=== PATIENT | female | born 1980 | race Two or more races ===

== ENCOUNTER 2020-08-10 09:21 | Emergency (ER) | payer OTHER, SELFPAY ==
[2020-08-10 09:33] VITALS: BP 100/59; PULSE 84; RESP 16; TEMP 36.6; O2SAT 100; BMI 28.3
--- NOTE | 2020-08-10 10:03 | ED.FEMALEGU ---
HPI - Female Genitourinary General Chief complaint: Abdominal Pain <MC Haro - Last Filed: 08/10/20 10:58> Stated complaint: abd pain <MC Haro - Last Filed: 08/10/20 10:58> Time Seen by Provider: 08/10/20 09:53 <MC Haro - Last Filed: 08/10/20 10:58> Source: patient <MC Haro Last Filed: 08/10/20 10:58> Mode of arrival: ambulatory <MC Haro Last Filed: 08/10/20 10:58> Limitations: no limitations <MC Haro Last Filed: 08/10/20 10:58> History of Present Illness HPI Narrative: 40 y/o female presenting with white, thick vaginal discharge for the last 3 days along with external itching & lower abdominal discomfort. She had her menses last week and she states it was much heavier than usual. She is sexually active with the same partner, no known exposure to STI. She denies N/V/D, fevers, upper abdominal pain. She states she called her doctor this morning and could not get in to be seen so she came to the ED for evaluation. <MC Haro - Last Filed: 08/10/20 10:58> Date of Last Menstrual Period: 08/01/20 <MC Haro - Last Filed: 08/10/20 10:58> Related Data : 3 <MC Haro - Last Filed: 08/10/20 10:58> Para: 3 <MC Haro - Last Filed: 08/10/20 10:58> Allergies/Adverse reactions: Allergies Allergy/AdvReac Type Severity Reaction Status Date / Time No Known Allergies Allergy Unverified 06/17/20 15:07 [No Known Allergies*] <MC Haro Last Filed: 08/10/20 10:58> Review of Systems Review of Systems: Constitutional: No Fever, No Chills ENT/Mouth: No sore throat, No Rhinorrhea, No Swallowing Difficulty Eyes: No Eye Pain, No Swelling, No Redness Cardiovascular: No Chest Pain, No SOB, No Orthopnea, No Edema Respiratory: No Cough, No Sputum, No Wheezing, No dyspnea Gastrointestinal: No Nausea, No Vomiting, No Diarrhea, + abdominal Pain (lower), No Hematochezia, No Melena Genitourinary: No Dysuria, No Urinary Frequency, No Hematuria, +vaginal discharge Musculoskeletal: + joint pain (left sciatica, chronic), No Myalgias Skin: No Skin Lesions, No rash Neuro: No Weakness, No Numbness, No Dizziness, No Headache Psych: No Anxiety/Panic, No Depression <MC Haro - Last Filed: 08/10/20 10:58> [facility] Past Medical History Attestation statement: The following information was validated with the patient. <MC Haro - Last Filed: 08/10/20 10:58> Medical History: Medical History Anxiety <MC Haro - Last Filed: 08/10/20 10:58> : 3 <MC Haro - Last Filed: 08/10/20 10:58> Para: 3 <MC Haro - Last Filed: 08/10/20 10:58> Date of Last Menstrual Period: 08/01/20 <MC Haro - Last Filed: 08/10/20 10:58> Social History Social History: Social History Alcohol intake: current Alcohol intake frequency: a few times a month Smoked in Last 30 Days: No Use of substances other than those prescribed or required for medical reasons: No Advance Directives: No Advance Directives Information Provided: No <MC Haro - Last Filed: 08/10/20 10:58> Physical Exam Vital Signs: Vital Signs: Last Vital Signs Temp 97.9 F 08/10/20 09:33 Pulse 84 08/10/20 09:33 Resp 16 08/10/20 09:33 BP 100/59 L 08/10/20 09:33 Pulse Ox 100 08/10/20 09:33 Body Mass Index 28.3 Appearance: Alert. Oriented X3. No acute distress. Eyes: Pupils equal, round and reactive to light. ENT: Pharynx normal. Neck: Normal inspection. Neck supple. CVS: Normal heart rate and rhythm. Pulses normal. Respiratory: No respiratory distress. Breath sounds normal. Abdomen: Soft, obese and nontender. +BS x4 Pelvic exam: normal external genitalia, pelvic exam revealing thick, white discharge, cervical os closed. no CMT. Skin: Skin warm and dry. Normal skin color. Normal skin turgor. No rashes. Extremities: No lower extremity edema. Neuro: Oriented X 3. No motor deficit. No sensory deficit. <MC Haro - Last Filed: 08/10/20 10:58> Vital Signs: Last Vital Signs Temp 97.9 F 08/10/20 09:33 Pulse 84 08/10/20 09:33 Resp 16 08/10/20 09:33 BP 100/59 L 08/10/20 09:33 Pulse Ox 100 08/10/20 09:33 Body Mass Index 28.3 <Freddie Hameed MD - Last Filed: 08/13/20 01:53> Course Course Course Narrative: 40 y/o female presenting with lower abdominal discomfort and vaginal discharge. Abd exam is benign. Pelvic exam revealing thick white vaginal discharge consistent with vulvovaginal candidiasis. Will treat with Diflucan 150 mg x1. UA pending. <MC Haro - Last Filed: 08/10/20 10:58> I have reviewed the chart <Freddie Hameed MD - Last Filed: 08/13/20 01:53> Reevaluation(s) Reevaluation #1: UA and test are negative. Patient is stable for discharge. Advised to return to the ER if symptoms worsen or don't improve. She will attempt to call her PCP again tomorrow. <MC Haro - Last Filed: 08/10/20 10:58> MDM - Female Genitourinary Differential Diagnosis Differential diagnosis: Likely urinary tract infection, bacterial vaginosis, trichomoniasis, cervicitis, ovarian cyst, vaginitis and cystitis <MC Haro - Last Filed: 08/10/20 10:58> Medical Records Attestation: I reviewed the patient's medical records. <MC Haro - Last Filed: 08/10/20 10:58> Lab Data Labs: Lab Results 08/10/20 08/10/2008/10/20 Range/Units 10:15 10:15 10:27 Urine Color YELLOW Urine Appearance CLEAR Urine pH 6.0 (5.0-8.0) Ur Specific [place] >= 1.030 H (1.005-1.025) Urine Protein NEG (NEG-TRACE) MG/DL Urine Glucose (UA) NEG (NEG) MG/DL Urine Ketones NEG (NEG) MG/DL Urine Blood NEG (NEG) Urine Nitrite NEG (NEG) Ur Leukocyte Esterase NEG (NEG) Urine Test NEGATIVE (NEGATIVE) Lalitha species DNA Negative (Negative) Chlam trachomat DNA PCR NOT DETECTED (Not Detect.) Gardnerella DNA Probe Positive A (Negative) N.gonorrhoeae DNA (PCR) NOT DETECTED (Not Detect.) Trichomonas DNA Probe Negative (Negative) <MC Haro - Last Filed: 08/10/20 10:58> Lab Results 08/10/20 08/10/20 08/10/20 Range/Units 10:15 10:15 10:27 Urine Color YELLOW Urine Appearance CLEAR Urine pH 6.0 (5.0-8.0) Ur Specific [place] >= 1.030 H (1.005-1.025) Urine Protein NEG (NEG-TRACE) MG/DL Urine Glucose (UA) NEG (NEG) MG/DL Urine Ketones NEG (NEG) MG/DL Urine Blood NEG (NEG) Urine Nitrite NEG (NEG) Ur Leukocyte Esterase NEG (NEG) Urine Test NEGATIVE (NEGATIVE) Lalitha species DNA Negative (Negative) Chlam trachomat DNA PCR NOT DETECTED (Not Detect.) Gardnerella DNA Probe Positive A (Negative) N.gonorrhoeae DNA (PCR) NOT DETECTED (Not Detect.) Trichomonas DNA Probe Negative (Negative) <Freddie Hameed MD - Last Filed: 08/13/20 01:53> Discharge Plan Discharge Clinical Impression: Candidal vulvovaginitis <MC Haro - Last Filed: 08/10/20 10:58> Patient Disposition: Home, Self-Care <MC Haro - Last Filed: 08/10/20 10:58> Instructions: Yeast Infection (ED) <MC Haro - Last Filed: 08/10/20 10:58> Additional Instructions: You were treated for a probable yeast infection today. No further treatment is needed at this time. You were tested for chlamydia, gonorrhea, trichomonas and bacterial vaginosis (BV). If any of these are positive we will call you with the results and start you on the appropriate antibiotic. No sexual activity until all of your symptoms are completely resolved. Follow up with your doctor this week. If your symptoms don't improve with treatment or worsen, come back to the ER for further evaluation. <MC Haro - Last Filed: 08/10/20 10:58> Interventions: ED Discharge Assessment Last Done: 08/10/20 11:02 <MC Haro - Last Filed: 08/10/20 10:58> Discharge Date/Time: 08/10/20 11:12 <MC Haro - Last Filed: 08/10/20 10:58>
[2020-08-10] MEDS: Fluconazole 150 MG TABLET PO (10:37)
[2020-08-10 10:45] LABS: Appearance Urine CLEAR; Color Urine YELLOW; Glucose Urine UA NEG (NEG); Leukocyte Esterase Urine NEG (NEG); Nitrite Urine NEG (NEG); Specific Gravity - Urine >= 1.030 (1.005-1.025); Urine Blood NEG (NEG); Urine Ketones NEG (NEG); Urine Protein NEG (NEG-TRACE)
[2020-08-10 10:47] LABS: UPreg QC Valid YES; Urine Pregnancy NEGATIVE (NEGATIVE)
[2020-08-10 12:36] LABS: CT PCR NOT DETECTED (Not Detect.); NG PCR NOT DETECTED (Not Detect.)
[2020-08-11 09:06] LABS: BV Int Neg Control Negative (Negative); BV Int Pos Control Positive (Positive)
== END 2020-08-10 11:12 | disposition home or self-care (01) ==
PROVIDERS: Physician Assistant; Emergency Provider Emergency Medicine; PCP Internal Medicine
DX: B37.3 Candidiasis of vulva and vagina (principal); R10.2 Pelvic and perineal pain; L29.8 Other pruritus
CPT/HCPCS: 81003; 81025; 87480; 87491; 87510; 87591; 87660; 96360; 99284

== ENCOUNTER 2020-08-15 11:00 | Emergency (ER) | payer OTHER, SELFPAY ==
[2020-08-15 11:19] VITALS: BP 126/71; PULSE 81; RESP 16; TEMP 36.9; O2SAT 100; BMI 28.1
[2020-08-15 11:26] VITALS: RESP 16
--- NOTE | 2020-08-15 11:45 | ED_ITS ---
HPI - Female Genitourinary General Chief complaint: Abdominal Pain Stated complaint: ABD PAIN Time Seen by Provider: 08/15/20 11:29 Source: patient Mode of arrival: ambulatory Limitations: no limitations History of Present Illness HPI Narrative: 40yoF c PMHx of anxiety presenting to the ED c c/o suprapubic abdominal pain/bloating/lower back pain with associated thick white malodorous discharge for over a week. Reports she was seen in the ED for the same thing a week ago and was diagnosed with a yeast infection and given Diflucan and reports no symptomatic relief. Denies any additional complaints or concerns at this time. Related Data Previous Rx's Medication Instructions Recorded acetaminophen-codeine 1 tab PO Q8H PRN #10 tab 08/15/20 ibuprofen 800 mg PO Q8H PRN #14 tab 08/15/20 metronidazole [Flagyl] 500 mg PO BID 7 Days #14 tab 08/15/20 Allergies Allergy/AdvReac Type Severity Reaction Status Date / Time No Known Allergies Allergy Unverified 06/17/20 15:07 [No Known Allergies*] Review of Systems Review of Systems: Constitutional : No Weight loss, No Fever, No Chills, No Night Sweats, No Fatigue, NoMalaise ENT/Mouth: No ear pain, No sore throat, No Difficulty swallowing Cardiovascular : No Chest Pain, No SOB, No Dyspnea on Exertion, No Orthopnea, NoEdema, No Palpitations Respiratory : No Cough, No Sputum, No Wheezing, No Dyspnea Gastrointestinal : No Nausea, No Vomiting, No Diarrhea, + abdominal Pain, No Hematochezia, No Melena Genitourinary : No irregular bleeding, No Dysuria, No Urinary Frequency, No Hematuria, No Urinary Incontinence, No Urgency, No Flank Pain, + Vaginal discharge Musculoskeletal : No joint pain, No Myalgias, No Joint Swelling Skin : No Skin Lesions, No rash Neuro : No Weakness, No Numbness, No Paresthesias, No Loss of Consciousness, NoDizziness, No Headache Psych : No Social Issues, Heme/Lymph: No Bruising, No Bleeding,No Lymphadenopathy Endocrine : No Polyuria, No Polydipsia, No Temperature Intolerance Yes all other systems are reviewed and are negative PMFSH Past Medical History Attestation statement: The following information was validated with the patient. Medical History Anxiety Social History Social History Alcohol intake: never Smoking Status: Never smoker Use of substances other than those prescribed or required for medical reasons: No Advance Directives: No Advance Directives Information Provided: No Physical Exam Vital Signs: Vital Signs: Last Vital Signs Temp 98.4 F 08/15/20 11:19 Pulse 81 08/15/20 11:19 Resp 16 08/15/20 11:26 BP 126/71 08/15/20 11:19 Pulse Ox 100 08/15/20 11:19 Body Mass Index 28.1 vital signs have been reviewed as normal and appeared to be correct. Blood pressure normal. Heart rate normal. Respiration rate normal. Temperature normal. Oxygen saturation normal. Appearance: Alert. Oriented X3. No acute distress. Head: Normal external exam. Normocephalic. Eyes: PERRLA. EOMI. Conjunctiva and sclera normal. Eyelids normal. ENT: Pharynx normal. Uvula midline. Moist mucous membranes. No trismus noted. No drooling noted. No muffled voice noted. Neck: Normal inspection. Neck supple. FROM. No adenopathy. Thyroid Normal. No meningeal signs. No neck mass noted. CVS: Normal heart rate and rhythm. Heart sound normal. No murmurs noted. Pulses normal throughout. Respiratory: No respiratory distress. Painless inspiration. Breath sounds normal. No wheezes/rales/rhonchi noted. Chest nontender. No accessory muscle usage noted or decreased air movement noted. Abdomen: Soft and nontender. Bowel sounds normal in all 4 quadrants. No distention noted. No organomegaly noted. No visible injury noted. Back: No CVA tenderness. Full range of motion noted. Skin: Skin warm and dry. Normal skin color. Normal skin turgor. No rashes/lesions/lacerations noted. Extremities: Extremities exhibit normal range of motion. Extremities nont [place]. Neuro: Oriented X 3. No motor deficit. No sensory deficit. Reflexes normal. Course Course Course Narrative: 11:40AM - 40yoF c PMHx of anxiety presenting to the ED c c/o suprapubic abdominal pain/bloating/lower back pain with associated thick white malodorous discharge for over a week. Reports she was seen in the ED for the same thing a week ago and was diagnosed with a yeast infection and given Diflucan and reports no symptomatic relief. - I reviewed the patient's cultures and urine and her urine was within normal limits, UHCG normal, she was positive for bacterial vaginosis. Negative for candidiasis, gonorrhea, chlamydia and Trichomonas - therefore at this time will treat for bacterial vaginosis and instructions return if any new or worsening symptoms to follow-up with primary care provider. Patient understands agrees the plan. MDM - Female Genitourinary Medical Records Attestation: I reviewed the patient's medical records. Lab Data Attestation: I reviewed the patient's lab results. Discharge Plan Discharge Clinical Impression: Bacterial vaginosis Patient Disposition: Home, Self-Care Instructions: Bacterial Vaginosis (ED) Prescriptions: New metronidazole [Flagyl] 500 mg tablet 500 mg PO BID 7 Days Qty: 14 RF: 0 acetaminophen-codeine 300-30 mg tablet 1 tab PO Q8H PRN (Reason: pain) Qty: 10 RF: 0 ibuprofen 800 mg tablet 800 mg PO Q8H PRN (Reason: pain) Qty: 14 RF: 0 Referrals: Physician,Unknown [Primary Care Provider] - 2 days (YOUR pcp) Stand Alone Forms: Work/School Release Print Language: Sudanese
[2020-08-15] MEDS: metroNIDAZOLE 500 MG TABLET PO (11:55)
[2020-08-15 12:10] LABS: Glucose Urine UA NEG (NEG); Leukocyte Esterase Urine NEG (NEG); Nitrite Urine NEG (NEG); Urine Blood NEG (NEG); Urine Ketones NEG (NEG); Urine Protein NEG (NEG-TRACE)
[2020-08-15 12:13] LABS: Appearance Urine CLEAR; Color Urine YELLOW; UPreg QC Valid YES; Urine Pregnancy NEGATIVE (NEGATIVE)
== END 2020-08-15 12:09 | disposition home or self-care (01) ==
PROVIDERS: Physician Assistant Medical; Emergency Provider Emergency Medicine
DX: N76.0 Acute vaginitis (principal); R10.9 Unspecified abdominal pain; M54.5 Low back pain; Z79.899 Other long term (current) drug therapy
CPT/HCPCS: 81003; 81025; 99283; 99284

== ENCOUNTER 2020-08-31 09:53 | Emergency (ER) | payer OTHER, SELFPAY ==
--- NOTE | 2020-08-31 10:01 | ED.ABDPAIN ---
HPI - Abdominal Pain General Chief Complaint: Abdominal Pain Stated Complaint: abd pain Time Seen by Provider: 08/31/20 10:01 Source: patient Mode of arrival: ambulatory Limitations: no limitations History of Present Illness HPI narrative: seen here on 08/10 and 08/15 treated for BV and yeast infection review of patient's cultures and urine were within normal limits, UHCG normal, she was positive for bacterial vaginosis. Negative for candidiasis, gonorrhea, chlamydia and Trichomonas, states she took all of her medications but she still has lower abdominal pain and some vaginal itching with back pain now MD elicited complaint: abdominal pain Pertinent past history: none Onset (ago): week(s) (few) Pain Consistency: constant Location: suprapubic Severity: moderate Quality: aching Radiation: back Migration to: no migration Exacerbating factors: movement Relieving factors: nothing Context: recent antibiotic use (finished flagyl for BV) Associated symptoms: nausea Related Data Previous Rx's Medication Instructions Recorded acetaminophen-codeine 1 tab PO Q8H PRN #10 tab 08/15/20 ibuprofen 800 mg PO Q8H PRN #14 tab 08/15/20 metronidazole [Flagyl] 500 mg PO BID 7 Days #14 tab 08/15/20 cyclobenzaprine 10 mg PO TID PRN #14 tab 08/31/20 Allergies Allergy/AdvReac Type Severity Reaction Status Date / Time No Known Allergies Allergy Unverified 06/17/20 15:07 [No Known Allergies*] Review of Systems Review of Systems Constitutional : No Weight loss, No Fever, No Chills ENT/Mouth : No sore throat, No Rhinorrhea Eyes: No Swelling, No Redness Cardiovascular : No Chest Pain, No SOB, NoEdema Respiratory : No Cough, No Sputum, No Wheezing Gastrointestinal : Positive Nausea, no Vomiting, no Diarrhea, positive abdominal Pain, No Hematochezia, No Melena Genitourinary : No Dysuria, No Urinary Frequency, No Hematuria, No Urgency , positive vaginal itching, scant thin discharge Musculoskeletal : No joint pain, No Myalgias, No Joint Swelling, positive back pain Skin : No Skin Lesions, No rash Neuro : No Weakness, No Numbness, No Dizziness, No Headache All other systems reviewed and are negative. Physical Exam Vital Signs: Vital Signs: Last Vital Signs Temp 99.3 F 08/31/20 10:10 Pulse 73 08/31/20 10:10 Resp 18 08/31/20 10:10 BP 109/58 L 08/31/20 10:10 Pulse Ox 100 08/31/20 10:10 Body Mass Index 28.1 Appearance: Alert. Oriented X3. No acute distress. Eyes: Pupils equal, round and reactive to light. ENT: Pharynx normal. Neck: Normal inspection. Neck supple. CVS: Normal heart rate and rhythm. Pulses normal. Respiratory: No respiratory distress. Breath sounds normal. Abdomen: Soft and mild suprapubic ttp with no rebound or guarding Back: ttp along bilateral lower lumbar area Skin: Skin warm and dry. Normal skin color. Normal skin turgor. Extremities: No lower extremity edema. No calf ttp Neuro: Oriented X 3. No motor deficit. No sensory deficit. Course Course Course Narrative: no acute findings at this time, not toxic, will need MRI as outpatient and refer to [facility] for her pain MDM - Abdominal Pain MDM Narrative Medical decision making narrative: 40 yo female with 3rd visit in a month for suprapubic pain now with radiation into back - review of cultures overall negative other than BV for which she was treated, given duration of complaint at this time will obtain CT scan to look for mass, IV Toradol for pain, dispo per results and findings. Lab Data Result diagrams: 08/31/20 10:33 08/31/20 10:33 Labs: Lab Results 08/31/20 08/31/20 08/31/20 Range/Units 10:33 10:33 10:33 WBC 5.4 (4.8-10.8) X10*3/uL RBC 4.08 L (4.20-5.50) X10*6/uL Hgb 11.6 L (12.0-16.0) g/dl Hct 35.4 L (37-47) % MCV 86.8 (80-98) fL MCH 28.4 (27.0-33.0) pg MCHC 32.8 (31.0-35.0) g/dl RDW 12.6 (11.0-16.0) % Plt Count 165 (160-400) X10*3/uL MPV 11.3 (9.4-12.3) fL Immature Gran % (Auto) 0.2 (0.0-0.4) % Neut % (Auto) 70.2 (45-73) % Lymph % (Auto) 20.1 (20-40) % [place] % (Auto) 8.8 (2-11) % Eos % (Auto) 0.7 (0-4) % Baso % (Auto) 0.0 (0-2) % Lymph # (Auto) 1.1 L (1.2-4.9) X10*3/uL [place] # (Auto) 0.5 (0.1-1.2) X10*3/uL Eos # (Auto) 0.0 (0.0-0.4) X10*3/uL Baso # (Auto) 0.0 (0.0-0.2) X10*3/uL Abs Immat Gran (auto) 0.01 (0.00-0.03) X10*3/uL Absolute Neuts (auto) 3.8 (2.0-8.3) X10*3/uL Absolute Nucleated RBC 0.000 (0.0-0.012) X10*3/uL Nucleated RBC % (auto) 0.0 (0.0-0.2) /100WBC Hold Blue Top SEE NOTE Sodium 137 (135-145) mmol/L Potassium 4.1 (3.3-5.1) mmol/l Chloride 105 (96-108) mmol/L Carbon Dioxide 24 (22-29) mmol/L Anion Gap 12 (12-20) BUN 13 (9-16) mg/dL Creatinine 0.78 (0.5-1.4) mg/dL Estim Creat Clear Calc 106.4 Estimated GFR > 60 Random Glucose 93 (60-115) mg/dL Calcium 8.3 L (8.4-10.2) mg/dL Magnesium 2.1 (1.6-2.6) mg/dL Total Bilirubin 0.4 (0.0-1.0) mg/dL Direct Bilirubin < 0.2 (0.0-0.5) mg/dL AST 18 (5-31) U/L ALT 17 (0-31) U/L Alkaline Phosphatase 37 L (39-117) U/L Total Protein 6.3 L (6.5-8.0) g/dL Albumin 4.1 (3.5-5.0) g/dL Lipase 15 (8-78) U/L Beta HCG, Quant < 2 mIU/mL Urine Color Urine Appearance Urine pH (5.0-8.0) Ur Specific [place] (1.005-1.025) Urine Protein (NEG-TRACE) MG/DL Urine Glucose (UA) (NEG) MG/DL Urine Ketones (NEG) MG/DL Urine Blood (NEG) Urine Nitrite (NEG) Ur Leukocyte Esterase (NEG) 08/31/20 Range/Units 11:13 WBC (4.8-10.8) X10*3/uL RBC (4.20-5.50) X10*6/uL Hgb (12.0-16.0) g/dl Hct (37-47) % MCV (80-98) fL MCH (27.0-33.0) pg MCHC (31.0-35.0) g/dl RDW (11.0-16.0) % Plt Count (160-400) X10*3/uL MPV (9.4-12.3) fL Immature Gran % (Auto) (0.0-0.4) % Neut % (Auto) (45-73) % Lymph % (Auto) (20-40) % [place] % (Auto) (2-11) % Eos % (Auto) (0-4) % Baso % (Auto) (0-2) % Lymph # (Auto) (1.2-4.9) X10*3/uL [place] # (Auto) (0.1-1.2) X10*3/uL Eos # (Auto) (0.0-0.4) X10*3/uL Baso # (Auto) (0.0-0.2) X10*3/uL Abs Immat Gran (auto) (0.00-0.03) X10*3/uL Absolute Neuts (auto) (2.0-8.3) X10*3/uL Absolute Nucleated RBC (0.0-0.012) X10*3/uL Nucleated RBC % (auto) (0.0-0.2) /100WBC Hold Blue Top Sodium (135-145) mmol/L Potassium (3.3-5.1) mmol/l Chloride (96-108) mmol/L Carbon Dioxide (22-29) mmol/L Anion Gap (12-20) BUN (9-16) mg/dL Creatinine (0.5-1.4) mg/dL Estim Creat Clear Calc Estimated GFR Random Glucose (60-115) mg/dL Calcium (8.4-10.2) mg/dL Magnesium (1.6-2.6) mg/dL Total Bilirubin (0.0-1.0) mg/dL Direct Bilirubin (0.0-0.5) mg/dL AST (5-31) U/L ALT (0-31) U/L Alkaline Phosphatase (39-117) U/L Total Protein (6.5-8.0) g/dL Albumin (3.5-5.0) g/dL Lipase (8-78) U/L Beta HCG, Quant mIU/mL Urine Color YELLOW Urine Appearance HAZY Urine pH 7.0 (5.0-8.0) Ur Specific [place] 1.020 (1.005-1.025) Urine Protein NEG (NEG-TRACE) MG/DL Urine Glucose (UA) NEG (NEG) MG/DL Urine Ketones NEG (NEG) MG/DL Urine Blood NEG (NEG) Urine Nitrite NEG (NEG) Ur Leukocyte Esterase NEG (NEG) Discharge Plan Discharge Clinical Impression: Pelvic pain Patient Disposition: Home, Self-Care Instructions: Pelvic Pain (ED) Additional Instructions: return to ED for any worsening symptoms or concerns CT scan findings, your doctor will need to order an outpatient MRI to further assess, your pancreas labs were normal, 5 x 10 mm low-attenuation lesion in the head of the pancreas, question representing a cyst. This could be better assessed with MR of the pancreas with and without contrast and MRCP. Mild diverticulosis of the colon. No evidence of diverticulitis. Prescriptions: New cyclobenzaprine 10 mg tablet 10 mg PO TID PRN (Reason: muscle spasm) Qty: 14 RF: 0 No Action metronidazole [Flagyl] 500 mg tablet 500 mg PO BID 7 Days Qty: 14 RF: 0 acetaminophen-codeine 300-30 mg tablet 1 tab PO Q8H PRN (Reason: pain) Qty: 10 RF: 0 ibuprofen 800 mg tablet 800 mg PO Q8H PRN (Reason: pain) Qty: 14 RF: 0 Referrals: Physician,Unknown [Primary Care Provider] - 2 days Stand Alone Forms: Work/School Release [facility] Past Medical History Attestation statement: The following information was validated with the patient. Source: old records reviewed Medical History (Updated 08/31/20 @ 13:06 by Estefanía Estrada DO) Anxiety Surgical History (Updated 08/31/20 @ 10:10 by Estefanía Estrada DO) H/O tubal ligation Hx of breast reduction, elective Social History Social History Alcohol intake: never Smoking Status: Never smoker Use of substances other than those prescribed or required for medical reasons: Yes Substance Use Type: Marijuana Substance Use Frequency: Socially Advance Directives: No Advance Directives Information Provided: No
--- NOTE | 2020-08-31 10:08 | CT_ITS ---
EXAMINATION: CT ABDOMEN AND PELVIS WITH CONTRAST CLINICAL INFORMATION: Abdominal pain COMPARISON: None TECHNIQUE: Multidetector volumetric images were obtained from the superior aspect of the liver through the pubic symphysis following administration 85 mL of Omnipaque 350 intravenous contrast. Sagittal and coronal reformatted images were obtained on the technologist's workstation. Oral contrast: Yes This CT examination was performed using dose optimization techniques as appropriate, variously including the following: *Automated exposure control *Adjustment of mA and/or kV according to patient size (this includes techniques or standardized protocols for targeted exams where dose is matched to indication/reason for exam; i.e. extremities or head) *Use of iterative reconstruction technique DLP: 701 mGy-cm FINDINGS: LUNG BASES: The visualized lung bases are unremarkable. LIVER, GALLBLADDER, AND BILIARY TREE: The liver is normal in size, shape, and attenuation. No focal hepatic lesion or biliary ductal dilatation is present. The gallbladder is unremarkable with no evidence of radiopaque gallstones, gallbladder wall thickening, or obvious pericholecystic inflammatory changes. PANCREAS: There is a 5 x 10 mm low-attenuation lesion in the uncinate process of the head of the pancreas axial image 35 series 2 questionable for a cyst. Pancreas is otherwise unremarkable. SPLEEN: Unremarkable. ADRENAL GLANDS: Unremarkable. KIDNEYS AND URETERS: The kidneys are normal in size, shape, and attenuation. No hydronephrosis, hydroureter, or calculi seen. No perinephric stranding. BLADDER: Not optimally distended. GASTROINTESTINAL TRACT: There is mild diverticulosis of the colon. No evidence of diverticulitis is seen. The small and large bowel is otherwise unremarkable. The appendix is unremarkable. The stomach is unremarkable. ABDOMINAL WALL: No significant hernia is appreciated. LYMPH NODES: Normal. VASCULAR: Unremarkable. PELVIC VISCERA: Unremarkable. OSSEOUS STRUCTURES: There are degenerative changes at the L4-L5 and L5-S1 disc space levels. CT/CT abdomen pelvis w con IMPRESSION: 5 x 10 mm low-attenuation lesion in the head of the pancreas, question representing a cyst. This could be better assessed with MR of the pancreas with and without contrast and MRCP. Mild diverticulosis of the colon. No evidence of diverticulitis.
[2020-08-31 10:10] VITALS: BP 109/58; PULSE 73; RESP 18; TEMP 37.4; O2SAT 100; BMI 28.1
[2020-08-31] MEDS: 0.9 % Sodium Chloride 1,000 ML 999 ML IVCONT (10:39)
[2020-08-31] MEDS: Ketorolac Tromethamine 30 MG/ML VIAL IVPUSH (10:39)
[2020-08-31 10:48] LABS: MANUAL DIFF FLAG NO
[2020-08-31 10:51] LABS: Eosinophils Percent Auto 0.7 % (0-4); Hematocrit 35.4 % (37-47); Hemoglobin 11.6 g/dl (12.0-16.0); Imm Gran Abs Auto 0.01 X10*3/uL (0.00-0.03); Imm Gran Pct Auto 0.2 % (0.0-0.4); Lymphocytes Absolute Auto 1.1 X10*3/uL (1.2-4.9); Lymphocytes Percent Auto 20.1 % (20-40); Mean Corpuscular HGB Conc 32.8 g/dl (31.0-35.0); Mean Corpuscular Hemoglobin 28.4 pg (27.0-33.0); Mean Corpuscular Volume 86.8 fL (80-98); Mean Platelet Volume 11.3 fL (9.4-12.3); Monocytes Absolute Auto 0.5 X10*3/uL (0.1-1.2); Monocytes Percent Auto 8.8 % (2-11); Neutrophils Absolute Auto 3.8 X10*3/uL (2.0-8.3); Neutrophils Percent Auto 70.2 % (45-73); Platelet Count 165 X10*3/uL (160-400); Red Blood Count 4.08 X10*6/uL (4.20-5.50); Red Cell Distribution Width 12.6 % (11.0-16.0); White Blood Count 5.4 X10*3/uL (4.8-10.8)
--- NOTE | 2020-08-31 11:25 | PC.NURSE ---
pt reports some improvement after the medication, pain at 8/10
[2020-08-31 11:38] LABS: Alanine Aminotransferase 17 U/L (0-31); Albumin Level 4.1 g/dL (3.5-5.0); Alkaline Phosphatase 37 U/L (39-117); Anion Gap 12 (12-20); Aspartate Amino Transferase 18 U/L (5-31); Bilirubin Direct < 0.2 mg/dL (0.0-0.5); Bilirubin Total 0.4 mg/dL (0.0-1.0); Blood Urea Nitrogen 13 mg/dL (9-16); Calcium 8.3 mg/dL (8.4-10.2); Carbon Dioxide 24 mmol/L (22-29); Chloride 105 mmol/L (96-108); Creatinine Clr Calc Pharmacy 106.4; Estimated Glomerular Filt Rate > 60; Glucose Random 93 mg/dL (60-115); Lipase 15 U/L (8-78); Magnesium 2.1 mg/dL (1.6-2.6); Potassium 4.1 mmol/l (3.3-5.1); Sodium 137 mmol/L (135-145); Total Protein 6.3 g/dL (6.5-8.0)
[2020-08-31 11:44] LABS: HCG Quantitative < 2 mIU/mL
[2020-08-31 11:45] LABS: Glucose Urine UA NEG (NEG); Leukocyte Esterase Urine NEG (NEG); Nitrite Urine NEG (NEG); Urine Blood NEG (NEG); Urine Ketones NEG (NEG); Urine Protein NEG (NEG-TRACE)
[2020-08-31 11:48] LABS: Appearance Urine HAZY; Color Urine YELLOW
[2020-08-31] MEDS: iohexoL 350 MG/ML 100 ML INFUS..BTL 85 ML IV (12:30)
== END 2020-08-31 13:21 | disposition home or self-care (01) ==
PROVIDERS: Emergency Provider Emergency Medicine
DX: R10.2 Pelvic and perineal pain (principal)
CPT/HCPCS: 36415; 74177; 80048; 80076; 81003; 83690; 83735; 84702; 85025; 96361; 96374; 99284; J1885; Q9967

== ENCOUNTER 2020-09-12 00:01 | Emergency (ER) | payer OTHER, SELFPAY ==
[2020-09-12 00:06] VITALS: BP 109/75; PULSE 88; RESP 18; TEMP 37.1; O2SAT 100; BMI 29.4
--- NOTE | 2020-09-12 00:54 | ED.ABDPAIN ---
HPI - Abdominal Pain General Chief Complaint: Abdominal Pain Stated Complaint: ABD PAIN Time Seen by Provider: 09/12/20 00:40 Source: patient Mode of arrival: ambulatory Limitations: no limitations History of Present Illness HPI narrative: Patient chronic abdominal pain for more than 1 year usually localized in upper abdomen smokes marijuana gets better with hot shower very anxious been here multiple times had a CT scan done on 08/31 which shows ? 5 x 10 mm cyst in the head of the pancreas with normal labs patient complains of nausea no vomiting no diarrhea denies any alcohol use not taking any medication for pain MD elicited complaint: abdominal pain Pertinent past history: none Onset (ago): year(s) (1) Pain Consistency: constant Location: epigastric Severity: mild Quality: dull Radiation: none Migration to: no migration Exacerbating factors: nothing Relieving factors: nothing Associated symptoms: nausea Related Data Previous Rx's Medication Instructions Recorded acetaminophen-codeine 1 tab PO Q8H PRN #10 tab 08/15/20 ibuprofen 800 mg PO Q8H PRN #14 tab 08/15/20 metronidazole [Flagyl] 500 mg PO BID 7 Days #14 tab 08/15/20 cyclobenzaprine 10 mg PO TID PRN #14 tab 08/31/20 Allergies Allergy/AdvReac Type Severity Reaction Status Date / Time No Known Allergies Allergy Unverified 06/17/20 15:07 [No Known Allergies*] Review of Systems Review of Systems REVIEW OF SYSTEMS: Pertinent positives and negatives are stated above in the history. GEN: no fevers, chills, fatigue, anxiety++ HEENT: no nasal congestion, sore throat, ear pain NEURO: no headache, dizziness, focal weakness PULM: no cough, shortness of breath CV: no chest pain, palpitations, LE edema ABD: no vomiting, diarrhea : no dysuria, urgency, frequency SKIN: no rash ROS otherwise negative x 10 Physical Exam Vital Signs: Vital Signs: Last Vital Signs Temp 98.7 F 09/12/20 00:06 Pulse 88 09/12/20 00:06 Resp 18 09/12/20 00:06 BP 109/75 09/12/20 00:06 Pulse Ox 100 09/12/20 00:06 Body Mass Index 29.4 Appearance: Alert. Oriented X3. No acute distress. Eyes: Pupils equal, round and reactive to light. ENT: Pharynx normal. Neck: Normal inspection. Neck supple. CVS: Normal heart rate and rhythm. Pulses normal. Respiratory: No respiratory distress. Breath sounds normal. Abdomen: Soft and mild tenderness in epigastric area no rebound tenderness/guarding bowel sounds are present no mass palpable no cva tenderness Skin: Skin warm and dry. Normal skin color. Normal skin turgor. Extremities: No lower extremity edema. Good range of movement Neuro: Oriented X 3. No motor deficit. No sensory deficit. Course Course Course Narrative: Patient feeling better after medications will discharge her home on [place] Carafate and Prilosec advised to follow with geotechnical operating engineer and to stop smoking marijuana Discharge Plan Discharge Prescriptions: No Action metronidazole [Flagyl] 500 mg tablet 500 mg PO BID 7 Days Qty: 14 RF: 0 acetaminophen-codeine 300-30 mg tablet 1 tab PO Q8H PRN (Reason: pain) Qty: 10 RF: 0 ibuprofen 800 mg tablet 800 mg PO Q8H PRN (Reason: pain) Qty: 14 RF: 0 cyclobenzaprine 10 mg tablet 10 mg PO TID PRN (Reason: muscle spasm) Qty: 14 RF: 0 PMFSH Past Medical History Medical History Anxiety Surgical History H/O tubal ligation Hx of breast reduction, elective Social History Social History Alcohol intake: never Smoking Status: Never smoker Smoked in Last 30 Days: No Use of substances other than those prescribed or required for medical reasons: No Substance Use Type: Marijuana Advance Directives: No Advance Directives Information Provided: No
[2020-09-12] MEDS: LORazepam 1 MG TABLET PO (01:19)
[2020-09-12] MEDS: Omeprazole 40 MG CAPSULE.DR PO (01:19)
[2020-09-12] MEDS: Dicyclomine HCl 10 MG CAPSULE 20 MG PO (01:19)
[2020-09-12] MEDS: Magnesium Hydrox/Alum Hydrox 30 ML ORAL.SUSP PO (01:19)
[2020-09-12] MEDS: Lidocaine HCl Viscous 2 % 15 ML SOLUTION MUCOUS MEM (01:20)
--- NOTE | 2020-09-12 01:27 | PC.NURSE ---
PT A&O, NO SOB OR CHEST PAIN, PROVIDER IN TO ASSESS PT. PT MEDICATED
--- NOTE | 2020-09-12 01:33 | PC.NURSE ---
PROVIDER IN TO DISCUSS DISCHARGE PLAN AND OUT PATIENT TREATMENT/FOLLOW-UP.
== END 2020-09-12 01:55 | disposition home or self-care (01) ==
PROVIDERS: Emergency Provider Internal Medicine
DX: R10.10 Upper abdominal pain, unspecified (principal); F41.1 Generalized anxiety disorder; F43.0 Acute stress reaction; R11.2 Nausea with vomiting, unspecified; Z79.899 Other long term (current) drug therapy
CPT/HCPCS: 99283; 99284

== ENCOUNTER 2020-09-19 10:46 | Emergency (ER) | payer OTHER, SELFPAY ==
--- NOTE | 2020-09-19 | ECG_ITS ---
Test Reason : CHEST PAIN Blood Pressure : / mmHG Vent. Rate : 076 BPM Atrial Rate : 076 BPM P-R Int : 142 ms QRS Dur : 076 ms QT Int : 384 ms P-R-T Axes : 048 063 051 degrees QTc Int : 432 ms Normal sinus rhythm Normal ECG No previous ECGs available Referred By: Generic ED Physician Electronically Signed By:Victoriano Lenz
[2020-09-19 11:13] VITALS: BP 142/88; PULSE 88; RESP 18; TEMP 36.7; O2SAT 100; BMI 29.7
--- NOTE | 2020-09-19 11:15 | XR_ITS ---
EXAMINATION: XR CHEST CLINICAL INFORMATION: Chest pain COMPARISON: None TECHNIQUE: Frontal view of the chest was obtained. FINDINGS: No significant abnormality is noted involving the heart, lungs, mediastinum, bony thorax or soft tissues. XR/XR chest 1V IMPRESSION: Normal chest x-ray.
--- NOTE | 2020-09-19 11:31 | ED_ITS ---
HPI - Chest Pain General Chief Complaint: Anxiety Stated Complaint: chest pain Time Seen by Provider: 09/19/20 11:15 Source: patient Mode of arrival: ambulatory Limitations: no limitations History of Present Illness MD complaint: chest pain and chest heaviness Pertinent past history: other (anxiety) Onset (ago): day(s) (2) Timing of current episode: constant Onset: during rest and during exertion Pain location: left chest Pain radiation: left arm Severity: similar to previous episodes (has chest pain when out of her ativan) Quality: aching and heaviness Relieving factors: nothing Exacerbating factors: stress Context: other (lost her ativan 1mg BID at hotel after her daughter's birthday) Associated symptoms: sense of impending doom Treatment prior to arrival: none Related Data Previous Rx's Medication Instructions Recorded acetaminophen-codeine 1 tab PO Q8H PRN #10 tab 08/15/20 ibuprofen 800 mg PO Q8H PRN #14 tab 08/15/20 metronidazole [Flagyl] 500 mg PO BID 7 Days #14 tab 08/15/20 cyclobenzaprine 10 mg PO TID PRN #14 tab 08/31/20 dicyclomine 20 mg PO TID PRN #30 tab 09/12/20 omeprazole 40 mg PO DAILY #30 cap 09/12/20 sucralfate [Carafate] 1 g PO BID #60 tab 09/12/20 lorazepam [Ativan] 1 mg PO BID PRN 5 Days tab 09/19/20 lorazepam [Ativan] 1 mg PO BID PRN 5 Days #10 tab 09/19/20 Allergies Allergy/AdvReac Type Severity Reaction Status Date / Time No Known Allergies Allergy Unverified 06/17/20 15:07 [No Known Allergies*] Review of Systems Review of Systems: Constitutional : No Weight loss, No Fever, No Chills ENT/Mouth : No sore throat, No Rhinorrhea Eyes: No Eye Pain, No Swelling Cardiovascular : pos Chest Pain, pos SOB, no Dyspnea on Exertion, No Orthopnea, No Edema, No Palpitations Respiratory : No Cough, No Sputum Gastrointestinal : pos Nausea, No Vomiting, No Diarrhea, No abdominal Pain, No Hematochezia, No Melena Genitourinary : No Dysuria, No Urinary Frequency Musculoskeletal : No joint pain, No Myalgias, No Joint Swelling Skin : No Skin Lesions, No rash Neuro : No Weakness, No Numbness, No Dizziness, No Headache Psych : pos Anxiety/Panic, No Depression Heme/Lymph: No Bruising, No Lymphadenopathy Endocrine : No Polyuria, No Polydipsia All other systems reviewed and are negative [facility] Past Medical History Attestation statement: The following information was validated with the patient. Medical History Anxiety Surgical History H/O tubal ligation Hx of breast reduction, elective Social History Social History Alcohol intake: never Smoking Status: Never smoker Substance Use Type: Marijuana Advance Directives: No Advance Directives Information Provided: Yes Physical Exam Vital Signs: Vital Signs: Last Vital Signs Temp 98.1 F 09/19/20 11:13 Pulse 88 09/19/20 11:13 Resp 18 09/19/20 11:13 BP 142/88 H 09/19/20 11:13 Pulse Ox 100 09/19/20 11:13 Body Mass Index 29.7 Appearance: Alert. Oriented X3. No acute distress. Anxious, tearful Eyes: Pupils equal, round and reactive to light. ENT: Pharynx normal. Neck: Normal inspection. Neck supple. CVS: Normal heart rate and rhythm. Pulses normal. Respiratory: No respiratory distress. Breath sounds normal. Abdomen: Soft and nontender. Skin: Skin warm and dry. Normal skin color. Normal skin turgor. Extremities: No lower extremity edema. No calf ttp Neuro: Oriented X 3. No motor deficit. No sensory deficit. Course Course Course Narrative: negative EKG, CXR and troponin stable for DC MDM - Chest Pain MDM Narrative Medical decision making narrative: 40 yo female with hx of anxiety - lost her ativan at hotel, here crying and very anxious - has chest pain but has had it in the past wtih her anxiety, suspect anxiety, PERC negative, EKG, CXR, troponin x 1 if negative stable for DC ECG Data ECG #1: Attestation: I personally reviewed and interpreted this ECG as follows: ECG interpretation date: 09/19/20 ECG interpretation time: 11:32 Interpretation: Rate: 76 Rhythm: NSR Arthur: normal Normal P waves. Normal VERA. Normal QRS complex. ST T wave : normal no BHUPINDER qTC: normal prior studies: no acute ischemia The study has been interpreted contemporaneously by me. . Discharge Plan Discharge Clinical Impression: Anxiety, Atypical chest pain Patient Disposition: Home, Self-Care Instructions: Chest Pain (ED), Anxiety (ED) Additional Instructions: return to ED for any worsening symptoms or concerns Prescriptions: New lorazepam [Ativan] 1 mg tablet 1 mg PO BID PRN (Reason: anxiety) 5 Days RF: 0 lorazepam [Ativan] 1 mg tablet 1 mg PO BID PRN (Reason: anxiety) 5 Days Qty: 10 RF: 0 No Action metronidazole [Flagyl] 500 mg tablet 500 mg PO BID 7 Days Qty: 14 RF: 0 acetaminophen-codeine 300-30 mg tablet 1 tab PO Q8H PRN (Reason: pain) Qty: 10 RF: 0 ibuprofen 800 mg tablet 800 mg PO Q8H PRN (Reason: pain) Qty: 14 RF: 0 cyclobenzaprine 10 mg tablet 10 mg PO TID PRN (Reason: muscle spasm) Qty: 14 RF: 0 omeprazole 40 mg capsule,delayed release(DR/EC) 40 mg PO DAILY Qty: 30 RF: 0 dicyclomine 20 mg tablet 20 mg PO TID PRN (Reason: abdominal pain) Qty: 30 RF: 0 sucralfate [Carafate] 1 gram tablet 1 g PO BID Qty: 60 RF: 0 Referrals: Caitlin Hanson MD [Primary Care Provider] - 2 days (refill lorazepam Rx)
[2020-09-19] MEDS: LORazepam 1 MG TABLET PO (11:56)
--- NOTE | 2020-09-19 11:57 | PC.NURSE ---
Pt reports that she has been off of her ativan for 24 hours after loosing it at the hotel. She claims to have lost about 3 weeks worth of the medication. She presents today with anxiety. She is tearful and nervous about the risk of seizures. PO ativan given. Pt denies si at this time.
[2020-09-19 12:32] VITALS: BP 111/78; PULSE 82; RESP 18; TEMP 37; O2SAT 100
[2020-09-19 12:48] LABS: Troponin-I High Sensitivity < 3.5 ng/L (<3.5-17.0)
== END 2020-09-19 13:10 | disposition home or self-care (01) ==
PROVIDERS: Emergency Provider Emergency Medicine; PCP Internal Medicine
DX: R07.89 Other chest pain (principal); F41.9 Anxiety disorder, unspecified; Z79.899 Other long term (current) drug therapy
CPT/HCPCS: 71045; 84484; 93005; 99283

== ENCOUNTER 2020-10-17 13:43 | Emergency (ER) | payer OTHER, SELFPAY ==
[2020-10-17 14:57] VITALS: BP 147/42; PULSE 74; RESP 18; TEMP 36.3; O2SAT 100; BMI 29.0
--- NOTE | 2020-10-17 18:13 | ED_ITS ---
HPI - General Adult General Chief complaint: Abdominal Pain Stated complaint: Abdominal Pain Time Seen by Provider: 10/17/20 15:28 Source: patient Mode of arrival: ambulatory Limitations: no limitations History of Present Illness HPI narrative: Patient comes emergency room complaining of burning with urination. Patient also complaining of left-sided back pain. Patient denies hematuria, no frequency. MD complaint: UTI symptoms Related Data Previous Rx's Medication Instructions Recorded acetaminophen-codeine 1 tab PO Q8H PRN #10 tab 08/15/20 ibuprofen 800 mg PO Q8H PRN #14 tab 08/15/20 metronidazole [Flagyl] 500 mg PO BID 7 Days #14 tab 08/15/20 cyclobenzaprine 10 mg PO TID PRN #14 tab 08/31/20 dicyclomine 20 mg PO TID PRN #30 tab 09/12/20 omeprazole 40 mg PO DAILY #30 cap 09/12/20 sucralfate [Carafate] 1 g PO BID #60 tab 09/12/20 lorazepam [Ativan] 1 mg PO BID PRN 5 Days tab 09/19/20 lorazepam [Ativan] 1 mg PO BID PRN 5 Days #10 tab 09/19/20 Allergies Allergy/AdvReac Type Severity Reaction Status Date / Time No Known Allergies Allergy Verified 10/17/20 15:00 [No Known Allergies*] Review of Systems Review of Systems: Constitutional : No Weight loss, No Fever, No Chills, No Night Sweats, No Fatigue, No Malaise ENT/Mouth : No Hearing loss, No Ear Pain, No Nasal Congestion, No Sinus Pain, No Hoarseness, No sore throat, No Rhinorrhea, No Swallowing Difficulty Eyes: No Eye Pain, No Swelling, No Redness, No Foreign Body, No Discharge, No Vision Changes Cardiovascular : No Chest Pain, No SOB, No Dyspnea on Exertion, No Orthopnea, No Edema, No Palpitations Respiratory : No Cough, No Sputum, No Wheezing, No Smoke Exposure, No Dyspnea Gastrointestinal : No Nausea, No Vomiting, No Diarrhea, No Constipation, No abdominal Pain, No Hematochezia, No Melena Genitourinary : Complaining of dysuria, no urinary frequency, no hematuria, complaining of mild left-sided back pain Musculoskeletal : No joint pain, No Myalgias, No Joint Swelling Skin : No Skin Lesions, No rash Neuro : No Weakness, No Numbness, No Paresthesias, No Loss of Consciousness, No Dizziness, No Headache Psych : No Anxiety/Panic, No Depression, No SI/HI/AH/VH, No Social Issues, Heme/Lymph: No Bruising, No Bleeding,No Lymphadenopathy Endocrine : No Polyuria, No Polydipsia, No Temperature Intolerance PMF Past Medical History Medical History Anxiety Surgical History H/O tubal ligation Hx of breast reduction, elective Social History Social History Alcohol intake: never Smoking Status: Never smoker Substance Use Type: Marijuana Advance Directives: No Advance Directives Information Provided: Yes Physical Exam 2 Vital Signs: Vital Signs: Last Vital Signs Temp 97.3 F 10/17/20 14:57 Pulse 74 10/17/20 14:57 Resp 18 10/17/20 14:57 BP 147/42 H 10/17/20 14:57 Pulse Ox 100 10/17/20 14:57 Body Mass Index 29.0 Appearance: Alert. Oriented X3. No acute distress. Calm, playing on her phone, watching TV in her room Eyes: Pupils equal, round and reactive to light. ENT: Pharynx normal. Neck: Normal inspection. Neck supple. No lymph nodes noted. No crepitus CVS: Normal heart rate and rhythm. Pulses normal. Normal S1 and S2 Respiratory: No respiratory distress. Breath sounds normal. No Wheezing. No rales Abdomen: Soft and nontender. No rigidity. No distention. good BS x4 Back: Negative CVA tenderness, pain to palpation over the paraspinal muscles on the left side Skin: Skin warm and dry. Normal skin color. Normal skin turgor. Extremities: No lower extremity edema. No lower extremity edema. No Lacerations. No Rash Neuro: Oriented X 3. No motor deficit. No sensory deficit. Moving all extermities. No slurred speech. Course Course Course Narrative: Patient states that she does not want to wait to get blood drawn or to wait for her CT scan. Patient states she feels better and wants to be discharged. I discussed with the patient that at this time we have no information regarding her abdominal pain. And to return if she has any further symptoms. Medical Decision Making Lab Data Labs: Lab Results 10/17/20 Range/Units 18:38 Urine Color YELLOW Urine Appearance CLEAR Urine pH 6.5 (5.0-8.0) Ur Specific [place] 1.025 (1.005-1.025) Urine Protein NEG (NEG-TRACE) MG/DL Urine Glucose (UA) NEG (NEG) MG/DL Urine Ketones NEG (NEG) MG/DL Urine Blood NEG (NEG) Urine Nitrite NEG (NEG) Ur Leukocyte Esterase NEG (NEG) Urine Test NEGATIVE (NEGATIVE) Discharge Plan Discharge Clinical Impression: Abdominal pain Qualifiers: Abdominal location: generalized Qualified Code(s): R10.84 - Generalized abdominal pain Patient Disposition: Left Against Medical Advice Instructions: Abdominal Pain (ED) Additional Instructions: Your refused to stay for lab work and imaging studies. If you have any new or worsening symptoms, please return to the emergency room, please follow-up with your primary care doctor Prescriptions: No Action metronidazole [Flagyl] 500 mg tablet 500 mg PO BID 7 Days Qty: 14 RF: 0 acetaminophen-codeine 300-30 mg tablet 1 tab PO Q8H PRN (Reason: pain) Qty: 10 RF: 0 ibuprofen 800 mg tablet 800 mg PO Q8H PRN (Reason: pain) Qty: 14 RF: 0 cyclobenzaprine 10 mg tablet 10 mg PO TID PRN (Reason: muscle spasm) Qty: 14 RF: 0 lorazepam [Ativan] 1 mg tablet 1 mg PO BID PRN (Reason: anxiety) 5 Days RF: 0 lorazepam [Ativan] 1 mg tablet 1 mg PO BID PRN (Reason: anxiety) 5 Days Qty: 10 RF: 0 omeprazole 40 mg capsule,delayed release(DR/EC) 40 mg PO DAILY Qty: 30 RF: 0 dicyclomine 20 mg tablet 20 mg PO TID PRN (Reason: abdominal pain) Qty: 30 RF: 0 sucralfate [Carafate] 1 gram tablet 1 g PO BID Qty: 60 RF: 0
[2020-10-17 18:57] LABS: Glucose Urine UA NEG (NEG); Leukocyte Esterase Urine NEG (NEG); Nitrite Urine NEG (NEG); PH 6.5 (5.0-8.0); Specific Gravity - Urine 1.025 (1.005-1.025); Urine Blood NEG (NEG); Urine Ketones NEG (NEG); Urine Protein NEG (NEG-TRACE)
[2020-10-17 18:58] LABS: Appearance Urine CLEAR; Color Urine YELLOW
[2020-10-17 19:00] LABS: UPreg QC Valid YES; Urine Pregnancy NEGATIVE (NEGATIVE)
== END 2020-10-17 22:06 | disposition left against medical advice (07) ==
PROVIDERS: Physician Assistant; Emergency Provider Emergency Medicine; PCP Internal Medicine
DX: R10.84 Generalized abdominal pain (principal); R30.0 Dysuria; M54.5 Low back pain; Z79.899 Other long term (current) drug therapy
CPT/HCPCS: 81003; 81025; 99283

== ENCOUNTER 2021-01-25 23:13 | Emergency (ER) | payer OTHER, SELFPAY | END 2021-01-26 01:41 | disposition left against medical advice (07) | PROVIDERS: Emergency Provider Emergency Medicine | DX: M54.9 Dorsalgia, unspecified (principal) ==

== ENCOUNTER 2021-02-26 08:43 | Emergency (ER) | payer OTHER, SELFPAY ==
[2021-02-26 08:47] VITALS: BP 140/96; PULSE 86; RESP 18; TEMP 36.6; O2SAT 100; BMI 29.7
--- NOTE | 2021-02-26 09:44 | ED_ITS ---
HPI - General Adult General Chief complaint: General Medical Stated complaint: STD Time Seen by Provider: 02/26/21 08:52 Source: patient Mode of arrival: ambulatory Limitations: no limitations History of Present Illness HPI narrative: 40-year-old female who presents emergency department for evaluation of vaginal discharge, abdominal pain and possible STD. Patient states that she had unprotected sex on Sunday (8 days prior to evaluation). She states that she has had intercourse with this partner in the past but the sex that she had this time was unprotected. She states that 2-3 days later she then developed symptoms which included vaginal itchiness, thick white vaginal discharge, ?fishy odor?, bloated abdominal sensation and a sharp, constant, lower abdominal pain. She states the lower abdominal pain is gotten worse and is now 10/10. She has had associated nausea with no vomiting. She has had hot and cold sensation but did not take her temperature. She denied frequency, urgency or dysuria. The patient had a bilateral tubal ligation in 2015. Related Data Previous Rx's Medication Instructions Recorded acetaminophen-codeine 1 tab PO Q8H PRN #10 tab 08/15/20 ibuprofen 800 mg PO Q8H PRN #14 tab 08/15/20 metronidazole [Flagyl] 500 mg PO BID 7 Days #14 tab 08/15/20 cyclobenzaprine 10 mg PO TID PRN #14 tab 08/31/20 dicyclomine 20 mg PO TID PRN #30 tab 09/12/20 omeprazole 40 mg PO DAILY #30 cap 09/12/20 sucralfate [Carafate] 1 g PO BID #60 tab 09/12/20 lorazepam [Ativan] 1 mg PO BID PRN 5 Days tab 09/19/20 lorazepam [Ativan] 1 mg PO BID PRN 5 Days #10 tab 09/19/20 doxycycline monohydrate 100 mg PO BID 10 Days #20 tab 02/26/21 metronidazole [Flagyl] 500 mg PO Q12H 10 Days #20 tab 02/26/21 Allergies Allergy/AdvReac Type Severity Reaction Status Date / Time No Known Allergies Allergy Verified 10/17/20 15:00 [No Known Allergies*] Review of Systems Review of Systems: Yes all other systems are reviewed and are negative PMFSH Past Medical History [facility] Narrative: Patient has history of anxiety. Previous surgical history consistent with lower disc surgery 3 months prior [facility] and bilateral tubal ligation in 2016. She denies tobacco use, she drinks alcohol occasionally, she smokes marijuana daily. Medical History Anxiety Surgical History H/O tubal ligation Hx of breast reduction, elective Social History Social History Alcohol intake: never Substance Use Type: Marijuana Advance Directives: No Advance Directives Information Provided: No Patient : No Physical Exam Vital Signs: Vital Signs: Last Vital Signs Temp 97.8 F 02/26/21 08:47 Pulse 86 02/26/21 08:47 Resp 18 02/26/21 08:47 BP 140/96 H 02/26/21 08:47 Pulse Ox 100 02/26/21 08:47 Body Mass Index 29.7 Const: General: cooperative and healthy appearing Orientation/consciousness: oriented to person and oriented to place Limitations: no limitations HENMT: Head: Yes normal to inspection, Yes normocephalic and Yes atraumatic Ears: external ears normal General nose exam: Normal external nose present Face and sinus: Yes normal facial exam Mouth: Normal oral and palatal mucosa present Throat: Yes posterior oropharynx normal Eyes: Periorbital: periorbital findings normal Eyelids: Yes eyelids normal Conjunctivae: conjunctivae normal Sclerae: sclerae normal Corneas: corneas normal Pupils: Equal, round and reactive pupils present Direct Ophthalmoscopy: normal light reflex Neck: Neck: Yes full ROM, Yes no lymphadenopathy, Yes no meningeal signs, Yes trachea midline and Yes supple Chest: Chest palpation & inspection: normal inspection of the chest and normal palpation of entire chest wall Resp: Effort & Inspection: normal respiratory effort and able to speak in complete sentences Auscultation: clear to auscultation bilaterally Cardio: Rate: regular rate Rhythm: regular rhythm Heart sounds: S1 normal heart sound present, S2 normal heart sound present and no murmurs GI: Inspection: Yes normal to inspection Palpation (GI): Soft to palpation, Tenderness to palpation present (GI) suprapubicly (Moderate), no guarding, not rigid and No hepatosplenomegaly present : External Female Exam: normal external appearance Speculum Exam - Vagina: normal appearance of the vagina and abnormal vaginal discharge white and yellow Speculum Exam - Cervix: Abnormal cervical discharge present yellow, no lesions, Cervical tenderness present (Moderate) and Other cervical findings present (Cervical os difficult to visualize) Bimanual exam- vagina & uterus: Cervical tenderness present (Moderate) and cervical motion tenderness (Moderate) Bimanual Exam- Adnexa, other: tender bilaterally (Moderate) Back/Spine/Pelvis: Cervical Spine: normal cervical lordosis Thoracic/Lumbar Spine: thoracic and lumbar spine normal to inspection Skin: Lesions: no lesions Rashes: no rashes Wounds: no wounds Neuro: General: oriented to person, oriented to place and no meningeal signs Cranial nerves: Yes Equal, round and reactive pupils present Cognition (Neuro): normal cognition Motor exam (neuro): 5/5 motor strength present throughout Extrem: General: Yes normal to inspection and Yes full ROM Psych: Appearance: well kempt Mental Status: mental status grossly normal Speech and movement: Normal speech and movement present Affect: normal af fect Attitude: cooperative Thought process: Normal thought process present Thought content: Normal thought content present Course Course Course Narrative: 40-year-old female who presents emergency department for evaluation of abdominal pain, vaginal discharge approximately 8 days after having unprotected sex with a known sexual partner. Physical examination revealed the vaginal and cervical discharge with cervical motion tenderness, uterine and bilateral adnexal tenderness. The patient's presentation is consistent with pelvic inflammatory disease. She was tested for gonorrhea, chlamydia, Trichomonas and bacterial vaginosis. I did obtain swabs I also sent a urine sample for the gonorrhea and chlamydia testing. Patient was treated with ceftriaxone 500 mg IM. She was prescribed doxycycline 100 mg twice a day for 10 days and metronidazole 500 mg twice a day for 10 days. She was advised to take Tylenol and ibuprofen for pain. 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 I also told her that [facility] and HIV. Discharge Plan Discharge Clinical Impression: Acute pelvic inflammatory disease (PID) Patient Disposition: Home, Self-Care Instructions: Pelvic Inflammatory Disease (ED) Additional Instructions: Your presentation and physical findings are consistent with pelvic inflammatory disease (PID). Approximately 30% of the time, pelvic inflammatory disease is caused by sexually transmitted diseases such as Trichomonas, gonorrhea or chlamydia. Approximately 70% of the time, pelvic inflammatory disease is caused by abnormal bacteria (anaerobic bacteria) in your vagina that can cause an infection You received ceftriaxone 500 mg intramuscularly here in the emergency department Take doxycycline 100 mg, 1 pill twice a day for 10 days. Take metronidazole 500 mg, 1 pill twice a day for 10 days. These 3 antibiotics treat sexually transmitted diseases such as gonorrhea, chlamydia and Trichomonas as well as anaerobic bacteria that can cause pelvic inflammatory disease. Take ibuprofen 200 mg pills, 3 pills every 6 hours as needed for pain. Take Tylenol (acetaminophen) 500 mg pills, 2 pills every 4 to 6 hours as needed for pain. Follow-up with your gynecology in 7-10 days. If your maintenance superintendent cannot see you, you can also [facility] or [facility] The doctor that follows up will need to review the following results with you: Bacterial vaginosis testing Gonorrhea and chlamydia (cervical swab and urine testing) Trichomonas testing Your doctor should test you for syphilis and for HIV as well. Please return to the emergency department if your symptoms get worse or if you develop any symptoms that are concerning to you. Prescriptions: New metronidazole [Flagyl] 500 mg tablet 500 mg PO Q12H 10 Days Qty: 20 RF: 0 doxycycline monohydrate 100 mg tablet 100 mg PO BID 10 Days Qty: 20 RF: 0 No Action metronidazole [Flagyl] 500 mg tablet 500 mg PO BID 7 Days Qty: 14 RF: 0 acetaminophen-codeine 300-30 mg tablet 1 tab PO Q8H PRN (Reason: pain) Qty: 10 RF: 0 ibuprofen 800 mg tablet 800 mg PO Q8H PRN (Reason: pain) Qty: 14 RF: 0 cyclobenzaprine 10 mg tablet 10 mg PO TID PRN (Reason: muscle spasm) Qty: 14 RF: 0 lorazepam [Ativan] 1 mg tablet 1 mg PO BID PRN (Reason: anxiety) 5 Days RF: 0 lorazepam [Ativan] 1 mg tablet 1 mg PO BID PRN (Reason: anxiety) 5 Days Qty: 10 RF: 0 omeprazole 40 mg capsule,delayed release(DR/EC) 40 mg PO DAILY Qty: 30 RF: 0 dicyclomine 20 mg tablet 20 mg PO TID PRN (Reason: abdominal pain) Qty: 30 RF: 0 sucralfate [Carafate] 1 gram tablet 1 g PO BID Qty: 60 RF: 0
[2021-02-26] MEDS: cefTRIAXone sodium 500 MG VIAL IM (10:06)
--- NOTE | 2021-02-26 10:11 | PC.NURSE ---
ASSISTED MD WITH PELVIC EXAM. PT TOLERATED PROCEDURE WELL.
[2021-02-26 11:52] LABS: BV Int Neg Control Negative (Negative); BV Int Pos Control Positive (Positive)
[2021-02-26 12:51] LABS: CT PCR NOT DETECTED (Not Detect.); NG PCR NOT DETECTED (Not Detect.)
[2021-02-27 05:51] LABS: CT PCR NOT DETECTED (Not Detect.); NG PCR NOT DETECTED (Not Detect.)
== END 2021-02-26 10:11 | disposition home or self-care (01) ==
PROVIDERS: Emergency Provider Emergency Medicine Emergency Medical Services
DX: N73.0 Acute parametritis and pelvic cellulitis (principal); Z20.2 Contact with and (suspected) exposure to infections with a predominantly sexual mode of transmission; Z79.899 Other long term (current) drug therapy
CPT/HCPCS: 87480; 87491; 87510; 87591; 87660; 96372; 96374; 99283; 99284; J0696

== ENCOUNTER 2021-08-14 11:44 | Emergency (ER) | payer OTHER, SELFPAY ==
[2021-08-14 11:50] VITALS: BP 119/72; PULSE 98; RESP 18; TEMP 36.8; O2SAT 97; BMI 29.2
[2021-08-14 12:22] LABS: Appearance Urine CLOUDY; Color Urine YELLOW; Glucose Urine UA NEG (NEG); Leukocyte Esterase Urine 1+ (NEG); Nitrite Urine NEG (NEG); UACC Culture Trigger YES; Urine Blood NEG (NEG); Urine Ketones 5 MG/DL (NEG); Urine Protein TRACE MG/DL (NEG-TRACE)
[2021-08-14 12:24] LABS: COVID-19 Test Negative (Negative)
[2021-08-14 12:30] LABS: Amorphous Sediment Urine 2+ /LPF; Bacteria Urine 1+ /LPF; RBC Urine 0-2 /HPF (0); Squamous Epithelial Cell Urine 2+ /LPF; UACC CULT YES
[2021-08-14 12:40] LABS: UPreg QC Valid YES; Urine Pregnancy NEGATIVE (NEGATIVE)
[2021-08-14 13:24] LABS: Strep A Nucleic Acid Negative (Negative)
--- NOTE | 2021-08-14 13:29 | ED.GENADULT ---
HPI - General Adult General Chief complaint: General Medical Stated complaint: weak sore throat headache Time Seen by Provider: 08/14/21 12:14 Source: patient Mode of arrival: ambulatory Limitations: no limitations History of Present Illness HPI narrative: 41-year-old female here with complaints of nasal congestion, slight sore throat and cough for several days. She tells me that her son is currently in a program were several other program members are positive for COVID. She has seen him recently but he is not COVID positive. She denies any fevers, chills, shortness of breath or chest pain. She does have some dysuria for the last few days and feels like she may have a urinary tract infection. No back pain, abdominal pain, vomiting, fever. No vaginal discharge. Related Data Previous Rx's Medication Instructions Recorded acetaminophen 300 mg-codeine 30 mg 1 tab PO Q8H PRN #10 tab 08/15/20 tablet ibuprofen 800 mg tablet 800 mg PO Q8H PRN #14 tab 08/15/20 metronidazole 500 mg tablet 500 mg PO BID 7 Days #14 tab 08/15/20 (Flagyl) cyclobenzaprine 10 mg tablet 10 mg PO TID PRN #14 tab 08/31/20 dicyclomine 20 mg tablet 20 mg PO TID PRN #30 tab 09/12/20 omeprazole 40 mg capsule,delayed 40 mg PO DAILY #30 cap 09/12/20 release sucralfate 1 gram tablet (Carafate) 1 g PO BID #60 tab 09/12/20 lorazepam 1 mg tablet (Ativan) 1 mg PO BID PRN 5 Days tab 09/19/20 lorazepam 1 mg tablet (Ativan) 1 mg PO BID PRN 5 Days #10 tab 09/19/20 doxycycline monohydrate 100 mg 100 mg PO BID 10 Days #20 tab 02/26/21 tablet metronidazole 500 mg tablet 500 mg PO Q12H 10 Days #20 tab 02/26/21 (Flagyl) nitrofurantoin 100 mg PO Q12H 5 Days #10 cap 08/14/21 monohydrate/macrocrystals 100 mg capsule (Macrobid) phenazopyridine 200 mg tablet 200 mg PO TID PRN #10 tab 08/14/21 (Pyridium) Allergies Allergy/AdvReac Type Severity Reaction Status Date / Time No Known Allergies Allergy Verified 10/17/20 15:00 [No Known Allergies*] Review of Systems Review of Systems: Yes all other systems are reviewed and are negative Constitutional: Constitutional: Reports no additional constitutional complaints, Denies body ache(s), Denies chills, Denies fever(s), Denies headache(s) and Denies weakness Eyes: Eyes: Reports no additional eye complaints and Denies change in vision ENT: Reports system reviewed and no additional complaints, except as documented, Denies dizziness, Denies headache(s), Reports nasal congestion, Denies nasal discharge, Denies neck pain and Reports sore throat Cardiovascular: Cardiovascular: Reports no additional cardiovascular complaints, Denies chest pain, Denies leg edema and Denies dyspnea Respiratory: Respiratory: Reports no additional respiratory complaints, Reports cough and Denies dyspnea Gastrointestinal: Gastrointestinal: Reports no additional gastrointestinal complaints, Denies abdominal pain, Denies diarrhea, Denies nausea and Denies vomiting Genitourinary: Genitourinary: Reports no additional female genitourinary complaints, Reports dysuria and Denies urinary incontinence Musculoskeletal: Musculoskeletal: Reports no additional musculoskeletal complaints, Denies back pain, Denies arthralgias, Denies joint swelling, Denies neck pain, Denies numbness and Denies tingling Integumentary/Breasts: Skin/Breast: Reports system reviewed and no additional complaints, except as docu and Denies rash Neurologic: Reports system reviewed and no additional complaints, except as documented, Denies Abnormal speech present, Denies dizziness, Denies headache(s), Denies numbness, Denies tingling and Denies weakness PMFSH Past Medical History Attestation statement: The following information was validated with the patient. Source: old records reviewed and nursing notes reviewed Medical History Anxiety Surgical History H/O tubal ligation Hx of breast reduction, elective Social History Social History Alcohol intake: never Substance Use Type: Marijuana Advance Directives: Yes Advance Directives Information Provided: Yes Advance Directives on File: No Physical Exam Vital Signs: Vital Signs: Last Vital Signs Temp 98.3 F 08/14/21 11:50 Pulse 98 08/14/21 11:50 Resp 18 08/14/21 11:50 BP 119/72 08/14/21 11:50 Pulse Ox 97 08/14/21 11:50 Body Mass Index 29.2 Const: General: cooperative, healthy appearing, comfortable and no acute distress Orientation/consciousness: patient oriented x3 Limitations: no limitations HENMT: Head: Yes normal to inspection Ears: hearing grossly normal bilaterally and TM's normal bilaterally General nose exam: Normal external nose present Face and sinus: Yes normal facial exam Mouth: Normal oral and palatal mucosa present Throat: Yes posterior oropharynx normal, Yes tonsils normal and Yes uvula midline Eyes: General: appearance normal, both eyes and all related structures Pupils: Equal, round and reactive pupils present Neck: Neck: Yes normal visual inspection Chest: Chest palpation & inspection: normal inspection of the chest Resp: Effort & Inspection: normal respiratory effort Auscultation: clear to auscultation bilaterally Cardio: Rate: regular rate Rhythm: regular rhythm Peripheral pulses: Peripheral pulses 2+ throughout GI: Inspection: Yes normal to inspection Palpation (GI): Soft to palpation and nontender Auscultation: normal bowel sounds : General: Yes no CVA tenderness Back/Spine/Pelvis: Back: no CVA tenderness Thoracic/Lumbar Spine: thoracic and lumbar spine normal to inspection Skin: General skin exam: no rashes or lesions noted Neuro: General: patient oriented x3, no focal motor deficits and normal sensation to monofilament Cranial nerves: Yes Equal, round and reactive pupils present Cognition (Neuro): normal cognition Speech: No Abnormal speech present Gait exam (Neuro): Normal gait present Motor exam (neuro): 5/5 motor strength present throughout Extrem: General: Yes normal to inspection Course Course Course Narrative: URI symptoms for several days. May have had exposure to COVID. COVID test and rapid strep were negative. Exam is benign. Likely viral URI. Patient also having some dysuria for the last 2 days. UA is consistent with UTI. No evidence of pyelonephritis and patient has a nontoxic exam. Will treat course of antibiotics. Reviewed worrisome signs and symptoms when to return to the emergency department. Comfortable discharge home. Medical Decision Making Medical Records Medical records reviewed: Yes I reviewed the patient's medical records. Lab Data Lab results reviewed: Yes I reviewed the patient's lab results. Labs: Lab Results 08/14/21 08/14/21 08/14/21 Range/Units 11:58 12:09 12:09 Urine Color YELLOW Urine Appearance CLOUDY Urine pH 7.0 (5.0-8.0) Ur Specific [place] 1.010 (1.005-1.025) Urine Protein TRACE (NEG-TRACE) MG/DL Urine Glucose (UA) NEG (NEG) MG/DL Urine Ketones 5 (NEG) MG/DL Urine Blood NEG (NEG) Urine Nitrite NEG (NEG) Ur Leukocyte Esterase 1+ H (NEG) Urine RBC 0-2 (0) /HPF Urine WBC 10-14 H (0-4) /HPF Ur Squamous Epith Cells 2+ /LPF Amorphous Sediment 2+ /LPF Urine Bacteria 1+ /LPF Urine Test NEGATIVE (NEGATIVE) COVID-19 (LEON) Negative (Negative) COVID-19 Clin Com See Note S. pyogenes GrpA GREA (Negative) 08/14/21 Range/Units 13:04 Urine Color Urine Appearance Urine pH (5.0-8.0) Ur Specific [place] (1.005-1.025) Urine Protein (NEG-TRACE) MG/DL Urine Glucose (UA) (NEG) MG/DL Urine Ketones (NEG) MG/DL Urine Blood (NEG) Urine Nitrite (NEG) Ur Leukocyte Esterase (NEG) Urine RBC (0) /HPF Urine WBC (0-4) /HPF Ur Squamous Epith Cells /LPF Amorphous Sediment /LPF Urine Bacteria /LPF Urine Test (NEGATIVE) COVID-19 (LEON) (Negative) COVID-19 Clin Com S. pyogenes GrpA GERA Negative (Negative) Discharge Plan Discharge Clinical Impression: UTI (urinary tract infection), Viral URI Patient Disposition: Home, Self-Care Instructions: Urinary Tract Infection in Women (ED), Upper Respiratory Infection (ED) Additional Instructions: COVID and strep test are negative Increase fluids and rest Prescriptions: New nitrofurantoin monohyd/m-cryst [Macrobid] 100 mg capsule 100 mg PO Q12H 5 Days Qty: 10 RF: 0 phenazopyridine [Pyridium] 200 mg tablet 200 mg PO TID PRN (Reason: pain) Qty: 10 RF: 0 No Action metronidazole [Flagyl] 500 mg tablet 500 mg PO BID 7 Days Qty: 14 RF: 0 acetaminophen-codeine 300-30 mg tablet 1 tab PO Q8H PRN (Reason: pain) Qty: 10 RF: 0 ibuprofen 800 mg tablet 800 mg PO Q8H PRN (Reason: pain) Qty: 14 RF: 0 cyclobenzaprine 10 mg tablet 10 mg PO TID PRN (Reason: muscle spasm) Qty: 14 RF: 0 lorazepam [Ativan] 1 mg tablet 1 mg PO BID PRN (Reason: anxiety) 5 Days RF: 0 lorazepam [Ativan] 1 mg tablet 1 mg PO BID PRN (Reason: anxiety) 5 Days Qty: 10 RF: 0 omeprazole 40 mg capsule,delayed release(DR/EC) 40 mg PO DAILY Qty: 30 RF: 0 dicyclomine 20 mg tablet 20 mg PO TID PRN (Reason: abdominal pain) Qty: 30 RF: 0 sucralfate [Carafate] 1 gram tablet 1 g PO BID Qty: 60 RF: 0 metronidazole [Flagyl] 500 mg tablet 500 mg PO Q12H 10 Days Qty: 20 RF: 0 doxycycline monohydrate 100 mg tablet 100 mg PO BID 10 Days Qty: 20 RF: 0 Referrals: Physician,None [Primary Care Provider] - 2 days
== END 2021-08-14 13:34 | disposition home or self-care (01) ==
PROVIDERS: Physician Assistant Medical; Emergency Provider Emergency Medicine
DX: J06.9 Acute upper respiratory infection, unspecified (principal); N39.0 Urinary tract infection, site not specified; Z20.822 Contact with and (suspected) exposure to COVID-19
CPT/HCPCS: 36415; 81001; 81025; 87086; 87635; 87651; 99283

== ENCOUNTER 2021-12-07 19:33 | Emergency (ER) | payer OTHER, SELFPAY ==
--- NOTE | ~2021-12-07 | US_ITS ---
EXAMINATION: US PELVIS CLINICAL INFORMATION: Suprapubic pain with recent vaginal infection COMPARISON: CT abdomen pelvis 08/31/2020 TECHNIQUE: Ultrasound of the pelvis is performed using both transabdominal and transvaginal transducers along with Doppler. Transvaginal imaging is performed due to inadequate visualization transabdominally. FINDINGS: Uterus: The uterus is retroverted and measures 7.8 x 4.5 x 5.7 cm. The double wall endometrial thickness is 0.8 mm. The uterus is smooth in contour and has normal myometrial echogenicity. No visible fibroid. Adnexa: Both ovaries are visualized. Follicular cysts are present on the right. There is normal color flow to the adnexa. There is no ovarian torsion. There is no pelvic ascites or fluid collection. Right ovary measures 3.1 x 2.1 x 1.5 cm for a volume of 5.1 mL. Left ovary measures 3.3 x 1.7 x 1.9 cm for a volume of 5.6 mL. US/US pelvic and transvaginal IMPRESSION: Normal study
[2021-12-07 19:41] VITALS: BP 116/71; PULSE 88; RESP 18; TEMP 36.8; O2SAT 100; BMI 28.1
[2021-12-07 20:12] LABS: MANUAL DIFF FLAG NO
[2021-12-07 20:13] LABS: Basophils Percent Auto 0.3 % (0-2); Eosinophils Absolute Auto 0.2 X10*3/uL (0.0-0.4); Eosinophils Percent Auto 2.9 % (0-4); Hematocrit 35.4 % (37.0-47.0); Hemoglobin 11.7 g/dl (12.0-16.0); Imm Gran Abs Auto 0.02 X10*3/uL (0.00-0.03); Imm Gran Pct Auto 0.3 % (0.0-0.4); Lymphocytes Absolute Auto 1.8 X10*3/uL (1.2-4.9); Lymphocytes Percent Auto 25.6 % (20-40); Mean Corpuscular HGB Conc 33.1 g/dl (31.0-35.0); Mean Corpuscular Hemoglobin 29.2 pg (27.0-33.0); Mean Corpuscular Volume 88.3 fL (80.0-98.0); Mean Platelet Volume 11.3 fL (9.4-12.3); Monocytes Absolute Auto 0.5 X10*3/uL (0.1-1.2); Monocytes Percent Auto 6.7 % (2-11); Neutrophils Absolute Auto 4.5 x10*3/uL (2.0-8.3); Neutrophils Percent Auto 64.2 % (45-73); Platelet Count 195 X10*3/uL (160-400); Red Blood Count 4.01 X10*6/uL (4.20-5.50); Red Cell Distribution Width 12.6 % (11.0-16.0)
--- NOTE | 2021-12-07 20:13 | ED.FEMALEGU ---
HPI - Female Genitourinary General Chief complaint: Urogenital-Female Stated complaint: Abdominal pain Source: patient Mode of arrival: ambulatory Limitations: no limitations History of Present Illness HPI Narrative: 41-year-old female presents with abdominal pain and abnormal vaginal discharge prior to her menstrual cycle. MD elicited complaint: dysuria, UTI and vaginal discharge Pertinent past history: other (Bacterial vaginosis) Onset (ago): day(s) (3) Location of symptoms: suprapubic Severity: moderate Female Urogenital Radiation: Suprapubic Severity scale (1-10): 6 Quality of pain: cramping and aching Consistency: intermittent Vaginal discharge: white and thick/cheesy Vaginal bleeding: moderate (Consistent with menstrual cycle) Urinary symptoms: Dysuria Exacerbating factors: urination Relieving factors: none Associated symptoms: abdominal pain and nausea Treatment prior to arrival: none Sexual activity: Yes Patient : No Related Data Previous Rx's Medication Instructions Recorded acetaminophen 300 mg-codeine 30 mg 1 tab PO Q8H PRN #10 tab 08/15/20 tablet ibuprofen 800 mg tablet 800 mg PO Q8H PRN #14 tab 08/15/20 metronidazole 500 mg tablet 500 mg PO BID 7 Days #14 tab 08/15/20 (Flagyl) cyclobenzaprine 10 mg tablet 10 mg PO TID PRN #14 tab 08/31/20 dicyclomine 20 mg tablet 20 mg PO TID PRN #30 tab 09/12/20 omeprazole 40 mg capsule,delayed 40 mg PO DAILY #30 cap 09/12/20 release sucralfate 1 gram tablet (Carafate) 1 g PO BID #60 tab 09/12/20 lorazepam 1 mg tablet (Ativan) 1 mg PO BID PRN 5 Days tab 09/19/20 lorazepam 1 mg tablet (Ativan) 1 mg PO BID PRN 5 Days #10 tab 09/19/20 doxycycline monohydrate 100 mg 100 mg PO BID 10 Days #20 tab 02/26/21 tablet metronidazole 500 mg tablet 500 mg PO Q12H 10 Days #20 tab 02/26/21 (Flagyl) nitrofurantoin 100 mg PO Q12H 5 Days #10 cap 08/14/21 monohydrate/macrocrystals 100 mg capsule (Macrobid) phenazopyridine 200 mg tablet 200 mg PO TID PRN #10 tab 08/14/21 (Pyridium) fluconazole 150 mg tablet 150 mg PO DAILY #1 tab 12/07/21 (Diflucan) Allergies Allergy/AdvReac Type Severity Reaction Status Date / Time No Known Allergies Allergy Verified 10/17/20 15:00 [No Known Allergies*] Review of Systems Review of Systems: Constitutional: No Fever, No Chills ENT/Mouth: No sore throat, No Rhinorrhea Eyes: No Eye Pain, No Redness Cardiovascular: No Chest Pain, No SOB Respiratory: No Cough, No Sputum, No Wheezing Gastrointestinal: positive Nausea, No Vomiting, No Diarrhea, positive abdominal pain, Genitourinary: No irregular bleeding, No Dysuria, No Urinary Frequency, positive pelvic pain, positive vaginal discharge Musculoskeletal: No Myalgias Skin: No rash Neuro: No Weakness, No Headache Psych: No Anxiety/Panic, No Depression Heme/Lymph: No bruising, No Lymphadenopathy Endocrine: No Polyuria, No Polydipsia Yes all other systems are reviewed and are negative FOR[facility]LY [facility] Past Medical History Attestation statement: The following information was validated with the patient. Source: old records reviewed Medical History Anxiety Surgical History H/O tubal ligation Hx of breast reduction, elective Social History Social History Alcohol intake: never Substance Use Type: Marijuana Advance Directives: No Patient : No Physical Exam Vital Signs: Vital Signs: Last Vital Signs Temp 98.3 F 12/07/21 19:41 Pulse 88 12/07/21 19:41 Resp 18 12/07/21 19:41 BP 116/71 12/07/21 19:41 Pulse Ox 100 12/07/21 19:41 BMI result Body Mass Index 28.1 Appearance: Alert. Oriented X3. No acute distress. Eyes: Pupils equal, round and reactive to light. ENT: Pharynx normal. Neck: Normal inspection. Neck supple. CVS: Normal heart rate and rhythm. Pulses normal. Respiratory: No respiratory distress. Abdomen: Soft and nontender. Skin: Skin warm and dry. Normal skin color. Normal skin turgor. Extremities: No lower extremity edema. Gait well-balanced well coordinated. Neuro: No motor deficit. No sensory deficit. Cranial nerves 2-12 intact. Course Course Course Narrative: 41-year-old female presents with suprapubic pain and vaginal discharge consistent with candidiasis prior to her menstrual cycle. Was treated for trich approximately a month ago and feels that the antibiotics that she was given could have possibly caused yeast infection. At this time she respectfully declines pelvic exam as she is with her daughter, I did offer pelvic ultrasound which she did accept. Will order labs and urinalysis. Labs negative for acute findings requiring emergent intervention. Urinalysis is negative. 22:00 pelvic ultrasound negative for acute findings requiring emergent intervention. Plan of care is to treat for candidiasis. Will give Diflucan now and order 1 tablet for 3 days from now. Patient verbalized understanding of and agrees to plan of care to discharge home. Verbalized understanding of signs and symptoms indicating need for emergent intervention MDM - Female Genitourinary MDM Narrative Medical decision making narrative: Candidiasis Differential Diagnosis Differential diagnosis: Likely urinary tract infection, bacterial vaginosis, trichomoniasis and cystitis Medical Records Attestation: I reviewed the patient's medical records. Lab Data Attestation: I reviewed the patient's lab results. Result diagrams: 12/07/21 20:07 12/07/21 20:07 Labs: Lab Results 12/07/21 12/07/21 12/07/21 Range/Units 19:56 19:56 20:07 WBC 7.0 (4.8-10.8) X10*3/uL RBC 4.01 L (4.20-5.50) X10*6/uL Hgb 11.7 L (12.0-16.0) g/dl Hct 35.4 L (37.0-47.0) % MCV 88.3 (80.0-98.0) fL MCH 29.2 (27.0-33.0) pg MCHC 33.1 (31.0-35.0) g/dl RDW 12.6 (11.0-16.0) % Plt Count 195 (160-400) X10*3/uL MPV 11.3 (9.4-12.3) fL Immature Gran % (Auto) 0.3 (0.0-0.4) % Neut % (Auto) 64.2 (45-73) % Lymph % (Auto) 25.6 (20-40) % [place] % (Auto) 6.7 (2-11) % Eos % (Auto) 2.9 (0-4) % Baso % (Auto) 0.3 (0-2) % Lymph # (Auto) 1.8 (1.2-4.9) X10*3/uL [place] # (Auto) 0.5 (0.1-1.2) X10*3/uL Eos # (Auto) 0.2 (0.0-0.4) X10*3/uL Baso # (Auto) 0.0 (0.0-0.2) X10*3/uL Abs Immat Gran (auto) 0.02 (0.00-0.03) X10*3/uL Absolute Neuts (auto) 4.5 (2.0-8.3) x10*3/uL Absolute Nucleated RBC 0.000 (0.0-0.012) X10*3/uL Nucleated RBC % (auto) 0.0 (0.0-0.2) /100WBC Sodium (135-145) mmol/L Potassium (3.3-5.1) mmol/L Chloride (96-108) mmol/L Carbon Dioxide (22-29) mmol/L Anion Gap (12-20) BUN (9-16) mg/dL Creatinine (0.5-1.4) mg/dL Estim Creat Clear Calc Estimated GFR Random Glucose (60-115) mg/dL Calcium (8.4-10.2) mg/dL Urine Color YELLOW Urine Appearance CLEAR Urine pH 6.0 (5.0-8.0) Ur Specific [place] >= 1.030 H (1.005-1.025) Urine Protein NEG (NEG-TRACE) MG/DL Urine Glucose (UA) NEG (NEG) MG/DL Urine Ketones NEG (NEG) MG/DL Urine Blood NEG (NEG) Urine Nitrite NEG (NEG) Ur Leukocyte Esterase NEG (NEG) Urine Test NEGATIVE (NEGATIVE) Influenza Type A (PCR) (Negative) Influenza Type B (PCR) (Negative) RSV RNA Qual (PCR) (Negative) SARS-CoV-2 RNA (RT-PCR) (Negative) 12/07/21 12/07/21 Range/Units 20:07 21:28 WBC (4.8-10.8) X10*3/uL RBC (4.20-5.50) X10*6/uL Hgb (12.0-16.0) g/dl Hct (37.0-47.0) % MCV (80.0-98.0) fL MCH (27.0-33.0) pg MCHC (31.0-35.0) g/dl RDW (11.0-16.0) % Plt Count (160-400) X10*3/uL MPV (9.4-12.3) fL Immature Gran % (Auto) (0.0-0.4) % Neut % (Auto) (45-73) % Lymph % (Auto) (20-40) % [place] % (Auto) (2-11) % Eos % (Auto) (0-4) % Baso % (Auto) (0-2) % Lymph # (Auto) (1.2-4.9) X10*3/uL [place] # (Auto) (0.1-1.2) X10*3/uL Eos # (Auto) (0.0-0.4) X10*3/uL Baso # (Auto) (0.0-0.2) X10*3/uL Abs Immat Gran (auto) (0.00-0.03) X10*3/uL Absolute Neuts (auto) (2.0-8.3) x10*3/uL Absolute Nucleated RBC (0.0-0.012) X10*3/uL Nucleated RBC % (auto) (0.0-0.2) /100WBC Sodium 141 (135-145) mmol/L Potassium 3.9 (3.3-5.1) mmol/L Chloride 107 (96-108) mmol/L Carbon Dioxide 25 (22-29) mmol/L Anion Gap 13 (12-20) BUN 14 (9-16) mg/dL Creatinine 0.69 (0.5-1.4) mg/dL Estim Creat Clear Calc 119.1 Estimated GFR > 60 Random Glucose 102 (60-115) mg/dL Calcium 8.8 D (8.4-10.2) mg/dL Urine Color Urine Appearance Urine pH (5.0-8.0) Ur Specific [place] (1.005-1.025) Urine Protein (NEG-TRACE) MG/DL Urine Glucose (UA) (NEG) MG/DL Urine Ketones (NEG) MG/DL Urine Blood (NEG) Urine Nitrite (NEG) Ur Leukocyte Esterase (NEG) Urine Test (NEGATIVE) Influenza Type A (PCR) NEGATIVE (Negative) Influenza Type B (PCR) NEGATIVE (Negative) RSV RNA Qual (PCR) NEGATIVE (Negative) SARS-CoV-2 RNA (RT-PCR) NEGATIVE (Negative) Imaging Data Pelvic ultrasound: Attestation: I personally reviewed and interpreted this imaging study as follows: Radiologist's impression: EXAMINATION:? US PELVIS CLINICAL INFORMATION:? Suprapubic pain with recent vaginal infection COMPARISON: CT abdomen pelvis 08/31/2020 TECHNIQUE: Ultrasound of the pelvis is performed using both transabdominal and transvaginal transducers along with Doppler. Transvaginal imaging is performed due to inadequate visualization transabdominally. FINDINGS: Uterus: The uterus is retroverted and measures 7.8 x 4.5 x 5.7 cm. The double wall endometrial thickness is 0.8 mm.? The uterus is smooth in contour and has normal myometrial echogenicity. ? No visible fibroid. Adnexa: Both ovaries are visualized. Follicular cysts are present on the right. There is normal color flow to the adnexa. There is no ovarian torsion. There is no pelvic ascites or fluid collection. Right ovary measures 3.1 x 2.1 x 1.5 cm for a volume of 5.1 mL. Left ovary measures 3.3 x 1.7 x 1.9 cm for a volume of 5.6 mL. US/US pelvic and transvaginal IMPRESSION: Normal study Discharge Plan Discharge Clinical Impression: Candidiasis, Pelvic pain Patient Disposition: Home, Self-Care Instructions: Yeast Infection (ED), Pelvic Pain (ED) Additional Instructions: You were evaluated for pelvic pain and abnormal vaginal discharge prior to menstruation. Pelvic ultrasound is negative for acute findings requiring emergent intervention. We are treating you for a vaginal candidiasis infection. Please take Diflucan 150 mg tablet in 3 days from now. We did your 1st dose in the emergency department. Please drink plenty of fluids. Follow-up with OBGYN and primary care physician. Thank you for choosing this emergency department for evaluation. Please follow-up with primary care physician as needed. Return to the emergency department for any new, concerning, or worsening symptoms. Prescriptions: New fluconazole [Diflucan] 150 mg tablet 150 mg PO DAILY Qty: 1 0RF Rx Instructions: Please take on 12/10/2021 No Action metronidazole [Flagyl] 500 mg tablet 500 mg PO BID 7 Days Qty: 14 0RF acetaminophen-codeine 300-30 mg tablet 1 tab PO Q8H PRN (Reason: pain) Qty: 10 0RF ibuprofen 800 mg tablet 800 mg PO Q8H PRN (Reason: pain) Qty: 14 0RF cyclobenzaprine 10 mg tablet 10 mg PO TID PRN (Reason: muscle spasm) Qty: 14 0RF lorazepam [Ativan] 1 mg tablet 1 mg PO BID PRN (Reason: anxiety) 5 Days 0RF lorazepam [Ativan] 1 mg tablet 1 mg PO BID PRN (Reason: anxiety) 5 Days Qty: 10 0RF omeprazole 40 mg capsule,delayed release(DR/EC) 40 mg PO DAILY Qty: 30 0RF dicyclomine 20 mg tablet 20 mg PO TID PRN (Reason: abdominal pain) Qty: 30 0RF sucralfate [Carafate] 1 gram tablet 1 g PO BID Qty: 60 0RF metronidazole [Flagyl] 500 mg tablet 500 mg PO Q12H 10 Days Qty: 20 0RF doxycycline monohydrate 100 mg tablet 100 mg PO BID 10 Days Qty: 20 0RF nitrofurantoin monohyd/m-cryst [Macrobid] 100 mg capsule 100 mg PO Q12H 5 Days Qty: 10 0RF Rx Instructions: must administer with a meal/food phenazopyridine [Pyridium] 200 mg tablet 200 mg PO TID PRN (Reason: pain) Qty: 10 0RF Interventions: ED Discharge Assessment Last Done: 12/07/21 22:25 Discharge Date/Time: 12/07/21 22:26
[2021-12-07 20:15] LABS: Appearance Urine CLEAR; Color Urine YELLOW; Glucose Urine UA NEG (NEG); Leukocyte Esterase Urine NEG (NEG); Nitrite Urine NEG (NEG); Specific Gravity - Urine >= 1.030 (1.005-1.025); Urine Blood NEG (NEG); Urine Ketones NEG (NEG); Urine Protein NEG (NEG-TRACE)
[2021-12-07 20:16] LABS: UPreg QC Valid YES; Urine Pregnancy NEGATIVE (NEGATIVE)
[2021-12-07 20:25] LABS: Anion Gap 13 (12-20); Blood Urea Nitrogen 14 mg/dL (9-16); Calcium 8.8 mg/dL (8.4-10.2); Carbon Dioxide 25 mmol/L (22-29); Chloride 107 mmol/L (96-108); Creatinine Clr Calc Pharmacy 119.1; Estimated Glomerular Filt Rate > 60; Glucose Random 102 mg/dL (60-115); Potassium 3.9 mmol/L (3.3-5.1); Sodium 141 mmol/L (135-145)
[2021-12-07 22:09] LABS: Influenza A PCR NEGATIVE (Negative); Influenza B PCR NEGATIVE (Negative); Resp Syncy Virus RNA Qual PCR NEGATIVE (Negative); SARS COV2 PCR INHOUSE NEGATIVE (Negative)
[2021-12-07] MEDS: Fluconazole 150 MG TABLET PO (22:24)
== END 2021-12-07 22:26 | disposition home or self-care (01) ==
PROVIDERS: Nurse Practitioner Family; Emergency Provider Emergency Medicine Emergency Medical Services
DX: B37.9 Candidiasis, unspecified (principal); R10.2 Pelvic and perineal pain; R30.0 Dysuria; Z20.822 Contact with and (suspected) exposure to COVID-19; Z79.899 Other long term (current) drug therapy
CPT/HCPCS: 0241U; 36415; 76830; 76856; 80048; 81003; 81025; 85025; 99283; 99284

== ENCOUNTER 2021-12-15 16:12 | Emergency (ER) | payer OTHER, SELFPAY ==
[2021-12-15 16:31] VITALS: BP 118/70; PULSE 77; RESP 19; TEMP 36.6; O2SAT 99; BMI 29.7
--- NOTE | 2021-12-15 17:57 | ED_ITS ---
HPI - Female Genitourinary General Chief complaint: Urogenital-Female Stated complaint: pain concerned of STD, checked 12/08 for yeast inf Time Seen by Provider: 12/15/21 17:38 Source: patient Mode of arrival: ambulatory Limitations: no limitations History of Present Illness HPI Narrative: 41-year-old female with a history of Trichomonas 1 month ago presents to the ER with genital itching, vaginal discharge, and a slight odor for the last few days. She reports 1 month ago she was treated at [facility] for Trichomonas. She feels like her symptoms never fully went away and that the medication she was prescribed may have been interacting with some of the other medications that she was on. MD elicited complaint: vaginal discharge and genital itching Onset (ago): day(s) Location of symptoms: external genitalia and vaginal Severity: moderate Female Urogenital Radiation: Non-Radiating Quality of pain: aching Consistency: intermittent Vaginal discharge: white and vaginal odor Vaginal bleeding: none Exacerbating factors: urination, movement and palpation Relieving factors: none Associated symptoms: nausea Treatment prior to arrival: none Sexual activity: No (none in over one month since she was diagnosed with trichomonas) Patient : No Related Data Previous Rx's Medication Instructions Recorded acetaminophen 300 mg-codeine 30 mg 1 tab PO Q8H PRN #10 tab 08/15/20 tablet ibuprofen 800 mg tablet 800 mg PO Q8H PRN #14 tab 08/15/20 metronidazole 500 mg tablet 500 mg PO BID 7 Days #14 tab 08/15/20 (Flagyl) cyclobenzaprine 10 mg tablet 10 mg PO TID PRN #14 tab 08/31/20 dicyclomine 20 mg tablet 20 mg PO TID PRN #30 tab 09/12/20 omeprazole 40 mg capsule,delayed 40 mg PO DAILY #30 cap 09/12/20 release sucralfate 1 gram tablet (Carafate) 1 g PO BID #60 tab 09/12/20 lorazepam 1 mg tablet (Ativan) 1 mg PO BID PRN 5 Days tab 09/19/20 lorazepam 1 mg tablet (Ativan) 1 mg PO BID PRN 5 Days #10 tab 09/19/20 doxycycline monohydrate 100 mg 100 mg PO BID 10 Days #20 tab 02/26/21 tablet metronidazole 500 mg tablet 500 mg PO Q12H 10 Days #20 tab 02/26/21 (Flagyl) nitrofurantoin 100 mg PO Q12H 5 Days #10 cap 08/14/21 monohydrate/macrocrystals 100 mg capsule (Macrobid) phenazopyridine 200 mg tablet 200 mg PO TID PRN #10 tab 08/14/21 (Pyridium) fluconazole 150 mg tablet 150 mg PO DAILY #1 tab 12/07/21 (Diflucan) metronidazole 500 mg tablet 500 mg PO BID 7 Days #14 tab 12/15/21 ondansetron 4 mg disintegrating 4 mg PO Q8H PRN #7 tab 12/15/21 tablet Allergies Allergy/AdvReac Type Severity Reaction Status Date / Time No Known Allergies Allergy Verified 10/17/20 15:00 [No Known Allergies*] Review of Systems Review of Systems: Constitutional: No Fever, No Chills Cardiovascular: No Chest Pain, No SOB Respiratory: No Cough, No Sputum Gastrointestinal: + Nausea, No Vomiting, No Diarrhea, No abdominal Pain Genitourinary: No Dysuria, No Urinary Frequency, No Hematuria, +genital itching, +vaginal discharge Musculoskeletal: No joint pain, No Myalgias Skin: No Skin Lesions, No rash Neuro: No Weakness, No Numbness, No Dizziness, No Headache Psych: + Anxiety/Panic Heme/Lymph: No Lymphadenopathy PMFSH Past Medical History Medical History Anxiety Surgical History H/O tubal ligation Hx of breast reduction, elective Social History Social History Alcohol intake: never Substance Use Type: Marijuana Advance Directives: No Patient : No Physical Exam Vital Signs: Vital Signs: Last Vital Signs Temp 98 F 12/15/21 16:31 Pulse 77 12/15/21 16:31 Resp 19 12/15/21 16:31 BP 118/70 12/15/21 16:31 Pulse Ox 99 12/15/21 16:31 BMI result Body Mass Index 29.7 Appearance: Alert. Oriented X3. No acute distress. HEENT: normal external inspection Neck: Normal inspection. Neck supple. CVS: Normal heart rate and rhythm. Pulses normal. Respiratory: No respiratory distress. Breath sounds normal. Abdomen: Soft and nontender. +BS x4 Pelvic: normal external genitalia, no lesions, no tenderness. vaginal canal with creamy white discharge, normal appearing cervix, no adenxal tenderness. Skin: Skin warm and dry. Normal skin color. Normal skin turgor. No rashes. Extremities: normal inspection x4, normal ROM. Neuro: Oriented X 3.Grossly normal, nonfocal Course Course Course Narrative: 41-year-old female with recent Trichomonas presents to the ER with ongoing symptoms despite treatment. No new sexual encounters. On examination she has creamy white discharge more consistent with yeast infection and Trichomonas. Spoke with the lab and they are not going to run the BV panel or the Trichomonas prep tonight, she would like to get empiric treatment for both. We will call with the results tomorrow. Will give a dose of Diflucan now and tender home with a prescription for Flagyl 500 q.12h x7 days. Plan to call tomorrow with results. Stable for discharge home. MDM - Female Genitourinary Lab Data Labs: Lab Results 12/15/21 12/15/21 Range/Units 17:53 17:53 Urine Color YELLOW Urine Appearance CLEAR Urine pH 7.0 (5.0-8.0) Ur Specific [place] 1.015 (1.005-1.025) Urine Protein NEG (NEG-TRACE) MG/DL Urine Glucose (UA) NEG (NEG) MG/DL Urine Ketones NEG (NEG) MG/DL Urine Blood NEG (NEG) Urine Nitrite NEG (NEG) Ur Leukocyte Esterase NEG (NEG) Urine Test NEGATIVE (NEGATIVE) Discharge Plan Discharge Clinical Impression: Vaginitis Patient Disposition: Home, Self-Care Instructions: Trichomoniasis (ED), Yeast Infection (ED) Additional Instructions: We will call you if any results are positive. You were treated for possible yeast infection with oral dose of Diflucan while in the emergency department. Your also being treated for possible Trichomonas with prescription metronidazole, 500 mg 2 times a day for 7 days. Do not drink alcohol while taking this antibiotic, it will make you ill. Recommend following up with your OBGYN. No sexual activity until all of your symptoms are completely resolved & you completed treatment. Prescriptions: New metronidazole 500 mg tablet 500 mg PO BID 7 Days Qty: 14 0RF ondansetron 4 mg tablet,disintegrating 4 mg PO Q8H PRN (Reason: nausea and vomiting) Qty: 7 0RF No Action metronidazole [Flagyl] 500 mg tablet 500 mg PO BID 7 Days Qty: 14 0RF acetaminophen-codeine 300-30 mg tablet 1 tab PO Q8H PRN (Reason: pain) Qty: 10 0RF ibuprofen 800 mg tablet 800 mg PO Q8H PRN (Reason: pain) Qty: 14 0RF cyclobenzaprine 10 mg tablet 10 mg PO TID PRN (Reason: muscle spasm) Qty: 14 0RF lorazepam [Ativan] 1 mg tablet 1 mg PO BID PRN (Reason: anxiety) 5 Days 0RF lorazepam [Ativan] 1 mg tablet 1 mg PO BID PRN (Reason: anxiety) 5 Days Qty: 10 0RF omeprazole 40 mg capsule,delayed release(DR/EC) 40 mg PO DAILY Qty: 30 0RF dicyclomine 20 mg tablet 20 mg PO TID PRN (Reason: abdominal pain) Qty: 30 0RF sucralfate [Carafate] 1 gram tablet 1 g PO BID Qty: 60 0RF metronidazole [Flagyl] 500 mg tablet 500 mg PO Q12H 10 Days Qty: 20 0RF doxycycline monohydrate 100 mg tablet 100 mg PO BID 10 Days Qty: 20 0RF fluconazole [Diflucan] 150 mg tablet 150 mg PO DAILY Qty: 1 0RF Rx Instructions: Please take on 12/10/2021 nitrofurantoin monohyd/m-cryst [Macrobid] 100 mg capsule 100 mg PO Q12H 5 Days Qty: 10 0RF Rx Instructions: must administer with a meal/food phenazopyridine [Pyridium] 200 mg tablet 200 mg PO TID PRN (Reason: pain) Qty: 10 0RF
[2021-12-15 18:03] LABS: Appearance Urine CLEAR; Color Urine YELLOW; Glucose Urine UA NEG (NEG); Leukocyte Esterase Urine NEG (NEG); Nitrite Urine NEG (NEG); Specific Gravity - Urine 1.015 (1.005-1.025); Urine Blood NEG (NEG); Urine Ketones NEG (NEG); Urine Protein NEG (NEG-TRACE)
[2021-12-15 18:04] LABS: UPreg QC Valid YES; Urine Pregnancy NEGATIVE (NEGATIVE)
[2021-12-15] MEDS: metroNIDAZOLE 500 MG TABLET PO (18:32)
--- NOTE | 2021-12-15 18:58 | PC.NURSE ---
PELVIC EXAM BY [facility] WITH RN WITNESS
[2021-12-16 09:18] LABS: CT PCR NOT DETECTED (Not Detect.); NG PCR NOT DETECTED (Not Detect.)
[2021-12-16 09:45] LABS: BV Int Neg Control Negative (Negative); BV Int Pos Control Positive (Positive)
== END 2021-12-15 19:01 | disposition home or self-care (01) ==
PROVIDERS: Physician Assistant; Emergency Provider Emergency Medicine
DX: N76.0 Acute vaginitis (principal)
CPT/HCPCS: 81003; 81025; 87480; 87491; 87510; 87591; 87660; 99284

== ENCOUNTER 2022-04-04 15:37 | Emergency (ER) | payer OTHER, SELFPAY ==
--- NOTE | ~2022-04-04 | US_ITS ---
EXAMINATION: US PELVIS CLINICAL INFORMATION: Pelvic/low back pain after intercourse COMPARISON: CT abdomen pelvis 08/31/2020 TECHNIQUE: Ultrasound of the pelvis is performed using both transabdominal and transvaginal transducers along with Doppler. Transvaginal imaging is performed due to inadequate visualization transabdominally. FINDINGS: Uterus: The uterus is retroverted and retroflexed, measuring 9.3 x 5.5 x 4.2 cm. The double wall endometrial thickness is 0.8 mm. The uterus is smooth in contour and has normal myometrial echogenicity. No visible fibroid. Adnexa: Both ovaries are visualized. There is normal color flow to the adnexa. There is no ovarian torsion. There is no pelvic ascites or fluid collection. Right ovary measures 2.7 x 1.1 x 1.9 cm for a volume of 3 mL. Left ovary measures 2.8 x 2.1 x 2.2 cm for a volume of 6.8 mL which includes a 1.1 x 1.6 x 1.1 cm corpus luteum cyst. US/US pelvic and transvaginal IMPRESSION: Retroverted retroflexed uterus. No significant abnormality is seen
--- NOTE | ~2022-04-04 | XR_ITS ---
EXAMINATION: X-RAY RIGHT HAND CLINICAL INFORMATION: Injury, pain COMPARISON: None TECHNIQUE: 3 views FINDINGS: There are markers positioned along the fourth and fifth fingers. No evidence of acute fracture or dislocation of the fourth or fifth digits. The remainder the bones appear intact without evidence of discrete fractures. Mild second DIP joint arthritis. Small ossicle at the first IP joint. Ulna negative variance. XR/XR hand wrist RT IMPRESSION: No radiographically evident acute fracture or dislocation.
[2022-04-04 17:19] VITALS: BP 137/95; PULSE 71; RESP 16; TEMP 36.8; O2SAT 100; BMI 29.7
--- NOTE | 2022-04-04 17:57 | ED.BACK ---
HPI - Back Pain/Injury General Chief Complaint: Back Pain/Injury <Daksha Ash NP - Last Filed: 04/04/22 19:13> Stated Complaint: nausea/hand pain/shakiness <COLLIN Hubbard Last Filed: 04/04/22 19:13> Time Seen by Provider: 04/04/22 17:35 <Daksha Ash NP - Last Filed: 04/04/22 19:13> Source: patient <COLLIN Hubbard Last Filed: 04/04/22 19:13> Mode of arrival: ambulatory <COLLIN Hubbard Last Filed: 04/04/22 19:13> Limitations: no limitations <COLLIN Hubbard Last Filed: 04/04/22 19:13> History of Present Illness HPI Narrative: 41-year-old female with history of anxiety, previous back surgery, tubal ligation presents with multiple complaints. Patient tells me that she had sexual intercourse this weekend. After having sexual intercourse she developed some lower abdominal discomfort, low back pain and foul-smelling vaginal discharge. Patient tells me that she is sexually active with 1 male partner. She does not use condoms. She denies any urinary symptoms, vomiting. She has had some nausea. No radiation of back pain, but no associated numbness or tingling or incontinence. No fevers or chills. Patient also reports yesterday she went to roller picker a grocery bag and developed pain and numbness in her right hand along the 4th and 5th digit. No weakness, redness, warmth, swelling <COLLIN Hubbard Last Filed: 04/04/22 19:13> Related Data Home Medications: Previous Rx's Medication Instructions Recorded acetaminophen 300 mg-codeine 30 mg 1 tab PO Q8H PRN pain #10 tabs 08/15/20 tablet ibuprofen 800 mg tablet 800 mg PO Q8H PRN pain #14 tabs 08/15/20 metronidazole 500 mg tablet 500 mg PO BID BACTERIAL VAGINOSIS 08/15/20 (Flagyl) 7 days #14 tabs cyclobenzaprine 10 mg tablet 10 mg PO TID PRN muscle spasm #14 08/31/20 tabs dicyclomine 20 mg tablet 20 mg PO TID PRN abdominal pain 09/12/20 #30 tabs omeprazole 40 mg capsule,delayed 40 mg PO DAILY #30 caps 09/12/20 release sucralfate 1 gram tablet (Carafate) 1 g PO BID #60 tabs 09/12/20 lorazepam 1 mg tablet (Ativan) 1 mg PO BID PRN anxiety 5 days 09/19/20 lorazepam 1 mg tablet (Ativan) 1 mg PO BID PRN anxiety 5 days #10 09/19/20 tabs doxycycline monohydrate 100 mg 100 mg PO BID 10 days #20 tabs 02/26/21 tablet metronidazole 500 mg tablet 500 mg PO Q12H 10 days #20 tabs 02/26/21 (Flagyl) nitrofurantoin 100 mg PO Q12H 5 days #10 caps 08/14/21 monohydrate/macrocrystals 100 mg capsule (Macrobid) phenazopyridine 200 mg tablet 200 mg PO TID PRN pain 6 doses #10 08/14/21 (Pyridium) tabs fluconazole 150 mg tablet 150 mg PO DAILY #1 tab 12/07/21 (Diflucan) metronidazole 500 mg tablet 500 mg PO BID 7 days #14 tabs 12/15/21 ondansetron 4 mg disintegrating 4 mg PO Q8H PRN nausea and 12/15/21 tablet vomiting #7 tabs doxycycline monohydrate 100 mg 100 mg PO BID #14 tabs 04/04/22 tablet metronidazole 500 mg tablet 500 mg PO BID 7 days #14 tabs 04/04/22 naproxen 500 mg tablet 500 mg PO BID PRN pain #30 tabs 04/04/22 ondansetron 4 mg disintegrating 4 mg PO Q6H PRN nausea and 04/04/22 tablet vomiting #10 tabs <Daksha Ash NP - Last Filed: 04/04/22 19:13> Allergies/Adverse Reactions: Allergies Allergy/AdvReac Type Severity Reaction Status Date / Time No Known Allergies Allergy Verified 04/04/22 17:25 [No Known Allergies*] <Daksha Ash NP - Last Filed: 04/04/22 19:13> Review of Systems Review of Systems: Yes all other systems are reviewed and are negative <Daksha Ash NP - Last Filed: 04/04/22 19:13> Constitutional: Constitutional: Reports no additional constitutional complaints, Denies body ache(s), Denies chills, Denies fever(s), Denies headache(s) and Denies weakness <Daksha Ash NP - Last Filed: 04/04/22 19:13> Eyes: Eyes: Reports no additional eye complaints and Denies change in vision <Daksha Ash [employer] - Last Filed: 04/04/22 19:13> ENT: Reports system reviewed and no additional complaints, except as documented, Denies dizziness, Denies headache(s), Denies nasal congestion, Denies nasal discharge and Denies neck pain <Daksha Ash NP - Last Filed: 04/04/22 19:13> Cardiovascular: Cardiovascular: Reports no additional cardiovascular complaints, Denies chest pain, Denies leg edema and Denies dyspnea <Daksha Ash NP - Last Filed: 04/04/22 19:13> Respiratory: Respiratory: Reports no additional respiratory complaints, Denies cough and Denies dyspnea <Daksha Ash [employer] - Last Filed: 04/04/22 19:13> Gastrointestinal: Gastrointestinal: Reports no additional gastrointestinal complaints, Reports abdominal pain, Denies diarrhea, Denies nausea and Denies vomiting <Daksha Ash NP - Last Filed: 04/04/22 19:13> Genitourinary: Genitourinary: Reports no additional female genitourinary complaints, Reports abnormal vaginal bleeding, Denies urinary incontinence and Reports vaginal discharge <Daksha Ash NP - Last Filed: 04/04/22 19:13> Musculoskeletal: Musculoskeletal: Reports no additional musculoskeletal complaints, Reports back pain, Denies arthralgias, Denies joint swelling, Denies neck pain, Reports numbness and Reports tingling <Daksha Ash NP - Last Filed: 04/04/22 19:13> Integumentary/Breasts: Skin/Breast: Reports system reviewed and no additional complaints, except as docu and Denies rash <Daksha Ash NP - Last Filed: 04/04/22 19:13> Neurologic: Reports system reviewed and no additional complaints, except as documented, Denies Abnormal speech present, Denies dizziness, Denies headache(s), Reports numbness, Reports tingling and Denies weakness <Daksha Ash NP - Last Filed: 04/04/22 19:13> [facility] Past Medical History Attestation statement: The following information was validated with the patient. <Daksha Ash NP - Last Filed: 04/04/22 19:13> Source: old records reviewed and nursing notes reviewed <Daksha Ash NP - Last Filed: 04/04/22 19:13> Medical History: Medical History Anxiety <Daksha Ash NP - Last Filed: 04/04/22 19:13> Surgical History: Surgical History H/O tubal ligation Hx of breast reduction, elective <Daksha Ash NP - Last Filed: 04/04/22 19:13> Social History Social History: Social History Alcohol intake: never Substance Use Type: Marijuana Advance Directives: No Advance Directives Information Provided: No <Daksha Ash NP - Last Filed: 04/04/22 19:13> Physical Exam Vital Signs: Vital Signs: Last Vital Signs Temp 98.3 F 04/04/22 17:19 Pulse 71 04/04/22 17:19 Resp 16 04/04/22 17:19 BP 137/95 H 04/04/22 17:19 Pulse Ox 100 04/04/22 17:19 O2 Del Method 04/04/22 17:19 BMI result Body Mass Index 29.7 <Daksha Ash NP - Last Filed: 04/04/22 19:13> Vital Signs: Last Vital Signs Temp 98.3 F 04/04/22 17:19 Pulse 71 04/04/22 17:19 Resp 16 04/04/22 17:19 BP 137/95 H 04/04/22 17:19 Pulse Ox 100 04/04/22 17:19 O2 Del Method 04/04/22 17:19 BMI result Body Mass Index 29.7 <MC Chappell - Last Filed: 04/04/22 20:11> Const: General: cooperative, healthy appearing, comfortable and no acute distress <Daksha Ash NP - Last Filed: 04/04/22 19:13> Orientation/consciousness: patient oriented x3 <Daksha Ash NP - Last Filed: 04/04/22 19:13> Limitations: no limitations <Daksha Ash NP - Last Filed: 04/04/22 19:13> HEENT: Head: Yes normal to inspection <Daksha Ash NP - Last Filed: 04/04/22 19:13> Ears: hearing grossly normal bilaterally <Daksha Ash NP - Last Filed: 04/04/22 19:13> General nose exam: Normal external nose present <Daksha Ash NP - Last Filed: 04/04/22 19:13> Face and sinus: Yes normal facial exam <Daksha Ash NP - Last Filed: 04/04/22 19:13> Mouth: Normal oral and palatal mucosa present <Daksha Ash NP - Last Filed: 04/04/22 19:13> Throat: Yes posterior oropharynx normal <Daksha Ash NP - Last Filed: 04/04/22 19:13> Eyes: General: appearance normal, both eyes and all related structures <Daksha Ash NP - Last Filed: 04/04/22 19:13> Pupils: Equal, round and reactive pupils present <Daksha Ash NP - Last Filed: 04/04/22 19:13> Neck: Neck: Yes normal visual inspection <Daksha Ash NP - Last Filed: 04/04/22 19:13> Chest: Chest palpation & inspection: normal inspection of the chest <Daksha Ash NP - Last Filed: 04/04/22 19:13> Resp: Effort & Inspection: normal respiratory effort <Daksha Ash NP - Last Filed: 04/04/22 19:13> Auscultation: clear to auscultation bilaterally <Daksha Ash NP - Last Filed: 04/04/22 19:13> Cardio: Rate: regular rate <Daksha Ash NP - Last Filed: 04/04/22 19:13> Rhythm: regular rhythm <Daksha Ash NP - Last Filed: 04/04/22 19:13> Peripheral pulses: Peripheral pulses 2+ throughout <Daksha Ash [employer] - Last Filed: 04/04/22 19:13> GI: Inspection: Yes normal to inspection <Daksha Ash NP - Last Filed: 04/04/22 19:13> Palpation (GI): Soft to palpation and nontender <Daksha Ash NP - Last Filed: 04/04/22 19:13> Auscultation: normal bowel sounds <Daksha Ash NP - Last Filed: 04/04/22 19:13> : Other: exam deferred <Daksha Ash NP - Last Filed: 04/04/22 19:13> General: Yes no CVA tenderness <Daksha Ash [employer] - Last Filed: 04/04/22 19:13> Back/Spine/Pelvis: Other: Mild tenderness the lumbar soft tissue and mid spine with no step-offs deformities <Daksha Ash [employer] - Last Filed: 04/04/22 19:13> Back: no CVA tenderness <Daksha Ash [employer] - Last Filed: 04/04/22 19:13> Thoracic/Lumbar Spine: thoracic and lumbar spine normal to inspection <Daksha Ash NP - Last Filed: 04/04/22 19:13> Skin: General skin exam: no rashes or lesions noted <Daksha Ash NP - Last Filed: 04/04/22 19:13> Neuro: General: patient oriented x3, no focal motor deficits and normal sensation to monofilament <Daksha Ash [employer] - Last Filed: 04/04/22 19:13> Cranial nerves: Yes Equal, round and reactive pupils present <Daksha Ash [employer] - Last Filed: 04/04/22 19:13> Cognition (Neuro): normal cognition <Daksha Ash NP - Last Filed: 04/04/22 19:13> Speech: No Abnormal speech present <Daksha Ash NP - Last Filed: 04/04/22 19:13> Gait exam (Neuro): Normal gait present <Daksha Ash NP - Last Filed: 04/04/22 19:13> Motor exam (neuro): 5/5 motor strength present throughout <Daksha Ash NP - Last Filed: 04/04/22 19:13> Extrem: General: Yes normal to inspection <Daksha Ash NP - Last Filed: 04/04/22 19:13> Course Course Course Narrative: [id number] to Sue BENTLEY pending pelvic ultrasound, hand and wrist x-rays, UA and urine <Daksha Ash NP - Last Filed: 04/04/22 19:13> [id number] to Sue BENTLEY pending pelvic ultrasound, hand and wrist x-rays, UA and urine -2007--UA negative. negative XR hand wrist RT IMPRESSION: No radiographically evident acute fracture or dislocation.? US pelvic and transvaginal IMPRESSION: Retroverted retroflexed uterus. No significant abnormality is seen > results discussed with patient including worrisome s/s and strict return precautions <MC Chappell - Last Filed: 04/04/22 20:11> MDM - Back Pain/Injury MDM Narrative Medical decision making narrative: 41-year-old female here with reports of lower abdominal discomfort, back pain with vaginal discharge after having sexual intercourse this weekend. No focal abdominal pain. No CVA tenderness. Will check pelvic ultrasound, obtain UA, STI testing. Patient also complaining of traumatic right hand 4th and 5th digit and numbness with clawing after lifting a grocery bag yesterday. Likely ulnar nerve entrapment. No elbow pain or fall. Less likely at the elbow. Consider entrapment at the wrist. Will check x-rays to rule out fracture. If normal referred to Ortho. -patient will be treated prophylactically with ceftriaxone 500 mg IM and will be sent home with doxycycline and metronidazole -low concern for acute appendicitis with no focal right lower quadrant abdominal pain, negative psoas and obturator's sign. No rebound or guarding of the abdomen. No fever -low concern for ovarian torsion with symptoms that are gradual, constant, not colicky and have been going on for several days. -low concern for PID with no reports of fever. Abdomen soft and nontender with no focal guarding or tenderness <Daksha Ash NP - Last Filed: 04/04/22 19:13> Medical Records Attestation: I reviewed the patient's medical records. <Daksha Ash NP - Last Filed: 04/04/22 19:13> Lab Data Attestation: I reviewed the patient's lab results. <Daksha Ash NP - Last Filed: 04/04/22 19:13> Labs: Lab Results 04/04/22 04/04/22 Range/Units 18:58 18:58 Urine Color YELLOW Urine Appearance CLEAR Urine pH 6.5 (5.0-8.0) Ur Specific [place] 1.015 (1.005-1.025) Urine Protein NEG (NEG-TRACE) MG/DL Urine Glucose (UA) NEG (NEG) MG/DL Urine Ketones NEG (NEG) MG/DL Urine Blood NEG (NEG) Urine Nitrite NEG (NEG) Ur Leukocyte Esterase NEG (NEG) Urine Test NEGATIVE (NEGATIVE) <Daksha Ash NP - Last Filed: 04/04/22 19:13> Lab Results 04/04/22 04/04/22 Range/Units 18:58 18:58 Urine Color YELLOW Urine Appearance CLEAR Urine pH 6.5 (5.0-8.0) Ur Specific [place] 1.015 (1.005-1.025) Urine Protein NEG (NEG-TRACE) MG/DL Urine Glucose (UA) NEG (NEG) MG/DL Urine Ketones NEG (NEG) MG/DL Urine Blood NEG (NEG) Urine Nitrite NEG (NEG) Ur Leukocyte Esterase NEG (NEG) Urine Test NEGATIVE (NEGATIVE) <MC Chappell - Last Filed: 04/04/22 20:11> Discharge Plan 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 Your x-ray show no acute fracture. We are referring you to orthopedics to follow-up. He should rest the hand and wrist. Avoid putting any extra pressure on the hand and wrist. Use gloves if able Taken anti-inflammatory medication to help with the pain We have tested you for STDs. These results take 1-2 days. We will call you if they are positive. You were treated prophylactically <Daksha Ash NP - Last Filed: 04/04/22 19:13> Prescriptions: New doxycycline monohydrate 100 mg tablet 100 mg PO BID Qty: 14 0RF metronidazole 500 mg tablet 500 mg PO BID 7 Days Qty: 14 0RF naproxen 500 mg tablet 500 mg PO BID PRN (Reason: pain) Qty: 30 0RF ondansetron 4 mg tablet,disintegrating 4 mg PO Q6H PRN (Reason: nausea and vomiting) Qty: 10 0RF No Action metronidazole [Flagyl] 500 mg tablet 500 mg PO BID 7 Days Qty: 14 0RF acetaminophen-codeine 300-30 mg tablet 1 tab PO Q8H PRN (Reason: pain) Qty: 10 0RF ibuprofen 800 mg tablet 800 mg PO Q8H PRN (Reason: pain) Qty: 14 0RF cyclobenzaprine 10 mg tablet 10 mg PO TID PRN (Reason: muscle spasm) Qty: 14 0RF lorazepam [Ativan] 1 mg tablet 1 mg PO BID PRN (Reason: anxiety) 5 Days 0RF lorazepam [Ativan] 1 mg tablet 1 mg PO BID PRN (Reason: anxiety) 5 Days Qty: 10 0RF omeprazole 40 mg capsule,delayed release(DR/EC) 40 mg PO DAILY Qty: 30 0RF dicyclomine 20 mg tablet 20 mg PO TID PRN (Reason: abdominal pain) Qty: 30 0RF sucralfate [Carafate] 1 gram tablet 1 g PO BID Qty: 60 0RF metronidazole [Flagyl] 500 mg tablet 500 mg PO Q12H 10 Days Qty: 20 0RF doxycycline monohydrate 100 mg tablet 100 mg PO BID 10 Days Qty: 20 0RF fluconazole [Diflucan] 150 mg tablet 150 mg PO DAILY Qty: 1 0RF Rx Instructions: Please take on 12/10/2021 nitrofurantoin monohyd/m-cryst [Macrobid] 100 mg capsule 100 mg PO Q12H 5 Days Qty: 10 0RF Rx Instructions: must administer with a meal/food phenazopyridine [Pyridium] 200 mg tablet 200 mg PO TID PRN (Reason: pain) Qty: 10 0RF metronidazole 500 mg tablet 500 mg PO BID 7 Days Qty: 14 0RF ondansetron 4 mg tablet,disintegrating 4 mg PO Q8H PRN (Reason: nausea and vomiting) Qty: 7 0RF <Daksha Ash NP - Last Filed: 04/04/22 19:13> Referrals: [facility] [Provider Group] Connor Lopez MD [Physician] - 10 days <Daksha Ash NP - Last Filed: 04/04/22 19:13>
[2022-04-04 19:09] LABS: Appearance Urine CLEAR; Color Urine YELLOW; Glucose Urine UA NEG (NEG); Leukocyte Esterase Urine NEG (NEG); Nitrite Urine NEG (NEG); PH 6.5 (5.0-8.0); Specific Gravity - Urine 1.015 (1.005-1.025); Urine Blood NEG (NEG); Urine Ketones NEG (NEG); Urine Protein NEG (NEG-TRACE)
[2022-04-04 19:11] LABS: UPreg QC Valid YES; Urine Pregnancy NEGATIVE (NEGATIVE)
[2022-04-04] MEDS: cefTRIAXone sodium 500 MG, Lidocaine HCl 1 % MPF 1 ML IM (20:00)
[2022-04-04] MEDS: Ondansetron ODT 4 MG TAB.RAPDIS TRANSLINGU (20:00)
[2022-04-04 20:37] VITALS: BP 136/76; PULSE 75; RESP 16; TEMP 36.1
[2022-04-05 02:46] LABS: CT PCR NOT DETECTED (Not Detect.); NG PCR NOT DETECTED (Not Detect.)
[2022-04-05 09:06] LABS: BV Int Neg Control Negative (Negative); BV Int Pos Control Positive (Positive)
== END 2022-04-04 20:39 | disposition home or self-care (01) ==
PROVIDERS: Nurse Practitioner Family; Emergency Provider Emergency Medicine
DX: S64.01XA Injury of ulnar nerve at wrist and hand level of right arm, initial encounter (principal); R10.2 Pelvic and perineal pain; R11.0 Nausea; R20.0 Anesthesia of skin; M54.50 Low back pain, unspecified; N89.8 Other specified noninflammatory disorders of vagina; X50.0XXA Overexertion from strenuous movement or load, initial encounter; X50.3XXA Overexertion from repetitive movements, initial encounter; Y93.9 Activity, unspecified; Y92.9 Unspecified place or not applicable; Y99.9 Unspecified external cause status; Z20.2 Contact with and (suspected) exposure to infections with a predominantly sexual mode of transmission; Z79.899 Other long term (current) drug therapy
CPT/HCPCS: 73110; 73130; 76830; 76856; 81003; 81025; 87480; 87491; 87510; 87591; 87660; 96365; 99283; 99284; J0696

== ENCOUNTER 2022-08-14 16:23 | Emergency (ER) | payer OTHER, SELFPAY ==
[2022-08-14 16:50] VITALS: BP 113/64; PULSE 90; RESP 18; TEMP 36.8; O2SAT 96; BMI 29.7
--- NOTE | 2022-08-14 16:50 | ED_ITS ---
HPI - General Adult General Chief complaint: General Medical <Deepa Deshpande MD - Last Filed: 08/14/22 17:50> Stated complaint: swollen throat , unable to swallow <Deepa Deshpande MD - Last Filed: 08/14/22 17:50> Time Seen by Provider: 08/14/22 18:20 <Deepa Deshpande MD - Last Filed: 08/14/22 17:50> Source: patient <Muriel Naomi Tarango CNP - Last Filed: 08/14/22 18:40> Mode of arrival: ambulatory <Muriel Tarango CNP - Last Filed: 08/14/22 18:40> Limitations: no limitations <Muriel Tarango CNP - Last Filed: 08/14/22 18:40> History of Present Illness HPI narrative: Patient is a 42-year-old female presents emergency department for young luation of sore throat, painful swallowing, right ear pain. Onset of symptoms was 2 days ago. Denies fevers, chills, headache, dizziness, lightheadedness, neck pain, neck stiffness, chest pain, shortness of breath, difficulty breathing, nausea vomiting, abdominal pain. Reports that she does have a daughter at home who was sick with a cough currently. <Muriel Tarango CNP - Last Filed: 08/14/22 18:40> Related Data Home medications: Previous Rx's Medication Instructions Recorded acetaminophen 300 mg-codeine 30 mg 1 tab PO Q8H PRN pain #10 tabs 08/15/20 tablet ibuprofen 800 mg tablet 800 mg PO Q8H PRN pain #14 tabs 08/15/20 metronidazole 500 mg tablet 500 mg PO BID BACTERIAL VAGINOSIS 08/15/20 (Flagyl) 7 days #14 tabs cyclobenzaprine 10 mg tablet 10 mg PO TID PRN muscle spasm #14 08/31/20 tabs dicyclomine 20 mg tablet 20 mg PO TID PRN abdominal pain 09/12/20 #30 tabs omeprazole 40 mg capsule,delayed 40 mg PO DAILY #30 caps 09/12/20 release sucralfate 1 gram tablet (Carafate) 1 g PO BID #60 tabs 09/12/20 lorazepam 1 mg tablet (Ativan) 1 mg PO BID PRN anxiety 5 days 09/19/20 lorazepam 1 mg tablet (Ativan) 1 mg PO BID PRN anxiety 5 days #10 09/19/20 tabs doxycycline monohydrate 100 mg 100 mg PO BID 10 days #20 tabs 02/26/21 tablet metronidazole 500 mg tablet 500 mg PO Q12H 10 days #20 tabs 02/26/21 (Flagyl) nitrofurantoin 100 mg PO Q12H 5 days #10 caps 08/14/21 monohydrate/macrocrystals 100 mg capsule (Macrobid) phenazopyridine 200 mg tablet 200 mg PO TID PRN pain 6 doses #10 08/14/21 (Pyridium) tabs fluconazole 150 mg tablet 150 mg PO DAILY #1 tab 12/07/21 (Diflucan) metronidazole 500 mg tablet 500 mg PO BID 7 days #14 tabs 12/15/21 ondansetron 4 mg disintegrating 4 mg PO Q8H PRN nausea and 12/15/21 tablet vomiting #7 tabs doxycycline monohydrate 100 mg 100 mg PO BID #14 tabs 04/04/22 tablet metronidazole 500 mg tablet 500 mg PO BID 7 days #14 tabs 04/04/22 naproxen 500 mg tablet 500 mg PO BID PRN pain #30 tabs 04/04/22 ondansetron 4 mg disintegrating 4 mg PO Q6H PRN nausea and 04/04/22 tablet vomiting #10 tabs amoxicillin 500 mg capsule 500 mg PO BID 10 days #20 caps 08/14/22 <Deepa Deshpande MD - Last Filed: 08/14/22 17:50> Allergies/adverse reactions: Allergies Allergy/AdvReac Type Severity Reaction Status Date / Time No Known Allergies Allergy Verified 04/04/22 17:25 [No Known Allergies*] <Deepa Deshpande MD - Last Filed: 08/14/22 17:50> Review of Systems Review of Systems: Constitutional: No weight loss, fever, chills, weakness or fatigue. ENT: Positive sore throat, positive your pain Skin: No rash or itching. Cardiovascular: No chest pain or palpitations Respiratory: No shortness of breath, cough or sputum production. Gastrointestinal: No nausea, vomiting or diarrhea. No abdominal pain . Genitourinary: No burning micturition. No urinary frequency or incontinence. Musculoskeletal: No muscle pain, back pain, joint pain or stiffness. Psychiatric: No depression or anxiety. <Muriel Tarango CNP - Last Filed: 08/14/22 18:40> Yes all other systems are reviewed and are negative <Muriel Tarango CNP - Last Filed: 08/14/22 18:40> [facility] Past Medical History Attestation statement: The following information was validated with the patient. <Muriel Tarango CNP - Last Filed: 08/14/22 18:40> Source: old records reviewed <Muriel Tarango CNP - Last Filed: 08/14/22 18:40> Medical History: Medical History Anxiety <Deepa Deshpande MD - Last Filed: 08/14/22 17:50> Surgical History: Surgical History H/O tubal ligation Hx of breast reduction, elective <Deepa Deshpande MD - Last Filed: 08/14/22 17:50> Social History Social History: Social History Alcohol intake: never Substance Use Type: Marijuana Advance Directives: No Advance Directives Information Provided: Yes <Deepa Deshpande MD - Last Filed: 08/14/22 17:50> Physical Exam ED Vital Signs: Vital Signs - 24 hr 08/14/22 16:50 Temperature 98.2 F Pulse Rate 90 Respiratory Rate 18 Blood Pressure 113/64 Pulse Oximetry 96 Oxygen Delivery Method Room Air BMI result Body Mass Index 29.7 <Deepa Deshpande MD - Last Filed: 08/14/22 17:50> Vital Signs - 24 hr 08/14/22 16:50 Temperature 98.2 F Pulse Rate 90 Respiratory Rate 18 Blood Pressure 113/64 Pulse Oximetry 96 Oxygen Delivery Method Room Air BMI result Body Mass Index 29.7 <Muriel Tarango CNP - Last Filed: 08/14/22 18:40> Appearance: Alert.?Oriented to person, place and time. No acute distress.?Normal affect. Eyes: Pupils equal, round and reactive to light.? ENT: Pharynx erythematous with exudates bilaterally, tonsillar hypertrophy, uvula midline, no trismus, no drooling. TM normal bilaterally. Neck: Normal inspection.? Neck supple.?? CVS: Heart sounds normal. Normal heart rate and rhythm.? Pulses normal.?? Respiratory: No respiratory distress.? Lung sounds clear to auscultation bilaterally?? Abdomen: Soft and non-tender. Normoactive bowel sounds. ? Skin: Skin warm and dry.? Normal skin color.? Extremities: No lower extremity edema.? Neuro: Moves all extremities spontaneously. Sensation intact bilaterally. No focal neuro deficits. Ambulates with normal steady gait. <Muriel Tarango CNP - Last Filed: 08/14/22 18:40> Course Course Course Narrative: triage MELODY: -pt comes c/o sore throat since yesterday, weird sensation, today worsening pain, pain with swallowing -was + for covid one month ago, no fever, c/o R ear pain -pt states her 6 yr old daughter couldnt go to school today due to cough -PE: erythematous oropharynx, white exudates bilaterally, no abcesses, well appearing, no fever, normal vitals -Strep and covid test pending <Deepa Deshpande MD - Last Filed: 08/14/22 17:50> Reevaluation(s) Reevaluation #1: Patient is a 42-year-old female with no pertinent past medical history presenting to emergency department for sore throat and ear pain. States that she was COVID-19 positive 1 month ago, symptoms had completely resolved. Pharyngitis noted on examination, strep testing is positive today, COVID-19 testing is negative. Not consistent with peritonsillar abscess, or retropharyngeal abscess. She is overall well appearing, vital signs are stable. Afebrile without tachycardia. No tachypnea or hypoxia. Discussed plan of care for discharge home, conservative treatment, new prescription for amoxicillin sent to patient's pharmacy. Discussed worrisome signs symptoms return back to emergency department for. Questions were answered. Patient discharged home in stable condition. <Muriel Tarango CNP - Last Filed: 08/14/22 18:40> Time: 18:33 <Muriel Tarango CNP - Last Filed: 08/14/22 18:40> Medical Decision Making Lab Data Labs: Lab Results 08/14/22 08/14/22 Range/Units 16:57 16:57 COVID-19 (LEON) Negative (Negative) COVID-19 Clin Com See Note S. pyogenes GrpA GERA Positive A (Negative) <Deepa Deshpande MD - Last Filed: 08/14/22 17:50> Lab Results 08/14/22 08/14/22 Range/Units 16:57 16:57 COVID-19 (LEON) Negative (Negative) COVID-19 Clin Com See Note S. pyogenes GrpA GERA Positive A (Negative) <Muriel Tarango CNP - Last Filed: 08/14/22 18:40> Discharge Plan Discharge Clinical Impression: Acute streptococcal pharyngitis <Deepa Deshpande MD - Last Filed: 08/14/22 17:50> Patient Disposition: Home, Self-Care <Deepa Deshpande MD - Last Filed: 08/14/22 17:50> Instructions: Strep Throat (ED) <Deepa Deshpande MD - Last Filed: 08/14/22 17:50> Additional Instructions: Be sure to rest over the next few days, stay plenty hydrated, warm salt water gargles may give you some relief, throat lozenges as well as antiseptic throat spray may be helpful also You have been given a new prescription for antibiotic, please complete this entire course. You can take ibuprofen 200 mg, 3 tablets (600mg) every 6-8 hours as needed for pain, in addition to Tylenol 500 mg, 2 tablets (1,000mg) every 4-6 hours as needed for pain, but not to exceed 3 doses daily (3,000mg).? Follow-up with your primary care provider as needed Return to emergency department any new or worsening symptoms or concerns <Deepa Deshpande MD - Last Filed: 08/14/22 17:50> Prescriptions: New amoxicillin 500 mg capsule 500 mg PO BID 10 Days Qty: 20 0RF No Action metronidazole [Flagyl] 500 mg tablet 500 mg PO BID 7 Days Qty: 14 0RF acetaminophen-codeine 300-30 mg tablet 1 tab PO Q8H PRN (Reason: pain) Qty: 10 0RF ibuprofen 800 mg tablet 800 mg PO Q8H PRN (Reason: pain) Qty: 14 0RF cyclobenzaprine 10 mg tablet 10 mg PO TID PRN (Reason: muscle spasm) Qty: 14 0RF lorazepam [Ativan] 1 mg tablet 1 mg PO BID PRN (Reason: anxiety) 5 Days 0RF lorazepam [Ativan] 1 mg tablet 1 mg PO BID PRN (Reason: anxiety) 5 Days Qty: 10 0RF omeprazole 40 mg capsule,delayed release(DR/EC) 40 mg PO DAILY Qty: 30 0RF dicyclomine 20 mg tablet 20 mg PO TID PRN (Reason: abdominal pain) Qty: 30 0RF sucralfate [Carafate] 1 gram tablet 1 g PO BID Qty: 60 0RF metronidazole [Flagyl] 500 mg tablet 500 mg PO Q12H 10 Days Qty: 20 0RF doxycycline monohydrate 100 mg tablet 100 mg PO BID 10 Days Qty: 20 0RF fluconazole [Diflucan] 150 mg tablet 150 mg PO DAILY Qty: 1 0RF Rx Instructions: Please take on 12/10/2021 nitrofurantoin monohyd/m-cryst [Macrobid] 100 mg capsule 100 mg PO Q12H 5 Days Qty: 10 0RF Rx Instructions: must administer with a meal/food phenazopyridine [Pyridium] 200 mg tablet 200 mg PO TID PRN (Reason: pain) Qty: 10 0RF metronidazole 500 mg tablet 500 mg PO BID 7 Days Qty: 14 0RF ondansetron 4 mg tablet,disintegrating 4 mg PO Q8H PRN (Reason: nausea and vomiting) Qty: 7 0RF doxycycline monohydrate 100 mg tablet 100 mg PO BID Qty: 14 0RF metronidazole 500 mg tablet 500 mg PO BID 7 Days Qty: 14 0RF naproxen 500 mg tablet 500 mg PO BID PRN (Reason: pain) Qty: 30 0RF ondansetron 4 mg tablet,disintegrating 4 mg PO Q6H PRN (Reason: nausea and vomiting) Qty: 10 0RF <Deepa Deshpande MD - Last Filed: 08/14/22 17:50>
[2022-08-14 17:38] LABS: IDNOW Serial# BCCEAD1C; Strep A Nucleic Acid Positive (Negative)
[2022-08-14 17:48] LABS: COVID-19 Test Negative (Negative); IDNOW Serial# 16C4AD1C
== END 2022-08-14 18:50 | disposition home or self-care (01) ==
PROVIDERS: Emergency Medicine; Emergency Provider Internal Medicine
DX: J02.0 Streptococcal pharyngitis (principal); Z20.822 Contact with and (suspected) exposure to COVID-19; F12.90 Cannabis use, unspecified, uncomplicated
CPT/HCPCS: 36415; 87635; 87651; 99282; 99283

== ENCOUNTER 2022-11-06 16:17 | Emergency (ER) | payer OTHER, SELFPAY ==
[2022-11-06 17:13] VITALS: BP 126/68; PULSE 82; RESP 18; TEMP 36.8; O2SAT 100; BMI 30.4
--- NOTE | 2022-11-06 17:17 | ED_ITS ---
HPI - General Adult General Chief complaint: Abdominal Pain Stated complaint: had back surgery/ pain in back and abd Related Data Previous Rx's Medication Instructions Recorded acetaminophen 300 mg-codeine 30 mg 1 tab PO Q8H PRN pain #10 tabs 08/15/20 tablet ibuprofen 800 mg tablet 800 mg PO Q8H PRN pain #14 tabs 08/15/20 metronidazole 500 mg tablet 500 mg PO BID BACTERIAL VAGINOSIS 08/15/20 (Flagyl) 7 days #14 tabs cyclobenzaprine 10 mg tablet 10 mg PO TID PRN muscle spasm #14 08/31/20 tabs dicyclomine 20 mg tablet 20 mg PO TID PRN abdominal pain 09/12/20 #30 tabs omeprazole 40 mg capsule,delayed 40 mg PO DAILY #30 caps 09/12/20 release sucralfate 1 gram tablet (Carafate) 1 g PO BID #60 tabs 09/12/20 lorazepam 1 mg tablet (Ativan) 1 mg PO BID PRN anxiety 5 days 09/19/20 lorazepam 1 mg tablet (Ativan) 1 mg PO BID PRN anxiety 5 days #10 09/19/20 tabs doxycycline monohydrate 100 mg 100 mg PO BID 10 days #20 tabs 02/26/21 tablet metronidazole 500 mg tablet 500 mg PO Q12H 10 days #20 tabs 02/26/21 (Flagyl) nitrofurantoin 100 mg PO Q12H 5 days #10 caps 08/14/21 monohydrate/macrocrystals 100 mg capsule (Macrobid) phenazopyridine 200 mg tablet 200 mg PO TID PRN pain 6 doses #10 08/14/21 (Pyridium) tabs fluconazole 150 mg tablet 150 mg PO DAILY #1 tab 12/07/21 (Diflucan) metronidazole 500 mg tablet 500 mg PO BID 7 days #14 tabs 12/15/21 ondansetron 4 mg disintegrating 4 mg PO Q8H PRN nausea and 12/15/21 tablet vomiting #7 tabs doxycycline monohydrate 100 mg 100 mg PO BID #14 tabs 04/04/22 tablet metronidazole 500 mg tablet 500 mg PO BID 7 days #14 tabs 04/04/22 naproxen 500 mg tablet 500 mg PO BID PRN pain #30 tabs 04/04/22 ondansetron 4 mg disintegrating 4 mg PO Q6H PRN nausea and 04/04/22 tablet vomiting #10 tabs amoxicillin 500 mg capsule 500 mg PO BID 10 days #20 caps 08/14/22 Allergies Allergy/AdvReac Type Severity Reaction Status Date / Time No Known Allergies Allergy Verified 04/04/22 17:25 [No Known Allergies*] [facility] Past Medical History Medical History Anxiety Surgical History H/O tubal ligation Hx of breast reduction, elective Social History Social History Alcohol intake: never Substance Use Type: Marijuana Advance Directives: No Advance Directives Information Provided: No Physical Exam ED Vital Signs: Vital Signs - 24 hr 11/06/22 17:13 Temperature 98.3 F Pulse Rate 82 Respiratory Rate 18 Blood Pressure 126/68 Pulse Oximetry 100 Oxygen Delivery Method Room Air BMI result Body Mass Index 30.4 Course Course Course Narrative: RME: suprapbuic/abdominal pain. Patient was seen at PCP on sunday and they informed her there was blood in her UA and she should drink cranbery juice. patient states no obvious blood in UA. Patient had spine surgery two weeks ago. NEgative for CVA of flank or spine tendenress. Positive for suprapbic tenderness on palpation. Negative for rebound tenderness. Medical Decision Making Lab Data 11/06/22 18:23 11/06/22 18:23 Labs: Lab Results 11/06/22 11/06/22 Range/Units 18:23 18:23 WBC 7.7 (4.8-10.8) X10*3/uL RBC 3.76 L (4.20-5.50) X10*6/uL Hgb 10.8 L (12.0-16.0) g/dl Hct 32.7 L (37.0-47.0) % MCV 87.0 (80.0-98.0) fL MCH 28.7 (27.0-33.0) pg MCHC 33.0 (31.0-35.0) g/dl RDW 12.7 (11.0-16.0) % Plt Count 284 D (160-400) X10*3/uL MPV 10.6 (9.4-12.3) fL Immature Gran % (Auto) 0.5 H (0.0-0.4) % Neut % (Auto) 65.4 (45-73) % Lymph % (Auto) 23.6 (20-40) % [place] % (Auto) 7.6 (2-11) % Eos % (Auto) 2.5 (0-4) % Baso % (Auto) 0.4 (0-2) % Lymph # (Auto) 1.8 (1.2-4.9) X10*3/uL [place] # (Auto) 0.6 (0.1-1.2) X10*3/uL Eos # (Auto) 0.2 (0.0-0.4) X10*3/uL Baso # (Auto) 0.0 (0.0-0.2) X10*3/uL Abs Immat Gran (auto) 0.04 H (0.00-0.03) X10*3/uL Absolute Neuts (auto) 5.0 (2.0-8.3) x10*3/uL Absolute Nucleated RBC 0.000 (0.0-0.012) X10*3/uL Nucleated RBC % (auto) 0.0 (0.0-0.2) /100WBC Sodium 142 (135-145) mmol/L Potassium 4.3 (3.3-5.1) mmol/L Chloride 105 (96-108) mmol/L Carbon Dioxide 30 H (22-29) mmol/L Anion Gap 11 L (12-20) BUN 11 (9-16) mg/dL Creatinine 0.70 (0.5-1.4) mg/dL Estim Creat Clear Calc 120.4 Estimated GFR > 60 Random Glucose 95 (60-115) mg/dL Calcium 9.4 D (8.4-10.2) mg/dL Total Bilirubin 0.2 (0.0-1.0) mg/dL AST 14 (5-31) U/L ALT 16 (0-31) U/L Alkaline Phosphatase 59 (39-117) U/L Total Protein 6.4 L (6.5-8.0) g/dL Albumin 4.1 (3.5-5.0) g/dL Beta HCG, Quant < 2 mIU/mL Discharge Plan Discharge Clinical Impression: Abdominal pain Patient Disposition: Elopement Prescriptions: No Action metronidazole [Flagyl] 500 mg tablet 500 mg PO BID 7 Days Qty: 14 0RF acetaminophen-codeine 300-30 mg tablet 1 tab PO Q8H PRN (Reason: pain) Qty: 10 0RF ibuprofen 800 mg tablet 800 mg PO Q8H PRN (Reason: pain) Qty: 14 0RF cyclobenzaprine 10 mg tablet 10 mg PO TID PRN (Reason: muscle spasm) Qty: 14 0RF lorazepam [Ativan] 1 mg tablet 1 mg PO BID PRN (Reason: anxiety) 5 Days 0RF lorazepam [Ativan] 1 mg tablet 1 mg PO BID PRN (Reason: anxiety) 5 Days Qty: 10 0RF omeprazole 40 mg capsule,delayed release(DR/EC) 40 mg PO DAILY Qty: 30 0RF dicyclomine 20 mg tablet 20 mg PO TID PRN (Reason: abdominal pain) Qty: 30 0RF sucralfate [Carafate] 1 gram tablet 1 g PO BID Qty: 60 0RF metronidazole [Flagyl] 500 mg tablet 500 mg PO Q12H 10 Days Qty: 20 0RF doxycycline monohydrate 100 mg tablet 100 mg PO BID 10 Days Qty: 20 0RF fluconazole [Diflucan] 150 mg tablet 150 mg PO DAILY Qty: 1 0RF Rx Instructions: Please take on 12/10/2021 nitrofurantoin monohyd/m-cryst [Macrobid] 100 mg capsule 100 mg PO Q12H 5 Days Qty: 10 0RF Rx Instructions: must administer with a meal/food phenazopyridine [Pyridium] 200 mg tablet 200 mg PO TID PRN (Reason: pain) Qty: 10 0RF metronidazole 500 mg tablet 500 mg PO BID 7 Days Qty: 14 0RF ondansetron 4 mg tablet,disintegrating 4 mg PO Q8H PRN (Reason: nausea and vomiting) Qty: 7 0RF doxycycline monohydrate 100 mg tablet 100 mg PO BID Qty: 14 0RF metronidazole 500 mg tablet 500 mg PO BID 7 Days Qty: 14 0RF naproxen 500 mg tablet 500 mg PO BID PRN (Reason: pain) Qty: 30 0RF ondansetron 4 mg tablet,disintegrating 4 mg PO Q6H PRN (Reason: nausea and vomiting) Qty: 10 0RF amoxicillin 500 mg capsule 500 mg PO BID 10 Days Qty: 20 0RF Discharge Date/Time: 11/06/22 21:03
[2022-11-06 18:37] LABS: MANUAL DIFF FLAG NO
[2022-11-06 18:38] LABS: Basophils Percent Auto 0.4 % (0-2); Eosinophils Absolute Auto 0.2 X10*3/uL (0.0-0.4); Eosinophils Percent Auto 2.5 % (0-4); Hematocrit 32.7 % (37.0-47.0); Hemoglobin 10.8 g/dl (12.0-16.0); Imm Gran Abs Auto 0.04 X10*3/uL (0.00-0.03); Imm Gran Pct Auto 0.5 % (0.0-0.4); Lymphocytes Absolute Auto 1.8 X10*3/uL (1.2-4.9); Lymphocytes Percent Auto 23.6 % (20-40); Mean Corpuscular Hemoglobin 28.7 pg (27.0-33.0); Mean Platelet Volume 10.6 fL (9.4-12.3); Monocytes Absolute Auto 0.6 X10*3/uL (0.1-1.2); Monocytes Percent Auto 7.6 % (2-11); Neutrophils Percent Auto 65.4 % (45-73); Platelet Count 284 X10*3/uL (160-400); Red Blood Count 3.76 X10*6/uL (4.20-5.50); Red Cell Distribution Width 12.7 % (11.0-16.0); White Blood Count 7.7 X10*3/uL (4.8-10.8)
[2022-11-06 19:02] LABS: Alanine Aminotransferase 16 U/L (0-31); Albumin Level 4.1 g/dL (3.5-5.0); Alkaline Phosphatase 59 U/L (39-117); Anion Gap 11 (12-20); Aspartate Amino Transferase 14 U/L (5-31); Bilirubin Total 0.2 mg/dL (0.0-1.0); Blood Urea Nitrogen 11 mg/dL (9-16); Calcium 9.4 mg/dL (8.4-10.2); Carbon Dioxide 30 mmol/L (22-29); Chloride 105 mmol/L (96-108); Creatinine Clr Calc Pharmacy 120.4; Estimated Glomerular Filt Rate > 60; Glucose Random 95 mg/dL (60-115); Potassium 4.3 mmol/L (3.3-5.1); Sodium 142 mmol/L (135-145); Total Protein 6.4 g/dL (6.5-8.0)
[2022-11-06 19:04] LABS: HCG Quantitative < 2 mIU/mL
== END 2022-11-06 21:03 | disposition left against medical advice (07) ==
PROVIDERS: Physician Assistant; Emergency Provider Emergency Medicine
DX: R10.30 Lower abdominal pain, unspecified (principal); F12.90 Cannabis use, unspecified, uncomplicated; Z79.899 Other long term (current) drug therapy
CPT/HCPCS: 36415; 80053; 84702; 85025; 99281; 99283

== ENCOUNTER 2023-02-17 16:00 | Emergency (ER) | payer OTHER, SELFPAY ==
[2023-02-17 16:36] VITALS: BP 122/43; PULSE 84; RESP 18; TEMP 36.6; O2SAT 99; BMI 31.2
--- NOTE | 2023-02-17 16:38 | ED.GENADULT ---
HPI - General Adult General Chief complaint: General Medical Stated complaint: Back Pain Time Seen by Provider: 02/17/23 17:04 Source: patient, RN notes reviewed and old records reviewed Mode of arrival: ambulatory Limitations: no limitations History of Present Illness HPI narrative: 42-year-old female presents for evaluation of left flank pain. Patient reports that she had lower back surgery in October of this year at [facility] She states that she has had pain to the left flank x1 week. She also has pain in her lower abdomen. She has urinary frequency She reports that she just recently started having sexual intercourse again Patient denies any abnormal vaginal bleeding or discharge to me Denies any fevers, chills. Denies any history abdominal surgeries She has no other complaints or concerns at this time. Related Data Previous Rx's Medication Instructions Recorded acetaminophen 300 mg-codeine 30 mg 1 tab PO Q8H PRN pain #10 tabs 08/15/20 tablet ibuprofen 800 mg tablet 800 mg PO Q8H PRN pain #14 tabs 08/15/20 metronidazole 500 mg tablet 500 mg PO BID BACTERIAL VAGINOSIS 08/15/20 (Flagyl) 7 days #14 tabs cyclobenzaprine 10 mg tablet 10 mg PO TID PRN muscle spasm #14 08/31/20 tabs dicyclomine 20 mg tablet 20 mg PO TID PRN abdominal pain 09/12/20 #30 tabs omeprazole 40 mg capsule,delayed 40 mg PO DAILY #30 caps 09/12/20 release sucralfate 1 gram tablet (Carafate) 1 g PO BID #60 tabs 09/12/20 lorazepam 1 mg tablet (Ativan) 1 mg PO BID PRN anxiety 5 days 09/19/20 lorazepam 1 mg tablet (Ativan) 1 mg PO BID PRN anxiety 5 days #10 09/19/20 tabs doxycycline monohydrate 100 mg 100 mg PO BID 10 days #20 tabs 02/26/21 tablet metronidazole 500 mg tablet 500 mg PO Q12H 10 days #20 tabs 02/26/21 (Flagyl) nitrofurantoin 100 mg PO Q12H 5 days #10 caps 08/14/21 monohydrate/macrocrystals 100 mg capsule (Macrobid) phenazopyridine 200 mg tablet 200 mg PO TID PRN pain 6 doses #10 08/14/21 (Pyridium) tabs fluconazole 150 mg tablet 150 mg PO DAILY #1 tab 12/07/21 (Diflucan) metronidazole 500 mg tablet 500 mg PO BID 7 days #14 tabs 12/15/21 ondansetron 4 mg disintegrating 4 mg PO Q8H PRN nausea and 12/15/21 tablet vomiting #7 tabs doxycycline monohydrate 100 mg 100 mg PO BID #14 tabs 04/04/22 tablet metronidazole 500 mg tablet 500 mg PO BID 7 days #14 tabs 04/04/22 naproxen 500 mg tablet 500 mg PO BID PRN pain #30 tabs 04/04/22 ondansetron 4 mg disintegrating 4 mg PO Q6H PRN nausea and 04/04/22 tablet vomiting #10 tabs amoxicillin 500 mg capsule 500 mg PO BID 10 days #20 caps 08/14/22 methocarbamol 500 mg tablet 500 mg PO TID PRN muscle spasm #20 02/17/23 tabs naproxen 500 mg tablet 500 mg PO BID PRN pain #20 tabs 02/17/23 Allergies Allergy/AdvReac Type Severity Reaction Status Date / Time No Known Allergies Allergy Verified 02/17/23 16:36 [No Known Allergies*] Review of Systems Constitutional: Constitutional: Reports as per HPI, Denies chills, Denies fatigue, Denies fever(s) and Denies headache(s) ENT: Denies headache(s) Cardiovascular: Cardiovascular: Denies chest pain and Denies dyspnea Respiratory: Respiratory: Denies cough and Denies dyspnea Gastrointestinal: Gastrointestinal: Reports abdominal pain, Denies constipation, Denies nausea and Denies vomiting Genitourinary: Genitourinary: Denies dysmenorrhea, Reports dysuria and Reports flank pain Neurologic: Denies headache(s) and Denies focal weakness Endocrine: Endocrine: Denies fatigue PMFSH Past Medical History Medical History Anxiety Surgical History H/O tubal ligation Hx of breast reduction, elective Social History Social History Alcohol intake: never Substance Use Type: Marijuana Advance Directives: No Advance Directives Information Provided: No Physical Exam ED Vital Signs: Vital Signs - 24 hr 02/17/23 16:36 02/17/23 17:03 02/17/23 18:00 Temperature 97.9 F 98.7 F 98.2 F Pulse Rate 84 77 80 Respiratory Rate 18 16 16 Blood Pressure 122/43 L 112/67 121/52 L Pulse Oximetry 99 100 97 Oxygen Delivery Method Room Air Room Air Room Air 02/17/23 19:39 Temperature 98.2 F Pulse Rate 72 Respiratory Rate 18 Blood Pressure 97/63 Pulse Oximetry 100 Oxygen Delivery Method Room Air BMI result Body Mass Index 31.2 Const General: healthy appearing, comfortable, no acute distress, alert and awake Nutritional Appearance: well nourished Orientation/consciousness: patient oriented x3 HENMT Head: Yes normocephalic and Yes atraumatic Eyes Eyelids: Yes eyelids normal Conjunctivae: conjunctivae normal Sclerae: sclerae normal Corneas: corneas normal Pupils: Equal, round and reactive pupils present EOM: EOMs intact bilaterally Neck Neck: Yes full ROM Resp Effort & Inspection: normal respiratory effort, able to speak in complete sentences and not labored Cardio Rate: regular rate Rhythm: regular rhythm GI Inspection: No distended Palpation (GI): Soft to palpation, not firm, Tenderness to palpation present (GI) (Mild lower abdominal tenderness. ), no guarding and not rigid Auscultation: normoactive bowel sounds Skin General skin exam: no rashes or lesions noted and elasticity normal Neuro General: patient oriented x3 Cranial nerves: Yes Equal, round and reactive pupils present and Yes Bilaterally intact EOM present Cognition (Neuro): normal cognition Extrem Other: Moving all extremities well without any obvious deformities Course Reevaluation(s) Reevaluation #1: Patient's workup largely unremarkable. I discussed this with the patient. Her back pain is likely musculoskeletal as mentioned previously. Given that her urine was totally clear, after discussion she opted to defer treatment or STDs at this time pending results. Time: 19:45 Medical Decision Making Medical Decision Making MDM Narrative: RME performed by Rula Clayton PA-C. Patient is a 42 year old assigned female at presenting to the emergency department with abdominal pain and low back pain. Labs ordered. Patient placed back in the waiting room pending room availability and results. Patient is seen evaluated, her physical exam is reassuring, no CVA tenderness. Will get labs, UA. Will also send for gonorrhea/chlamydia testing. Patient expresses interest an empiric treatment for STDs regardless of results. Patient is a negative straight leg raise, no vertebral tenderness. Her lower back pain is most likely musculoskeletal in origin. Differential Diagnosis UTI Cystitis Gonorrhea Chlamydia Obstructive uropathy Pyelonephritis Abdominal pain Muscle strain Lab Data 02/17/23 17:31 02/17/23 17:31 Labs: Lab Results 02/17/23 02/17/23 02/17/23 Range/Units 17:31 17:31 17:31 WBC 7.2 (4.8-10.8) X10*3/uL RBC 4.04 L (4.20-5.50) X10*6/uL Hgb 11.4 L (12.0-16.0) g/dl Hct 34.3 L (37.0-47.0) % MCV 84.9 (80.0-98.0) fL MCH 28.2 (27.0-33.0) pg MCHC 33.2 (31.0-35.0) g/dl RDW 13.2 (11.0-16.0) % Plt Count 182 D (160-400) X10*3/uL MPV 11.7 (9.4-12.3) fL Immature Gran % (Auto) 0.3 (0.0-0.4) % Neut % (Auto) 75.4 H (45-73) % Lymph % (Auto) 14.0 L (20-40) % [place] % (Auto) 8.7 (2-11) % Eos % (Auto) 1.3 (0-4) % Baso % (Auto) 0.3 (0-2) % Lymph # (Auto) 1.0 L (1.2-4.9) X10*3/uL [place] # (Auto) 0.6 (0.1-1.2) X10*3/uL Eos # (Auto) 0.1 (0.0-0.4) X10*3/uL Baso # (Auto) 0.0 (0.0-0.2) X10*3/uL Abs Immat Gran (auto) 0.02 (0.00-0.03) X10*3/uL Absolute Neuts (auto) 5.4 (2.0-8.3) x10*3/uL Absolute Nucleated RBC 0.000 (0.0-0.012) X10*3/uL Nucleated RBC % (auto) 0.0 (0.0-0.2) /100WBC Sodium 141 (135-145) mmol/L Potassium 4.3 (3.3-5.1) mmol/L Chloride 107 (96-108) mmol/L Carbon Dioxide 29 (22-29) mmol/L Anion Gap 9 L (12-20) BUN 17 H (9-16) mg/dL Creatinine 0.82 (0.5-1.4) mg/dL Estim Creat Clear Calc 104.2 Estimated GFR > 60 Random Glucose 92 (60-115) mg/dL Calcium 9.1 (8.4-10.2) mg/dL Magnesium 1.8 (1.6-2.6) mg/dL Total Bilirubin 0.3 (0.0-1.0) mg/dL AST 16 (5-31) U/L ALT 15 (0-31) U/L Alkaline Phosphatase 57 (39-117) U/L Total Protein 6.4 L (6.5-8.0) g/dL Albumin 4.1 (3.5-5.0) g/dL Beta HCG, Quant < 2 mIU/mL Urine Color Yellow Urine Appearance Clear Urine pH 5.5 (5.0-9.0) Ur Specific Center 1.025 (1.005-1.025) Urine Protein Negative (Neg-Trace) mg/dL Urine Glucose (UA) Negative (Negative) mg/dL Urine Ketones Trace (Negative) mg/dL Urine Blood Negative (Negative) Urine Nitrite Negative (Negative) Ur Leukocyte Esterase Negative (Negative) Discharge Plan Discharge Clinical Impression: Back pain Patient Disposition: Home, Self-Care Instructions: Acute Low Back Pain (ED) Additional Instructions: Your blood work and urine sample did not have any significant abnormalities Your back pain is most likely musculoskeletal We will call you if you test positive for gonorrhea or chlamydia Use naproxen as needed for pain. You may use methocarbamol as needed for muscle spasms This may make you sleepy, did not drink alcohol or drive after taking it Prescriptions: New naproxen 500 mg tablet 500 mg PO BID PRN (Reason: pain) Qty: 20 0RF methocarbamol 500 mg tablet 500 mg PO TID PRN (Reason: muscle spasm) Qty: 20 0RF No Action metronidazole [Flagyl] 500 mg tablet 500 mg PO BID 7 Days Qty: 14 0RF acetaminophen-codeine 300-30 mg tablet 1 tab PO Q8H PRN (Reason: pain) Qty: 10 0RF ibuprofen 800 mg tablet 800 mg PO Q8H PRN (Reason: pain) Qty: 14 0RF cyclobenzaprine 10 mg tablet 10 mg PO TID PRN (Reason: muscle spasm) Qty: 14 0RF lorazepam [Ativan] 1 mg tablet 1 mg PO BID PRN (Reason: anxiety) 5 Days 0RF lorazepam [Ativan] 1 mg tablet 1 mg PO BID PRN (Reason: anxiety) 5 Days Qty: 10 0RF omeprazole 40 mg capsule,delayed release(DR/EC) 40 mg PO DAILY Qty: 30 0RF dicyclomine 20 mg tablet 20 mg PO TID PRN (Reason: abdominal pain) Qty: 30 0RF sucralfate [Carafate] 1 gram tablet 1 g PO BID Qty: 60 0RF metronidazole [Flagyl] 500 mg tablet 500 mg PO Q12H 10 Days Qty: 20 0RF doxycycline monohydrate 100 mg tablet 100 mg PO BID 10 Days Qty: 20 0RF fluconazole [Diflucan] 150 mg tablet 150 mg PO DAILY Qty: 1 0RF Rx Instructions: Please take on 12/10/2021 nitrofurantoin monohyd/m-cryst [Macrobid] 100 mg capsule 100 mg PO Q12H 5 Days Qty: 10 0RF Rx Instructions: must administer with a meal/food phenazopyridine [Pyridium] 200 mg tablet 200 mg PO TID PRN (Reason: pain) Qty: 10 0RF metronidazole 500 mg tablet 500 mg PO BID 7 Days Qty: 14 0RF ondansetron 4 mg tablet,disintegrating 4 mg PO Q8H PRN (Reason: nausea and vomiting) Qty: 7 0RF doxycycline monohydrate 100 mg tablet 100 mg PO BID Qty: 14 0RF metronidazole 500 mg tablet 500 mg PO BID 7 Days Qty: 14 0RF naproxen 500 mg tablet 500 mg PO BID PRN (Reason: pain) Qty: 30 0RF ondansetron 4 mg tablet,disintegrating 4 mg PO Q6H PRN (Reason: nausea and vomiting) Qty: 10 0RF amoxicillin 500 mg capsule 500 mg PO BID 10 Days Qty: 20 0RF
[2023-02-17 17:03] VITALS: BP 112/67; PULSE 77; RESP 16; TEMP 37.1; O2SAT 100
[2023-02-17 17:37] LABS: MANUAL DIFF FLAG NO
--- NOTE | 2023-02-17 17:55 | MHC.EDTECH ---
PT VITALS SIGN TAKEN ,BLOOD DRAWN ,URINE SAMPLE COLLECTED AND SENT TO LAB .
[2023-02-17 18:00] VITALS: BP 121/52; PULSE 80; RESP 16; TEMP 36.8; O2SAT 97
[2023-02-17 18:09] LABS: Appearance Urine Clear; Color Urine Yellow; Glucose Urine UA Negative (Negative); Leukocyte Esterase Urine Negative (Negative); Nitrite Urine Negative (Negative); PH 5.5 (5.0-9.0); Specific Gravity - Urine 1.025 (1.005-1.025); Urine Blood Negative (Negative); Urine Ketones Trace mg/dL (Negative); Urine Protein Negative (Neg-Trace)
[2023-02-17 18:10] LABS: Alanine Aminotransferase 15 U/L (0-31); Albumin Level 4.1 g/dL (3.5-5.0); Alkaline Phosphatase 57 U/L (39-117); Anion Gap 9 (12-20); Aspartate Amino Transferase 16 U/L (5-31); Bilirubin Total 0.3 mg/dL (0.0-1.0); Blood Urea Nitrogen 17 mg/dL (9-16); Calcium 9.1 mg/dL (8.4-10.2); Carbon Dioxide 29 mmol/L (22-29); Chloride 107 mmol/L (96-108); Creatinine Clr Calc Pharmacy 104.2; Estimated Glomerular Filt Rate > 60; Glucose Random 92 mg/dL (60-115); HCG Quantitative < 2 mIU/mL; Magnesium 1.8 mg/dL (1.6-2.6); Potassium 4.3 mmol/L (3.3-5.1); Sodium 141 mmol/L (135-145); Total Protein 6.4 g/dL (6.5-8.0)
[2023-02-17 18:28] LABS: Basophils Percent Auto 0.3 % (0-2); Eosinophils Absolute Auto 0.1 X10*3/uL (0.0-0.4); Eosinophils Percent Auto 1.3 % (0-4); Hematocrit 34.3 % (37.0-47.0); Hemoglobin 11.4 g/dl (12.0-16.0); Imm Gran Abs Auto 0.02 X10*3/uL (0.00-0.03); Imm Gran Pct Auto 0.3 % (0.0-0.4); Mean Corpuscular HGB Conc 33.2 g/dl (31.0-35.0); Mean Corpuscular Hemoglobin 28.2 pg (27.0-33.0); Mean Corpuscular Volume 84.9 fL (80.0-98.0); Mean Platelet Volume 11.7 fL (9.4-12.3); Monocytes Absolute Auto 0.6 X10*3/uL (0.1-1.2); Monocytes Percent Auto 8.7 % (2-11); Neutrophils Absolute Auto 5.4 x10*3/uL (2.0-8.3); Neutrophils Percent Auto 75.4 % (45-73); Platelet Count 182 X10*3/uL (160-400); Red Blood Count 4.04 X10*6/uL (4.20-5.50); Red Cell Distribution Width 13.2 % (11.0-16.0); White Blood Count 7.2 X10*3/uL (4.8-10.8)
[2023-02-17 19:39] VITALS: BP 97/63; PULSE 72; RESP 18; TEMP 36.8; O2SAT 100
[2023-02-18 09:07] LABS: CT PCR NOT DETECTED (Not Detect.); NG PCR NOT DETECTED (Not Detect.)
== END 2023-02-17 20:13 | disposition home or self-care (01) ==
PROVIDERS: Physician Assistant Medical; Emergency Provider Internal Medicine
DX: M54.50 Low back pain, unspecified (principal)
CPT/HCPCS: 0353U; 36415; 80053; 81003; 83735; 84702; 85025; 99283

== ENCOUNTER → 2023-04-06 11:01 | Outpatient (BNVA) | payer OTHER, SELFPAY | PROVIDERS: Visit Provider Physician Assistant | DX: M54.16 Radiculopathy, lumbar region (principal) | CPT/HCPCS: 99212 ==

== ENCOUNTER 2023-05-22 14:52 | Outpatient (AMB) | payer OTHER, SELFPAY ==
--- NOTE | 2023-05-22 16:19 | A.SPINEOV_ITS ---
Intake Intake Visit Reasons: MRI follow up Allergies No Known Allergies [No Known Allergies*] Allergy (Verified 02/17/23 16:36) Assessment & Plan Assessment & Plan (1) Lumbar radiculopathy: Code(s): M54.16 - Radiculopathy, lumbar region Plan The patient is a 43-year-old female who comes in with a chief complaint of continued left-sided leg pain and numbness/tingling. She states that her numbness and tingling has progressed to include her anterior/posterior upper thighs, and some of her right leg. She is very nonspecific when describing the radiation of her symptoms. She did endorse some posterior S1 distribution type radiation, but also reported dorsal side symptoms. The patient's MRI was reviewed with Dr. Vera. We were not able to identify anything that would be causing the symptoms. She has no central canal stenosis, and no significant compression of the exiting nerve roots. Her L4-5 L5-S1 fusion is in place and appears stable. We also reviewed the radiology read. After the imaging and patient case for reviewed with Dr. Vera he recommended that she be referred to Neurology for further workup of her numbness/tingling/pain. There is no surgical intervention indicated at this time. Total amount of time spent in this visit was 30 minutes in discussion of symptoms, MRI imaging results and subsequent plan of care Audi Vera MD,PhD [facility] Orders: Referrals Neurology Referral M54.16 - Radiculopathy, lumbar region Coding Level of Care Code Est Pt Level 4 (51131) Diagnoses Lumbar radiculopathy M54.16
== END 2023-05-22 16:30 | disposition home or self-care (01) ==
PROVIDERS: Visit Provider Physician Assistant
DX: M54.16 Radiculopathy, lumbar region (principal)
CPT/HCPCS: 99214

== ENCOUNTER → 2023-05-22 14:52 | Outpatient (BNVA) | payer OTHER, SELFPAY | PROVIDERS: Visit Provider Physician Assistant | DX: M54.16 Radiculopathy, lumbar region (principal) | CPT/HCPCS: 99212 ==

== ENCOUNTER 2024-02-03 09:15 | Emergency (ER) | payer OTHER, SELFPAY ==
--- NOTE | ~2024-02-03 | US_ITS ---
EXAMINATION: LEFT LOWER EXTREMITY DEEP VENOUS ULTRASOUND CLINICAL INFORMATION: Pain and swelling COMPARISON: None. TECHNIQUE: Duplex Doppler imaging with compression maneuvers were performed of the left lower extremity deep venous system. FINDINGS: The visualized common femoral, femoral and popliteal veins demonstrate normal compressibility and color flow without evidence of venous thrombosis. Visualized portions of the calf veins demonstrate normal color fill-in suggesting patency. There is no evidence of a Boyle's cyst. US/US venous duplex LE LT IMPRESSION: No evidence of deep venous thrombosis involving the left lower extremity.
--- NOTE | ~2024-02-03 | XR_ITS ---
EXAMINATION: XR LUMBOSACRAL SPINE CLINICAL INFORMATION: Pain. Left lumbar radiculopathy. COMPARISON: Lumbar spine MRI May 08, 2023 TECHNIQUE: Three views of the lumbosacral spine. FINDINGS: Patient is status post posterior decompression and fusion of L4-S1 with associated intravertebral disc spacers. There is no evidence of hardware failure. Lumbar vertebral body heights are maintained. Alignment of the lumbar spine is within normal limits. No significant degenerative changes. Sacroiliac joints are symmetric. XR/XR lumbar spine 2-3V IMPRESSION: Postsurgical changes of the lower lumbar spine without evidence of hardware failure.
[2024-02-03 09:24] VITALS: BP 109/60; PULSE 88; RESP 16; TEMP 36.3; O2SAT 99; BMI 29.6
--- NOTE | 2024-02-03 09:37 | ED_ITS ---
HPI - General Adult General Chief complaint: General Medical Stated complaint: Lt Leg Pain/Naval Pain belly Time Seen by Provider: 02/03/24 09:37 Source: patient Mode of arrival: ambulatory Limitations: no limitations History of Present Illness HPI narrative: 43 yo female with history of chronic back pain s/p spinal fusion at [facility] with Dr. Vera in October 2022, cervical radiculoapthy who is presenting to the ER for evaluation of worsening left lower back pain and left leg pain for the last 2 weeks. She reports the pain is in the left calf and goes under the foot, painful to ambulate w/ intermittent numbness. she has pain behind the left knee as well. she reports intermittent swelling to the left leg as well, now resolved. she has had chronic low back pain since her surgery with intermittent exacerbations. no recent trauma. no bowel or bladder issues. she does have new white, thick vaginal discharge and pink on the toilet paper when she wiped today. LMP 2 weeks ago. sexually active with partner and concerned for STIs. no abd pain but nauseated. MD complaint: left leg pain, vag discharge Onset (ago): day(s) Radiation: distal Severity: severe Quality: burning, stabbing and aching Pain Consistency: constant Relieving factors: rest Exacerbating factors: movement Associated symptoms: nausea/vomiting Treatments prior to arrival: none Related Data Previous Rx's ?Medication ?Instructions ?Recorded acetaminophen 300 mg-codeine 30 mg 1 tab PO Q8H PRN pain #10 tabs 08/15/20 tablet ibuprofen 800 mg tablet 800 mg PO Q8H PRN pain #14 tabs 08/15/20 metronidazole 500 mg tablet 500 mg PO BID BACTERIAL VAGINOSIS 08/15/20 (Flagyl) 7 days #14 tabs cyclobenzaprine 10 mg tablet 10 mg PO TID PRN muscle spasm #14 08/31/20 tabs dicyclomine 20 mg tablet 20 mg PO TID PRN abdominal pain 09/12/20 #30 tabs omeprazole 40 mg capsule,delayed 40 mg PO DAILY #30 caps 09/12/20 release sucralfate 1 gram tablet (Carafate) 1 g PO BID #60 tabs 09/12/20 lorazepam 1 mg tablet (Ativan) 1 mg PO BID PRN anxiety 5 days 09/19/20 lorazepam 1 mg tablet (Ativan) 1 mg PO BID PRN anxiety 5 days #10 09/19/20 tabs doxycycline monohydrate 100 mg 100 mg PO BID 10 days #20 tabs 02/26/21 tablet metronidazole 500 mg tablet 500 mg PO Q12H 10 days #20 tabs 02/26/21 (Flagyl) nitrofurantoin 100 mg PO Q12H 5 days #10 caps 08/14/21 monohydrate/macrocrystals 100 mg capsule (Macrobid) phenazopyridine 200 mg tablet 200 mg PO TID PRN pain 6 doses #10 08/14/21 (Pyridium) tabs fluconazole 150 mg tablet 150 mg PO DAILY #1 tab 12/07/21 (Diflucan) metronidazole 500 mg tablet 500 mg PO BID 7 days #14 tabs 12/15/21 ondansetron 4 mg disintegrating 4 mg PO Q8H PRN nausea and 12/15/21 tablet vomiting #7 tabs metronidazole 500 mg tablet 500 mg PO BID 7 days #14 tabs 04/04/22 naproxen 500 mg tablet 500 mg PO BID PRN pain #30 tabs 04/04/22 ondansetron 4 mg disintegrating 4 mg PO Q6H PRN nausea and 04/04/22 tablet vomiting #10 tabs amoxicillin 500 mg capsule 500 mg PO BID 10 days #20 caps 08/14/22 methocarbamol 500 mg tablet 500 mg PO TID PRN muscle spasm #20 02/17/23 tabs naproxen 500 mg tablet 500 mg PO BID PRN pain #20 tabs 02/17/23 cyclobenzaprine 10 mg tablet 10 mg PO TID PRN muscle spasm #10 02/03/24 tabs fluconazole 150 mg tablet 150 mg PO ONCE #1 tab 02/03/24 lidocaine 5 % topical patch 1 patch topical DAILY #15 ea 02/03/24 ondansetron 4 mg disintegrating 4 mg PO Q8H PRN nausea and 02/03/24 tablet vomiting #10 tabs prednisone 20 mg tablet 40 mg (2 x 20 mg) PO DAILY #10 tabs 02/03/24 Allergies Allergy/AdvReac Type Severity Reaction Status Date / Time No Known Allergies Allergy Verified 02/03/24 09:29 [No Known Allergies*] Review of Systems 2 Review of Systems: Yes all other systems are reviewed and are negative PMFSH Past Medical History Medical History Anxiety Surgical History H/O tubal ligation Hx of breast reduction, elective Social History Social History Alcohol intake: never Smoked in Last 30 Days: No Use of substances other than those prescribed or required for medical reasons: Yes Substance Use Type: Marijuana Advance Directives: No Advance Directives Information Provided: No Do you have a plan to hurt others: No Plan Physical Exam ED Vital Signs: Vital Signs - 24 hr 02/03/24 09:24 02/03/24 11:21 02/03/24 12:30 Temperature 97.3 F Pulse Rate 88 64 67 Respiratory Rate 16 18 18 Blood Pressure 109/60 102/54 L 111/58 L Pulse Oximetry 99 98 99 Oxygen Delivery Method Room Air Room Air Room Air 02/03/24 12:54 Temperature 97.3 F Pulse Rate 67 Respiratory Rate 18 Blood Pressure 111/58 L Pulse Oximetry 99 Oxygen Delivery Method Room Air BMI result Body Mass Index 29.6 Appearance: Alert. Oriented X3. No acute distress. Head: normocephalic, atraumatic. Eyes: Pupils equal, round and reactive to light. ENT: Pharynx normal. No tonsillar swelling or exudate. Neck: Normal inspection. Neck supple. CVS: Normal heart rate and rhythm. Pulses normal. Respiratory: No respiratory distress. Breath sounds normal. Abdomen: Soft and nontender. +BS x4. pelvic: moderate amount of thick white discharge, normal appearing cervix, no bleeding Back: well healed surgical scars on lower back, tender left lumbar area and midline spine. +straight leg raise test on the left. Skin: Skin warm and dry. Normal skin color. Normal skin turgor. No rashes. Extremities: No lower extremity edema. No joint swelling. Neuro/psych: Oriented X 3. No motor deficit. No sensory deficit. CN II-XII intact. Normal speech and cognition. Medications Administered Discontinued Medications Generic Name Dose Route Start Last Admin Trade Name Freq PRN Reason Stop Dose Admin Ceftriaxone Sodium 500 mg/ 0 mg 02/03/24 10:38 02/03/24 11:04 Lidocaine HCl 1 ml IM 02/03/24 10:39 350 kit ONCE ONE Administration Fluconazole 150 mg 02/03/24 10:38 02/03/24 11:04 Fluconazole 150 Mg Tablet PO 02/03/24 10:39 150 mg ONCE ONE Administration Medical Decision Making Medical Decision Making [facility] Narrative: 43 yo female w/ history of lumbar radiculopathy w/ spine fusion Oct 2022 presenting w/ 2 weeks of worsening low back pain radiating down the left leg. no red flag symptoms on LBP. tender left lower back and lumbar spine. XR ordered which shows hardware in place. pelvic w/ +yeast. given empiric abx for CT/NG. UA negative for infection and exam and clinical presentation are most c/w lumbar radiculopathy, likely compression of L5 nerve root given the distribution of her pain no emergent need for MRI today - will start short course of prednisone and flexeril, have her f/u with Dr. Vera and her pcp treated w/ diflucan for yeast. stable for d/c home. patient agree w/ plan Differential Diagnosis Differential Diagnoses: The differential diagnosis associated with the presentation includes Inflammatory disorders, malignancy, trauma, osteoporosis, nerve root compression, radiculopathy, plexopathy, degenerative disc disease, disc herniation, spinal stenosis, sacroiliac joint dysfunction, facet joint injury, and less likely infection?like abscess or diskitis vaginal yeast infection, STI, UTI, BV Lab Data [facility] Lab Attestation statement: I reviewed the patient's lab results. UA without infection, normal electrolytes, no leukocytosis 02/03/24 09:32 02/03/24 09:32 Labs: Lab Results 02/03/24 02/03/24 02/03/24 Range/Units 09:32 09:37 10:30 WBC 5.1 (4.8-10.8) X10*3/uL RBC 4.11 L (4.20-5.50) X10*6/uL Hgb 12.1 (12.0-16.0) g/dl Hct 35.1 L (37.0-47.0) % MCV 85.4 (80.0-98.0) fL MCH 29.4 (27.0-33.0) pg MCHC 34.5 (31.0-35.0) g/dl RDW 13.0 (11.0-16.0) % Plt Count 163 (160-400) X10*3/uL MPV 11.2 (9.4-12.3) fL Immature Gran % (Auto) 0.4 (0.0-0.4) % Neut % (Auto) 63.2 (45-73) % Lymph % (Auto) 26.0 (20-40) % [place] % (Auto) 8.6 (2-11) % Eos % (Auto) 1.6 (0-4) % Baso % (Auto) 0.2 (0-2) % Lymph # (Auto) 1.3 (1.2-4.9) X10*3/uL [place] # (Auto) 0.4 (0.1-1.2) X10*3/uL Eos # (Auto) 0.1 (0.0-0.4) X10*3/uL Baso # (Auto) 0.0 (0.0-0.2) X10*3/uL Abs Immat Gran (auto) 0.02 (0.00-0.03) X10*3/uL Absolute Neuts (auto) 3.2 (2.0-8.3) x10*3/uL Absolute Nucleated RBC 0.000 (0.0-0.012) X10*3/uL Nucleated RBC % (auto) 0.0 (0.0-0.2) /100WBC Sodium 138 (135-145) mmol/L Potassium 3.9 (3.3-5.1) mmol/L Chloride 107 (96-108) mmol/L Carbon Dioxide 21 L (22-29) mmol/L Anion Gap 14 (12-20) BUN 9 (9-16) mg/dL Creatinine 0.68 (0.5-1.4) mg/dL Estim Creat Clear Calc 121.1 Estimated GFR > 60 Random Glucose 105 (60-115) mg/dL Calcium 9.3 (8.4-10.2) mg/dL Total Bilirubin 0.4 (0.0-1.0) mg/dL AST 13 (5-31) U/L ALT 12 (0-31) U/L Alkaline Phosphatase 45 (39-117) U/L Total Protein 6.8 (6.5-8.0) g/dL Albumin 4.1 (3.5-5.0) g/dL Urine Color Yellow Urine Appearance Clear Urine pH 7.0 (5.0-9.0) Ur Specific [place] <= 1.005 (1.005-1.025) Urine Protein Negative (Neg-Trace) mg/dL Urine Glucose (UA) Negative (Negative) mg/dL Urine Ketones Negative (Negative) mg/dL Urine Blood Negative (Negative) Urine Nitrite Negative (Negative) Ur Leukocyte Esterase Trace H (Negative) Urine RBC 0-2 (0-2) /HPF Urine WBC 0-5 (0-5) /HPF Ur Squamous Epith Cells 0-2 (0-2) /HPF Urine Bacteria None Seen (None Seen) Hyaline Casts 0-2 (0-2) /LPF Urine Test NEGATIVE (NEGATIVE) Chlam trachomat DNA PCR NOT DETECTED (Not Detect.) N.gonorrhoeae DNA (PCR) NOT DETECTED (Not Detect.) Independent Interpretation I performed an independent interpretation of an: Plain X-Ray and Ultrasound Interpretation: US without DVT XR w/ hardware in place Radiology Impression Discussion of test interpretation with radiology: I have reviewed the radiologist's reading. Radiologist Impression: EXAMINATION: LEFT LOWER EXTREMITY DEEP VENOUS ULTRASOUND CLINICAL INFORMATION: Pain and swelling COMPARISON: None. TECHNIQUE: Duplex Doppler imaging with compression maneuvers were performed of the left lower extremity deep venous system. FINDINGS: The visualized common femoral, femoral and popliteal veins demonstrate normal compressibility and color flow without evidence of venous thrombosis. Visualized portions of the calf veins demonstrate normal color fill-in suggesting patency. There is no evidence of a Boyle's cyst. US/US venous duplex LE LT IMPRESSION: No evidence of deep venous thrombosis involving the left lower extremity. EXAMINATION: XR LUMBOSACRAL SPINE CLINICAL INFORMATION: Pain. Left lumbar radiculopathy. COMPARISON: Lumbar spine MRI May 08, 2023 TECHNIQUE: Three views of the lumbosacral spine. FINDINGS: Patient is status post posterior decompression and fusion of L4-S1 with associated intravertebral disc spacers. There is no evidence of hardware failure. Lumbar vertebral body heights are maintained. Alignment of the lumbar spine is within normal limits. No significant degenerative changes. Sacroiliac joints are symmetric. XR/XR lumbar spine 2-3V IMPRESSION: Postsurgical changes of the lower lumbar spine without evidence of hardware failure External Record Review External record reviewed: Outpatient record and Prior outpatient labs Prescription Management I considered prescription management with: Pain Medication and Antibiotic Chronic Conditions Patient?s care impacted by: Other (chronic low back pain) Critical Care Time Critical Care Time Critical Care Time: No Discharge Plan Discharge Clinical Impression: Lumbar radiculopathy, Vaginal yeast infection Patient Disposition: Home, Self-Care Instructions: Yeast Infection (ED), Lumbar Radiculopathy (ED) Additional Instructions: Your ultrasound was negative for blood clot. Your x-ray showed normal hardware in your back Take the prescribed steroid medication to help with your pain No bending, lifting or twisting. Use ice several times per day for 20 minutes at a time for the next 48 hours and then change to heat. Take medications as prescribed to help with pain and discomfort. Your vaginal swabs were positive for yeast. You were given diflucan in the ER. If you have ongoing symptoms in 3 days you can be repeat this medication on day 3. You were swabbed for gonorrhea and chlamydia. These tests came back negative You do not need any antibiotics No sexual activity until all of your symptoms are completely resolved Follow up with Dr. Vera and your PCP If you develop new or worsening symptoms call 911 or come back to the ER for further evaluation. Prescriptions: New lidocaine 5 % adhesive patch,medicated 1 patch topical DAILY Qty: 15 0RF Rx Instructions: leave on most painful area for up to 12 hrs prednisone 20 mg tablet 40 mg PO DAILY Qty: 10 0RF fluconazole 150 mg tablet 150 mg PO ONCE Qty: 1 0RF ondansetron 4 mg tablet,disintegrating 4 mg PO Q8H PRN (Reason: nausea and vomiting) Qty: 10 0RF cyclobenzaprine 10 mg tablet 10 mg PO TID PRN (Reason: muscle spasm) Qty: 10 0RF Discontinued doxycycline monohydrate 100 mg tablet 100 mg PO BID Qty: 14 0RF No Action metronidazole [Flagyl] 500 mg tablet 500 mg PO BID 7 Days Qty: 14 0RF acetaminophen-codeine 300-30 mg tablet 1 tab PO Q8H PRN (Reason: pain) Qty: 10 0RF ibuprofen 800 mg tablet 800 mg PO Q8H PRN (Reason: pain) Qty: 14 0RF cyclobenzaprine 10 mg tablet 10 mg PO TID PRN (Reason: muscle spasm) Qty: 14 0RF lorazepam [Ativan] 1 mg tablet 1 mg PO BID PRN (Reason: anxiety) 5 Days 0RF lorazepam [Ativan] 1 mg tablet 1 mg PO BID PRN (Reason: anxiety) 5 Days Qty: 10 0RF omeprazole 40 mg capsule,delayed release(DR/EC) 40 mg PO DAILY Qty: 30 0RF dicyclomine 20 mg tablet 20 mg PO TID PRN (Reason: abdominal pain) Qty: 30 0RF sucralfate [Carafate] 1 gram tablet 1 g PO BID Qty: 60 0RF metronidazole [Flagyl] 500 mg tablet 500 mg PO Q12H 10 Days Qty: 20 0RF doxycycline monohydrate 100 mg tablet 100 mg PO BID 10 Days Qty: 20 0RF fluconazole [Diflucan] 150 mg tablet 150 mg PO DAILY Qty: 1 0RF Rx Instructions: Please take on 12/10/2021 nitrofurantoin monohyd/m-cryst [Macrobid] 100 mg capsule 100 mg PO Q12H 5 Days Qty: 10 0RF Rx Instructions: must administer with a meal/food phenazopyridine [Pyridium] 200 mg tablet 200 mg PO TID PRN (Reason: pain) Qty: 10 0RF metronidazole 500 mg tablet 500 mg PO BID 7 Days Qty: 14 0RF ondansetron 4 mg tablet,disintegrating 4 mg PO Q8H PRN (Reason: nausea and vomiting) Qty: 7 0RF metronidazole 500 mg tablet 500 mg PO BID 7 Days Qty: 14 0RF naproxen 500 mg tablet 500 mg PO BID PRN (Reason: pain) Qty: 30 0RF ondansetron 4 mg tablet,disintegrating 4 mg PO Q6H PRN (Reason: nausea and vomiting) Qty: 10 0RF amoxicillin 500 mg capsule 500 mg PO BID 10 Days Qty: 20 0RF naproxen 500 mg tablet 500 mg PO BID PRN (Reason: pain) Qty: 20 0RF methocarbamol 500 mg tablet 500 mg PO TID PRN (Reason: muscle spasm) Qty: 20 0RF Referrals: Max Vera MD, PhD [Physician] - Interventions: ED Discharge Assessment Last Done: 02/03/24 12:54 Discharge Date/Time: 02/03/24 12:56 Print Language: Armenian
[2024-02-03 09:40] LABS: MANUAL DIFF FLAG NO
[2024-02-03 09:42] LABS: Basophils Percent Auto 0.2 % (0-2); Eosinophils Absolute Auto 0.1 X10*3/uL (0.0-0.4); Eosinophils Percent Auto 1.6 % (0-4); Hematocrit 35.1 % (37.0-47.0); Hemoglobin 12.1 g/dl (12.0-16.0); Imm Gran Abs Auto 0.02 X10*3/uL (0.00-0.03); Imm Gran Pct Auto 0.4 % (0.0-0.4); Lymphocytes Absolute Auto 1.3 X10*3/uL (1.2-4.9); Mean Corpuscular HGB Conc 34.5 g/dl (31.0-35.0); Mean Corpuscular Hemoglobin 29.4 pg (27.0-33.0); Mean Corpuscular Volume 85.4 fL (80.0-98.0); Mean Platelet Volume 11.2 fL (9.4-12.3); Monocytes Absolute Auto 0.4 X10*3/uL (0.1-1.2); Monocytes Percent Auto 8.6 % (2-11); Neutrophils Absolute Auto 3.2 x10*3/uL (2.0-8.3); Neutrophils Percent Auto 63.2 % (45-73); Platelet Count 163 X10*3/uL (160-400); Red Blood Count 4.11 X10*6/uL (4.20-5.50); White Blood Count 5.1 X10*3/uL (4.8-10.8)
[2024-02-03 09:43] LABS: Appearance Urine Clear; Color Urine Yellow; Glucose Urine UA Negative (Negative); Leukocyte Esterase Urine Trace (Negative); Nitrite Urine Negative (Negative); Specific Gravity - Urine <= 1.005 (1.005-1.025); UMIC TRIGGER UACC YES; Urine Blood Negative (Negative); Urine Ketones Negative (Negative); Urine Protein Negative (Neg-Trace)
[2024-02-03 09:48] LABS: Bacteria Urine None Seen (None Seen); Hyaline Casts Urine 0-2 /LPF (0-2); RBC Urine 0-2 /HPF (0-2); Squamous Epithelial Cell Urine 0-2 /HPF (0-2); WBC Urine 0-5 /HPF (0-5)
[2024-02-03 10:06] LABS: UPreg QC Valid YES
[2024-02-03 10:08] LABS: Urine Pregnancy NEGATIVE (NEGATIVE)
[2024-02-03 10:08] LABS: Alanine Aminotransferase 12 U/L (0-31); Albumin Level 4.1 g/dL (3.5-5.0); Alkaline Phosphatase 45 U/L (39-117); Anion Gap 14 (12-20); Aspartate Amino Transferase 13 U/L (5-31); Bilirubin Total 0.4 mg/dL (0.0-1.0); Blood Urea Nitrogen 9 mg/dL (9-16); Calcium 9.3 mg/dL (8.4-10.2); Carbon Dioxide 21 mmol/L (22-29); Chloride 107 mmol/L (96-108); Creatinine Clr Calc Pharmacy 121.1; Estimated Glomerular Filt Rate > 60; Glucose Random 105 mg/dL (60-115); Potassium 3.9 mmol/L (3.3-5.1); Sodium 138 mmol/L (135-145); Total Protein 6.8 g/dL (6.5-8.0)
[2024-02-03] MEDS: cefTRIAXone sodium 500 MG, Lidocaine HCl 1 % MPF 1 ML IM (11:04)
[2024-02-03] MEDS: Fluconazole 150 MG TABLET PO (11:04)
[2024-02-03 11:21] VITALS: BP 102/54; PULSE 64; RESP 18; O2SAT 98
[2024-02-03 12:04] LABS: CT PCR NOT DETECTED (Not Detect.); NG PCR NOT DETECTED (Not Detect.)
[2024-02-03 12:30] VITALS: BP 111/58; PULSE 67; RESP 18; O2SAT 99
[2024-02-03 12:54] VITALS: BP 111/58; PULSE 67; RESP 18; TEMP 36.3; O2SAT 99
[2024-02-04 11:42] LABS: BV Int Neg Control Negative (Negative); BV Int Pos Control Positive (Positive)
== END 2024-02-03 12:56 | disposition home or self-care (01) ==
PROVIDERS: Physician Assistant; Emergency Provider Emergency Medicine
DX: M54.16 Radiculopathy, lumbar region (principal); B37.31 Acute candidiasis of vulva and vagina; B96.89 Other specified bacterial agents as the cause of diseases classified elsewhere; Z98.1 Arthrodesis status
CPT/HCPCS: 0353U; 36415; 72100; 80053; 81001; 81025; 85025; 87480; 87510; 87660; 93971; 96372; 99284; J0696

== ENCOUNTER 2024-02-07 14:27 | Outpatient (AMB) | payer OTHER, SELFPAY ==
--- NOTE | 2024-02-07 14:52 | HO.SPINEOV ---
Intake Visit Reasons: ED f/u 02/03/24 Intake Note: Ms. Mccarty is here today c/o chronic back pain. 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 She underwent an L4-5, L5-S1 anterior/oblique lumbar interbody fusion back in October 2022 at [facility] with Dr. Vera. The patient unfortunately did not have any improvement in her leg pain after surgery. She was seen back in the office here, last year. Please refer the notes for the specifics of the problem. She underwent an MRI done at the [facility] and this did not show any evidence of recurrent nerve impingement. The patient subsequently continued to just trialed to do conservative treatment including physical therapy and [id number] pain medications, medical marijuana etc. unfortunately nothing seems to be helping. She describes the pain as being a constellation of symptoms including burning pain, swelling, numbness. The bulk of the symptoms are starting at the level of about the knee going down into the anterior and posterior tibial regions into her foot. The same area while feeling painful also feels numb and . She describes her left leg is feeling as though it is feeling heavy like it does not want to move. She is very tearful talking about this. She was just in the emergency room last weekend. X-rays were done. On my exam today, she is uncomfortable, has to constantly change positions in the office. Her wounds are all healed up well. She has a lot of limitations secondary to pain. There may be some proximal weakness of her left leg but again it is difficult to tell. She has full strength in the quadriceps, maybe some slight left dorsiflexion weakness. Upper extremity strength is full. She does have Nette sign bilaterally. I looked back at my old office notes from [facility] and she did have this back then to. I reviewed the imaging done last week here at [place] and the x-rays show good alignment, the left L4 locking cap is not in place. It appears to have come loose and is sitting above the [place] head of the pedicle screw. I sent her for flexion-extension x-rays and I do not see any signs of instability. I think the construct is likely fused and that this suggests an incidental finding but I will review with Dr. Vera to make sure. I reviewed a CT of the abdomen that she had done at [facility] last July and there were no signs of any halo or pseudoarthrosis at that time and that was about 9 months after surgery. There was evidence of interbody fusion at that time as well. I think we need to reconsider the diagnosis here. This is either going to be some type of chronic regional pain syndrome that just did not respond to surgery. Or it could be some type of peripheral neuropathy or polyneuropathy that needs to be worked up with an EMG. First things 1st, I am going to double check the cervical MRI again because she did have moderate cervical stenosis and with proximal leg weakness and Isbell's sign I would like to exclude that that has not gotten worse. Secondly, I will repeat the lumbar MRI because her symptoms have gotten worse since last May and she reports she has done PT etc. without any improvement, in fact she is getting worse as the months go on. Given the proximal weakness, maybe it is possible she has developed an adjacent segment issue so I would like to exclude a herniated disc that may be operable. I would like to see her back after the imaging is completed. If this imaging is negative I think we should consider an EMG to exclude the polyneuropathy. Total amount of time spent in this visit was 20 minutes in discussion of symptoms, CT scan and MRI imaging results and subsequent plan of care Osvaldo Vera MD,PhD [facility] Orders: Orders XR lumbar spine 4V min Today M54.16 - Radiculopathy, lumbar region MR cervical spine wo con Today R29.898 - Other symptoms and signs involving the musculoskeletal system MR lumbar spine wo con Today M54.16 - Radiculopathy, lumbar region Coding Level of Care Code Est Pt Level 3 (82616) Diagnoses Lumbar radiculopathy M54.16 Leg weakness R29.898
== END 2024-02-07 16:02 | disposition home or self-care (01) ==
PROVIDERS: Visit Provider Physician Assistant
DX: M54.16 Radiculopathy, lumbar region (principal); R29.898 Other symptoms and signs involving the musculoskeletal system
CPT/HCPCS: 99213

== ENCOUNTER 2024-02-07 14:27 | Outpatient (REF) | payer OTHER, SELFPAY ==
--- NOTE | ~2024-02-07 | XR_ITS ---
EXAMINATION: XR LUMBOSACRAL SPINE WITH OBLIQUES CLINICAL INFORMATION: Radiculopathy lumbar region. COMPARISON: 02/03/2024 TECHNIQUE: AP, lateral neutral, flexion and extension views of the lumbar spine. FINDINGS: Redemonstration of posterior decompression and fusion at L4-S1 with intervertebral disc spacers. Hardware appears intact. Moderate degenerative changes noted in the bilateral sacroiliac joints. Mild spondylosis in the remainder of the lumbar spine. Mild grade 1 anterolisthesis of L5 on S1 with flexion and extension. XR/XR lumbar spine 4V min IMPRESSION: 1. Redemonstration of posterior decompression and fusion at L4-S1 with intervertebral disc spacers. Hardware appears intact. 2. Mild grade 1 anterolisthesis of L5 on S1 with flexion and extension.
== END 2024-02-07 14:28 | disposition home or self-care (01) ==
LOC: HO.HOSX 14:27
PROVIDERS: Visit Provider Physician Assistant
DX: Z98.1 Arthrodesis status (principal); M54.16 Radiculopathy, lumbar region
CPT/HCPCS: 72110; 99212

== ENCOUNTER 2024-03-09 11:02 | Emergency (ER) | payer OTHER, SELFPAY ==
[2024-03-09 11:07] VITALS: BP 141/81; PULSE 82; RESP 16; TEMP 37; O2SAT 97; BMI 29.0
[2024-03-09 11:23] LABS: UPreg QC Valid YES
[2024-03-09 11:24] LABS: Appearance Urine Clear; Color Urine Yellow; Glucose Urine UA Negative (Negative); Leukocyte Esterase Urine Negative (Negative); Nitrite Urine Negative (Negative); PH 7.5 (5.0-9.0); Specific Gravity - Urine 1.015 (1.005-1.025); Urine Blood Negative (Negative); Urine Ketones Negative (Negative); Urine Protein Negative (Neg-Trace)
[2024-03-09 11:25] LABS: Urine Pregnancy NEGATIVE (NEGATIVE)
[2024-03-09 13:53] VITALS: BP 120/66; PULSE 69; TEMP 36.3; O2SAT 100
--- NOTE | 2024-03-09 14:27 | ED.FEMALEGU ---
HPI - Female Genitourinary General Chief complaint: Urogenital-Female Stated complaint: UTI? Time Seen by Provider: 03/09/24 13:46 Source: patient Mode of arrival: ambulatory Limitations: no limitations History of Present Illness HPI Narrative: patient is a 43-year-old presents to the emergency department for evaluation. She states that she has been experiencing urinary frequency, dysuria over the past 3-4 days. She denies any pelvic pain, abdominal pain, abnormal vaginal discharge, abnormal vaginal. She reports a history chronic diffusely lower lumbar region that is no worse than typical. She denies fevers, chills, nausea, vomiting. Denies possibility of , denies concern for sexually transmitted infections, reporting that being sexually active over the past 2 months. She denies any notable rashes or lesions to her genitals Related Data Previous Rx's ?Medication ?Instructions ?Recorded acetaminophen 300 mg-codeine 30 mg 1 tab PO Q8H PRN pain #10 tabs 08/15/20 tablet ibuprofen 800 mg tablet 800 mg PO Q8H PRN pain #14 tabs 08/15/20 metronidazole 500 mg tablet 500 mg PO BID BACTERIAL VAGINOSIS 08/15/20 (Flagyl) 7 days #14 tabs cyclobenzaprine 10 mg tablet 10 mg PO TID PRN muscle spasm #14 08/31/20 tabs dicyclomine 20 mg tablet 20 mg PO TID PRN abdominal pain 09/12/20 #30 tabs omeprazole 40 mg capsule,delayed 40 mg PO DAILY #30 caps 09/12/20 release sucralfate 1 gram tablet (Carafate) 1 g PO BID #60 tabs 09/12/20 lorazepam 1 mg tablet (Ativan) 1 mg PO BID PRN anxiety 5 days 09/19/20 lorazepam 1 mg tablet (Ativan) 1 mg PO BID PRN anxiety 5 days #10 09/19/20 tabs doxycycline monohydrate 100 mg 100 mg PO BID 10 days #20 tabs 02/26/21 tablet metronidazole 500 mg tablet 500 mg PO Q12H 10 days #20 tabs 02/26/21 (Flagyl) nitrofurantoin 100 mg PO Q12H 5 days #10 caps 08/14/21 monohydrate/macrocrystals 100 mg capsule (Macrobid) phenazopyridine 200 mg tablet 200 mg PO TID PRN pain 6 doses #10 08/14/21 (Pyridium) tabs fluconazole 150 mg tablet 150 mg PO DAILY #1 tab 12/07/21 (Diflucan) metronidazole 500 mg tablet 500 mg PO BID 7 days #14 tabs 12/15/21 ondansetron 4 mg disintegrating 4 mg PO Q8H PRN nausea and 12/15/21 tablet vomiting #7 tabs metronidazole 500 mg tablet 500 mg PO BID 7 days #14 tabs 04/04/22 naproxen 500 mg tablet 500 mg PO BID PRN pain #30 tabs 04/04/22 ondansetron 4 mg disintegrating 4 mg PO Q6H PRN nausea and 04/04/22 tablet vomiting #10 tabs amoxicillin 500 mg capsule 500 mg PO BID 10 days #20 caps 08/14/22 methocarbamol 500 mg tablet 500 mg PO TID PRN muscle spasm #20 02/17/23 tabs naproxen 500 mg tablet 500 mg PO BID PRN pain #20 tabs 02/17/23 cyclobenzaprine 10 mg tablet 10 mg PO TID PRN muscle spasm #10 02/03/24 tabs fluconazole 150 mg tablet 150 mg PO ONCE #1 tab 02/03/24 lidocaine 5 % topical patch 1 patch topical DAILY #15 ea 02/03/24 ondansetron 4 mg disintegrating 4 mg PO Q8H PRN nausea and 02/03/24 tablet vomiting #10 tabs prednisone 20 mg tablet 40 mg (2 x 20 mg) PO DAILY #10 tabs 02/03/24 metronidazole 500 mg tablet 500 mg PO BID 7 days #14 tabs 02/06/24 cefuroxime axetil 250 mg tablet 250 mg PO BID #14 tabs 03/09/24 Allergies Allergy/AdvReac Type Severity Reaction Status Date / Time No Known Allergies Allergy Verified 03/09/24 11:08 [No Known Allergies*] Review of Systems Review of Systems: Yes all other systems are reviewed and are negative PMFSH Past Medical History Attestation statement: The following information was validated with the patient. Source: old records reviewed Medical History Anxiety Surgical History H/O tubal ligation Hx of breast reduction, elective Social History Social History Alcohol intake: never Substance Use Type: Marijuana Advance Directives: Yes Advance Directives Information Provided: Yes Advance Directives on File: No Do you have a plan to hurt others: No Plan Physical Exam Vital Signs: Vital Signs: Last Vital Signs Temp 97.4 F 03/09/24 13:53 Pulse 69 03/09/24 13:53 Resp 16 03/09/24 11:07 BP 120/66 03/09/24 13:53 Pulse Ox 100 03/09/24 13:53 O2 Del Method Room Air 03/09/24 13:53 BMI result Body Mass Index 29.0 Appearance: Alert.?Oriented to person, place and time. No acute distress.?Normal affect. Eyes: Pupils equal, round and reactive to light.? ENT: Pharynx normal.?? Neck: Normal inspection.? Neck supple.?? CVS: Heart sounds normal. Normal heart rate and rhythm.? Pulses normal.?? Respiratory: No respiratory distress.? Lung sounds clear to auscultation bilaterally?? Abdomen: Soft and non-tender. Normoactive bowel sounds. No CVAT urogenital: performed with fire hydrant mechanic, ED database software technician - external exam performed, no rashes lesions or fissures are noted, no abnormal discharge from the vaginal introitus. No erythema. Skin: Skin warm and dry.? Normal skin color.? .?? Extremities: No lower extremity edema.? Neuro: Moves all extremities spontaneously. Sensation intact bilaterally. Ambulates with normal steady gait. Medical Decision Making Medical Decision Making MDM Narrative: patient is a 43-year-old female presents emergency department for evaluation of urinary frequency and dysuria as per HPI. Her physical examination is benign, no acute abdominal findings, no CVA tenderness. External genital exam is without any acute abnormality. Urinalysis today is without evidence of microscopic hematuria or evidence of infection, testing is negative. Discussed differential with patient, sent testing for bacterial vaginosis panel in addition to chlamydia/gonorrhea. Advised she would be contacted with any testing results. Lab was called, urine culture will be sent despite negative initial urinalysis. Given her symptoms, will treat accordingly with cefuroxime. Advised outpatient follow-up with her primary care provider, discussed worrisome signs and symptoms that would warrant re-evaluation in the emergency department. All questions answered. Stable for discharge Differential Diagnosis Differential Diagnoses: The differential diagnosis associated with the presentation includes ( see narrative above) Lab Data MDM Lab Attestation statement: I reviewed the patient's lab results. ( see narrative above) Labs: Lab Results 03/09/24 Range/Units 11:16 Urine Color Yellow Urine Appearance Clear Urine pH 7.5 (5.0-9.0) Ur Specific [place] 1.015 (1.005-1.025) Urine Protein Negative (Neg-Trace) mg/dL Urine Glucose (UA) Negative (Negative) mg/dL Urine Ketones Negative (Negative) mg/dL Urine Blood Negative (Negative) Urine Nitrite Negative (Negative) Ur Leukocyte Esterase Negative (Negative) Urine Test NEGATIVE (NEGATIVE) External Record Review External record reviewed: Outpatient record Prescription Management I considered prescription management with: Antibiotic Discharge Plan Discharge Clinical Impression: Dysuria Patient Disposition: Home, Self-Care Instructions: Dysuria (ED) Additional Instructions: As discussed, your initial urine testing today does not show an obvious urinary infection, however we have sent a urine culture to the lab; what this means is that it will be process over the next few days to determine whether there is any bacterial growth. If bacteria does grow and it is not treated receive antibiotic that you were given today you will receive a call from the emergency department. Additionally, you may call to request your results and/ or speak with your primary care provider to determine if the urine culture results do actually come back as positive. Testing was sent today for further evaluation bacterial vaginosis, Trichomonas, yeast, Chlamydia, gonorrhea, these test results will not be available today. Should these results as positive you will receive a call from the emergency department for treatment. Prescriptions: New cefuroxime axetil 250 mg tablet 250 mg PO BID Qty: 14 0RF No Action metronidazole [Flagyl] 500 mg tablet 500 mg PO BID 7 Days Qty: 14 0RF acetaminophen-codeine 300-30 mg tablet 1 tab PO Q8H PRN (Reason: pain) Qty: 10 0RF ibuprofen 800 mg tablet 800 mg PO Q8H PRN (Reason: pain) Qty: 14 0RF cyclobenzaprine 10 mg tablet 10 mg PO TID PRN (Reason: muscle spasm) Qty: 14 0RF lorazepam [Ativan] 1 mg tablet 1 mg PO BID PRN (Reason: anxiety) 5 Days 0RF lorazepam [Ativan] 1 mg tablet 1 mg PO BID PRN (Reason: anxiety) 5 Days Qty: 10 0RF omeprazole 40 mg capsule,delayed release(DR/EC) 40 mg PO DAILY Qty: 30 0RF dicyclomine 20 mg tablet 20 mg PO TID PRN (Reason: abdominal pain) Qty: 30 0RF sucralfate [Carafate] 1 gram tablet 1 g PO BID Qty: 60 0RF metronidazole [Flagyl] 500 mg tablet 500 mg PO Q12H 10 Days Qty: 20 0RF doxycycline monohydrate 100 mg tablet 100 mg PO BID 10 Days Qty: 20 0RF fluconazole [Diflucan] 150 mg tablet 150 mg PO DAILY Qty: 1 0RF Rx Instructions: Please take on 12/10/2021 nitrofurantoin monohyd/m-cryst [Macrobid] 100 mg capsule 100 mg PO Q12H 5 Days Qty: 10 0RF Rx Instructions: must administer with a meal/food phenazopyridine [Pyridium] 200 mg tablet 200 mg PO TID PRN (Reason: pain) Qty: 10 0RF metronidazole 500 mg tablet 500 mg PO BID 7 Days Qty: 14 0RF ondansetron 4 mg tablet,disintegrating 4 mg PO Q8H PRN (Reason: nausea and vomiting) Qty: 7 0RF metronidazole 500 mg tablet 500 mg PO BID 7 Days Qty: 14 0RF naproxen 500 mg tablet 500 mg PO BID PRN (Reason: pain) Qty: 30 0RF ondansetron 4 mg tablet,disintegrating 4 mg PO Q6H PRN (Reason: nausea and vomiting) Qty: 10 0RF amoxicillin 500 mg capsule 500 mg PO BID 10 Days Qty: 20 0RF naproxen 500 mg tablet 500 mg PO BID PRN (Reason: pain) Qty: 20 0RF methocarbamol 500 mg tablet 500 mg PO TID PRN (Reason: muscle spasm) Qty: 20 0RF lidocaine 5 % adhesive patch,medicated 1 patch topical DAILY Qty: 15 0RF Rx Instructions: leave on most painful area for up to 12 hrs prednisone 20 mg tablet 40 mg PO DAILY Qty: 10 0RF fluconazole 150 mg tablet 150 mg PO ONCE Qty: 1 0RF ondansetron 4 mg tablet,disintegrating 4 mg PO Q8H PRN (Reason: nausea and vomiting) Qty: 10 0RF cyclobenzaprine 10 mg tablet 10 mg PO TID PRN (Reason: muscle spasm) Qty: 10 0RF metronidazole 500 mg tablet 500 mg PO BID 7 Days Qty: 14 0RF Referrals: Physician,Unknown J [Primary Care Provider] - Print Language: Indonesian
[2024-03-09 14:58] VITALS: BP 125/70; PULSE 70; RESP 18; TEMP 36.5; O2SAT 100
[2024-03-09 16:00] LABS: Bacterial Vaginosis PCR NEGATIVE (Negative); Candida Group PCR DETECTED (Not Detect); Candida glab krusei PCR NOT DETECTED (Not Detect); Trichomonas vaginalis PCR NOT DETECTED (Not Detect)
[2024-03-09 16:33] LABS: CT PCR NOT DETECTED (Not Detect.); NG PCR NOT DETECTED (Not Detect.)
== END 2024-03-09 15:00 | disposition home or self-care (01) ==
PROVIDERS: Nurse Practitioner Family; Emergency Provider Emergency Medicine
DX: R30.0 Dysuria (principal); B37.9 Candidiasis, unspecified
CPT/HCPCS: 0352U; 0353U; 81003; 81025; 87086; 99283

== ENCOUNTER 2024-04-07 08:34 | Outpatient (AMB) | payer OTHER, SELFPAY ==
--- NOTE | 2024-04-07 08:52 | MHC.OFFVIS ---
Vital Signs 04/07/24 08:53 Height 5 ft 7 in BP 110/68 Blood Pressure Location Lt brachial Position Sitting Respiration 14 Pulse 98 Pulse Source Pulse Oximeter Pulse Oximetry (%) 98 Oxygen Delivery Method Room Air Intake Visit Reasons: Eval for SCS Allergies No Known Allergies [No Known Allergies*] Allergy (Verified 04/07/24 08:57) Medication List - Last Reconciled 04/07/24 by Rula Barrera LPN dicyclomine 20 mg PO TID PRN ibuprofen 800 mg PO Q8H PRN lidocaine 5% 1 patch topical DAILY lorazepam (Ativan) 1 mg PO BID PRN 5 days omeprazole 40 mg PO DAILY ondansetron 4 mg PO Q8H PRN HPI HPI Eval for SCS: Details: 44-year-old female who presents today to the office for an evaluation of SCS. She underwent an L4-5, L5-S1 anterior/oblique lumbar interbody fusion back in October 2022 at [facility] with Dr. Vera. The patient unfortunately did not have any improvement in her leg pain after surgery. She states that prior to the back surgery, she had back spasms and describes the pain as pins and needles with jolting sensations. She occasionally experiences the same pain in her back. Any movements or activities worsens the pain. Her pain aggravates with standing, bending, or lifting. She reports continued left-sided leg pain and numbness/tingling. She states that her numbness and tingling has progressed to include her anterior/posterior upper thighs, and some of her right leg. She describes the pain as being a constellation of symptoms including burning pain, swelling, numbness. The bulk of the symptoms are starting at the level of about the knee going down into the anterior and posterior tibial regions into her foot. The same area while feeling painful also feels numb and . She describes her left leg is feeling as though it is feeling heavy like it does not want to move. She underwent an MRI done at the [facility] and this did not show any evidence of recurrent nerve impingement. The patient subsequently continued to just trialed to do conservative treatment including physical therapy and [id number] pain medications, medical marijuana etc. unfortunately nothing seems to be helping. She has three children, all vaginal deliveries. 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 [facility] Medical History (Updated 04/07/24 @ 10:46 by Jairo Medina MD) (spontaneous vaginal delivery) Anxiety Surgical History H/O tubal ligation Hx of breast reduction, elective Social History Alcohol intake: never Substance Use Type: Marijuana Review of Systems Const All systems reviewed & are unremarkable except as noted in HPI and below Physical Exam Vital Signs: Last Vital Signs Pulse 98 04/07/24 08:53 Resp 14 04/07/24 08:53 BP 110/68 04/07/24 08:53 Pulse Ox 98 04/07/24 08:53 Oxygen Delivery Method Room Air 04/07/24 08:53 General: Appears afebrile. Alert and oriented. Mood and affect appropriate. Follows and participates in conversation appropriately. Respiratory effort is unlabored. Able to transition from sit to stand unassisted. Ambulates with bilaterally normal heel strike and toe off. Tenderness overlying the left sacroiliac joint. SI joint provocation maneuvers reproduce left low back pain. Straight leg raise reproduces pain on the left side. Lumbar range of motion is limited and reproduces pain down the left lower extremity. Results Reviewed Results Reviewed: 02/27/2024: MR LUMBAR SPINE W+WO CONSTRAST. 02/07/24: XR LUMBOSACRAL SPINE WITH OBLIQUES FINDINGS: Redemonstration of posterior decompression and fusion at L4-S1 with intervertebral disc spacers. Hardware appears intact. Moderate degenerative changes noted in the bilateral sacroiliac joints. Mild spondylosis in the remainder of the lumbar spine. Mild grade 1 anterolisthesis of L5 on S1 with flexion and extension. IMPRESSION: 1. Redemonstration of posterior decompression and fusion at L4-S1 with intervertebral disc spacers. Hardware appears intact. 2. Mild grade 1 anterolisthesis of L5 on S1 with flexion and extension. 02/03/24: LEFT LOWER EXTREMITY DEEP VENOUS ULTRASOUND FINDINGS: The visualized common femoral, femoral and popliteal veins demonstrate normal compressibility and color flow without evidence of venous thrombosis. Visualized portions of the calf veins demonstrate normal color fill-in suggesting patency. There is no evidence of a Boyle's cyst. IMPRESSION: No evidence of deep venous thrombosis involving the left lower extremity. Assessment & Plan Assessment & Plan (1) Lumbar radiculopathy: Code(s): M54.16 - Radiculopathy, lumbar region Category: Medical (2) Sacroiliac joint dysfunction: Code(s): M53.3 - Sacrococcygeal disorders, not elsewhere classified Category: Medical (3) Post laminectomy syndrome: Code(s): M96.1 - Postlaminectomy syndrome, not elsewhere classified Category: Medical Plan 44-year-old female with a prior history of L4 through S1 fusion, now presenting with left lower back pain radiating down the left lower extremity. Differential diagnosis includes sacroiliac joint dysfunction and post-laminectomy syndrome in combination with left L5 radiculitis. My review of the MRI scan showed marginal abutment of the L5 nerve root as it exits the foramen. She also has physical exam findings consistent with sacroiliac joint dysfunction. Discussed spinal cord stimulator and SIJ injections as a possible treatment. I would like to start with a diagnostic left L5 selective nerve root block with local anesthetic only and see if this significantly relieves her symptoms. If this is not helpful, we will proceed with a left diagnostic sacroiliac joint injection. Based on the response to these diagnostic injections, we can then proceed with either corticosteroid injections or neuromodulation strategies for either a spinal or peripheral neuropathic source. Discussed the risks and benefits of the procedure with the patient in detail. All questions were answered. The patient is on board with the plan. Justification for interventional therapy: ? Patient with average pain > 6/10 ? Patient has exhausted conservative therapy ? Patient unable to tolerate physical therapy due to pain . Patient has a good understanding of their pain condition and has appropriate mental and social support Scribed for Dr. Medina by Bc Duong, medical staffing coordinator, on 04/07/2024. I, Dr. Medina, have personally reviewed and agree with the information entered by the scribe. Coding Level of Care Code New Pt Level 4 (39360) Diagnoses Lumbar radiculopathy M54.16 Sacroiliac joint dysfunction M53.3 Post laminectomy syndrome M96.1
[2024-04-07 08:53] VITALS: BP 110/68; PULSE 98; RESP 14; O2SAT 98
== END 2024-04-07 09:21 | disposition home or self-care (01) ==
LOC: HO.PMC 08:34
PROVIDERS: Visit Provider Internal Medicine
DX: M54.16 Radiculopathy, lumbar region (principal); M53.3 Sacrococcygeal disorders, not elsewhere classified; M96.1 Postlaminectomy syndrome, not elsewhere classified
CPT/HCPCS: 99204

== ENCOUNTER → 2024-04-07 08:34 | Outpatient (BNVA) | payer OTHER, SELFPAY | PROVIDERS: Visit Provider Internal Medicine | DX: M54.16 Radiculopathy, lumbar region (principal); M53.3 Sacrococcygeal disorders, not elsewhere classified; M96.1 Postlaminectomy syndrome, not elsewhere classified; Z98.1 Arthrodesis status | CPT/HCPCS: 99202 ==

== ENCOUNTER 2024-04-17 06:21 | Outpatient (REF) | payer OTHER, SELFPAY ==
--- NOTE | ~2024-04-17 | FL_ITS ---
EXAMINATION: XR FLUOROSCOPY WITH IMAGES CLINICAL INFORMATION: Lumbar radiculopathy. COMPARISON: None available. TECHNIQUE: Fluoroscopy Supervised By: Dr. Jairo Medina. Fluoroscopy Time: 0.2 minutes. Cumulative Dose: 4.24 mGy. DAP: 0.389 Gy-cm2. Images: 2. FINDINGS: Intraoperative fluoroscopy and spot films were performed during a procedure in the OR. A needle/probe is seen in the region of the foramen at the L5 foramen on the left. Please correlate with Dr. Jairo Medina' report for complete details. FL/FL guidance in treatment room IMPRESSION: Intraoperative fluoroscopy and spot films were obtained. Please see Dr. Jairo Medina' report for complete details.
== END 2024-04-17 06:22 | disposition home or self-care (01) ==
LOC: CF 06:21
PROVIDERS: Visit Provider Internal Medicine
DX: M54.16 Radiculopathy, lumbar region (principal)
CPT/HCPCS: 64483; J2795; Q9967

== ENCOUNTER 2024-04-17 09:49 | Outpatient (AMB) | payer OTHER, SELFPAY ==
[2024-04-17 09:58] VITALS: BP 117/75; PULSE 87; RESP 14; O2SAT 99; BMI 29.3
--- NOTE | 2024-04-17 09:58 | A.OFFVIS_ITS ---
Vital Signs 04/17/24 09:58 04/17/24 11:15 Height 5 ft 7 in Weight 187 lb BMI 29.3 BP 117/75 102/67 Blood Pressure Location Lt brachial Lt brachial Position Sitting Sitting Respiration 14 14 Pulse 87 80 Pulse Source Pulse Oximeter Pulse Oximeter Pulse Oximetry (%) 99 99 Oxygen Delivery Method Room Air Room Air Comment Pre-Op Post-Op Intake Visit Reasons: Left Dx L5 selective nerve root block Business Enterprise Officer Required: No Accompanied by: Self / Same As Patient Allergies No Known Allergies [No Known Allergies*] Allergy (Verified 04/17/24 09:59) HPI HPI Left Dx L5 selective nerve root block: Details: Patient presents for scheduled procedure. Denies any recent cough, cold, infection, fever or other significant changes in medical history since last office visit. [facility] Medical History (Updated 04/07/24 @ 10:46 by Jairo Medina MD) (spontaneous vaginal delivery) Anxiety Surgical History H/O tubal ligation Hx of breast reduction, elective Social History Alcohol intake: never Substance Use Type: Marijuana Physical Exam Vital Signs: Last Vital Signs Pulse 80 04/17/24 11:15 Resp 14 04/17/24 11:15 BP 102/67 04/17/24 11:15 Pulse Ox 99 04/17/24 11:15 Oxygen Delivery Method Room Air 04/17/24 11:15 BMI result Body Mass Index 29.3 Office Procedures Details: Diagnostic selective nerve root block, LEFT L5 After obtaining written consent, pre-procedure blood pressure and heart rate were stable and recorded in the nursing record. The patient was placed in the prone position on the fluoroscopy table. The lumbosacral area was prepped with chloraprep, allowed to dry and draped in sterile fashion. Using fluoroscopy, the skin overlying our target was anesthetized with 0.5% lidocaine. A 22 gauge 3.5 inch spinal needle was advanced to the safe triangle in the upper pole of the LEFT L5 foramen. No paresthesias were elicited with needle placement and aspiration was negative for blood and CSF. Correct needle position was confirmed with approximately 1 ml contrast dye (Omnipaque 180 mg/ml) injected under real-time fluoroscopy. No evidence of vascular or intrathecal uptake was seen and there was both epidural and peripheral spread of the contrast agent. 1 ml containing 0.5% lidocaine and 0.5% ropivacaine equal mix was slowly injected. The needle was removed. The skin was cleansed and a sterile bandages were applied. The patient experienced a vasovagal episode during the procedure with complaint of nausea and diaphoresis. The patient was managed with pausing the procedure, ice pack application and oral intake of vandana ramon. The procedure was removed when the patient reported feeling better. No other complications were encountered. Following the procedure the patient's vital signs were stable. The patient was discharged home in good condition with post-procedural instructions. Time Out: Immediately prior to the procedure, the following was verbally confirmed that there is a signed consent form and that the correct patient, planned procedure, site and side are consistent with documentation and that necessary equipment and/or blood products are available prior to the start of the case. Complications: none EBL: <5 cc 76161 - Lumbar/Sacral Procedure code (CPT) selection complete Assessment & Plan Assessment & Plan (1) Lumbar radiculopathy: Code(s): M54.16 - Radiculopathy, lumbar region Category: Medical Plan Patient is status post diagnostic L5 selective nerve root block. Patient tolerated procedure well and was discharged home in stable condition with discharge instructions. All questions were answered. We will follow-up via telephone or in clinic to assess response to therapy. A follow-up appointment was made during today's visit. Orders: Orders FL guidance in treatment room Today M54.16 - Radiculopathy, lumbar region Coding Level of Care Code Procedure Only Diagnoses Lumbar radiculopathy M54.16 CPT Codes Transforaminal Epidural Steroid Inj - TESI 3: 75495 - Lumbar/Sacral ([id number])
[2024-04-17 11:15] VITALS: BP 102/67; PULSE 80; RESP 14; O2SAT 99
== END 2024-04-17 11:23 | disposition home or self-care (01) ==
LOC: HO.PMCPRC 09:49
PROVIDERS: Visit Provider Internal Medicine
DX: M54.16 Radiculopathy, lumbar region (principal)
CPT/HCPCS: 64483

== ENCOUNTER 2024-04-21 09:10 | Outpatient (AMB) | payer OTHER, SELFPAY ==
--- NOTE | 2024-04-21 09:11 | A.OFFVIS_ITS ---
Vital Signs 04/21/24 09:13 Height 5 ft 7 in Weight 185 lb BMI 29.0 BP 113/73 Blood Pressure Location Lt brachial Position Sitting Pulse 79 Pulse Source Pulse Oximeter Pulse Oximetry (%) 99 Oxygen Delivery Method Room Air Intake Visit Reasons: s/p Left Dx L5 SNRB Allergies No Known Allergies [No Known Allergies*] Allergy (Verified 04/17/24 09:59) HPI HPI s/p Left Dx L5 SNRB: Details: 44-year-old female who presents today to the office for a status post left diagnostic L5 SNRB. The patient reports positive diagnostic pain relief following the procedure for one day. She continues to have numbness post injection. She states that her pain and numbness in the leg are bothersome. She states that she experienced weakness and numbness when climbing down the stairs after injections. She has a gait imbalance and was walking funny. She noticed swelling at the injection site and in her legs. She has limited movements due to pain. She has no help at home. She has difficulty doing her ADLs. She has applied for disability. She wants to discuss other options for her pain. She has not had n erve conduction study in the past. Past procedures 04/17/24: Diagnostic selective nerve root block, LEFT L5:positive diagnostic response for one day. PENDING SALE TO [facility] Medical History (Updated 04/07/24 @ 10:46 by Jairo Medina MD) (spontaneous vaginal delivery) Anxiety Surgical History H/O tubal ligation Hx of breast reduction, elective Social History Alcohol intake: never Substance Use Type: Marijuana Review of Systems Const All systems reviewed & are unremarkable except as noted in HPI and below Physical Exam Vital Signs: Last Vital Signs Pulse 79 04/21/24 09:13 BP 113/73 04/21/24 09:13 Pulse Ox 99 04/21/24 09:13 Oxygen Delivery Method Room Air 04/21/24 09:13 BMI result Body Mass Index 29.0 General: Appears afebrile. Alert and oriented. Mood and affect appropriate. Follows and participates in conversation appropriately. Respiratory effort is unlabored. Able to transition from sit to stand unassisted. Ambulates with bilaterally normal heel strike and toe off. Results Reviewed Results Reviewed: No imaging is available for review. Assessment & Plan Assessment & Plan (1) Post laminectomy syndrome: Code(s): M96.1 - Postlaminectomy syndrome, not elsewhere classified Category: Medical (2) Lumbar radiculopathy: Code(s): M54.16 - Radiculopathy, lumbar region Category: Medical Plan Discussed spinal cord stimulation as a possible treatment option. I will place a referral for psychology clearance. Once we have received psychology clearance, we will plan for a trial of a spinal cord stimulator device. The patient will receive a call from [facility] for the psychology assessment. In the meanwhile, I ordered a nerve conduction study to rule out a peripheral neuropathic source. She will receive a call to schedule an appointment. Scribed for Dr. Medina by Bc Duong, medical review coordinator, on 04/21/2024. I, Dr. Medina, have personally reviewed and agree with the information entered by the scribe. Orders: Orders NE electromyogram (EMG) Today M54.16 - Radiculopathy, lumbar region, M96.1 - Postlaminectomy syndrome, not elsewhere classified Coding Level of Care Code Est Pt Level 4 (03620) Diagnoses Post laminectomy syndrome M96.1 Lumbar radiculopathy M54.16
[2024-04-21 09:13] VITALS: BP 113/73; PULSE 79; O2SAT 99; BMI 29.0
== END 2024-04-21 09:32 | disposition home or self-care (01) ==
PROVIDERS: Visit Provider Internal Medicine
DX: M96.1 Postlaminectomy syndrome, not elsewhere classified (principal); M54.16 Radiculopathy, lumbar region
CPT/HCPCS: 99214

== ENCOUNTER → 2024-04-21 09:10 | Outpatient (BNVA) | payer OTHER, SELFPAY | PROVIDERS: Visit Provider Internal Medicine | DX: M96.1 Postlaminectomy syndrome, not elsewhere classified (principal); M54.16 Radiculopathy, lumbar region | CPT/HCPCS: 99212 ==

== ENCOUNTER 2024-05-07 13:08 | Outpatient (REF) | payer OTHER, SELFPAY ==
--- NOTE | 2024-05-07 13:10 | EMG_ITS ---
Chief complaint: Left leg numbness s/p L4-5, L5-S1 anterior/oblique lumbar interbody fusion back in October 2022 s/p 04/17/24 diagnostic selective nerve root block, LEFT L5 with positive diagnostic response for one day Reason for referral: Evaluate for radiculopathy versus neuropathy Referred by: Dr. Medina Procedure done: Left lower extremity NCS/EMG with comparisons to right Precautions and/or limitations: Previous lumbar fusion The limb temperature was monitored continuously and remained between 32-36 degrees C during the performance of the NCS. Nerve Conduction Studies Anti Sensory Summary Table ?Stim Site NR Onset (ms) Norm Onset (ms) Peak (ms) Norm Peak (ms) O-P Amp (?V) Norm O-P Amp Site1 Site2 Delta-0 (ms) Dist (cm) Mike (m/s) Norm Mike (m/s) Left Sural Anti Sensory (Lat Mall) Calf ? 2.4 3.3 <4.0 18.4 >5.0 Calf Lat Mall 2.4 14.0 58 Right Sural Anti Sensory (Lat Mall) Calf ? 2.7 3.2 <4.0 9.8 >5.0 Calf Lat Mall 2.7 14.0 52 Motor Summary Table ?Stim Site NR Onset (ms) Norm Onset (ms) O-P Amp (mV) Norm O-P Amp iAmp (mV) Amp (1st) (%) Site1 Site2 Delta-0 (ms) Dist (cm) Mike (m/s) Norm Mike (m/s) Left Peroneal Motor (Ext Dig Brev) Ankle ? 4.0 <4.0 4.8 >2.5 5.2 100.0 Ankle Ext Dig Brev 4.0 0.0 B Fib ? 11.5 3.8 4.1 79.2 B Fib Ankle 7.5 36.0 48 >40 Poplt ? 11.9 4.5 5.0 93.8 Poplt B Fib 0.4 5.0 125 >40 Left Tibial Motor (Abd Jung Brev) Ankle ? 4.8 <5 18.2 >2.5 23.2 100.0 Ankle Abd Jung Brev 4.8 0.0 Knee ? 12.6 14.0 18.0 76.9 Knee Ankle 7.8 41.0 53 >40 EMG ?Side Muscle Nerve Root Ins Act Fibs Psw Amp Dur Poly Recrt Int Pat Comment Right AbdHallucis MedPlantar S1-2 Nml Nml Nml Nml Nml 0 Nml Complete Left AbdHallucis MedPlantar S1-2 Incr 1+ 1+ Nml Nml 0 Nml Complete Left AntTibialis Dp Br Peron L4-5 Nml Nml Nml Nml Nml 0 Nml Complete Left PostTibialis Tibial L5, S1 Nml Nml Nml Nml Nml 0 Nml Complete Left MedGastroc Tibial S1-2 Nml Nml Nml Nml Nml 0 Nml Complete Left VastusMed Femoral L2-4 Nml Nml Nml Nml Nml 0 Nml Complete Left BicepsFemS Sciatic L5-S1 Nml Nml Nml Nml Nml 0 Nml Complete Left GluteusMed SupGluteal L4-S1 Nml Nml Nml Nml Nml 0 Nml Complete FINDINGS: All motor and sensory nerves tested showed normal latencies, amplitudes and conduction velocities. Concentric needle EMG was performed in selected muscles of the bilateral lower extremities.. Study revealed signs of electric abnormalities as shown in the table above. Only the left abductor hallucis muscle showed increased insertional activity with large PSWs and fibrillations. IMPRESSION: 1. This is an abnormal study. 2. There is electrodiagnostic findings suggestive for chronic S1 radiculopathy. 3. There is no electrodiagnostic evidence for peroneal neuropathy, tibial neuropathy. lumbosacral plexopathy, or peripheral neuropathy. CLINICAL COMMENT: Further clinical correlation recommended. Thank you for your kind referral. Abena Morrell MD, SANDRA Board Certified, [place] Board of Physical Medicine and Rehabilitation (ABPMR) Board Certified, [place] Board of Electrodiagnostic Medicine (ABEM) CODIN [id number] MTDD
== END 2024-05-07 13:09 | disposition home or self-care (01) ==
LOC: HO.NEURO 13:08
PROVIDERS: Visit Provider Internal Medicine
DX: M96.1 Postlaminectomy syndrome, not elsewhere classified (principal); M54.16 Radiculopathy, lumbar region
CPT/HCPCS: 95885; 95886; 95908

== ENCOUNTER → 2024-05-07 13:10 | Outpatient (BNV) | payer OTHER, SELFPAY | PROVIDERS: Visit Provider Physical Medicine & Rehabilitation | DX: R20.2 Paresthesia of skin (principal); R20.0 Anesthesia of skin; M54.12 Radiculopathy, cervical region | CPT/HCPCS: 95885; 95886; 95908 ==

== ENCOUNTER 2024-08-11 10:43 | Outpatient (AMB) | payer OTHER, SELFPAY ==
--- NOTE | 2024-08-11 10:45 | MHC.OFFVIS ---
Vital Signs 08/11/24 10:46 Height 5 ft 7 in Weight 185 lb BMI 29.0 BP 114/78 Blood Pressure Location Lt brachial Position Sitting Respiration 14 Pulse 67 Pulse Source Pulse Oximeter Pulse Oximetry (%) 98 Oxygen Delivery Method Room Air Intake Visit Reasons: LEFT SIDE BACK PAIN Allergies No Known Allergies [No Known Allergies*] Allergy (Verified 08/11/24 10:48) Medication List - Last Reconciled 08/11/24 by Rula Barrera LPN cholecalciferol (vitamin D3) 50 mcg PO DAILY ibuprofen 800 mg PO Q8H PRN lorazepam mg PO HPI HPI LEFT SIDE BACK PAIN: Details: 44-year-old female who presents today to the office for left sided back pain. The patient continues to report excruciating pain in her back. She has limited movements with pain. She states she has no help at home and has difficulty performing her ADLs. She states she is not ready for surgery at this time. In addition to back pain, she reports excruciating pain in her legs. She states her leg pain has started after the surgery and has been persistent since that time. With leg pain, she has difficulty sleeping. The pain aggravates with sitting. She also has difficulty walking with pain. She reports noticing some swelling in her legs. She has been running out of ibuprofen for a week and a half, which she usually takes to ease pain. Past procedures 04/17/24: Diagnostic selective nerve root block, LEFT L5:positive diagnostic response for one day. [facility] Medical History (Updated 04/07/24 @ 10:46 by Jairo Medina MD) (spontaneous vaginal delivery) Anxiety Surgical History H/O tubal ligation Hx of breast reduction, elective Social History Alcohol intake: never Substance Use Type: Marijuana Review of Systems Const All systems reviewed & are unremarkable except as noted in HPI and below Physical Exam Vital Signs: Last Vital Signs Pulse 67 08/11/24 10:46 Resp 14 08/11/24 10:46 BP 114/78 08/11/24 10:46 Pulse Ox 98 08/11/24 10:46 Oxygen Delivery Method Room Air 08/11/24 10:46 BMI result Body Mass Index 29.0 General: Appears afebrile. Alert and oriented. Mood and affect appropriate. Follows and participates in conversation appropriately. Respiratory effort is unlabored. Able to transition from sit to stand unassisted. Ambulates with bilaterally normal heel strike and toe off. Results Reviewed Results Reviewed: 05/07/24: Left lower extremity NCS/EMG with comparisons to right. FINDINGS: All motor and sensory nerves tested showed normal latencies, amplitudes and conduction velocities. Concentric needle EMG was performed in selected muscles of the bilateral lower extremities. Study revealed signs of electric abnormalities as shown in the table above. Only the left abductor hallucis muscle showed increased insertional activity with large PSWs and fibrillations. IMPRESSION: 1. This is an abnormal study. 2. There is electrodiagnostic findings suggestive for chronic S1 radiculopathy. 3. There is no electrodiagnostic evidence for peroneal neuropathy, tibial neuropathy. lumbosacral plexopathy, or peripheral neuropathy. Assessment & Plan Assessment & Plan (1) Post laminectomy syndrome: Code(s): M96.1 - Postlaminectomy syndrome, not elsewhere classified Category: Medical (2) Sacroiliac joint dysfunction: Code(s): M53.3 - Sacrococcygeal disorders, not elsewhere classified Category: Medical (3) Lumbar radiculopathy: Code(s): M54.16 - Radiculopathy, lumbar region Category: Medical Plan I offered her a sacroiliac joint injection, temporary lumbar medial branch nerve stimulation, or spinal cord stimulation for her ongoing sacroiliac joint dysfunction and intractable back pain following back surgery. She will let us know if and when she is interested in proceeding with any of these treatment options that were discussed today. She will follow up as needed. A short prescription of ibuprofen 800 mg was provided to the patient on her request. Scribed for Dr. Medina by Harsh Chase, remote medical coder, on 08/11/2024.? I, Dr. Medina, have personally reviewed and agree with the information entered by the scribe. Medications: Refilled ibuprofen 800 mg PO Q8H PRN 14 tabs 0RF pain ibuprofen 800 mg PO Q8H PRN 14 tabs 0RF pain Coding Level of Care Code Est Pt Level 4 (65651) Diagnoses Post laminectomy syndrome M96.1 Sacroiliac joint dysfunction M53.3 Lumbar radiculopathy M54.16
[2024-08-11 10:46] VITALS: BP 114/78; PULSE 67; RESP 14; O2SAT 98; BMI 29.0
== END 2024-08-11 11:32 | disposition home or self-care (01) ==
LOC: HO.PMC 10:43
PROVIDERS: PCP Internal Medicine; Visit Provider Internal Medicine
DX: M96.1 Postlaminectomy syndrome, not elsewhere classified (principal); M53.3 Sacrococcygeal disorders, not elsewhere classified; M54.16 Radiculopathy, lumbar region
CPT/HCPCS: 99214

== ENCOUNTER → 2024-08-11 10:43 | Outpatient (BNVA) | payer OTHER, SELFPAY | PROVIDERS: PCP Internal Medicine; Visit Provider Internal Medicine | DX: M96.1 Postlaminectomy syndrome, not elsewhere classified (principal); M53.3 Sacrococcygeal disorders, not elsewhere classified; M54.16 Radiculopathy, lumbar region | CPT/HCPCS: 99212 ==

== ENCOUNTER 2024-11-03 09:20 | Outpatient (AMB) | payer OTHER, SELFPAY ==
--- NOTE | 2024-11-03 09:22 | MHC.OFFVIS ---
Vital Signs 11/03/24 09:25 Height 5 ft 7 in Weight 177 lb BMI 27.7 BP 127/75 Blood Pressure Location Lt brachial Position Sitting Respiration 16 Pulse 87 Pulse Source Pulse Oximeter Pulse Oximetry (%) 98 Oxygen Delivery Method Room Air Intake Visit Reasons: Back Pain Credit Analyst Required: No Allergies No Known Allergies [No Known Allergies*] Allergy (Verified 11/03/24 09:26) Medication List - Last Reconciled 11/03/24 by Rula Barrera LPN cholecalciferol (vitamin D3) 50 mcg PO DAILY ibuprofen 800 mg PO Q8H PRN lidocaine 5% 1 patch topical DAILY lorazepam mg PO HPI HPI Back Pain: Details: History of Present Illness The patient is a 44-year-old female presenting with chronic low back pain and lumbar radiculopathy. The pain began after lumbar spine surgery and has been managed with various therapeutic modalities, including sacroiliac joint injections. The patient reports significant back pain radiating to the leg, impacting her ability to perform daily activities. Previous interventions include lumbar medial branch nerve stimulation and a discussion of spinal cord stimulation. Currently, the patient experiences exacerbated symptoms due to cold weather and feels increasingly weak, with pain affecting her arms and legs. Moderate cervical spinal stenosis was observed on MRI, impacting arm strength. She has attended physical therapy sessions, which were not beneficial. The patient desires further intervention to regain a semblance of normalcy in life and function. Pain Description - Pain location: Lower back, radiating to legs. - Onset: Post-lumbar spine surgery. - Quality: Pulling and electric sensation. - Associated symptoms: Weakness in arms and legs. - Alleviating factors: Cold has provided minor relief. - Interference: Incapacitation in activities, inability to sit for long periods, and driving limitations due to leg pain. Physical Exam - Musculoskeletal- Weakness in arm strength noted. - General- Patient reports difficulty in performing daily tasks due to pain and weakness. Results - Imaging: Moderate spinal stenosis in cervical region noted on MRI. Pain Management - Affect: Pain significantly impacts the patient?s emotional well-being, inducing feelings of incapacity and frustration. - Analgesia: Previous therapeutic modalities have included sacroiliac joint injections and nerve stimulation. - Adverse Effects: Patient reports no energy; feeling weak. - Activities of Daily Living: Daily activities are severely restricted by pain; patient seeks to regain ability to perform tasks. - Aberrant Drug Related Behaviors: None reported. [facility] Medical History (Updated 11/11/24 @ 15:51 by Jairo Medina MD) (spontaneous vaginal delivery) Anxiety Surgical History H/O tubal ligation Hx of breast reduction, elective Social History Alcohol intake: never Substance Use Type: Marijuana Physical Exam Vital Signs: Last Vital Signs Pulse 87 11/03/24 09:25 Resp 16 11/03/24 09:25 BP 127/75 11/03/24 09:25 Pulse Ox 98 11/03/24 09:25 Oxygen Delivery Method Room Air 11/03/24 09:25 BMI result Body Mass Index 27.7 Assessment & Plan Assessment & Plan (1) Post laminectomy syndrome: Code(s): M96.1 - Postlaminectomy syndrome, not elsewhere classified Category: Medical (2) Sacroiliac joint dysfunction: Code(s): M53.3 - Sacrococcygeal disorders, not elsewhere classified Category: Medical (3) Cervical radicular pain: Code(s): M54.12 - Radiculopathy, cervical region Category: Medical Plan Plan - Initiate trial with the [employer] spinal cord stimulator. - Obtain psychological clearance for spinal cord stimulation trial. - Consider physical therapy for neck, focusing on stretching and strengthening. - Monitor arm strength and weakness; discuss possible future surgical intervention if condition worsens. Patient was informed and verbally consented to the use of an ambient scribe for clinic note documentation during this visit. Discussion Notes The patient and I discussed the chronic low back pain and its debilitating effects. Potential interventions, including a spinal cord stimulator trial with [employer], were explored in depth. I explained the differences between temporary and permanent stimulators, with emphasis on procedural details and expected benefits. We talked about the necessary steps, including obtaining psychological clearance, to proceed with the spinal cord stimulator trial. We also reviewed the moderate cervical stenosis findings and determined that surgery is not immediately necessary but may be required if symptoms worsen. Physical therapy was recommended as a non-surgical management option. The patient was advised on the risks, benefits, and maintenance associated with spinal cord stimulation. Activities of daily living, goals for improved quality of life, and specific lifestyle modifications, such as safe driving practices, were highlighted. Patient Instructions - Obtain a psychological clearance letter for spinal cord stimulator trial. - Attend follow-up appointments as scheduled for spinal cord stimulator trial setup. - Engage in recommended physical therapy focusing on neck strengthening. - Maintain awareness of arm weakness and report worsening symptoms for possible re-evaluation. - Understand and adhere to maintaining and charging the spinal cord stimulator device as instructed. - Seek emergency medical evaluation if symptoms of numbness or paralysis develop. Coding Level of Care Code Est Pt Level 4 (27483) Diagnoses Post laminectomy syndrome M96.1 Sacroiliac joint dysfunction M53.3 Cervical radicular pain M54.12
[2024-11-03 09:25] VITALS: BP 127/75; PULSE 87; RESP 16; O2SAT 98; BMI 27.7
--- OUTSIDE RECORDS SUMMARY | 2024-11-03 09:46 | XMS_ITS | Encounter Summary ---
Author Organization [facility] Address [address] [place] [address] Care Team Providers Care Publishing Editor Name Role Phone Hernandez Leon MD Primary Care Provider [phone] Encounter Details Date Type Department Care Team (Late st Contact Info) Description 10/31/2024 11:30 AM EST Office Visit [facility] [address] [place] [address] Jeannie Cordero PA [address] [facility] [place] [address] Vision loss, left eye (Primary Dx); Chronic migraine with aura without status migrainosus, not intractable Social History Tobacco Use Types Packs/Day Years Used Date Smoking Tobacco: Never Cigarettes Qu it: 08/10/2016 Smokeless Tobacco: Never Tobacco Cessation:Counseling Given: Not Answered Alcohol Use Standard Drinks/Week Comments Not Currently 0 (1 standard drink = 0.6 oz pur e alcohol) Sex and Gender Information Value Date Recorded Sex Assigned at Not on file Gender Identity Not on file Sexual Orientation Not on file Job Start Date Occupation Industry Not on file Not on file Not on file documented as of this encounter Last Filed Vital Signs Vital Sign Reading Time Taken Comments Blood Pressure 106/72 10/31/2024 11:37 AM EST Pulse 83 10/31/2024 11:37 AM EST Temperature 36.2 ??C (97.1 ??F) 10/31/2024 11:[address] Respiratory Rate - - Oxygen Saturation 98% 10/31/2024 11:37 AM EST Inhaled Oxygen Concentration - - Weight 80.3 kg (177 lb) 10/31/2024 11:37 AM EST Height 170.2 cm (5' 7 ) 10/31/2024 11:37 AM EST Body Mass Index 27.72 10/31/2024 11:37 AM EST documented in this encounter Progress Notes * [facility] - 10/31/2024 11:30 AM EST HPI: Lo Mccarty is a 44 y.o. year old female referred to our center by Hernandez Leon MD for evaluation and management 44 yo female with PMH of lumbar disc disease , asthma , anxiety , her neurological symptoms started8 yrs ago she had her youngest daughter, she had natural , they were late the night she never had a chance to overload she had to be on her knees and hands to push for the baby since then she started having numbness , tingling in her lower extremity, she is still having issues with LLE , numbness , pulling , spasms , goes all way to her low back/mid back also she had episodes where she wake up could not move her lower extremity at all that partially improved she was evaluated and had a surgery in her lumbar spine and she is being assessed for another surgery Interval history Patient returns for follow-up visit. At last visit topiramate was prescribed for migraine prophylaxis, however she admits that she nevertook this. She also never tried the sample of Nurtec that was provided. She states that she tends to be very anxious about taking the medications. She missed appointment for MRI of brain and orbits. She continues to note almost daily headache with left eye pain. She is very sensitive to lights. She admits that she is under increased stress related to personal matters. Sees her back surgeon (Dr. Vera) next week may get nerve stimulator. Last visit history: She had been photo sensitivity for years she can never be in [place] area with no glasses she also struggled with headaches for the last 8 years but got worse more recently Headache: Patient presents for evaluation of headache. Symptoms began about 9 yo , but since summershe has been having worse headache , Generally, the headaches last about several hours and occur continuously. The headaches do not seem to be related to any time of the day. The headaches are usually pounding and throbbing and are located in Lt side retroorbital . The patient rates her most severe headaches a 10 on a scale from 1 to 10. Recently, the headaches have been increasing in both severity and frequency. Work attendance or other daily activities are affected by the headaches. Precipitating factors include: light and sun. The headaches are usually preceded by an aura consisting of photopsias, visual field loss, and visual scintillations. Associated neurologic symptoms: nausea , photophobia , phonophobia . . Home treatment has included acetaminophen and ibuprofen, darkening the room, resting, and sleeping with little improvement. Other history includes: migraine headaches diagnosed in the past. Family history includes migraine headaches in mother. 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 No indication for ETT. Echo for flow murmur. No f/u indicated. Dr. Jacob Bulge of lumbar disc without myelopathy 01/29/2019 DX:Bulge of lumbar disc without myelopathy Cervicitis 08/2007 DX:Cervicitis; COMMENT: biopsy LU II (cervical intraepithelial neoplasia II) 07/2009 DX:LU II (cervical intraepithelial neoplasia II); COMMENT: hpv effect Historical Medical DX 08/2007,08/2009 DX:ASCUS on Pap smear; COMMENT: HPV+ History of trichomonal vaginitis DX:History of trichomonal vaginitis; COMMENT: Other specified personal history presenting hazards to health(V15.89) DX:Other specified personal history presenting hazards to health(V15.89); COMMENT: LEEP 2009 LU 1-2 free margins Current Outpatient Medications Medication Sig Dispense Refill cholecalciferol (Vitamin D3) 25 mcg (1,000 unit) tablet Take 1 tablet (1,000 Units total) by mouth 1 (one) time each day. ibuprofen (ADVIL,MOTRIN) 800 mg tablet Take 1 tablet (800 mg total) by mouth every 8 (eight) hours if needed for moderate pain. for pain 180 tablet 0 lidocaine (LIDODERM) 5 % patch Apply 1 patch topically 1 (one) time each day. Apply to painful area12 hours per day, remove for 12 hours. 30 each 11 LORazepam (ATIVAN) 0.5 mg tablet Take 1 tablet (0.5 mg total) by mouth 2 (two) times a day. Max Daily Amount: 1 mg topiramate (Topamax) 50 mg tablet Take 1 tablet (50 mg total) by mouth 2 (two) times a day. 60 each0 No current facility-administered medications for this visit. 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 , Neurologic Exam: Vitals: 10/31/24 1137 BP: 106/72 Pulse: 83 Temp: 36.2 ??C (97.1 ??F) SpO2: 98% MS: AOx3 CN: perrla, normal left pupillary reaction subtle APD on the left V1-3 intact to LT, face symmetric, bilateral SCM/trapezius 5/5, tongue/uvula/palate midline Motor: 5/5 in all extremities weaker on the left lower extremity 4+/5 limited by pain due to Sensation: Intact to light touch, temperature, and vibration in all extremities Reflexes: 2+ in bilateral biceps and patellae, toes downgoing bilaterally Cerebellar: FNF intact bilaterally, FFM intact bilaterally, GREGORIO intact bilaterally, tandem gait normal, romberg negative Labs: Imaging: All images were reviewed by me. MRI brain: ordered MRI lumbar spine 1. Interval increase in disc desiccation and loss in height at L5-S1 with new Modic type endplate change. Right paracentral to left foraminal broad-based disc protrusion causing left lateral recess stenosis and mild central canal stenosis. 2. New central left paracentral disc protrusion at L4-5 with moderate central canal stenosis in combination with epidural lipomatosis. 3. Stable annular fissure at L3-4 A/P: Lo Mccarty is a 44 y.o. year old female referred to our center by Hernandez Leon MD for persistent headache with left eye pain. She missed appointment for brain and orbit MRI and this was rescheduled for her while she was in the office today. We discussed options for migraine prophylaxis with patient would like to hold off on this at this time. She does agree to a trial of riboflavin and magnesium supplementation. Headaches/migraine headaches -Patient is instructed to keep a headache calendar log -Declines migraine prophylaxis -Will begin magnesium 400 mg daily, riboflavin 400 mg daily Counseled on avoidance of migraine triggers, particularly sleep deprivation, missed meals, dehydration, certain foods and avoiding excessive caffeine/NSAIDs. Left eye pain/blurry vision We will obtain an MRI brain and orbits Will refer to ophthalmology Nerve pain/electrical sensation Will assess after the brain MRI Continue follow-up with the neurosurgeon Follow-up in 2 to 3 months or sooner as needed The patient and I discussed the clinical picture during today's appointment. Additional time was spent prior to the actual appointment reviewing records, lab values and imaging results and preparing documentation for today's visit. There was also time spent following the in person visit documenting, arranging for further diagnostic testing and follow-up appointments. The entire time spent in thisprocess was greater than 30 minutes. The majority of the actual [id number] visit was spent counseling the patient with respect to the current neurological picture. [facility] documented in this encounter Plan of Treatment Upcoming Encounters Date Type Department Care Team (Late st Contact Info) Description 01/13/2025 10:00 AM EDT Office Visit [facility] [place] [facility] [place] [address] [place] [address] Aldo Barnes MD [address] [place] [phone] documented as of this encounter Visit Diagnoses Diagnosis Vision loss, left eye- Primary Unqualified visual loss, one eye Chronic migraine with aura without status migrainosus, not intractable documented in this encounter Discontinued Medications Medication Sig Discontinue Reason Start Date End Da te SUMAtriptan (IMITREX) 50 mg tablet TAKE 1 TABLET BY MOUTH 1 TIME IF NEEDED FOR MIGRAINE FOR UP TO 1 DOSE. MAY REPEAT DOSE ONCE IN 2 HOURS IF NO RELIEF. DO NOT EXCEED 2 DOSES IN 24 HOURS. Therapy completed 10/08/2024 10/31/2024 documented as of this encounter Care Teams Publishing Editor Relationship Specialty Start Date End Date Hernandez Leon MD [address] [place] [id number] PCP - General Internal Medicine 08/14/16 documented as of this encounter
--- OUTSIDE RECORDS SUMMARY | 2024-11-03 09:46 | XMS_ITS | Clinical Summary ---
Author Organization [facility] [employer] Address [address] [place] [address] 7 [place] [address] Care Team Providers Care Region Manager Name Role Phone Unavailable Primary Care Provider Unavailabl e Immunizations Name Administration Dates Next Due Pfizer Covid-19 Vaccine 12+ 11/21/2022 Social History Tobacco Use Types Packs/Day Years Used Date Smoking Tobacco: Never Assessed Comments Unknown Sex and Gender Information Value Date Recorded Sex Assigned at Female 11/21/2022 1:43 PM EST Legal Sex Female 1:38 PM EST Gender Identity Female 11/21/2022 1:43 PM EST Sexual Orientation Straight 11/21/2022 1 :43 PM EST Plan of Treatment Health Maintenance Due Date Last Done Comments Depression Screening 1981 HIV Screening 1981 SDOH Screening 1981 Alcohol/Substance Use Screening 1993 Tobacco Screening 1993 Family Planning (PISQ) 1996 Hepatitis C Screening 1999 DTaP/Tdap/Td Vaccines (1 - Tdap) 2000 Hepatitis B Vaccines (1 of 3 - 19+ 3-dose series) 2000 Pneumococcal Vaccine: Pediat rics (0 to 5 Years) and At-Risk Patients (6 to 49) Years) (1 of 2 - PCV) 2000 Pap Smear 2002 Cervical Cancer Screening 2011 HPV/Cotest 2011 Mammogram 2021 COVID-19 Vaccine (2 - 2023-2 5 season) 2024 11/21/2022 Influenza Vaccine (#1) 2024 07/26/2018 Zoster Vaccines (1 of 2) 2031 RSV Patients and Pa tients Aged 60 years or older (1 - 1-dose 75+ series) 2056 HIB Vaccines Aged Out No longer eligi ble based on patient's age to complete this topic HPV Vaccines Aged Out No longer eligi ble based on patient's age to complete this topic Hepatitis A Vaccines Aged Out No long er eligible based on patient's age to complete this topic IPV Vaccines Aged Out No longer eligi ble based on patient's age to complete this topic Meningococcal Vaccine Aged Out No yohannes arie eligible based on patient's age to complete this topic RSV under 20 months Aged Out No longe r eligible based on patient's age to complete this topic Rotavirus Vaccines Aged Out No longer eligible based on patient's age to complete this topic Insurance [facility] STANDARD Member Subscriber Plan / Payer (Ef fective 2022-Present) Name:Lo Mccarty Relation to Subscriber:Self Name:Lo Mccarty Payer ID:Not on file Group ID:Not on file Type:Medicaid Address: [facility] [id number] [place] [address] [place] [address] ACO
--- OUTSIDE RECORDS SUMMARY | 2024-11-03 09:46 | XMS_ITS | Encounter Summary ---
Author Organization [facility] [address] Address [address] [place] [address] Care Team Providers Care Manager Advanced Name Role Phone Hernandez Leon MD Primary Care Provider [phone] Reason for Visit * Reason Comments Urinary Frequency X over 1 wk Abdominal Pain Vaginal Discharge Encounter Details Date Type Department Care Team ([facility] st Contact Info) Description 10/11/2024 10:15 AM EST Office Visit [facility] [address] [place] [phone] Tito Lindo, PILOT PLANT RESEARCH TECHNICIAN [address], [place] [id number] Lower urinary tract symptoms (Primary Dx) Social History Tobacco Use Types Packs/Day Years Used Date Smoking Tobacco: Never Cigarettes Qu it: 08/10/2016 Smokeless Tobacco: Never Alcohol Use Standard Drinks/Week Comments Not Currently [...] Sign Reading Time Taken Comments Blood Pressure 108/72 10/11/2024 10:08 AM EST Pulse 90 10/11/2024 10:08 AM EST Temperature 36.3 ??C (97.3 ??F) 10/11/2024 10:[address] Respiratory Rate - - Oxygen Saturation 98% 10/11/2024 10:08 AM EST Inhaled Oxygen Concentration - - Weight - - Height - - Body Mass Index - - documented in this encounter Ordered Prescriptions Prescription Sig Dispensed Refills Start Date End Da te metroNIDAZOLE (FLAGYL) 500 mg tablet Take 1 tablet (500 mg total) by mouth 2 (two) times a day for 7 days. Do not use mouth wash or consume alcohol until 48 hours after last dose 14 each 10/11/2024 10/18/2024 documented in this encounter Progress Notes * Tito Lindo, COLLIN - 10/11/2024 10:15 AM EST CHIEF COMPLAINT: Urinary Frequency (X over 1 wk ), Abdominal Pain, and Vaginal Discharge IDENTIFIER: @TITLE@ Lo Mccarty is a 44 y.o. femaleHPI: Patient is 44 y.o. female who complains of: Frequency, odor, white discharge . She has had these symptoms for 9 day(s). She has not had previous urinary tract infections within the past year. She hasnot had a recent course of antibiotics. Symptoms that raise a concern for pyelonephritis include none. Endorses history of BV. 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 for pain metroNIDAZOLE (FLAGYL) 500 mg tablet Take 1 tablet (500 mg total) by mouth 2 (two) times a day for 7 days. Do not use mouth wash or consume alcohol until 48 hours after last dose 14 each 0 SUMAtriptan (IMITREX) 50 mg tablet TAKE 1 TABLET BY MOUTH 1 TIME IF NEEDED FOR MIGRAINE FOR UP TO 1DOSE. MAY REPEAT DOSE ONCE IN 2 HOURS IF NO RELIEF. DO NOT EXCEED 2 DOSES IN 24 HOURS. (Patient nottaking: Reported on 10/11/2024) 9 tablet 0 topiramate (Topamax) 50 mg tablet Take 1 tablet (50 mg total) by mouth 2 (two) times a day. 60 each0 [DISCONTINUED] SUMAtriptan (Imitrex) 50 mg tablet Take 1 tablet (50 mg total) by mouth 1 (one) timeif needed for migraine for up to 1 dose. May repeat dose once in 2 hours if no relief. Do not exceed 2 doses in 24 hours. 9 tablet 0 [DISCONTINUED] topiramate (TOPAMAX) 25 mg tablet Take 1 tablet (25 mg total) by mouth at bedtime for 7 days, THEN 1 tablet (25 mg total) 2 (two) times a day for 7 days, THEN 2 tablets (50 mg total) 2(two) times a day. 141 each 0 No facility-administered encounter medications on file as of 10/11/2024. ALLERGIES: @ALL@ PHYSICAL EXAM: Vitals: 10/11/24 1008 BP: 108/72 BP Location: Right arm Patient Position: Sitting Pulse: 90 Temp: 36.3 ??C (97.3 ??F) TempSrc: Temporal SpO2: 98% APPEARANCE: alert, well appearing, and in no distress HEART: regular rate and rhythm, no murmurs LUNG: clear to auscultation, no wheezes or rales, and unlabored breathing ABDOMEN: soft, nontender, nondistended, no masses or organomegaly BACK: full range of motion, no tenderness, palpable spasm or pain on motion, no CVA tenderness LABS: Urine dip reviewed in office and shows : Leukocytes: Trace Protein: Trace Blood: Trace UA and Culture sent Self swab for BV and yeast IMPRESSION: 1. Lower urinary tract symptoms PLAN: The patient's PMH, problem list and medications were reviewed in reference to the above diagnosis/diagnoses. 1. Urinary Tract Symptoms: Urine dipstick performed in office and results are as shown. Urinalysis and urine culture ordered and results will be discussed with the patient. We will not treat empirically today based on HPI, review of systems and PE. 2. Self swab for BV and yeast. Will follow-up with any abnormal results. Will treat empirically forBV based on HPI review of systems and physical examination. Flagyl prescribed. Patient educated complete entire course of antibiotic. Proper dosing and method to take medication addressed with patient. The risks and benefits of this medication were discussed with the patient. The patient understands the potential side effects and basic interactions of this medication. The patient is asked to callme or my colleagues if they begin to experience any difficulties with this medication. Patient is educated to increase fluid intake, to practice good hygiene. Patient asked to follow up with PCP if symptoms do not resolve or if symptoms worsen. Educated on red flag symptoms and advisedto call 911/go to the ER for these symptoms. Patient verbalized understanding and agreement with the plan Tito Lindo NP at 10:41 AM EST on 10/11/2024 Today's documentation was made using voice recognition software. This note may contain grammatical errors secondary to this software. documented in this encounter Plan of Treatment Upcoming Encounters Date Type Department Care Team (Late st Contact Info) Description 01/13/2025 10:00 AM EDT Office Visit [facility] [address] [place] [address] Aldo Barnes MD [address] [place] [phone] documented as of this encounter Procedures Procedure Name Priority Date/Time Associated Diagnosis Comments POC URINE NON-AUTO W/O MICRO Routine 10/11/2024 10:55 AM EST Lower urinary tract symptoms URINALYSIS MICROSCOPIC ONLY Routine 10/11/2024 10:38 AM EST Lower urinary tract symptoms URINALYSIS MICROSCOPIC ONLY Routine 10/11/2024 10:38 AM EST Lower urinary tract symptoms VAGINITIS PATHOGENS BY PCR Routine 10/11/2024 10:38 AM EST Lower urinary tract symptoms CULTURE URINE Routine 10/11/2024 10:38 AM EST Lower urinary tract symptoms documented in this encounter Results * (ABNORMAL) POC Urine Non-Auto W/O Micro (10/11/2024 10:55 AM EST) GLUCOSE POC Negative Negative, Trace mg/dL Leukocytes UA POC 1+(A) Negative mg/dL Nitrite UA POC Negative Urobilinogen UA POC 0.2 E.U./dL mg/dL Protein UA POC Positive Positive, Negative PH UA POC 6.0 LAKESHIA/HM UA POC Trace(A) Negative Specific Sedley UA POC 1.010 Ketones UA POC Negative Negative Bilirubin UA POC Negative Negative Urine Urine specimen obtained by clean catch procedure / Unknown 10/11/2024 10:55 AM EST Tito Lindo NP POINT OF CARE TEST E NTER/EDIT ORDERABLES * Urinalysis microscopic only (10/11/2024 10:38 AM EST) RBC, Urine 0.5 0 - 4 /HPF LAB URINALYSIS - AUTOMATED METHOD 10/11/2024 6:58 PM EST [facility] WBC, Urine 1.2 0 - 4 /HPF LAB URINALYSIS - AUTOMATED METHOD 10/11/2024 6:58 PM EST [facility] Squamous Epithelial, Urine 19 0 - 60 /LPF LAB URINALYSIS - AUTOMATED METHOD 10/11/2024 6:58 PM [facility] Bacteria, Urine Negative Negative /HPF LAB URINALYSIS - AUTOMATED METHOD 10/11/2024 6:58 PM [facility] Hyaline Casts, Urine 0.4 0 - 3 /LPF LAB URINALYSIS - AUTOMATED METHOD 10/11/2024 6:58 PM EST [facility] Urine Urine specimen obtained by clean catch procedure / Unknown Non-blood Collection / Unknown 10/11/2024 10:38 AM EST 10/11/2024 10:38 AM EST Tito Lindo NP LAB URINE ORDERABLES [facility] [address] [place] [address], * Culture urine (10/11/2024 10:38 AM EST) Culture, Urine No growth 10/12/2024 11:31 AM EST [facility] Urine Urine specimen from urethra / Unknown Non-blood Collection / Unknown 10/11/2024 10:38 AM EST 10/11/2024 10:38 AM EST Tito S Lindo [employer] RESEARCH TECHNICIAN LAB MICROBIOLOGY - G ENERAL ORDERABLES Performing Organization Address [facility] Co de Phone Number [facility] [address] [place] [address], * (ABNORMAL) Vaginitis pathogens molecular study (10/11/2024 10:38 AM EST) Trichomonas vaginalis Negative Negative 10/12/2024 10:49 AM EST [facility] Gardnerella vaginalis Positive(A) Negative 10/12/2024 10:49 AM EST [facility] Lalitha Species Negative Negative 10:49 AM EST [facility] Swab Vaginal structure / Unknown Non-blood Collection / Unknown 10/11/2024 10:38 AM EST 10/11/2024 10:38 AM EST Tito Lindo [employer] RESEARCH TECHNICIAN LAB MICROBIOLOGY - G ENERAL ORDERABLES Performing Organization Address [facility] Co de Phone Number [facility] [address] [place] [address], documented in this encounter Visit Diagnoses Diagnosis Lower urinary tract symptoms- Primary Other symptoms involving urinary system documented in this encounter Care Teams Manager Advanced Relationship Specialty Start Date End Date Hernandez Leon MD [address] [place] [id number] PCP - General Internal Medicine 08/14/16 documented as of this encounter
--- OUTSIDE RECORDS SUMMARY | 2024-11-03 09:46 | XMS_ITS | Clinical Summary ---
Author Organization [facility], Address [address] [place] [address] Phone Care Team Providers Care Material Handling Supervisor Name Role Phone Hernandez Hathaway Primary Care Provider [phone] Medications escitalopram (LEXAPRO) 20 MG tablet Take 20 mg by mouth 1 (one) time each day Active naproxen (NAPROSYN) 500 MG tablet Take 500 mg by mouth in the morning and 500 mg in the evening. Take with meals. Active predniSONE (DELTASONE) 10 MG tablet Take 10 mg by mouth 1 (one) time each day DIRECTED Active ondansetron (ZOFRAN) 4 MG tablet Take 4 mg by mouth every 8 (eight) hours if needed for nausea or vomiting Active LORazepam (ATIVAN) 0.5 MG tablet Take 0.5 mg by mouth 1 (one) time each day Active famotidine (PEPCID) 20 MG tablet Take 20 mg by mouth in the morning and 20 mg in the evening. Active cholecalciferol (VITAMIN D-3) 25 MCG (1000 UT) capsule Take 1,000 Units by mouth 1 (one) time each day Active Active Problems Problem Noted Date Diagnosed Date Low back pain 08/11/2022 Degeneration of lumbar intervertebral disc 08/11 Social History Tobacco Use Types Packs/Day Years Used Date Smoking Tobacco: Never Assessed Comments Unknown Sex and Gender Information Value Date Recorded Sex Assigned at Not on file Legal Sex Female 9:19 AM EST Gender Identity Not on file Sexual Orientation Not on file Plan of Treatment Health Maintenance Due Date Last Done Comments Pneumococcal Vaccine: Pediat rics (0 to 5 Years) and At-Risk Patients (6 to 64 Years) (1 of 2 - PCV) 1987 Hepatitis B Vaccine (1 of 3 - 19+ 3-dose series) 04/07 Influenza Vaccine (#1) 2024 07/26/2018 Insurance [facility] Care Teams Material Handling Supervisor Relationship Specialty Start Date End Date Hernandez Hathaway [address] [place] [id number] PCP - General Internal Medicine 08/11/22
--- OUTSIDE RECORDS SUMMARY | 2024-11-03 09:46 | XMS_ITS | Encounter Summary ---
Author Organization [facility] Address [address] [place] [address] Care Team Providers Care Diesel Dragline Operator Name Role Phone Hernandez Leon MD Primary Care Provider [phone] Reason for Visit * Reason Onset Date Comments Letter for School/Work 10/30/2024 Encounter Details Date Type Department Care Team (Late st Contact Info) Description 10/30/2024 [facility] [address] [place] [phone] Hernandez Leon MD [address] [place] [phone] Letter for School/Work Social History Tobacco Use Types Packs/Day Years [...] on file documented as of this encounter Progress Notes * Snaia Angulo MA - 10/31/2024 1:33 PM EST Pt was told letter is ready for picker/puller . * Meryl Roche NP - 10/31/2024 12:15 PM EST Letter completed, printed signed and in my outgoing bin for patient picker/puller * Taryn Downs MA - 10/30/2024 9:10 AM EST Patient last seen by Meryl 10/14/24. Letter pended. Ok to wait. * Chelle Nieto - 10/30/2024 9:03 AM EST Pt called today requesting a letter from Dr. Leon stating that she is not able to drive longdistances due to her health conditions, back pain and loss of some vision. She said she spoke to a nurse about this and referrals were put in on 10/14/24 that explains her situation. Her 16 year old son is in [place] and they want to move him out of [facility], this would make it impossible for her to see him. They told her she will need a letter from her pcp. Please advise, or any questions contact pt at [phone]. Please contact pt when letter is completed documented in this encounter Plan of Treatment Upcoming Encounters Date Type Department Care Team (Late st Contact Info) Description 01/13/2025 10:00 AM EDT Office Visit [facility] [address] [place] [phone] Aldo Barnes MD [address] [place] [phone] documented as of this encounter Visit Diagnoses Not on filedocumented in this encounter Care Teams Diesel Dragline Operator Relationship Specialty Start Date End Date Hernandez Leon MD [address] [place] [address] PCP - General Internal Medicine 08/14/16 documented as of this encounter
--- OUTSIDE RECORDS SUMMARY | 2024-11-03 09:46 | XMS_ITS | Encounter Summary ---
Author Organization [facility] Address [address] [place] [address] Care Team Providers Care Brake Lining Finisher Asbestos Name Role Phone Hernandez Leon MD Primary Care Provider [phone] Reason for Visit * Reason Onset Date Comments Vaginitis/Bacterial Vaginosis 10/03/2024 Encounter Details Date Type Department Care Team (Late st Contact Info) Description 10/03/2024 Telephone Obstetrics and Gynecology - [facility] [address] [place] [address] Maribel Gates CNM [address] [place] [address] Vaginitis/Bacterial Vaginosis Social History Tobacco Use Types Packs/Day Years [...] as of this encounter Progress Notes * Letty Lazo - 10/03/2024 2:35 PM EST Left msg on voice mail for pt to call back to book appt * Cristiane High RN - 10/03/2024 9:44 AM EST Please reschedule pt-next available with any provider in any office. * Letty Ethan Lazo - 10/03/2024 9:13 AM EST Pt called to reschedule her appt she no showed yesterday for a vi - asking for a new appt - please call documented in this encounter Plan of Treatment Upcoming Encounters Date Type Department Care Team (Late st Contact Info) Description 01/13/2025 10:00 AM EDT Office Visit [facility] [address] [place] [phone] Aldo Barnes MD [address] [place] [phone] documented as of this encounter Visit Diagnoses Not on filedocumented in this encounter Care Teams Brake Lining Finisher Asbestos Relationship Specialty Start Date End Date Hernandez eLon MD [address] [place] [id number] PCP - General Internal Medicine 08/14/16 documented as of this encounter
--- OUTSIDE RECORDS SUMMARY | 2024-11-03 09:46 | XMS_ITS | Encounter Summary ---
Author Organization [facility] Address [address] [place] [address] Care Team Providers Care Welder Journeyman Name Role Phone Hernandez Leon MD Primary Care Provider [phone] Reason for Visit * Reason Onset Date Comments Letter for School/Work 10/31/2024 Encounter Details Date Type Department Care Team (Late st Contact Info) Description 10/31/2024 [facility] [address] [place] [phone] Hernandez Leon MD [address] [place] [address] Letter for School/Work Social History Tobacco Use [...] as of this encounter Progress Notes * Sania Angulo MA - 11/03/2024 9:07 AM EST Pt informed * Meryl Roche NP - 10/31/2024 4:51 PM EST Please let the patient know the letter is ready for pickup in my bin * Debora Lewis MA - 10/31/2024 4:39 PM EST Letter is pended as requested below * Lorie Oquendo - 10/31/2024 4:25 PM EST Pt is requesting letter dated 10/31/24 to be re-done only excluding -Trichomonas vaginalis infectionto be removed from the letter.Everything else should remain as pt feels that's too personal to be on the letter. Pt is requesting a callback to scrap picker on Sunday11/03/24 @ [phone] .Thx. documented in this encounter Plan of Treatment Upcoming Encounters Date Type Department Care Team (Late st Contact Info) Description 01/13/2025 10:00 AM EDT Office Visit [facility] [address] [place] [phone] Aldo Barnes MD [address] [place] [phone] documented as of this encounter Visit Diagnoses Not on filedocumented in this encounter Care Teams Welder Journeyman Relationship Specialty Start Date End Date Hernandez Leon MD [address] [place] [phone] PCP - General Internal Medicine 08/14/16 documented as of this encounter
--- OUTSIDE RECORDS SUMMARY | 2024-11-03 09:46 | XMS_ITS | Encounter Summary ---
Author Organization [facility] Address [address] [place] [address] Care Team Providers Care International Exchange Coordinator Name Role Phone Hernandez Leon MD Primary Care Provider [phone] Reason for Referral * Home Health (Routine) - Pending Review Specialty Diagnoses / Procedures Referred By [facility] Referred To Contact Home Health Services Diagnoses Chronic back pain, unspecified back location, unspecified back pain laterality Meryl Roche NP [address] [place] [address] Referral ID Status Reason Start Date Expiration Date Visits Requested Visits Authorized [id number] Pending Review Consult and Treat 10/14/2024 10/14/2025 1 1 Reason for Visit * Reason Comments ED Follow-up Encounter Details Date Type Department Care Team (Late st Contact Info) Description 10/14/2024 10:30 AM EST Office Visit Internal Medicine - [facility] [address] [place] [address] Meryl Roche NP [address] [place] [address] Chronic back pain, unspecified back location, unspecified back pain laterality (Primary Dx); Nonintractable headache, unspecified chronicity pattern, unspecified headache type; Abdominal pain, unspecified abdominal location Social History Tobacco Use Types Packs/Day Years [...] Sign Reading Time Taken Comments Blood Pressure 108/71 10/14/2024 10:39 AM EST A Pulse 81 10/14/2024 10:39 AM EST Temperature - - Respiratory Rate - - Oxygen Saturation - - Inhaled Oxygen Concentration - - Weight 80.3 kg (177 lb) 10/14/2024 10:39 AM EST Height 170.2 cm (5' 7 ) 10/14/2024 10:39 AM EST Body Mass Index 27.72 10/14/2024 10:39 AM EST documented in this encounter Ordered Prescriptions Prescription Sig Dispensed Refills Start Date End Da te ibuprofen (ADVIL,MOTRIN) 800 mg tablet Take 1 tablet (800 mg total) by mouth every 8 (eight) hours if needed for moderate pain. for pain 180 tablet 10/14/2024 01/12/2025 lidocaine (LIDODERM) 5 % patch Apply 1 patch topically 1 (one) time each day. Apply to painful area 12 hours per day, remove for 12 hours. 30 each 10/14/2024 10/14/2025 documented in this encounter Progress Notes * Meryl Roche NP - 10/14/2024 10:30 AM EST ER FOLLOW UP VISIT: Date of ED visit: 09/10/2024 Name of Hospital/ED: [facility] CHIEF COMPLAINT: ED Follow-up IDENTIFIER: Lo Mccarty is a 44 y.o. old female. HPI: 44-year-old female presents to the ER with headache and left blurry vision as well as abdominal pain and back pain. Reported that the headache has been going on since March, blurry vision more recent but not acute. Patient also reported abdominal pain that was suprapubic and felt like a burning sensation. No fever nausea or vomiting. She reported she sustained a back injury after delivery of her child 8 years ago. She had had back surgeries because of that. She is followed by neurosurgery. She has chronic back pain as well as left leg numbness. She has not had headaches until she had her back surgeries and headaches started after having back surgeries. The headache is mostly left-sided and with photophobia and phonophobia. No history of migraines. On exam patient had no focal deficits, she was hemodynamically stable. She was medicated for migraine and labs as well as CT head and abdomen and pelvis were ordered. Labs were unremarkable includingUA negative, CT head with no acute process, CT abdomen and pelvis without acute process. Patient left the ER before provider was able to finish reviewing her workup or discussing her workup with her. Since her ER visit Lo has not experienced any headaches significantly different from her baseline. She does follow with neurology for management of her migraines. Her main complaint today is herback pain. 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 This impairs her mobility, she has to sit down frequently throughout the day to relieve pain. She has tried multiple pain medications, PT and has had multiple surgeries on her back in the past. Her current neurosurgeon Dr. Vera has recommended another surgery or nerve stimulator implant and she is reluctantto have these done stating she does not have childcare for her recovery time. 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 ROS: GENERAL: Negative for malaise, significant weight loss and fever HEENT: No changes in hearing or vision. No nosebleeds or other nasal problems RESPIRATORY: No cough, wheezing or shortness of breath CARDIOVASCULAR: Negative for chest pain, leg swelling and palpitations MUSCULOSKELETAL: See HPI NEURO: See HPI PAST MEDICAL HISTORY: Patient Active Problem List Diagnosis Date Noted Palpitation 09/28/2023 Syncope 09/28/2023 Acute cystitis without hematuria 08/14/2023 Trichomonas vaginalis infection 08/14/2023 Degeneration of lumbar intervertebral disc 08/11/2022 Low back pain 08/11/2022 Cervical spondylosis 07/12/2022 DDD (degenerative disc disease), lumbar 07/12/2022 Pelvic pain 05/18/2022 Cervical radiculopathy 09/29/2019 Discogenic low back pain 09/29/2019 Herniated cervical disc 09/29/2019 Migraine without aura and without status migrainosus, not intractable 09/29/2019 Atypical chest pain 02/03/2019 DJD (degenerative joint disease), multiple sites 01/29/2019 Anxiety and depression 05/28/2014 Anemia 01/18/2012 Asthma 03/13/2011 SOCIAL HISTORY: Social History Tobacco Use Smoking status: Never Smokeless tobacco: Never Substance Use Topics Alcohol use: Not Currently FAMILY HISTORY: Family Status Relation Name Status MGM Alive MGF Alive PGM Alive Aunt paternal (Not Specified) Other (Not Specified) Other paternal aunt (Not Specified) Mother Alive Father Alive PGF Alive No partnership data on file Family History Problem Relation Name Age of Onset Ovarian cancer Maternal Grandmother ovarian ca, CVA Stroke Maternal Grandfather Breast cancer Paternal Grandmother breast cancer Breast cancer Aunt paternal maternal aunt Other (Other: abnormal paps) Other mother Ovarian cancer Other paternal aunt maternal aunt ACTIVE MEDICATIONS: Outpatient Medications Marked as Taking for the 10/14/24 encounter (Office Visit) with Meryl oRche NP Medication Sig Dispense Refill cholecalciferol (Vitamin D3) 25 mcg (1,000 unit) tablet Take 1 tablet (1,000 Units total) by mouth 1 (one) time each day. ibuprofen (ADVIL,MOTRIN) 800 mg tablet Take 1 tablet (800 mg total) by mouth every 8 (eight) hours if needed for moderate pain. for pain 180 tablet 0 LORazepam (ATIVAN) 0.5 mg tablet Take 1 tablet (0.5 mg total) by mouth 2 (two) times a day. Max Daily Amount: 1 mg metroNIDAZOLE (FLAGYL) 500 mg tablet Take 1 [...] NOT EXCEED 2 DOSES IN 24 HOURS. 9 tablet 0 topiramate (Topamax) 50 mg tablet Take 1 tablet (50 mg total) by mouth 2 (two) times a day. 60 each0 [DISCONTINUED] ibuprofen (ADVIL,MOTRIN) 800 mg tablet Take 1 tablet (800 mg total) by mouth every 8(eight) hours if needed. for pain ALLERGIES: Patient has no known allergies. PHYSICAL EXAM: Blood pressure 108/71, pulse 81, height 1.702 m (67 ), weight 80.3 kg (177 lb), last menstrual period 10/03/2024. Body mass index is 27.72 kg/m??. Plan is deferred until next visit APPEARANCE: Alert and in no acute distress EYES: PERRLA, conjunctiva and sclera normal MOUTH/THROAT: no erythema, lesions, or exudates HEART: RRR with normal S1 and S2, no murmurs, no gallops, no JVD appreciated LUNG: clear to auscultation bilaterally ABDOMEN: Bowel sounds normoactive, no bruits and soft, non-tender, without organomegaly or palpablemasses BACK: Positive pain to palpation left lumbar paraspinal muscles with abnormal straight leg raise onthe left side. Spine is midline. EXTREMITIES: Extremities warm and well perfused without clubbing, cyanosis, or edema NEURO: Awake, alert and oriented x 3, Cranial nerves II-XII grossly intact, and reflexes symmetrical IMPRESSION: 1. Chronic back pain, unspecified back location, unspecified back pain laterality 2. Nonintractable headache, unspecified chronicity pattern, unspecified headache type 3. Abdominal pain, unspecified abdominal location PLAN: Chronic back pain secondary to spinal stenosis status post multiple spine surgeries. Current recommendations are for either a nerve stimulator implant or another surgery which the patient is finding difficult to plan around due to lack of childcare and general support in her home. She may benefit from MACHINIST APPRENTICE WOOD services as she is unable to do typical household tasks such as laundry and washing due to her chronic pain which requires multiple periods of rest with any activity. Referral for home health aide duration. Headache: Acute headache for which she was seen in the ER has resolved. She does continue to have her intermittent migraines which are chronic, longstanding and she follows with neurology for this. Abdominal pain: Resolved. Orders Placed This Encounter Procedures Ambulatory referral to Home Health ADDITIONAL ORDERS: AMB REFERRAL TO HOME HEALTH Meryl Roche NP on 10/14/2024 at 12:51 PM EST * Sania Angulo MA - 10/14/2024 10:30 AM EST Called several [facility] offices and they do not provide Housekeeping services that pt is requesting. Pt was told to Call Insurance and check for reccomendations and call the office. * Sania Angulo MA - 10/14/2024 10:30 AM EST Spoke to pt and she is still trying to find services. Will call office back . documented in this encounter Plan of Treatment Upcoming Encounters Date Type Department Care Team (Late st Contact Info) Description 01/13/2025 10:00 AM EDT Office Visit [facility] [address] [place] [address] Aldo Barnes MD [address] [place] [address] Scheduled Referrals Name Type Priority Associated Diagnoses Order Schedule Ambulatory referral to Home Health Outpatient Referral Routine Chronic back pain, unspecified back location, unspecified back pain laterality 1 Occurrences starting 10/14/2024 until 10/14/2025 documented as of this encounter Visit Diagnoses Diagnosis Chronic back pain, unspecified back location, unspecified back pain laterality- Primary Nonintractable headache, unspecified chronicity pattern, unspecified headache type Abdominal pain, unspecified abdominal location documented in this encounter Discontinued Medications Medication Sig Discontinue Reason Start Date End Da te ibuprofen (ADVIL,MOTRIN) 800 mg tablet Take 1 tablet (800 mg total) by mouth every 8 (eight) hours if needed. for pain Reorder 10/14/2024 documented as of this encounter Historical Medications * This list may reflect changes made after this encounter. Medication Sig Dispensed Refills Start Date End Date cholecalciferol (Vitamin D3) 25 mcg (1,000 unit) tablet Take 1 tablet (1,000 Units total) by mouth 1 (one) time each day. 09/29/2018 LORazepam (ATIVAN) 0.5 mg tablet Take 1 tablet (0.5 mg total) by mouth 2 (two) times a day. Max Daily Amount: 1 mg 11/09/2017 added in this encounter Care Teams International Exchange Coordinator Relationship Specialty Start Date End Date Hernandez Leon MD [address] [place] [id number] PCP - General Internal Medicine 08/14/16 documented as of this encounter
--- OUTSIDE RECORDS SUMMARY | 2024-11-03 09:46 | XMS_ITS | Clinical Summary ---
Author Organization [address] Building Address [address] [place] [phone] Phone Care Team Providers Care Digital Forensics Investigator Name Role Phone Hernandez Leon MD Primary Care Provider [phone] Allergies No known active allergies Medications Medication Sig Dispensed Refills Start Date End Date Status topiramate (Topamax) 50 mg tablet Take 1 tablet (50 mg total) by mouth 2 (two) times a day. 60 each 10/06/2024 5 Active LORazepam (ATIVAN) 0.5 mg tablet Take 1 tablet (0.5 mg total) by mouth 2 (two) times a day. Max Daily Amount: 1 mg 11/09/2017 Active cholecalciferol (Vitamin D3) 25 mcg (1,000 unit) tablet Take 1 tablet (1,000 Units total) by mouth 1 (one) time each day. 09/29/2018 Active lidocaine (LIDODERM) 5 % patch Apply 1 patch topically 1 (one) time each day. Apply to painful area 12 hours per day, remove for 12 hours. 30 each 11 10/14/2024 6 Active ibuprofen (ADVIL,MOTRIN) 800 mg tablet Take 1 tablet (800 mg total) by mouth every 8 (eight) hours if needed for moderate pain. for pain 180 tablet 10/14/2024 5 Active ibuprofen (ADVIL,MOTRIN) 800 mg tablet Take 1 tablet (800 mg total) by mouth every 8 (eight) hours if needed. for pain 5 Discontinued(Reo rder) topiramate (TOPAMAX) 25 mg tablet Take 1 tablet (25 mg total) by mouth at bedtime for 7 days, THEN 1 tablet (25 mg total) 2 (two) times a day for 7 days, THEN 2 tablets (50 mg total) 2 (two) times a day. 141 each 09/12/2024 5 Discontinued SUMAtriptan (Imitrex) 50 mg tablet Take 1 tablet (50 mg total) by mouth 1 (one) time if needed for migraine for up to 1 dose. May repeat dose once in 2 hours if no relief. Do not exceed 2 doses in 24 hours. 9 tablet 09/12/2024 5 Discontinued SUMAtriptan (IMITREX) 50 mg tablet TAKE 1 TABLET BY MOUTH 1 TIME IF NEEDED FOR MIGRAINE FOR UP TO 1 DOSE. MAY REPEAT DOSE ONCE IN 2 HOURS IF NO RELIEF. DO NOT EXCEED 2 DOSES IN 24 HOURS. 9 tablet 10/08/2024 5 Discontinued(The rapy completed) metroNIDAZOLE (FLAGYL) 500 mg tablet Take 1 tablet (500 mg total) by mouth 2 (two) times a day for 7 days. Do not use mouth wash or consume alcohol until 48 hours after last dose 14 each 10/11/2024 5 Active Problems Problem Noted Date Diagnosed Date Palpitation 09/28/2023 Syncope 09/28/2023 Acute cystitis without hematuria 08/14/2023 Overview (09/25/2024): Last Assessment & Plan: Treated with Bactrim. Will send for C&S. Trichomonas vaginalis infection 08/14/2023 Overview (09/25/2024): Last Assessment & Plan: Discussed results. Explained that she should abstain from intercourse until both she and her partner have completed treatment. I recommended she use condoms thereafter to prevent STI. Additional testing sent for GC/CT. She was encouraged to let her partner know. She notes he is no longer her partner and she does not plan to contact him. Degeneration of lumbar intervertebral disc 08/11 Low back pain 08/11/2022 Cervical spondylosis 07/12/2022 Overview (09/25/2024): Last Assessment & Plan: While in the office, patient also complained of 6-year history of neck pain, left arm and hand numbness tingling affecting all digits, not specific to a dermatome. She states the other day she was unable to use the left hand to cloth picker her coffee cup, which scared her. She does not specifically note that she drops things frequently with the left hand. She states the symptoms also started after her delivery when she had the low back and left leg symptoms. She denies any right arm symptoms. She has frequent headaches/migraines. She rates her neck pain 5-10/10. Most recent cervical MRI I could find was at [facility] in 2019, patient had C5-6 spondylosis with disc bulging and moderate foraminal narrowing, C6-7 spondylosis with mild left foraminal narrowing. Patient will need updated C-spine MRI to better evaluate her neck and left arm symptoms, rule out any signal change in the spinal cord that could be contributing to her left sided body symptoms, sporadic paralysis . I will review all her films with Dr. Vera and call her with results once completed. DDD (degenerative disc disease), lumbar 07/12/20 Overview (09/25/2024): Last Assessment & Plan: Patient comes in today to go over her lumbar MRI images, discuss her transverse low back pain, and treatment options, including surgery. We had a discussion last week on , 07/27/2022 over the phone after I reviewed her MRI with Dr. Vera, he offered her L4-5, L5-S1 OLIF. On today's visit we reviewed her MRI images in detail on the computer, discussed the surgery, risks and benefits. (She already has an appointment scheduled with Dr. Vera to go over the surgery and questions, however her anxiety was too high to wait to go over films and questions.) Some of what we discussed: Need for general anesthesia, potential for no improvement in symptoms with radical discectomy and fusion, difference between her previous surgery for discectomy versus fusion, addressed her questions in terms of postop expectations and restrictions. She should definitely keep her next follow-up appointment with Dr. Vera to go over the surgery, risks and benefits, her concerns and questions in further detail. I asked her to write down any questions she comes up with. We talked about continuing with just conservative treatment options, she states she does want a proceed with surgery, no longer can tolerate her current level of back pain. All questions answered. Pelvic pain 05/18/2022 Overview (09/25/2024): Last Assessment & Plan: Discussed potential causes of pelvic pain with the patient including infections, ovarian cysts, MSK etiologies, etc. GC/CT declined. Wet prep negative in office today. UA negative, however urine culture ordered based on described symptoms and anterior vaginal wall tenderness on exam. Pelvic US ordered to assess for structural causes of pain. Discussed functional ovarian cysts and mittelschmertz pain Discussed dysmenorrhea with menses and relief measures Discussed relief measures for pain and reviewed warning signs and when to call, including fever, a significant increase in pain that might represent a rupture, torsion, or heavy vaginal bleeding. Cervical radiculopathy 09/29/2019 Discogenic low back pain 09/29/2019 Herniated cervical disc 09/29/2019 Migraine without aura and wi thout status migrainosus, not intractable 09/29/2019 Atypical chest pain 02/03/2019 Overview (09/25/2024): Card 01/24/19: noncardiac. No indication for ETT. Echo for flow murmur. No f/u indicated. Dr. Jacob Last Assessment & Plan: Chronic atypical chest pain. She clearly has an element of anxiety. I wondered if she is suffering from panic attacks. Her physical examination, EKG, Holter monitor and echocardiogram are all unremarkable. I would like to investigate for coronary artery disease or anomalous coronary arteries with a coronary CTA. If this is normal, then we can confidently exclude that there is a cardiac contribution to her chest pain. I would then encourage her to revisit her anxiety disorder. I have not scheduled routine clinical follow-up at this time. DJD (degenerative joint disease), multiple sites 01/29/2019 Overview (09/25/2024): Lumbar and cervical with disc bulges Anxiety and depression 05/28/2014 Anemia 01/18/2012 Asthma 03/13/2011 Encounters Date Type Department Care Team Description 10/31/2024 11:30 AM EST Office Visit [address] [place] [phone] Jeannie Cordero, PA Vision loss, left eye (Primary Dx); Chronic migraine with aura without status migrainosus, not intractable 10/31/2024 Telephone Internal Medicine - [address] [phone] Hernandez Leon MD Letter for School/Work 10/30/2024 Telephone Internal Medicine - [address] [phone] Hernandez Leon MD Letter for School/Work 10/14/2024 10:30 AM EST Office Visit Internal Medicine [address] [phone] Meryl Roche NP Chronic back pain, unspecified back location, unspecified back pain laterality (Primary Dx); Nonintractable headache, unspecified chronicity pattern, unspecified headache type; Abdominal pain, unspecified abdominal location 10/11/2024 10:15 AM EST Office Visit Walk-In [address] [phone] Tito Lindo NP Lower urinary tract symptoms (Primary Dx) 10/03/2024 Telephone Obstetrics and Gynecology - [address] [phone] Maribel Gates CNM Vaginitis/Bacterial Vaginosis 09/12/2024 12:00 PM EST Office Visit [address] [phone] Aldo Barnes MD Chronic migraine with aura without status migrainosus, not intractable (Primary Dx); Vision loss, left eye 09/10/2024 9:00 AM EST Office Visit [address] [phone] Rosales Loredo PA Vision loss, left eye (Primary Dx) 09/09/2024 Telephone Internal Medicine - [address] [phone] Hernandez Leon MD Blurred Vision; Headache; Leg Pain; Leg Swelling from Last 3 Months Immunizations Name Administration Dates Next Due Influenza Quadravalent, MDCK , 0.5ml, with preservative (Flucelvax) 6mo and older 07/26/2018 Pfizer SARS-CoV-2 COVID-19, mRNA, LNP-S, preservative free 11/21/2022 Surgical History Surgery Date Site/Laterality Comments BREAST REDUCTION 1997 PROCEDURE: OR BREAST REDUCTION CERVICAL BIOPSY W/ LOOP ELECTRODE EXCISION 2009 PROCEDURE: OR CONIZATION CERVIX W/WO D&C RPR ELTRD EXC TUBAL LIGATION PROCEDURE: HISTORICAL TUBAL LIGATION OTHER SURGICAL HISTORY 2020 PROCEDURE: HISTORY OTHER; COMMENT: lumbar discectomy ? L5-S1 Medical History Medical History Date Comments Asthma DX:Asthma Historical Medical DX 08/2007,08/2009 DX:ASCUS o n Pap smear; COMMENT: HPV+ LU II (cervical intraepithe lial neoplasia II) 07/2009 DX:LU II (cervical intraepithelial neoplasia II); COMMENT: hpv effect Cervicitis 08/2007 DX:Cervicitis; C OMMENT: biopsy Other specified personal his tory presenting hazards to health(V15.89) DX:Other specified personal history presenting hazards to health(V15.89); COMMENT: KYRA 2009 LU 1-2 free margins Bulge of lumbar disc without myelopathy 01/29/2019 DX:Bulge of lumbar disc with out myelopathy Atypical chest pain 02/03/2019 DX:Atypical chest pain; COMMENT: Card 01/24/19: noncardiac. No indication for ETT. Echo for flow murmur. No f/u indicated. Dr. 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; COMMENT: type 2 Family History Medical History Relation Name Comments Breast cancer Aunt paternal maternal aunt Stroke Maternal Grandfather Ovarian cancer Maternal Grandmother ovari an ca, CVA Other: abnormal paps Other 1 mother Ovarian cancer Other 2 paternal aunt maternal aun t Breast cancer Paternal Grandmother breast cancer Relation Name Status Comments Aunt paternal Father Alive Maternal Grandfather Alive Maternal Grandmother Alive Mother Alive Other 1 Other 2 paternal aunt Paternal Grandfather Alive Paternal Grandmother Alive Social History Tobacco Use Types Packs/Day Years [...] file Not on file Not on file Obstetrics History Last Filed Vital Signs Vital Sign Reading [...] Mass Index 27.72 10/31/2024 11:37 AM EST Plan of Treatment Upcoming Encounters Date Type Department Care Team (Late st Contact Info) Description 01/13/2025 10:00 AM EDT Office Visit [facility] [address] [place] [phone] Aldo Barnes MD [address] [facility] [address] [place] [phone] Health Maintenance Due Date Last Done Comments Pneumococcal Vaccine: Pediatrics (0 to 5 Years) and At-Risk Patients (6 to 64 Years) (1 of 2 - PCV) 1987 Hepatitis B Vaccines (1 of 3 - 19+ 3-dose series) 2000 Depression Screening 09/09/2022 HIV Screening 09/09/2022 Hepatitis C Screening 09/09/2022 Social Influencers of Health Screening 09/09/2022 Breast Cancer Screening 01/06/2024 01/06/20 22, 08/13/2019 COVID-19 Vaccine (2 - 2023-2 5 season) 2024 11/21/2022 Influenza Vaccine (#1) 2024 8, 12/31/2015 Cervical Cancer Screening: P ap Smear 01/03/2025 01/03/2022, 08/05/2019 DTaP,Tdap,and Td Vaccines (2 - Td or Tdap) 02/09/2026 02/10/2016 HIB Vaccines Aged Out No longer eligi [...] on patient's age to complete this topic MMR Vaccines Aged Out No longer eligi ble based on patient's age to complete this topic Meningococcal ACWY Vaccine Aged Out N o longer eligible based on patient's age to complete this topic RSV Immunization Patients Under 20 months Aged Out No longer eligible b ased on patient's age to complete this topic Varicella Vaccines Aged Out No longer eligible based on patient's age to complete this topic Procedures Procedure Name Priority Date/Time Associated Diagnosis [...] 10:38 AM EST Lower urinary tract symptoms POC RAPID [id number], MOLECULAR Routine 09/10/2024 9:35 AM EST Vision loss, left eye SCREENING MAMMOGRAPHY BI 2-VIEW BREAST INC CAD Routine 01/05/2022 10:45 AM EDT Encounter for screening mammogram for malignant neoplasm of breast PAP SMEAR Routine 01/03/2022 from Last 3 Months or Most Recently Relevant to Health Maintenance Results * (ABNORMAL) POC Urine Non-Auto W/O Micro (10/11/2024 10:55 AM EST) GLUCOSE POC Negative Negative, Trace mg/dL Leukocytes UA POC 1+(A) Negative mg/dL Nitrite UA POC Negative Urobilinogen UA POC 0.2 E.U./dL mg/dL Protein UA POC Positive Positive, Negative PH UA POC 6.0 LAKESHIA/HM UA POC Trace(A) Negative Specific [place] UA POC 1.010 Ketones UA POC Negative Negative Bilirubin UA POC Negative Negative Urine Urine specimen obtained by clean catch procedure / Unknown 10/11/2024 10:55 AM EST Tito Lindo NP POINT OF CARE TEST E NTER/EDIT ORDERABLES * Urinalysis microscopic only (10/11/2024 10:38 AM EST) RBC, Urine 0.5 0 - 4 /HPF LAB URINALYSIS - AUTOMATED METHOD 10/11/2024 6:58 PM [facility] WBC, Urine 1.2 0 - 4 /HPF LAB URINALYSIS - AUTOMATED METHOD 10/11/2024 6:58 PM [facility] Squamous Epithelial, Urine 19 0 - 60 /LPF LAB URINALYSIS - AUTOMATED METHOD 10/11/2024 6:58 PM [facility] Bacteria, Urine Negative Negative /HPF LAB URINALYSIS - AUTOMATED METHOD 10/11/2024 6:58 PM [facility] Hyaline Casts, Urine 0.4 0 - 3 /LPF LAB URINALYSIS - AUTOMATED METHOD 10/11/2024 6:58 PM [facility] Urine Urine specimen obtained by clean catch procedure / Unknown Non-blood Collection / Unknown 10/11/2024 10:38 AM EST 10/11/2024 10:38 AM EST Tito Lindo NP LAB URINE ORDERABLES Performing Organization Address City/[facility]/ZIP Co de Phone Number [facility] [address] [place] [address], * (ABNORMAL) Vaginitis pathogens molecular study (10/11/2024 10:38 AM EST) Trichomonas vaginalis Negative Negative 10/12/2024 10:49 AM EST [facility] Gardnerella vaginalis Positive(A) Negative 10/12/2024 10:49 AM EST [facility] Lalitha Species Negative Negative 10:49 AM EST [facility] Swab Vaginal structure / Unknown Non-blood Collection / Unknown 10/11/2024 10:38 AM EST 10/11/2024 10:38 AM EST Tito Lindo NP LAB MICROBIOLOGY - G ENERAL ORDERABLES Performing Organization Address [facility] Co de Phone Number [facility] [address] [place] [address], * Culture urine (10/11/2024 10:38 AM EST) Culture, Urine No growth 10/12/2024 11:31 AM EST [facility] Urine Urine specimen from urethra / Unknown Non-blood Collection / Unknown 10/11/2024 10:38 AM EST 10/11/2024 10:38 AM EST Tito Lindo NP LAB MICROBIOLOGY - G ENERAL ORDERABLES Performing Organization Address City/[facility]/ZIP Co de Phone Number [facility] [address] [place] [address], [place] [phone] * Poc Rapid [id number], MOLECULAR (09/10/2024 9:35 AM EST) COVID-19/SARS- COV-2 Rapid POC Negative Negative Swab Nasopharyngeal structure / Unknown 09/10/2024 9:35 AM EST Rosales BENTLEY POINT OF CARE TEST ENTER/EDIT ORDERABLES * SCREENING MAMMOGRAPHY BI 2-VIEW BREAST INC CAD (01/05/2022 10:45 AM EDT) Anatomical Region Laterality Modality Radiographic Rebekah ging 01/03/2022 10:0 5 AM EDT Narrative 01/05/2022 4:21 PM EDT This is a summary report. The complete report is available in the patient's medical record. If you cannot access the medical record, please contact the sending organization for a detailed fax or copy. Full field digital screening 2D and tomosynthesis mammography, reviewed with CAD and compared to previous. ??The breasts are composed of fatty and fibroglandular tissue. ??No suspicious mass, architectural distortion or suspicious calcifications are identified. IMPRESSION: : No mammographic evidence of malignancy. BIRADS 1-Negative; N. 5 year breast cancer risk assessment 0.4 % Lifetime breast cancer risk assessment 8.6 % Breast cancer risk category Low (<15%) Procedure Note Taryn Ferrell MD - 09/19/2022 This is a summary report. The complete report is available in thepatient's medical record. If you cannot access the medical record, pleasecontact the sending organization for a detailed fax or copy. Full field digital screening 2D and tomosynthesis mammography, reviewedwith CAD and compared to previous. The breasts are composed of fatty andfibroglandular tissue. No suspicious mass, architectural distortion orsuspicious calcifications are identified. IMPRESSION: : No mammographic evidence of malignancy. BIRADS 1-Negative; N. 5 year breast cancer risk assessment 0.4 % Lifetime breast cancer risk assessment 8.6 % Breast cancer risk category Low (<15%) Hanny Sood CNM IMG XR PROCEDURES * Pap smear (01/03/2022) 01/03/2022 Narrative HISTORICAL TESTING LAB RESULTING AGENCY - 01/17/2022 8:16 AM EDT [id number] THINPREP PAP, IMAGED: NEGATIVE FOR SQUAMOUS INTRAEPITHELIAL LESION AND MALIGNANCY. SHIFT IN TORITO SUGGESTIVE OF BACTERIAL VAGINOSIS. NOTE: THE PAP TEST IS A SCREENING TEST WITH AN INHERENT FALSE NEGATIVE RATE. AUTOMATED PRESCREENING OF ALL LIQUID BASED SPECIMENS IS PERFORMED BY THE THINPREP IMAGING SYSTEM UNLESS OTHERWISE STATED. JAYRO LOWRY(ASCP) (CASE ELECTRONICALLY SIGNED 01 16 2022) RESULT OF APTIMA HIGH RISK HPV ASSAY: HIGH RISK HPV: ??POSITIVE (SEROTYPES 16,18,31,33,35,39,45,51,52,56,58,59,66,68) RESULTS OF APTIMA HPV 16 AND 18/45 GENOTYPE ASSAY: HPV 16: ??NEGATIVE HPV 18/45: ??NEGATIVE COMPLETED ON 2022-01-06 ADEQUACY: SATISFACTORY ENDOCERVICAL/TRANSFORMATION ZONE COMPONENT ABSENT. SOURCE: THINPREP PAP HPV ANY DX: ??REFLEX 16 AND 18, CERVICAL, IMAGED CLINICAL INFORMATION: HPV ANY DIAGNOSIS. HORMONES, PAP HX POSITIVE LU 1 IN 2008, LMP 12/29/21, [Z12.4] Hanny Sood CNM LAB CYTOLOGY ORDERAB LES HISTORICAL TESTING LAB RESULTING AGENCY from Last 3 Months or Most Recently Relevant to Health Maintenance Care Teams Digital Forensics Investigator Relationship Specialty Start Date End Date Hernandez Leon MD [address] [place] [id number] PCP - General Internal Medicine 08/14/16
== END 2024-11-03 09:45 | disposition home or self-care (01) ==
PROVIDERS: PCP Internal Medicine; Visit Provider Internal Medicine
DX: M96.1 Postlaminectomy syndrome, not elsewhere classified (principal); M53.3 Sacrococcygeal disorders, not elsewhere classified; M54.12 Radiculopathy, cervical region
CPT/HCPCS: 99214

== ENCOUNTER → 2024-11-03 09:20 | Outpatient (BNVA) | payer OTHER, SELFPAY | PROVIDERS: PCP Internal Medicine; Visit Provider Internal Medicine | DX: M96.1 Postlaminectomy syndrome, not elsewhere classified (principal); M53.3 Sacrococcygeal disorders, not elsewhere classified; M54.12 Radiculopathy, cervical region | CPT/HCPCS: 99212 ==

== ENCOUNTER 2025-03-04 10:12 | Day surgery (SDC) | payer OTHER, SELFPAY ==
--- OUTSIDE RECORDS SUMMARY | 2025-02-20 14:35 | XMS_ITS | Clinical Summary ---
Author Organization [place] [address] [facility] Building Address [address] [place] [address] [address] Phone Care Team Providers Care Corporate Recruiter Name Role Phone Hernandez Leon MD Primary Care Provider [phone] Allergies No known active allergies Medications LORazepam (ATIVAN) 0.5 mg tablet Take 1 tablet (0.5 mg total) by mouth 2 (two) times a day. 8 Active cholecalciferol (Vitamin D3) 25 mcg (1,000 unit) tablet Take 1 tablet (1,000 Units total) by mouth 1 (one) time each day. 8 Active lidocaine (LIDODERM) 5 % patch Apply 1 patch topically 1 (one) time each day. Apply to painful area 12 hours per day, remove for 12 hours. 30 each 11 5 10/14/19 26 Active topiramate (Topamax) 50 mg tablet Take 1 tablet (50 mg total) by mouth 2 (two) times a day. 60 each 5 Active hydrocortisone 1 % topical cream Apply to affected area 2 times daily 15 g 5 01/14/20 26 Active metroNIDAZOLE (METROGEL) 0.75 % (37.5mg/5 gram) vaginal gel Apply to vagina nightly for 5 nights. 70 g 5 Active Active Problems Problem Noted Date Diagnosed [...] unable to use the left hand to waste picker her coffee cup, which scared her. [...] cervical MRI I could find was at [facility] in 2019, patient had C5-6 spondylosis with [...] Encounters Date Type Department Care Team Description 02/02/2025 1:00 PM EDT Office Visit Obstetrics and Gynecology - [address] [address] Kim Powell CNM Bacterial vaginosis (Primary Dx) 01/22/2025 1:00 PM EDT Office Visit Walk-In Clinic - [address] [phone] Tito Lindo, COLLIN Epigastric pain (Primary Dx) 01/22/2025 Telephone Internal Medicine - [address] [phone] Hernandez Leon MD Flank Pain 01/13/2025 6:51 PM EDT - 01/13/2025 9:54 PM EDT Emergency [facility] Emergency [address] [place] [address] Flank pain (Primary Dx) Discharge Disposition: Home or Self Care 01/13/2025 10:00 AM EDT Office Visit [facility] [address] [address] Jeannie Cordero, MC Vision loss, left eye (Primary Dx) 12/16/2024 11:00 AM EDT Office Visit Obstetrics and Gynecology - [address] [phone] Briseno, Letty C, CNM Vaginal irritation (Primary Dx); Vaginal discharge; Yeast vaginitis; Urinary frequency from Last 3 Months Immunizations Name Administration Dates Next Due Influenza Quadravalent, MDCK , 0.5ml, with preservative (Flucelvax) 6mo and older 07/26/2018 [employer] SARS-CoV-2 COVID-19, mRNA, LNP-S, preservative free 11/21/2022 Surgical History Surgery Date Site/Laterality Comments BREAST REDUCTION 1997 PROCEDURE: ME BREAST REDUCTION CERVICAL BIOPSY W/ LOOP ELECTRODE EXCISION 2009 PROCEDURE: ME CONIZATION CERVIX W/WO D&C RPR ELTRD EXC [...] drink = 0.6 oz pur e alcohol) Comments No Sex and Gender Information Value Date Recorded Sex Assigned at Not on file Legal Sex Female 4:55 AM EST Gender Identity Not on file Sexual Orientation Not on file Obstetrics History Para Term AB IAB SAB Ectopic Multiple Livin g Live Births 3 3 3 3 3 Date Outcome GA Total Labor Labor/2nd/3rd Weight Sex Type Anes PTL Mary A1 A5 Name Clin 2007 Term 42w 0d 3351 g (118.2 oz) M Vag-S pont Epidur al Livin g Sir Delivery Location:[facility] 2010 Term 41w 2d 11h 36m/ 2895 g (102.1 oz) F Vag-S pont Epidur al Livin g 8 9 Nunu Chang MD Delivery Location:[facility] Comments:GBS neg, true knot and loose nuchal x 1 and crod around body loose x 1 2015 Term F Vag-S pont Livin g [place] Last Filed Vital Signs Vital Sign Reading Time Taken Comments Blood Pressure 118/74 02/02/2025 1:02 PM EDT Pulse 81 02/02/2025 1:02 PM EDT Temperature 36.8 ??C (98.3 ??F) 01/13/2025 9:38 PM ED T Respiratory Rate 18 01/22/2025 1:13 PM EDT Oxygen Saturation 100% 01/13/2025 9:38 PM EDT Inhaled Oxygen Concentration - - Weight 81.1 kg (178 lb 12.8 oz) 02/02/2025 1:02 PM EDT Height 170.2 cm (5' 7 ) 01/13/2025 12:4 8 PM EDT Body Mass Index 28 01/13/2025 12:48 PM EDT Plan of Treatment Upcoming Encounters Date Type Department Care Team (Late st Contact Info) Description 04/14/2025 10:00 AM EDT Office Visit [address] [place] [phone] Jeannie Cordero PA [address] [place] [address] 04/22/2025 11:30 AM EDT Office Visit Obstetrics and Gynecology - [facility] [address] [place] [address] Hanny Sood, MAURICIO [address] [place] [address] Health Maintenance Due Date Last Done Comments Hepatitis B Vaccines (1 of 3 - 19+ 3-dose series) 2000 Pneumococcal Vaccine: Pediatrics (0 to 5 Years) and At-Risk Patients (6 to 64 Years) (1 of 2 - PCV) 2000 Depression Screening 09/09/2022 HIV Screening 09/09/2022 Hepatitis C Screening 09/09/2022 Social Influencers of Health Screening 09/09/2022 Breast Cancer Screening 01/06/2024 01/06/20 22, 08/13/2019 COVID-19 Vaccine (2 - 2023-2 5 season) 2024 11/21/2022 Cervical Cancer Screening: P ap Smear 01/03/2025 01/03/2022, 08/05/2019 Influenza Vaccine (Season Ended) 2025 07/26/2018, 12/31/2015 DTaP,Tdap,and Td Vaccines (2 - Td or [...] patient's age to complete this topic Meningococcal B Vaccine Aged Out No l onger eligible based on patient's age to complete this topic RSV Immunization Patients Under 20 months Aged Out No longer eligible b ased on patient's age to complete this topic Varicella Vaccines Aged Out No longer eligible based on patient's age to complete this topic Procedures Procedure Name Priority Date/Time Associated Diagnosis Comments POC WET MOUNT Routine 02/02/2025 1:21 PM EDT Bacterial vaginosis CT ABDOMEN PELVIS WO CONTRAST STAT 01/13/2025 8:22 PM EDT TRICHOMONAS VAGINALIS ANTIGEN STAT 01/13/2025 7:29 PM EDT WET PREP, GENITAL STAT 01/13/2025 7:2 9 PM EDT CHLAMYDIA TRACHOMATIS AND NEISSERIA GONORRHOEAE PCR STAT 01/13/2025 7:29 PM EDT CBC WITH AUTO DIFFERENTIAL STAT 01/13/2025 3:19 PM EDT COMPREHENSIVE METABOLIC PANEL STAT 01/13/2025 3:19 PM EDT CBC AND DIFFERENTIAL STAT 01/13/2025 3:19 PM EDT POC , URINE DIAGNOSTIC STAT 01/13/2025 2:35 PM EDT [facility] URINE CULTURE TUBE STAT 01/13/2025 2:32 PM EDT URINALYSIS WITH REFLEX MICROSCOPIC AND CULTURE STAT 01/13/2025 2:32 PM EDT URINALYSIS WITH REFLEX MICROSCOPIC AND CULTURE STAT 01/13/2025 2:32 PM EDT POC WET MOUNT Routine 12/16/2024 11:19 AM EDT Vaginal irritation Vaginal discharge POC URINE AUTO W/O MICRO Routine 12/16/2024 11:00 AM EDT Vaginal irritation SCREENING MAMMOGRAPHY BI 2-VIEW BREAST INC CAD Routine 01/05/2022 10:45 AM EDT Encounter for screening mammogram for malignant neoplasm of breast PAP SMEAR Routine 01/03/2022 from Last 3 Months or Most Recently Relevant to Health Maintenance Results * (ABNORMAL) POC Wet Mount (02/02/2025 1:21 PM EDT) Only the most recent of2 resultswithin the time period is included. Trichomonas, Wet Prep POC Absent Absent Yeast, Wet Prep POC Negative Not Applicable, Negative Clue Cells, Wet Prep POC Positive(A) Not Applicable, Negative Whiff Test, Wet Prep POC Negative Not Done, Negative PH FL Type POC 5.5 Vaginal Fluid Vaginal structure / Unknown 02/02/2025 1:21 PM EDT Kim MARTÍNEZ POINT OF CARE TEST ENTER/ED IT ORDERABLES Final Result * CT Abdomen Pelvis wo Contrast (01/13/2025 8:22 PM EDT) Anatomical Region Laterality Modality Body Computed Tomogra phy 01/13/2025 9:05 PM EDT Impressions 01/13/2025 9:05 PM EDT 1. Nonobstructive 2 mm calculus in the left upper pole kidney. 2. Possible mild left-sided colitis. This document has been electronically signed by: Andrew Sutherland MD on 01/13/2025 21:05:17 Narrative 01/13/2025 9:05 PM EDT INDICATION: Flank pain, kidney stone suspected CT abdomen and pelvis without contrast Comparison: None Findings: Diffuse esophageal mural thickening, nonspecific. Hepatomegaly. Punctate calcification along the falciform region of the liver, nonspecific. Contracted gallbladder with possible tiny noncalcified gallstones. Nonobstructive 2 mm calculus in the left upper pole kidney. Distal colonic mural thickening, may reflect mild colitis. No bowel obstruction. Retroverted uterus. Colonic diverticulosis without diverticulitis. Normal appendix. No acute fracture. PSF noted at L4-S1 with interbody disc spacers. Procedure Note Andrew Sutherland MD - 01/13/2025 INDICATION: Flank pain, kidney stone suspected CT abdomen and pelvis without contrast Comparison: None Findings: Diffuse esophageal mural thickening, nonspecific. Hepatomegaly. Punctate calcification along the falciform region of the liver, nonspecific. Contracted gallbladder with possible tiny noncalcified gallstones. Nonobstructive 2 mm calculus in the left upper pole kidney. Distal colonic mural thickening, may reflect mild colitis. No bowel obstruction. Retroverted uterus. Colonic diverticulosis without diverticulitis. Normal appendix. No acute fracture. PSF noted at L4-S1 with interbody disc spacers. IMPRESSION: 1. Nonobstructive 2 mm calculus in the left upper pole kidney. 2. Possible mild left-sided colitis. This document has been electronically signed by: Andrew Sutherland MD on 01/13/2025 21:05:[address] PROCEDURES Final Result * Trichomonas vaginalis antigen (01/13/2025 7:29 PM EDT) Pathologist [facility] Trichomonas vaginalis Negative Negative 01/13/2025 8:34 PM EDT [facility] Swab Vaginal structure / Unknown Non-blood Collection / Unknown 01/13/2025 7:29 PM EDT 01/13/2025 7:53 PM EDT Romeo Scott MD LAB MICROBIOLOGY - [facility] Final Result [facility] [address] [place] [address], * Chlamydia trachomatis and Neisseria gonorrhoeae molecular study (01/13/2025 7:29 PM EDT) Neisseria gonorrhoeae PCR Negative Negative LAB MOLECULAR DIAGNOSTICS METHOD 01/14/2025 11:13 AM EDT [facility] Chlamydia trachomatis PCR Negative Negative LAB MOLECULAR DIAGNOSTICS METHOD 01/14/2025 11:13 AM EDT [facility] Swab Vaginal structure / Unknown Non-blood Collection / Unknown 01/13/2025 7:29 PM EDT 01/13/2025 7:53 PM EDT Romeo Scott MD LAB MICROBIOLOGY - [facility] Final Result [facility] [address] [place] [address], [place] [phone] * Wet prep, genital (01/13/2025 7:29 PM EDT) Clue Cells, Wet Prep Negative Negative 01/13/2025 8:33 PM EDT [facility] Yeast, Wet Prep Negative Negative 01/13/2025 8:33 PM EDT [facility] Trichomonas, Wet Prep Indeterminate Negative 01/13/2025 8:33 PM EDT [facility] Comment:Refer to Trichomonas antigen. Swab Vaginal structure / Unknown Non-blood Collection / Unknown 01/13/2025 7:29 PM EDT 01/13/2025 7:53 PM EDT Romeo Scott MD LAB MICROBIOLOGY - [facility] Final Result Performing Organization Address [facility]/State/ZIP Co de Phone Number [facility] [address] [place] [address], [place] [phone] * (ABNORMAL) CBC auto differential (01/13/2025 3:19 PM EDT) WBC 6.0 4.8 - 10.8 K/mcL LAB HEMETOLOGY METHOD 01/13/2025 3:58 PM EDT [facility] RBC 3.90 3.80 - 4.80 M/mcL LAB HEMETOLOGY METHOD 01/13/2025 3:58 PM EDT [facility] Hemoglobin 11.4(L) 11.5 - 16.0 g/dL LAB HEMETOLOGY METHOD 01/13/2025 3:58 PM EDT [facility] Hematocrit 34.7(L) 35.0 - 47.0 % LAB HEMETOLOGY METHOD 01/13/2025 3:58 PM EDT [facility] MCV 88.5 79.0 - 98.0 FL LAB HEMETOLOGY METHOD [facility]/13[facility]2025 [facility] MCH 29.1 27.0 - 32.0 pcg LAB HEMETOLOGY METHOD 01/13/2025 3:58 PM EDT [facility] MCHC 32.9 32.0 - 37.0 g/dL LAB HEMETOLOGY METHOD 01/13/2025 3:58 [facility] RDW 12.5 11.0 - 15.0 % LAB HEMETOLOGY METHOD 01/13/2025 3:58 [facility] Platelets 176 130 - 400 K/mcL LAB HEMETOLOGY METHOD 01/13/2025 3:58 [facility] MPV 11.5(H) 7.0 - 11.0 FL LAB HEMETOLOGY METHOD 01/13/2025 3:58 [facility] NRBC 0.0 <1.0 % LAB HEMETOLOGY METHOD 01/13/2025 3:58 [facility] NRBC Absolute 0.00 <0.10 K/mcL LAB HEMETOLOGY METHOD 01/13/2025 3:58 PM EDT [facility] Neutrophils Relative 61.7 % LAB HEMETOLOGY METHOD 01/13/2025 3:58 PM EDT [facility] Lymphocytes Relative 28.5 % LAB HEMETOLOGY METHOD 01/13/2025 3:58 [facility] Monocytes Relative 7.9 % LAB HEMETOLOGY METHOD 01/13/2025 3:58 PM EDT [facility] Eosinophils Relative 1.3 % LAB HEMETOLOGY METHOD 01/13/2025 3:58 PM EDT [facility] Basophils Relative 0.3 % LAB HEMETOLOGY METHOD 01/13/2025 3:58 PM EDT [facility] Immature Granulocytes Relative 0.3 % LAB HEMETOLOGY METHOD 01/13/2025 3:58 PM EDT [facility] Neutrophils Absolute 3.72 1.50 - 7.00 K/mcL LAB HEMETOLOGY METHOD 01/13/2025 3:58 PM EDT [facility] Lymphocytes Absolute 1.72 1.00 - 5.00 K/mcL LAB HEMETOLOGY METHOD 01/13/2025 3:58 PM EDT [facility] Monocytes Absolute 0.48 0.20 - 1.00 K/mcL LAB HEMETOLOGY METHOD 01/13/2025 3:58 PM EDT [facility] Eosinophils Absolute 0.08 0.00 - 0.50 K/mcL LAB HEMETOLOGY METHOD 01/13/2025 3:58 PM EDT [facility] Basophils Absolute 0.02 0.00 - 0.20 K/mcL LAB HEMETOLOGY METHOD 01/13/2025 3:58 PM EDT [facility] Immature Granulocytes Absolute 0.02 0.00 - 0.03 K/mcL LAB HEMETOLOGY METHOD 01/13/2025 3:58 PM EDT [facility] Blood Venous blood specimen / Unknown Venipuncture / Unknown 01/13/2025 3:19 PM EDT 01/13/2025 3:49 PM EDT us Romeo Scott MD LAB BLOOD ORDERABLES Final Resu lt [facility] [address] [place] [address], * (ABNORMAL) Comprehensive metabolic panel (01/13/2025 3:19 PM EDT) Sodium 137 133 - 145 mmol/L LAB CHEMISTRY METHOD 01/13/2025 4:45 PM [facility] Potassium 3.9 3.5 - 5.5 mmol/L LAB CHEMISTRY METHOD 01/13/2025 4:45 PM [facility] Chloride 105 96 - 110 mmol/L LAB CHEMISTRY METHOD 01/13/2025 4:45 PM [facility] CO2 29 21 - 32 mmol/L LAB CHEMISTRY METHOD 01/13/2025 4:45 PM [facility] Anion Gap 3 3 - 11 LAB CHEMISTRY METHOD 01/13/2025 4:45 PM [facility] Glucose 92 70 - 100 mg/dL LAB CHEMISTRY METHOD 01/13/2025 4:45 PM [facility] BUN 13 5 - 25 mg/dL LAB CHEMISTRY METHOD 01/13/2025 4:45 PM [facility] Creatinine 1.21(H) 0.50 - 1.10 mg/dL LAB CHEMISTRY METHOD 01/13/2025 4:45 PM [facility] eGFR 57(L) >=60 mL/min/1. 73m2 LAB CHEMISTRY METHOD 01/13/2025 4:45 PM [facility] Comment:Calculation based on the??Chronic Kidney Disease Epidemiology Collaboration (CKD-EPI) equation refit??without adjustment for race. BUN/Creatinine Ratio 10.7 LAB CHEMISTRY METHOD 01/13/2025 4:45 PM [facility] Calcium 8.9 8.5 - 10.5 mg/dL LAB CHEMISTRY METHOD 01/13/2025 4:45 PM [facility] AST (SGOT) 14 10 - 42 unit/L LAB CHEMISTRY METHOD 01/13/2025 4:45 PM [facility] ALT (SGPT) 20 10 - 60 unit/L LAB CHEMISTRY METHOD 01/13/2025 4:45 PM EDT [facility] Alkaline Phosphatase 50 42 - 121 unit/L LAB CHEMISTRY METHOD 01/13/2025 4:45 PM EDT [facility] Total Protein 6.6 6.0 - 8.0 g/dL LAB CHEMISTRY METHOD 01/13/2025 4:45 PM EDT [facility] Albumin 3.7 3.2 - 5.0 g/dL LAB CHEMISTRY METHOD 01/13/2025 4:45 PM EDT [facility] Total Bilirubin 0.2 0.0 - 1.4 mg/dL LAB CHEMISTRY METHOD 01/13/2025 4:45 PM EDT [facility] Blood Venous blood specimen / Unknown Venipuncture / Unknown 01/13/2025 3:19 PM EDT 01/13/2025 3:49 PM EDT us Romeo Scott MD LAB BLOOD ORDERABLES Final Resu lt [facility] [address] [place] [address], * POC , urine manually resulted (01/13/2025 2:35 PM EDT) Pathologist [facility] HCG, Ur POC Negative Negative POC hCG Int QC Pass? Yes Yes Urine Urine specimen obtained by clean catch procedure / Unknown 01/13/2025 2:35 PM EDT us Romeo Scott MD POINT OF CARE TEST ENTER/EDIT O RDERABLES Final Result * Urinalysis with reflex microscopic and culture (01/13/2025 2:32 PM EDT) Pathologist [facility] Specific Irene Urine 1.023 1.003 - 1.030 LAB URINALYSIS - AUTOMATED METHOD 01/13/2025 2:53 PM EDT [facility] pH, Urine 6.5 5.0 - 8.0 pH LAB URINALYSIS - AUTOMATED METHOD 01/13/2025 2:53 PM EDT [facility] Leukocytes, Urine Negative Negative LAB URINALYSIS - AUTOMATED METHOD 01/13/2025 2:53 PM EDT [facility] Nitrite, Urine Negative Negative LAB URINALYSIS - AUTOMATED METHOD 01/13/2025 2:53 PM EDT [facility] Protein, Urine Negative <=Trace mg/dL LAB URINALYSIS - AUTOMATED METHOD 01/13/2025 2:53 PM EDT [facility] Glucose, Urine Negative Negative mg/dL LAB URINALYSIS - AUTOMATED METHOD 01/13/2025 2:53 PM EDT [facility] Ketones, Urine Negative Negative mg/dL LAB URINALYSIS - AUTOMATED METHOD 01/13/2025 2:53 PM EDT [facility] Urobilinogen, Urine 0.2 0.2 - 1.0 mg/dL LAB URINALYSIS - AUTOMATED METHOD 01/13/2025 2:53 PM EDT [facility] Bilirubin, Urine Negative Negative LAB URINALYSIS - AUTOMATED METHOD 01/13/2025 2:53 PM EDT [facility] Blood, Urine Negative Negative LAB URINALYSIS - AUTOMATED METHOD 01/13/2025 2:53 PM EDT [facility] Urine Urine specimen obtained by clean catch procedure / Unknown Non-blood Collection / Unknown 01/13/2025 2:32 PM EDT 01/13/2025 2:44 PM EDT us Romeo Scott MD LAB URINE ORDERABLES Final Resu lt [facility] [address] [place] [address], * Faulkner urine culture tube (01/13/2025 2:32 PM EDT) Extra Tube Hold for add-ons. 01/13/2025 4:01 PM EDT [facility] Comment:Auto resulted. Urine Urine specimen obtained by clean catch procedure / Unknown Non-blood Collection / Unknown 01/13/2025 2:32 PM EDT 01/13/2025 2:44 PM EDT Romeo Scott MD LAB URINE ORDERABLES Final Resu lt [facility] [address] [place] [address], [place] [phone] * POC Urine Auto W/O Micro (12/16/2024 11:00 AM EDT) Glucose UA POC Negative Negative, Trace mg/dL Bilirubin UA POC Negative Negative, Small Ketones UA POC Negative Negative, Trace Specific Irene UA POC <=1.005 Blood UA POC Negative Negative, Large PH UA POC 7.5 Protein UA POC Negative Negative, >=300 mg/dL Urobilinogen UA POC 0.2 E.U./dL mg/dL Nitrite UA POC Negative Negative Leukocytes UA POC Negative Negative Urine Urine specimen obtained by clean catch procedure / Unknown 12/16/2024 11:00 AM EDT Letty Briseno CNM POINT OF CARE TEST ENTE R/EDIT ORDERABLES Final Result * SCREENING MAMMOGRAPHY BI 2-VIEW BREAST INC [...] cancer risk category Low (<15%) Hanny Sood [facility] IMG XR PROCEDURES Final Resu lt * Pap smear (01/03/2022) 01/03/2022 Narrative HISTORICAL TESTING LAB RESULTING AGENCY - 01/17/2022 8:16 AM EDT [id number] THINPREP PAP, IMAGED: NEGATIVE FOR SQUAMOUS INTRAEPITHELIAL [...] LU 1 IN 2008, LMP 12/29/21, [Z12.4] us Hanny MARTÍNEZ LAB CYTOLOGY ORDERABLES Katja cano Result HISTORICAL TESTING LAB RESULTING AGENCY from Last 3 Months or Most Recently Relevant to Health Maintenance Insurance [facility] Care Teams Corporate Recruiter Relationship Specialty Start Date End Date Hernandez Leon MD [address] [place] [id number] PCP - General Internal Medicine 08/14/16
[2025-03-02 08:06] VITALS: BMI 27.7
--- NOTE | 2025-03-03 11:42 | HO.ANESPROP2 ---
Documented by User: Hattie Rain NP 03/03/25 11:42 HPI - Anesthesia Eval Consult details Narrative: 44yo F for Spinal Cord Stimulator Trial PMFSH Active Problems Active Problems: All Active Problems Cervical radicular pain (Acute) Post laminectomy syndrome (Acute) Sacroiliac joint dysfunction (Acute) Leg weakness (Acute) Lumbar radiculopathy (Acute) Anxiety (Acute) Past Medical History Medical History PTSD (post-traumatic stress disorder) Depression (spontaneous vaginal delivery) Anxiety Surgical History Surgical History History of lumbar fusion H/O tubal ligation Hx of breast reduction, elective Social History Social History Alcohol intake: never Second Hand Smoke Exposure: No Use of substances other than those prescribed or required for medical reasons: Yes Substance Use Type: Marijuana Substance Use Frequency: Daily Have you been hit, kicked, punched, or otherwise hurt by someone within the past year? If so, by whom?: No Are you DNR?: No Advance Directives: No Advance Directives Information Provided: Yes Advance Directives on File: No Patient : No : No Poor oral hygiene: No Meds Allergies Allergy/AdvReac Type Severity Reaction Status Date / Time No Known Allergies Allergy Verified 11/03/24 09:26 [No Known Allergies*] Home Medications ?Medication ?Instructions ?Recorded ?Confirmed ?Last Taken ?Type cholecalciferol (vitamin D3) 50 50 mcg PO DAILY 04/17/24 03/04/25 Unknown History mcg (2,000 unit) capsule lorazepam 0.5 mg tablet 0.5 mg PO DAILY PRN Anxiety 04/17/24 03/04/25 03/04/25 History lidocaine 5 % topical patch 1 patch topical DAILY 11/03/24 03/04/25 Unknown History Exam Height,Weight and Vital Signs: Height 5 ft 7 in Weight 80.286 kg Assessment and Plan Assessment Anesthesia Assessment: Chart Reviewed Documented by User: Kali Oconnor MD 03/04/25 13:01 [facility] Past Medical History Medical History PTSD (post-traumatic stress disorder) Depression (spontaneous vaginal delivery) Anxiety Functional capacity: independent ambulation Family History Family history of problems with anesthesia: No Surgical History Surgical History History of lumbar fusion H/O tubal ligation Hx of breast reduction, elective History of Problems with Anesthesia: No Social History Social History Alcohol intake: never Second Hand Smoke Exposure: No Use of substances other than those prescribed or required for medical reasons: Yes Substance Use Type: Marijuana Substance Use Frequency: Daily Have you been hit, kicked, punched, or otherwise hurt by someone within the past year? If so, by whom?: No Are you DNR?: No Advance Directives: No Advance Directives Information Provided: Yes Advance Directives on File: No Patient : No : No Poor oral hygiene: No Meds Allergies Allergy/AdvReac Type Severity Reaction Status Date / Time No Known Allergies Allergy Verified 11/03/24 09:26 [No Known Allergies*] Home Medications ?Medication ?Instructions ?Recorded ?Confirmed ?Last Taken ?Type cholecalciferol (vitamin D3) 50 50 mcg PO DAILY 04/17/24 03/04/25 Unknown History mcg (2,000 unit) capsule lorazepam 0.5 mg tablet 0.5 mg PO DAILY PRN Anxiety 04/17/24 03/04/25 03/04/25 History lidocaine 5 % topical patch 1 patch topical DAILY 11/03/24 03/04/25 Unknown History Exam Exam Date and Time: 03/04/2025 Airway Mallampati Class: II TM Dist: >3cm Loose/Missing/Broken Teeth: No (rrr) Heart: rrr Lungs: cta Assessment and Plan Assessment Anesthesia Assessment: Anesthesia Plan Discussed Final Anesthetic Review Family History of Problems with Anesthesia: No History of Problems with Anesthesia: No NPO: No ASA Class: II Final Preanesthetic Review: No Changes in Pt Med Stat, Meds/Allgs Chart Reviewed, Consent Obtained/Reviewed and Anes Risks/Benef Reviewed Patient Risk: Low Procedure Risk: Low Anesthetic Plan Anesthetic Plan: MAC: Disposition: Standard PACU
[2025-03-04] VITALS (7 sets, daily range): BP systolic 106–128; BP diastolic 52–90; PULSE 65–86; RESP 16–18; TEMP 36.3–36.9; O2SAT 98–99
--- NOTE | ~2025-03-04 | FL_ITS ---
EXAMINATION: FL GUIDANCE ONLY HISTORY: SPINAL CORD STIM TRIAL COMPARISON: None available. TECHNIQUE: Fluoroscopy time: 3 minutes 22 seconds. Cumulative Dose: 39.723 mGy. DAP: 7.1666 mGym2 Images: 2. FINDINGS: AP and lateral fluoroscopic spot films of the thoracic spine demonstrate a spinal stimulator in place with the tip at the superior endplate of T7. FL/FL guidance in OR IMPRESSION: Fluoroscopy during procedure. Please see procedure report for additional information. Electronically signed by: Zen Ledezma MD 03/05/2025 07:02 AM EDT
[2025-03-04] MEDS: Lactated Ringers 1,000 ML 100 ML IVCONT (11:08)
[2025-03-04] MEDS: ondansetron HCL 4 MG/2 ML VIAL IVPUSH (12:38)
--- NOTE | 2025-03-04 12:42 | MHC.SHP ---
Pre-Procedural Eval Section A - 24 Hr Update-Section A only Date of Service: 03/04/25 The patient is an INPATIENT: No Changes since office visit: Yes Patient answered all questions The patient has been examined within 24 hours of the surgical procedure. The History & Physical has been completed within 30 days and I have reviewed it.: No Section B - Complete if H&P > 30 days Chief Complaint: Postlaminectomy syndrome, not elsewhere classified Relevant Family History (Specify if Yes): No Relevant Social History: None Present Medications: see Short Stay Collaborative assessment Medical History: No relevant PMH History of Previous Operations: No relevant previous surgery Allergies: Allergies Allergy/AdvReac Type Severity Reaction Status Date / Time No Known Allergies Allergy Verified 11/03/24 09:26 [No Known Allergies*] Review of Systems Sugical H&P ROS: Negative: Constitution and Cardiovascular Exam Surgical H&P Exam: Normal: HEENT, Normal: Heart and Normal: Lungs Plan Diagnosis/Plan: Unchanged I have reviewed the history and physical and performed a pertinent physical examination on my patient. No changes have occurred unless specified. Time Spent With Patient Time: Total time managing care of this patient today ____ minutes.
[2025-03-04 13:01] LABS: MRSA Nasal PCR NEGATIVE (Negative); SA Nasal PCR NEGATIVE (Negative)
--- NOTE | 2025-03-04 13:03 | PC.NURSE ---
Patient informeed this RN that during spine procedure in 2022 at [facility], she was given a medication prior to procedure and states my face swelled and i turned red . pt unable to remember name of medication given. states has had no reaction to PCN medications in past. Okay to proceed with Ancef 2gm. Dr Medina and Dr. Oconnor at bedside and aware of patient concern. Records from [facility] obtained do not mention medication reactions.
--- NOTE | 2025-03-04 16:50 | PM.OP ---
Brief Operative Note Date of Service: 03/04/25 Pre-op diagnosis: Post-laminectomy syndrome Post-op diagnosis: same Procedure: Lumbar spinal cord stimulation trial Implants: [employer] 16 contact SCS trial leads Surgeon: Jairo Medina MD Anesthesia: MAC Was an Poultry Grader used for this Procedure?: No Estimated blood loss (mL): 2 Pathology: none sent Condition: stable Disposition: PACU
--- NOTE | 2025-03-04 16:51 | P.OP_ITS ---
Operative Note Operative Note Date of Service: 03/04/25 Narrative: Percutaneous Spinal Cord Stimulator Trial, Lumbar After obtaining written consent, pre-procedure blood pressure and heart rate were recorded and are in the nursing record for review. A peripheral IV was started. Antibiotics, cefazolin 2 gram, were given intraoperatively. The patient was placed in a prone position.? The patient was sedated by the anesthesiologist. The thoracolumbar area was widely prepped with ChloraPrep, allowed to dry and draped in sterile fashion. Fluoroscopy was used to identify the target interlaminar spaces and appropriate needle insertion sites. The skin and subcutaneous tissue was anesthetized with 0.5% lidocaine. Two separate 14 gauge Tuohy epidural needles were then advanced from this point in a paramedian approach to the epidural space opening at T12/L1 interspace, where lost of resistance was found using air. No paresthesias were elicited with needle placement. No CSF or heme was present upon needle placement. A guide wire was then used to confirm placement into the epidural space at each level under live fluoroscopy. The 1x8 stimulator lead wire was then threaded to the top of T8 in the right parasagittal position and top of of T12 in the left parasagittal posi tion under live fluoroscopy. The leads advanced midline.? The Tuohy needles were then completely removed under live fluoroscopy. The stimulator wires were then secured with 2-0 silk sutures securing the anchors, sterile strips and gauze and tegaderm for skin dressing. The patient tolerated the procedure well and no complications were encountered. Following the procedure the patient's vital signs were stable. The patient was discharged home in good condition after being given discharge instructions. Time Out: Immediately prior to the procedure, the following was verbally confirmed that there is a signed consent form and that the correct patient, planned procedure, site and side are consistent with documentation and that necessary equipment and/or blood products are available prior to the start of the case. Complications: none EBL: <2 cc
== END 2025-03-04 15:42 | disposition home or self-care (01) ==
PROVIDERS: Registered Nurse Emergency; PCP Internal Medicine; Visit Provider Internal Medicine
PROC: (CPT 63650; principal; 2025-03-04 12:00)
DX: M96.1 Postlaminectomy syndrome, not elsewhere classified (principal); M53.3 Sacrococcygeal disorders, not elsewhere classified; G89.29 Other chronic pain; M54.12 Radiculopathy, cervical region; F41.9 Anxiety disorder, unspecified; Z79.1 Long term (current) use of non-steroidal anti-inflammatories (NSAID); Z79.899 Other long term (current) drug therapy; Z98.890 Other specified postprocedural states
CPT/HCPCS: 63650 ×2; 87640; 87641; C1897; J0690; J2003; J2405; J2704; J3010

== ENCOUNTER → 2025-03-04 10:12 | Outpatient (BNV) | payer OTHER, SELFPAY | PROVIDERS: PCP Internal Medicine; Visit Provider Internal Medicine | DX: M96.1 Postlaminectomy syndrome, not elsewhere classified (principal) | CPT/HCPCS: 63650 ==

== ENCOUNTER 2025-03-11 09:48 | Outpatient (AMB) | payer OTHER, SELFPAY ==
[2025-03-11 09:52] VITALS: BP 126/61; PULSE 90; RESP 16; O2SAT 98; BMI 27.2
--- NOTE | 2025-03-11 09:52 | A.OFFVIS_ITS ---
Vital Signs 03/11/25 09:52 Height 5 ft 7 in Weight 174 lb BMI 27.2 BP 126/61 Blood Pressure Location Rt brachial Position Sitting Respiration 16 Pulse 90 Pulse Source Pulse Oximeter Pulse Oximetry (%) 98 Oxygen Delivery Method Room Air Intake Visit Reasons: S/p [employer] SCS TRIAL 03/11/25 Director Ambulatory Required: No Allergies No Known Allergies [No Known Allergies*] Allergy (Verified 03/11/25 09:53) Medication List - Last Reconciled 03/11/25 by Rula Barrera LPN cholecalciferol (vitamin D3) 50 mcg PO DAILY ibuprofen 800 mg PO Q8H PRN lidocaine 5% 1 patch topical DAILY lorazepam 0.5 mg PO DAILY PRN HPI HPI S/p [employer] SCS TRIAL 03/11/25: Details: History of Present Illness The patient is a 44-year-old female presenting for follow-up after a spinal cord stimulation trial for chronic pain management. During the trial, she experienced significant relief, particularly using the FAST program at night. While there were occasional episodes of increased pain, especially during inclement weather, these were managed by adjusting the stimulation intensity. Her pain was located primarily in the lower thoracic region around T7 and T8, a known area of concern. The trial provided such relief that she is eager to proceed with a permanent spinal cord stimulator implant. Pain Description - Onset and Timing: Chronic pain, notably improved during the recent spinal cord stimulation trial. - Quality and Character: Pain was effectively managed, primarily through the FAST program at night. - Primary Location: Lower thoracic region around T7 and T8. - Radiation: Not explicitly mentioned. - Exacerbating Factors: Rainy weather conditions exacerbated the pain. - Relieving Factors: Adjustments to the stimulation settings provided relief. - Interference with Activities: Pain previously interfered with sleep and daily function, significantly improved during the trial. Physical Exam - Musculoskeletal- Lead insertion sites were clean and dry. Leads removed intact. Results Pain Management - Affect: The trial appeared to improve the patient's mood and sense of well- being. - Analgesia: Significant relief experienced, primarily from the FAST program; occasional need for dosage adjustments. - Adverse Effects: None reported by the patient. - Activities of Daily Living: Improved sleep and reduction in daily pain interference noted during the trial. - Aberrant Drug Related Behaviors: None reported or discussed. [facility] Medical History PTSD (post-traumatic stress disorder) Depression (spontaneous vaginal delivery) Anxiety Surgical History History of lumbar fusion H/O tubal ligation Hx of breast reduction, elective Social History Alcohol intake: never Second Hand Smoke Exposure: No Substance Use Type: Marijuana Physical Exam Vital Signs: Last Vital Signs Pulse 90 03/11/25 09:52 Resp 16 03/11/25 09:52 BP 126/61 03/11/25 09:52 Pulse Ox 98 03/11/25 09:52 Oxygen Delivery Method Room Air 03/11/25 09:52 BMI result Body Mass Index 27.2 Assessment & Plan Assessment & Plan (1) Post laminectomy syndrome: Code(s): M96.1 - Postlaminectomy syndrome, not elsewhere classified Category: Medical Plan Plan - Proceed with 8-lead [employer] SCS implant under MAC targetted to T7/8 region. - Begin preparations for the surgical process following patient consent. - Ensure that patient understands all potential risks and benefits associated with the implant. Patient was informed and verbally consented to the use of an ambient scribe for clinic note documentation during this visit. Discussion Notes I discussed the successful outcome of the spinal cord stimulation trial with the patient, highlighting the significant pain relief she experienced. We reviewed the option of proceeding with a permanent implant, and she expressed a desire to move forward with this plan. I explained the procedure, the potential risks, and the benefits of using a shorter lead and thinner battery for comfort. Consent for the procedure was discussed thoroughly, addressing any concerns she had and ensuring her understanding and agreement. We agreed to start preparations for the surgical process promptly to achieve the optimal pain management outcome. Patient Instructions - Prepare for the upcoming spinal cord stimulator implant procedure. - Continue to avoid any activities that increase pain until the implant is complete. - Follow up as directed after implant surgery for monitoring. - Contact us if you experience any new symptoms or changes in condition. Coding Level of Care Code Est Pt Level 3 (21763) Diagnoses Post laminectomy syndrome M96.1
--- OUTSIDE RECORDS SUMMARY | 2025-03-11 10:47 | XMS_ITS | Clinical Summary ---
Author Organization [place] [address] Silvina cano [facility] Building Address [facility] [place] [address] Phone Care Team Providers Care Hotel Front Office Manager Name Role Phone Hernandez Leon MD Primary Care Provider [phone] Allergies No known active allergies Medications LORazepam [...] for 5 nights. 70 g 5 Active metroNIDAZOLE (METROGEL) 0.75 % (37.5mg/5 gram) vaginal gel Apply to vagina nightly for 5 nights. 70 g 5 03/02/20 25 Discontinu ed(Reorder ) Active Problems Problem Noted Date Diagnosed Date [...] unable to use the left hand to parts picker her coffee cup, which scared her. [...] cervical MRI I could find was at [facility] in 2019, patient had C5-6 spondylosis with [...] PM EDT Office Visit Obstetrics and Gynecology [address] [phone] Kim Powell CNM Bacterial vaginosis (Primary Dx) 01/22/2025 1:00 PM EDT Office Visit Walk-In Clinic - [address] [phone] Tito Lindo, COLLIN Epigastric pain (Primary Dx) 01/22/2025 Telephone Internal Medicine - [address] [phone] Hernandez Leon MD Flank Pain 01/13/2025 6:51 PM EDT - 01/13/2025 9:[address] [facility] Emergency [address] [place] [address] Flank pain (Primary Dx) Discharge Disposition: Home or Self Care 01/13/2025 10:00 AM EDT [facility] [address] [place] [address] Jeannie Cordero PA Vision loss, left eye (Primary Dx) 12/16/2024 11:00 AM EDT Office Visit Obst[facility]s [facility] - [facility] [address] [place] [address] Letty Briseno, MAURICIOM Vaginal irritation (Primary Dx); Vaginal discharge; Yeast vaginitis; Urinary frequency from Last 3 Months Immunizations Name Administration Dates Next Due Influenza Quadravalent, MDCK , 0.5ml, with preservative (Flucelvax) 6mo and older 07/26/2018 Pfizer SARS-CoV-2 COVID-19, mRNA, LNP-S, preservative free 11/21/2022 Surgical History Surgery Date Site/Laterality Comments BREAST REDUCTION 1997 PROCEDURE: CA BREAST REDUCTION CERVICAL BIOPSY W/ LOOP ELECTRODE EXCISION 2009 PROCEDURE: CA CONIZATION CERVIX W/WO D&C RPR ELTRD EXC [...] COMMENT: LEEP 2009 LU 1-2 free margins Bulge of [...] pont Epidur al Livin g Sir Delivery Location:[facility] 2010 Term 41w 2d 11h 36m/ 2895 g (102.1 oz) F Vag-S pont Epidur al Livin g 8 9 Nunu Chang MD Delivery Location:[facility] Comments:GBS neg, true knot and loose nuchal [...] Care Team (Late st Contact Info) Description 03/19/2025 12:00 PM EDT Office Visit Internal Medicine - [address] [phone] Huy Bustos NP [address] [place] [phone] 04/14/2025 10:00 AM EDT [facility] Visit [facility] [address] [place] [phone] Jeannie Cordero PA [address] [place] [address] 04/22/2025 11:30 AM EDT Office Visit Obstetrics and Gynecology - [address] [phone] Hanny Sood CNM [address] [place] [phone] Health Maintenance Due Date Last Done Comments [...] Trichomonas vaginalis antigen (01/13/2025 7:29 PM EDT) Trichomonas vaginalis Negative Negative 01/13/2025 8:34 PM EDT [facility] Swab Vaginal structure / Unknown Non-blood Collection / Unknown 01/13/2025 7:29 PM EDT 01/13/2025 7:53 PM EDT Romeo Scott MD LAB MICROBIOLOGY - GENERAL SIVAKUMAR DUKE Final Result [facility] [address] [place] [address], [place] [phone] * Chlamydia trachomatis and Neisseria gonorrhoeae molecular study (01/13/2025 7:29 PM EDT) Neisseria gonorrhoeae PCR Negative Negative LAB MOLECULAR DIAGNOSTICS METHOD 01/14/2025 11:13 AM EDT [facility] Chlamydia trachomatis PCR Negative Negative LAB MOLECULAR DIAGNOSTICS METHOD 01/14/2025 11:13 AM EDT [facility] Swab Vaginal structure / Unknown Non-blood Collection / Unknown 01/13/2025 7:29 PM EDT 01/13/2025 7:53 PM EDT us Romeo Scott MD LAB MICROBIOLOGY - GENERAL ORDE SRIKANTH Final Result Performing Organization Address [facility]/ZIP Co de Phone Number [facility] [address] [place] [address], [place] [phone] * Wet prep, genital (01/13/2025 7:29 PM EDT) Pathologist [facility] Clue Cells, Wet Prep Negative Negative 01/13/2025 8:33 PM EDT [facility] Yeast, Wet Prep Negative Negative 01/13/2025 8:33 PM EDT [facility] Trichomonas, Wet Prep Indeterminate Negative 01/13/2025 8:33 PM EDT [facility] Comment:Refer to Trichomonas antigen. Swab Vaginal structure / Unknown Non-blood Collection / Unknown 01/13/2025 7:29 PM EDT 01/13/2025 7:53 PM EDT us Romeo Scott MD LAB MICROBIOLOGY - GENERAL ORDE SRIKANTH Final Result Performing Organization Address City/[facility]/ZIP Co de Phone Number [facility] [address] [place] [address], [place] [phone] * (ABNORMAL) CBC auto differential (01/13/2025 3:19 PM EDT) [facility] WBC 6.0 4.8 - 10.8 K/mcL LAB HEMETOLOGY METHOD 01/13/2025 3:58 PM EDT [facility] RBC 3.90 3.80 - 4.80 M/mcL LAB HEMETOLOGY METHOD 01/13/2025 3:58 PM EDT [facility] Hemoglobin 11.4(L) 11.5 - 16.0 g/dL LAB HEMETOLOGY METHOD 01/13/2025 3:58 PM EDT [facility] Hematocrit 34.7(L) 35.0 - 47.0 % LAB HEMETOLOGY METHOD [facility]/13[facility]2025 3[facility] MCV 88.5 79.0 - 98.0 FL LAB HEMETOLOGY METHOD 01/13/2025 3:58 [facility] MCH 29.1 27.0 - 32.0 pcg LAB HEMETOLOGY METHOD 01/13/2025 3:58 [facility] MCHC 32.9 32.0 - 37.0 g/dL LAB HEMETOLOGY METHOD 01/13/2025 3:58 [facility] RDW 12.5 11.0 - 15.0 % LAB HEMETOLOGY METHOD 01/13/2025 3:58 PM EDT [facility] Platelets 176 130 - 400 K/mcL LAB HEMETOLOGY METHOD 01/13/2025 3:58 PM EDT [facility] MPV 11.5(H) 7.0 - 11.0 FL LAB HEMETOLOGY METHOD 01/13/2025 3:58 [facility] NRBC 0.0 <1.0 % LAB HEMETOLOGY METHOD 01/13/2025 3:58 PM EDT [facility] NRBC Absolute 0.00 <0.10 K/mcL LAB HEMETOLOGY METHOD 01/13/2025 3:58 PM EDT [facility] Neutrophils Relative 61.7 % LAB HEMETOLOGY METHOD 01/13/2025 3:58 PM EDT [facility] Lymphocytes Relative 28.5 % LAB HEMETOLOGY METHOD 01/13/2025 3:58 PM EDT [facility] Monocytes Relative 7.9 % LAB HEMETOLOGY METHOD 01/13/2025 3:58 PM EDT [facility] Eosinophils Relative 1.3 % LAB HEMETOLOGY METHOD 01/13/2025 3:58 PM EDT [facility] Basophils Relative 0.3 % LAB HEMETOLOGY METHOD 01/13/2025 3:58 PM [facility] Immature Granulocytes Relative 0.3 % LAB HEMETOLOGY METHOD 01/13/2025 3:58 PM [facility] Neutrophils Absolute 3.72 1.50 - 7.00 K/mcL LAB HEMETOLOGY METHOD 01/13/2025 3:[facility] Lymphocytes Absolute 1.72 1.00 - 5.00 K/mcL LAB HEMETOLOGY METHOD 01/13/2025 3:58 PM [facility] Monocytes Absolute 0.48 0.20 - 1.00 K/mcL LAB HEMETOLOGY METHOD 01/13/2025 3:58 [facility] Eosinophils Absolute 0.08 0.00 - 0.50 K/mcL LAB HEMETOLOGY METHOD 01/13/2025 3:58 [facility] Basophils Absolute 0.02 0.00 - 0.20 K/mcL LAB HEMETOLOGY METHOD 01/13/2025 3:58 PM [facility] Immature Granulocytes Absolute 0.02 0.00 - 0.03 K/mcL LAB HEMETOLOGY METHOD 01/13/2025 3:58 PM [facility] Blood Venous blood specimen / Unknown Venipuncture / Unknown 01/13/2025 3:19 PM EDT 01/13/2025 3:49 PM EDT us Romeo Scott MD LAB BLOOD ORDERABLES Final Resu lt [facility] [address] [place] [address], [place] [phone] * (ABNORMAL) Comprehensive metabolic panel (01/13/2025 3:19 PM EDT) Sodium 137 133 - 145 mmol/L LAB CHEMISTRY METHOD 01/13/2025 4:45 PM [facility] Potassium 3.9 3.5 - 5.5 mmol/L LAB CHEMISTRY METHOD 01/13/2025 4:45 PM [facility] Chloride 105 96 - 110 mmol/L LAB CHEMISTRY METHOD 01/13/2025 4:45 PM [facility] CO2 29 21 - 32 mmol/L LAB CHEMISTRY METHOD 01/13/2025 4:45 PM [facility] Anion Gap 3 3 - 11 LAB CHEMISTRY METHOD 01/13/2025 4:45 PM [facility] Glucose 92 70 - 100 mg/dL LAB CHEMISTRY METHOD 01/13/2025 4:45 PM [facility] BUN 13 5 - 25 mg/dL LAB CHEMISTRY METHOD 01/13/2025 4:45 PM [facility] Creatinine 1.21(H) 0.50 - 1.10 mg/dL LAB CHEMISTRY METHOD 01/13/2025 4:45 PM [facility] eGFR 57(L) >=60 mL/min/1. 73m2 LAB CHEMISTRY METHOD 01/13/2025 4:45 PM [facility] Comment:Calculation based on the??Chronic Kidney Disease Epidemiology Collaboration (CKD-EPI) equation refit??without adjustment for race. BUN/Creatinine Ratio 10.7 LAB CHEMISTRY METHOD 01/13/2025 4:45 PM EDT [facility] Calcium 8.9 8.5 - 10.5 mg/dL LAB CHEMISTRY METHOD 01/13/2025 4:45 PM [facility] AST (SGOT) 14 10 - 42 unit/L LAB CHEMISTRY METHOD 01/13/2025 4:45 PM EDT [facility] ALT (SGPT) 20 10 - 60 unit/L LAB CHEMISTRY METHOD 01/13/2025 4:45 PM [facility] Alkaline Phosphatase 50 42 - 121 unit/L LAB CHEMISTRY METHOD 01/13/2025 4:45 PM [facility] Total Protein 6.6 6.0 - 8.0 g/dL LAB CHEMISTRY METHOD 01/13/2025 4:45 PM EDT [facility] Albumin 3.7 3.2 - 5.0 g/dL LAB CHEMISTRY METHOD 01/13/2025 4:45 PM [facility] Total Bilirubin 0.2 0.0 - 1.4 mg/dL LAB CHEMISTRY METHOD 01/13/2025 4:45 PM T [facility] Blood Venous blood specimen / Unknown Venipuncture / Unknown 01/13/2025 3:19 PM EDT 01/13/2025 3:49 PM EDT us Romeo Scott MD LAB BLOOD ORDERABLES Final Resu lt [facility] [address] [place] [address], * POC , urine manually resulted (01/13/2025 2:35 PM EDT) HCG, Ur POC Negative Negative POC hCG Int QC Pass? Yes Yes Urine Urine specimen obtained by clean catch procedure / Unknown 01/13/2025 2:35 PM EDT us Romeo Scott MD POINT OF CARE TEST ENTER/EDIT O RDERABLES Final Result * Urinalysis with reflex microscopic and culture (01/13/2025 2:32 PM EDT) Specific [place] Urine 1.023 1.003 - 1.030 LAB URINALYSIS - AUTOMATED METHOD 01/13/2025 2:53 PM [facility] pH, Urine 6.5 5.0 - 8.0 pH LAB URINALYSIS - AUTOMATED METHOD 01/13/2025 2:53 PM [facility] Leukocytes, Urine Negative Negative LAB URINALYSIS - AUTOMATED METHOD 01/13/2025 2:53 PM [facility] Nitrite, Urine Negative Negative LAB URINALYSIS - AUTOMATED METHOD 01/13/2025 2:53 PM [facility] Protein, Urine Negative <=Trace mg/dL LAB URINALYSIS - AUTOMATED METHOD 01/13/2025 2:53 PM [facility] Glucose, Urine Negative Negative mg/dL LAB URINALYSIS - AUTOMATED METHOD 01/13/2025 2:53 PM [facility] Ketones, Urine Negative Negative mg/dL LAB URINALYSIS - AUTOMATED METHOD 01/13/2025 2:53 PM [facility] Urobilinogen, Urine 0.2 0.2 - 1.0 mg/dL LAB URINALYSIS - AUTOMATED METHOD 01/13/2025 2:53 PM [facility] Bilirubin, Urine Negative Negative LAB URINALYSIS - AUTOMATED METHOD 01/13/2025 2:53 PM [facility] Blood, Urine Negative Negative LAB URINALYSIS - AUTOMATED METHOD 01/13/2025 2:53 PM [facility] Urine Urine specimen obtained by clean catch procedure / Unknown Non-blood Collection / Unknown 01/13/2025 2:32 PM EDT 01/13/2025 2:44 PM EDT us Romeo Scott MD LAB URINE ORDERABLES Final Resu lt Performing Organization Address [facility]/ZIP Co de Phone Number [facility] [address] [place] [address], [place] [phone] * [place] urine culture tube (01/13/2025 2:32 PM EDT) Pathologist [facility] Extra Tube Hold for add-ons. 01/13/2025 4:01 PM EDT [facility] Comment:Auto resulted. Urine Urine specimen obtained by clean catch procedure / Unknown Non-blood Collection / Unknown 01/13/2025 2:32 PM EDT 01/13/2025 2:44 PM EDT Romeo Scott MD LAB URINE ORDERABLES Final Resu lt Performing Organization Address [facility] Co de Phone Number [facility] [address] [place] [address], [place] [phone] * POC Urine Auto W/O Micro (12/16/2024 11:00 AM EDT) Glucose UA POC Negative Negative, Trace mg/dL Bilirubin UA POC Negative Negative, Small Ketones UA POC Negative Negative, Trace Specific [place] UA POC <=1.005 Blood UA POC Negative Negative, Large PH UA POC 7.5 Protein UA POC Negative Negative, >=300 mg/dL Urobilinogen UA POC 0.2 E.U./dL mg/dL Nitrite UA POC Negative Negative Leukocytes UA POC Negative Negative Urine Urine specimen obtained by clean catch procedure / Unknown 12/16/2024 11:00 AM EDT Letty MARTÍNEZM POINT OF CARE TEST ENTE R/EDIT ORDERABLES [...] Breast cancer risk category Low (<15%) Hanny MARTNÍEZ IMG XR PROCEDURES Final Resu lt * Pap smear (01/03/2022) 01/03/2022 Narrative HISTORICAL TESTING LAB RESULTING AGENCY - 01/17/2022 8:16 AM EDT [id number] THINPREP PAP, IMAGED: NEGATIVE FOR SQUAMOUS INTRAEPITHELIAL [...] IN 2008, LMP 12/29/21, [Z12.4] us Hanny Sood [facility] CYTOLOGY ORDERABLES Katja cano Result HISTORICAL TESTING LAB RESULTING AGENCY from Last 3 Months or Most Recently Relevant to Health Maintenance Insurance [facility] Care Teams Hotel Front Office Manager Relationship Specialty Start Date End Date Hernandez Leon MD [address] [place] [phone] PCP - General Internal Medicine 08/14/16
== END 2025-03-11 10:11 | disposition home or self-care (01) ==
PROVIDERS: PCP Internal Medicine; Visit Provider Internal Medicine
DX: M96.1 Postlaminectomy syndrome, not elsewhere classified (principal)
CPT/HCPCS: 99213

== ENCOUNTER → 2025-03-11 09:48 | Outpatient (BNVA) | payer OTHER, SELFPAY | PROVIDERS: PCP Internal Medicine; Visit Provider Internal Medicine | DX: M96.1 Postlaminectomy syndrome, not elsewhere classified (principal) | CPT/HCPCS: 99212 ==

== ENCOUNTER 2025-09-09 09:51 | Day surgery (SDC) | payer OTHER, SELFPAY ==
--- OUTSIDE RECORDS SUMMARY | 2025-09-01 17:03 | XMS_ITS | Encounter Summary ---
Author Organization [facility] Address [address] [place] [address] Care Team Providers Care Trekking Guide Name Role Phone Hernandez Leon MD Primary Care Provider [phone] Encounter Details Date Type Department Care Team (Late Contact Info) Description 07/29/2025 Results Follow-Up Walk-In Clinic - [facility] [address] [place] [phone] Osvaldo Addison, COLLIN [address] [place], [place] [phone] Social History Tobacco Use Types Packs/Day Years Used Date Smoking Tobacco: Never Cigarettes 0 Qu it: 08/10/2016 Smokeless Tobacco: Never Alcohol Use Standard Drinks/Week Comments Not Currently 0 (1 standard drink = 0.6 oz pur e alcohol) Comments No Sex and Gender Information Value Date Recorded Sex Assigned at Not on file Legal Sex Female 4:55 AM EST Gender Identity Not on file Sexual Orientation Not on file documented as of this encounter Plan of Treatment Upcoming Encounters Date Type Department Care Team (Late Contact Info) Description 10/13/2025 10:00 AM EST Office Visit [facility] 175 [facility] [address] [place] [phone] Aldo Barnes MD 175 [place] [address] 11/05/2025 10:00 AM EST Treatment Pelvic Floor Rehabilitation - [address] [phone] Alysia Roper PT 580 [facility] [address] [place] [address] documented as of this encounter Visit Diagnoses Not on filedocumented in this encounter Additional Health Concerns Infection Onset Date Last Indicated Resolved Time Herpes simplex 06/24/2025 06/24/2025 documented as of this encounter Care Teams Trekking Guide Relationship Specialty Start Date End Date Hernandez Leon MD [address] [place] [address] PCP - General Internal Medicine 08/14/16 documented as of this encounter
--- OUTSIDE RECORDS SUMMARY | 2025-09-01 17:03 | XMS_ITS ---
Author Name [facility] Organization Unknown Care Team Organization Name Specialty Phone Email Start Date End Da te [facility] Hernandez Leon Primary Care 08/08/2022 05/19/2024
--- OUTSIDE RECORDS SUMMARY | 2025-09-01 17:03 | XMS_ITS | Clinical Summary ---
Author Organization [facility], Address [address] [place] [address] Phone Care Team Providers Care Drier Tender Name Role Phone Hernandez Hathaway Primary Care Provider [phone] Medications escitalopram (LEXAPRO) 20 MG tablet Take [...] Due Date Last Done Comments Hepatitis B Vaccine (1 of 3 - 19+ 3-dose series) 04/07 Pneumococcal Vaccine: Peds ( 0 to 5 Years) and At-Risk Patients (6 to 49 Years) (1 of 2 - PCV) 2000 Influenza Vaccine (#1) 2025 07/26/[address] [place] [address] [facility] [employer] Care Teams Drier Tender Relationship Specialty Start Date End Date Hernandez Hathaway [address] [place] [address] PCP - General Internal Medicine 08/11/22
--- OUTSIDE RECORDS SUMMARY | 2025-09-01 17:03 | XMS_ITS | Clinical Summary ---
Author Organization [facility] Address [address] [place] [address] [address] [place] [address] Care Team Providers Care Avionics Installer Name Role Phone Unavailable Primary Care Provider Unavailabl e Immunizations Immunization Administration Dates Next Due Pfizer Covid-19 Vaccine 12+ 11/21/2022 Social History Tobacco Use Types Packs/Day Years Used Date Smoking Tobacco: Never Assessed Comments Unknown Sex and Gender Information Value Date Recorded Sex Assigned at Female 11/21/2022 1:43 PM EST Legal Sex Female 1:38 PM EST Gender Identity Female 11/21/2022 1:43 PM EST Sexual Orientation Straight 11/21/2022 1: 43 PM EST Plan of Treatment Health Maintenance Due Date Last Done Comments Depression Screening 1981 HIV Screening 1981 SDOH Screening 1981 Disability Screening 1981 Alcohol/Substance Use Screening 1993 Tobacco Screening 1993 Family Planning (PISQ) 1996 HPV Vaccines (1 - 3-dose series) 1996 Hepatitis C Screening 1999 DTaP/Tdap/Td Vaccines (1 - Tdap) 2000 Hepatitis B Vaccines (1 of 3 - 19+ 3-dose series) 2000 Pneumococcal Vaccine: Pediat rics (0 to 5 Years) and At-Risk Patients (6 to 49) Years (1 of 2 - PCV) 2000 Pap Smear 2002 Cervical Cancer Screening 2011 HPV/Cotest 2011 Mammogram 2021 COVID-19 Vaccine (2 - 2024-2 6 season) 2025 11/21/2022 Influenza Vaccine (#1) 2025 07/26/2018 Zoster Vaccines (1 of 2) 2031 [...] patient's age to complete this topic Insurance [facility] STAND[facility] Member Subscriber Plan / Payer (Ef fective 2022-Present) Name:Lo Mccarty Relation to Subscriber:Self Name:Lo Mccarty Payer ID:Not on file Group ID:Not on file Type:Medicaid Address: [address] [place] [address] [place] [address] [employer]
--- OUTSIDE RECORDS SUMMARY | 2025-09-01 17:03 | XMS_ITS | Encounter Summary ---
Author Organization [facility] Address [address] [place] [address] Care Team Providers Care Production Administrative Assistant Name Role Phone Hernandez Leon MD Primary Care Provider [phone] Encounter Details Date Type Department Care Team ([facility] Contact Info) Description 06/30/2025 Results Follow-Up [facility] [address] [place] [address] Monika De Jesus, [facility] [address] [place] [phone] Social History Tobacco Use Types Packs/Day Years [...] on file documented as of this encounter Ordered Prescriptions Prescription Sig Dispense Quantity Refills Last Filled Start Date End Date valACYclovir (Valtrex) 500 mg tablet Take 1 tablet (500 mg total) by mouth 1 (one) time each day. 30 each 06/30/2025 06/30/2026 documented in this encounter Plan of Treatment Upcoming Encounters Date Type Department Care Team (Late Contact Info) Description 10/13/2025 10:00 AM EST Office Visit [facility] [address] [address] Aldo Barnes MD 175 [place] [address] 11/05/2025 10:00 AM EST Treatment Pelvic Floor Rehabilitation [address] [address] Alysia Roper, PT 580 [facility] [address] [place] [address] documented as of this encounter Visit Diagnoses Not on filedocumented in this encounter Additional Health Concerns Infection Onset Date Last Indicated Resolved Time Herpes simplex 06/24/2025 06/24/2025 documented as of this encounter Care Teams Production Administrative Assistant Relationship Specialty Start Date End Date Hernandez Leon MD [address] [facility] [address] [place] [address] PCP - General Internal Medicine 08/14/16 documented as of this encounter
--- OUTSIDE RECORDS SUMMARY | 2025-09-01 17:03 | XMS_ITS | Encounter Summary ---
Author Organization [facility] Address [address] [place] [address] Care Team Providers Care Art Glass Designer Name Role Phone Hernandez Leon MD Primary Care Provider [phone] Reason for Visit * Reason Onset Date Comments Medication Problem 07/29/2025 Encounter Details Date Type Department Care Team (Late st Contact Info) Description 07/29/2025 Telephone Walk-In Clinic - [facility] [address] [place] [address] Osvaldo Addison, TANK SETTER HELPER [address] [place], [place] [phone] Social History Tobacco Use Types Packs/Day Years [...] as of this encounter Progress Notes * Anastasiia West - 07/29/2025 12:59 PM EDT Was seen yesterday and states Osvaldo was to send a prescription to [facility] in [place] and has not. She can be reached at [phone] documented in this encounter Plan of Treatment Upcoming Encounters Date Type Department Care Team (Late st Contact Info) Description 10/13/2025 10:00 AM EST Office Visit [facility] 175 [facility] [address] [place] [address] Aldo Barnes MD [address] [place] [address] 11/05/2025 10:00 AM EST Treatment Pelvic Floor Rehabilitation - [address] [phone] Alysia Roper, PT 580 [facility] [address] [place] [address] documented as of this encounter Visit Diagnoses Not on filedocumented in this encounter Additional Health Concerns Infection Onset Date Last Indicated Resolved Time Herpes simplex 06/24/2025 06/24/2025 documented as of this encounter Care Teams Art Glass Designer Relationship Specialty Start Date End Date Hernandez Leon MD 1500 [facility] [address] [place] [address] PCP - General Internal Medicine 08/14/16 documented as of this encounter
--- OUTSIDE RECORDS SUMMARY | 2025-09-01 17:03 | XMS_ITS | Clinical Summary ---
Author Organization [place] [address] [address] [facility] Building Address [facility] [place] [address] Phone Care Team Providers Care Before School Name Role Phone Hernandez Leon MD Primary Care Provider [phone] Allergies No known active allergies Medications LORazepam [...] 30 each 11 5 10/14/19 26 Active Ventolin HFA 90 mcg/actuation inhalerIndication s:Mild intermittent asthma, unspecified whether complicated INHALE 2 PUFFS BY MOUTH EVERY 4 (FOUR) HOURS IF NEEDED FOR WHEEZING OR SHORTNESS OF BREATH. 18 each 1 5 Active ibuprofen (ADVIL,MOTRIN) 800 mg tablet Take 1 tablet (800 mg total) by mouth every 6 (six) hours if needed for mild pain. Active pantoprazole (PROTONIX) 40 mg EC tabletIndications :Epigastric pain Take 1 tablet (40 mg total) by mouth 1 (one) time each day. 90 each 3 5 05/11/20 26 Active valACYclovir (Valtrex) 500 mg tablet Take 1 tablet (500 mg total) by mouth 1 (one) time each day. 30 each 11 5 06/30/20 26 Active nitrofurantoin, macrocrystal-mono hydrate, (MACROBID) 100 mg capsuleIndication s:Lower urinary tract symptoms (LUTS) Take 1 capsule (100 mg total) by mouth 2 (two) times a day for 5 days. 10 each 5 08/03/20 25 Active Problems Problem Noted Date Diagnosed Date Palpitation 09/28/2023 Syncope 09/28/2023 Degeneration of lumbar intervertebral disc 08/11 Low back pain 08/11/2022 Cervical spondylosis 07/12/2022 Overview (09/25/2024): Last Assessment & Plan: While in the office, patient also complained of 6-year history of neck pain, left arm and hand numbness tingling affecting all digits, not specific to a dermatome. She states the other day she was unable to use the left hand to garbage pick up man her coffee cup, which scared her. She [...] cervical MRI I could find was at [facility] in 2019, patient had C5-6 spondylosis [...] completed. DDD (degenerative disc disease), lumbar 07/12/20 22 Overview (09/25/2024): Last Assessment & Plan: Patient [...] and depression 05/28/2014 Anemia 01/18/2012 Asthma 03/13/2011 Resolved Problems Problem Noted Date Diagnosed Date Resolved Date Acute cystitis without hematuria 08/14/2023 05/11/2025 Overview (09/25/2024): Last Assessment & Plan: Treated with Bactrim. Will send for C&S. Trichomonas vaginalis infection 08/14/2023 05/11/2025 Overview (09/25/2024): Last Assessment & Plan: Discussed results. Explained that she should abstain from intercourse until both she and her partner have completed treatment. I recommended she use condoms thereafter to prevent STI. Additional testing sent for GC/CT. She was encouraged to let her partner know. She notes he is no longer her partner and she does not plan to contact him. Encounters Date Type Department Care Team Description 08/03/2025 11:00 AM EST Office Visit Urogynecology [address] [address] Janee Peña MD Urge incontinence (Primary Dx); Urinary urgency; Urinary frequency; Nocturia; LAURA (stress urinary incontinence, female); Feeling of incomplete bladder emptying 07/29/2025 Telephone Walk-In Clinic - [address] [phone] Osvaldo Addison NP 07/29/2025 Telephone Walk-In Clinic - [address] [phone] Osvaldo Addison NP 07/29/2025 Results Follow-Up Walk-In Clinic - [address] [phone] Osvaldo Addison NP 07/28/2025 3:00 PM EDT Office Visit Walk-In Clinic - [address] [phone] Osvaldo Addison NP Lower urinary tract symptoms (LUTS) (Primary Dx) 07/28/2025 Telephone Internal Medicine - [address] [phone] Hernandez Leon MD 06/30/2025 Results Follow-Up [facility] [address] [place] [id number] Monika De Jesus CNM 06/24/2025 11:15 AM EDT Office Visit Obstetrics and Gynecology - [address] [phone] Monika De Jesus CNM Trichomonas contact, treated (Primary Dx); Vulval lesion from Last 3 Months Immunizations Immunization Administration Dates Next Due Influenza Quadravalent, MDCK , 0.5ml, with preservative (Flucelvax) 6mo and older 07/26/2018 Pfizer SARS-CoV-2 COVID-19, mRNA, LNP-S, preservative free 11/21/2022 Surgical History Surgery Date Site/Laterality Comments BREAST REDUCTION 1997 PROCEDURE: SC BREAST REDUCTION CERVICAL BIOPSY W/ LOOP ELECTRODE EXCISION 2009 PROCEDURE: SC CONIZATION CERVIX W/WO D&C RPR ELTRD EXC [...] history presenting hazards to health(V15.89); COMMENT: KYRA 2010 LU 1-2 free margins Bulge of lumbar [...] infection DX:Anogenital herpesviral infection; COMMENT: type 2 Trichomonas vaginalis infection 08/14/2023 Last Assessment & Plan: Discussed results. Explained that she should abstain from intercourse until both she and her partner have completed treatment. I recommended she use condoms thereafter to prevent STI. Additional testing sent for GC/CT. She was encouraged to let her partner know. She notes he is no longer her partner and she does not plan to contact him. Family History Medical History Relation Name Comments [...] 0 Qu it: 08/10/2016 Smokeless Tobacco: Never Tobacco [...] Livin g Live Births 3 3 3 0 0 0 3 3 Date Outcome GA Total Labor Labor/2nd/3rd Weight Sex Type Anes PTL Mary A1 A5 Name Clin 2007 Term 42w 0d 3351 g (118.2 oz) M Vag-S pont Epidur al Livin g Sir Delivery Location:[facility] 2010 Term 41w 2d 11h 36m/ 2895 g (102.1 oz) F Vag-S pont Epidur al Livin g 8 9 Nunu Chang MD Delivery Location:[facility] Comments:GBS neg, true knot and loose nuchal x 1 and crod around body loose x 1 2015 Term F Vag-S pont Livin g [place] Last Filed Vital Signs Vital Sign Reading Time Taken Comments Blood Pressure 96/68 08/03/2025 10:45 AM EST Pulse 89 08/03/2025 10:45 AM EST Temperature 37.3 C (99.1 F) 07/28/2025 2:52 PM EDT Respiratory Rate 12 07/28/2025 2:52 PM EDT Oxygen Saturation 98% 07/28/2025 2:52 PM EDT Inhaled Oxygen Concentration - - Weight 79.4 kg (175 lb) 08/03/2025 10:45 AM EST Height 170.2 cm (5' 7 ) 08/03/2025 10:45 AM EST Body Mass Index 27.41 08/03/2025 10:45 AM EST Plan of Treatment Upcoming Encounters Date Type Department Care Team (Late st Contact Info) Description 10/13/2025 10:00 AM EST [facility] [address] [place] [address] Aldo Barnes MD [address] [place] [address] 11/05/2025 10:00 AM EST Treatment Pelvic Floor Rehabilitation - [place] [phone] Alysia Roper, PT [address] [address] Health Maintenance Due Date Last Done Comments Hepatitis B Vaccines (1 of 3 - 19+ 3-dose series) 2000 Pneumococcal Vaccine: Pediatrics (0 to 5 Years) and At-Risk Patients (6 to 49 Years) (1 of 2 - PCV) 2000 HPV Vaccines (1 - 3-dose SCD M series) 2008 Hepatitis C Screening 09/09/2022 Social Influencers of Health Screening 09/09/2022 Depression Screening 10/01/2024 Cervical Cancer Screening: P ap Smear 01/03/2025 01/03/2022, 08/05/2019 COVID-19 Vaccine (2 - 2024-2 6 season) 2025 11/21/2022 Influenza Vaccine (#1) 2025 8, 12/31/2015 DTaP,Tdap,and Td Vaccines (2 - Td or Tdap) 02/09/2026 02/10/2016 Breast Cancer Screening 04/02/2027 04/02/20, 01/05/2022, 08/13/2019 Cholesterol Screening (Lipid Panel) 03/19/2030 03/19/2025 RSV Immunization Adult Patients (1 - 1-dose 75+ series) 2056 HIV Screening Completed 03/19/2025 HIB Vaccines Aged Out No longer eligi [...] Priority Date/Time Associated Diagnosis Comments POC URINE AUTO W/O MICRO Routine 08/03/2025 11:48 AM EST Urinary urgency VAGINITIS PATHOGENS BY PCR Routine 07/28/2025 3:25 PM EDT Lower urinary tract symptoms (LUTS) POC URINE NON-AUTO W/O MICRO Routine 07/28/2025 3:06 PM EDT Lower urinary tract symptoms (LUTS) URINALYSIS MICROSCOPIC ONLY Routine 07/28/2025 3:05 PM EDT Lower urinary tract symptoms (LUTS) URINALYSIS MICROSCOPIC ONLY Routine 07/28/2025 3:05 PM EDT Lower urinary tract symptoms (LUTS) CULTURE URINE Routine 07/28/2025 3:05 PM EDT Lower urinary tract symptoms (LUTS) TRICHOMONAS VAGINALIS ANTIGEN Routine 06/24/2025 11:49 AM EDT Trichomonas contact, treated CULTURE HERPES SIMPLEX VIRUS Routine 06/24/2025 11:49 AM EDT Vulval lesion WET PREP, GENITAL Routine 06/24/2025 11: 49 AM EDT Trichomonas contact, treated MG MAMMO DIGITAL SCREENING W CODY BILAT Routine 04/02/2025 10:05 AM EDT Adult general medical exam HIV 1, 2 ANTIBODY, P24 ANTIGEN WITH REFLEX TO DIFFERENTIATION Routine 03/19/2025 1:01 PM EDT Adult general medical exam LIPID PANEL WITH REFLEX TO DIRECT LDL Routine 03/19/2025 1:01 PM EDT Epigastric pain PAP SMEAR Routine 01/03/2022 from Last 3 Months or Most Recently Relevant to Health Maintenance Results * POC Urine Auto W/O Micro (08/03/2025 11:48 AM EST) Glucose UA POC Negative Negative, Trace mg/dL Bilirubin UA POC Negative Negative Ketones UA POC Negative Negative Specific [place] UA POC 1.015 Blood UA POC Negative Negative PH UA POC 5.0 Protein UA POC Negative Negative mg/dL Urobilinogen UA POC 0.2 E.U./dL 0.2 E.U./dL, 1.0 E.U./dL, 8 , Unable to interpret due to interfering substances mg/dL Nitrite UA POC Negative Negative Leukocytes UA POC Negative Negative Urine Urine specimen obtained by clean catch procedure / Unknown 08/03/2025 11:48 AM EST Janee Peña MD POINT OF CARE TEST ENTER/EDIT OR DERABLES Final Result * Vaginitis pathogens molecular study (07/28/2025 3:25 PM EDT) Trichomonas vaginalis Negative Negative 07/29/2025 11:14 AM EDT [facility] Gardnerella vaginalis Negative Negative 07/29/2025 11:14 AM EDT [facility] Lalitha Species Negative Negative 11:14 AM EDT [facility] Swab Vaginal structure / Unknown Non-blood Collection / Unknown 07/28/2025 3:25 PM EDT 07/28/2025 3:25 PM EDT Osvaldo Addison NP LAB MICROBIOLOGY - GENERAL OR DERABLES Final Result [facility] [address] [place] [address], [place] [phone] * (ABNORMAL) POC Urine Non-Auto W/O Micro (07/28/2025 3:06 PM EDT) GLUCOSE POC Negative Negative, Trace mg/dL Leukocytes UA POC Negative Negative mg/dL Nitrite UA POC Negative Urobilinogen UA POC 0.2 E.U./dL mg/dL Protein UA POC Positive Positive, Negative PH UA POC 5.0 LAKESHIA/HM UA POC Trace(A) Negative Specific [place] UA POC 1.020 Ketones UA POC Negative Negative Bilirubin UA POC 1+(A) Negative Urine Urine specimen obtained by clean catch procedure / Unknown 07/28/2025 3:06 PM EDT Osvaldo Addison NP POINT OF CARE TEST ENTER/EDIT ORDERABLES Final Result * Urinalysis microscopic only (07/28/2025 3:05 PM EDT) RBC, Urine 1.3 0 - 4 /HPF LAB URINALYSIS - AUTOMATED METHOD 07/28/2025 7:59 PM EDT [facility] WBC, Urine 0.3 0 - 4 /HPF LAB URINALYSIS - AUTOMATED METHOD 07/28/2025 7:59 PM EDT [facility] Squamous Epithelial, Urine 37 0 - 60 /LPF LAB URINALYSIS - AUTOMATED METHOD 07/28/2025 7:59 PM EDT [facility] Bacteria, Urine Negative Negative /HPF LAB URINALYSIS - AUTOMATED METHOD 07/28/2025 7:59 PM EDT [facility] Hyaline Casts, Urine 2.4 0 - 3 /LPF LAB URINALYSIS - AUTOMATED METHOD 07/28/2025 7:59 PM EDT [facility] Urine Urine specimen obtained by clean catch procedure / Unknown Non-blood Collection / Unknown 07/28/2025 3:05 PM EDT 07/28/2025 3:05 PM EDT Osvaldo Addison NP LAB URINE ORDERABLES Final Re sult [facility] [address] [place] [address], [place] [phone] * Culture urine (07/28/2025 3:05 PM EDT) Culture, Urine No growth 07/29/2025 2:28 PM EDT [facility] Urine Urine specimen obtained by clean catch procedure / Unknown Non-blood Collection / Unknown 07/28/2025 3:05 PM EDT 07/28/2025 3:05 PM EDT Osvaldo Addison NP LAB MICROBIOLOGY - GENERAL OR DERABLES Final Result Performing Organization Address [facility]/ZIP Co de Phone Number [facility] [address] [place] [address], * Trichomonas vaginalis antigen (06/24/2025 11:49 AM EDT) Trichomonas vaginalis Negative Negative 06/24/2025 10:16 PM EDT [facility] Swab Vaginal structure / Unknown Non-blood Collection / Unknown 06/24/2025 11:49 AM EDT 06/24/2025 11:49 AM EDT Monika MARTÍNEZ LAB MICROBIOLOGY - GENERAL OR DERABLES Final Result Performing Organization Address [facility] Co de Phone Number [facility] [address] [place] [address], [place] [phone] * (ABNORMAL) Culture Herpes simplex virus (06/24/2025 11:49 AM EDT) Pathologist [facility] Specimen Source Urogenital - Vulvar 06/30/2025 11:20 AM EDT [facility] HSVC Interpretation Herpes Simplex Virus Type 2 ISOLATED(A) No Growth 06/30/2025 11:20 AM EDT [facility] Comment: This method utilizes standard tube culture methods with monoclonal antibody staining of CPE-positive cells. This procedure can detect and differentiate herpes type 1 and herpes type 2. Other viruses present in the specimen will not be identified. A negative result does not preclude viral infection. The viability of viral agents can be degraded if specimens are improperly collected or stored. The number of viable virus particles may be below the detection threshold. Test performed at [facility], [facility] [place] [address] [place] [address] Jennyfer Lambert MD, PhD - Production Sorter Swab Vulval structure / Unknown Non-blood Collection / Unknown 06/24/2025 11:49 AM EDT 06/24/2025 11:49 AM EDT [facility] LAB MICROBIOLOGY - GENERAL OR DERABLES Final Result [facility] [address] [place] [address] * Wet prep, genital (06/24/2025 11:49 AM EDT) Clue Cells, Wet Prep Negative Negative 06/24/2025 6:55 PM EDT [facility] Yeast, Wet Prep Negative Negative 06/24/2025 6:55 PM EDT [facility] Trichomonas, Wet Prep Indeterminate Negative 06/24/2025 6:55 PM EDT [facility] Comment:Refer to Trichomonas antigen. Swab Vaginal structure / Unknown Non-blood Collection / Unknown 06/24/2025 11:49 AM EDT 06/24/2025 11:49 AM EDT [facility] LAB MICROBIOLOGY - GENERAL OR DERABLES Final Result Performing Organization Address [facility] Co de Phone Number [facility] [address] [place] [address], * MG Mammo Digital Screening w Cody bilat (04/02/2025 10:05 AM EDT) Anatomical Region Laterality Modality Breast Bilateral Mammography 04/02/2025 9:29 AM EDT Impressions 04/02/2025 9:32 AM EDT No mammographic evidence of malignancy. A negative mammogram in the presence of a clinically suspicious palpable abnormality does not preclude the possibility of malignancy or alter the indications for biopsy. PQRI CPT II 3342F Code 84621, 95136 PQRI 225 CPT II 7025F TISSUE DENSITY: There are scattered areas of fibroglandular density. (BI-RADS category B) IMPRESSION: Benign. BI-RADS CATEGORY: 2 - BENIGN RECOMMENDATION: Screening bilateral mammogram is recommended in 1 year. Mammo Location: [facility], [address] [place] [id number] -------- FINAL REPORT -------- Dictated By: Tito Kathleen Dictated Date: 04/02/2025 09:29 ET Assigned Physician: Tito Kathleen Reviewed and Electronically Signed By: Tito Kathleen Signed Date: 04/02/2025 09:32 ET Workstation ID: [id number] Transcribed By: Self Edit Transcribed Date: 04/02/2025 09:29 ET Narrative 04/02/2025 9:32 AM EDT CLINICAL: The patient is a 44 years Female presenting for baseline screening mammography. COMPARISON: None TECHNIQUE: Full-field digital mammography of the breasts bilaterally consisting of tomosynthesis in MLO and CC projection is performed in the [employer] 2000-D unit. Computer aided detection utilizing the iCAD system was utilized. FINDINGS: The breasts are seen to be composed of a combination of fatty and fibroglandular elements. Multiple bilateral punctate calcifications, most if not all of which are dermal, are noted. There is no suspicious cluster of microcalcifications, mass, or area of architectural distortion. There is no skin thickening or nipple retraction. Procedure Note Tito Kathleen MD - 04/02/2025 CLINICAL: The patient is a 44 years Female presenting for baselinescreening mammography. COMPARISON: None TECHNIQUE: Full-field digital mammography of the breasts bilaterallyconsisting of tomosynthesis in MLO and CC projection is performed in the[employer] 2000-D unit. Computer aided detection utilizing the BuzzeroDsystem was utilized. FINDINGS: The breasts are seen to be composed of a combination of fattyand fibroglandular elements. Multiple bilateral punctate calcifications,most if not all of which are dermal, are noted. There is no suspiciouscluster of microcalcifications, mass, or area of architectural distortion.There is no skin thickening or nipple retraction. IMPRESSION: No mammographic evidence of malignancy. A negative mammogram in the presence of a clinically suspicious palpableabnormality does not preclude the possibility of malignancy or alter theindications for biopsy. PQRI CPT II 3342F Code 82687, 83717 PQRI 225 CPT II 7025F TISSUE DENSITY: There are scattered areas of fibroglandular density.(BI-RADS category B) IMPRESSION: Benign. BI-RADS CATEGORY: 2 - BENIGN RECOMMENDATION: Screening bilateral mammogram is recommended in 1 year. Mammo Location: [facility], [address] [facility] [address] -------- FINAL REPORT -------- Dictated By: Tito Kathleen Dictated Date: 04/02/2025 09:29 ET Assigned Physician: Tito Kathleen Reviewed and Electronically Signed By: Tito Kathleen Signed Date: 04/02/2025 09:32 ET Workstation ID: [id number] Transcribed By: Self Edit Transcribed Date: 04/02/2025 09:29 ET Huy Bustos NP IMG BI PROCEDURES Final Result * HIV 1,2 antibody, p24 antigen with reflex to differentiation (03/19/2025 1:01 PM EDT) Pathologist [facility] HIV Combo AB/AG Negative Negative LAB CHEMISTRY METHOD 03/19/2025 8:02 PM EDT [facility] Blood Venous blood specimen / Unknown Venipuncture / Unknown 03/19/2025 1:01 PM EDT 03/19/2025 1:01 PM EDT Narrative [facility] - 03/19/2025 8:02 PM EDT This assay is a 4th generation assay allowing for earlier detection of HIV infection by detecting the presence of the HIV-1 p24 antigen as well as the traditional antibodies to HIV type 1 (including group O) and type 2. Use of a 4th generation assay is the current CDC recommendation for HIV screening. us Huy Bustos NP LAB BLOOD ORDERABLES Final Res ult [facility] [address] [place] [address], [place] [phone] * (ABNORMAL) Lipid panel with reflex to direct LDL (03/19/2025 1:01 PM EDT) Cholesterol 221(H) 0 - 200 mg/dL LAB CHEMISTRY METHOD 03/19/2025 7:08 PM EDT [facility] Triglycerides 83 0 - 150 mg/dL LAB CHEMISTRY METHOD 03/19/2025 7:08 PM EDT [facility] HDL 69 >=40 mg/dL LAB CHEMISTRY METHOD 03/19/2025 7:08 PM EDT [facility] LDL Calculated 135(H) 0 - 100 mg/dL LAB CHEMISTRY METHOD 03/19/2025 7:08 PM EDT [facility] VLDL Cholesterol [place] 16.6 mg/dL LAB CHEMISTRY METHOD 03/19/2025 7:08 PM EDT [facility] Non HDL Chol. (LDL+VLDL) 152(H) <145 mg/dL LAB CHEMISTRY METHOD 03/19/2025 7:08 PM EDT [facility] Chol/HDL Ratio 3.2 0.0 - 4.4 LAB CHEMISTRY METHOD 03/19/2025 7:08 PM EDT [facility] Blood Venous blood specimen / Unknown Venipuncture / Unknown 03/19/2025 1:01 PM EDT 03/19/2025 1:01 PM EDT us Huy Bustos NP LAB BLOOD ORDERABLES Final Res ult [facility] [address] [place] [address], * Pap smear (01/03/2022) 01/03/2022 Narrative HISTORICAL TESTING LAB RESULTING AGENCY - 01/17/2022 8:16 AM EDT [id number] THINPREP PAP, IMAGED: NEGATIVE FOR SQUAMOUS INTRAEPITHELIAL [...] HIGH RISK HPV ASSAY: HIGH RISK HPV: POSITIVE (SEROTYPES 16,18,31,33,35,39,45,51,52,56,58,59,66,68) RESULTS OF APTIMA HPV 16 AND 18/45 GENOTYPE ASSAY: HPV 16: NEGATIVE HPV 18/45: NEGATIVE COMPLETED ON 2022-01-06 ADEQUACY: SATISFACTORY ENDOCERVICAL/TRANSFORMATION ZONE COMPONENT ABSENT. SOURCE: THINPREP PAP HPV ANY DX: REFLEX 16 AND 18, CERVICAL, IMAGED CLINICAL INFORMATION: HPV ANY DIAGNOSIS. HORMONES, PAP HX POSITIVE LU 1 IN 2008, LMP 12/29/21, [Z12.4] Hanny MARTÍNEZ LAB CYTOLOGY ORDERABLES Katja cano Result HISTORICAL TESTING LAB RESULTING AGENCY from Last 3 Months or Most Recently Relevant to Health Maintenance Additional Health Concerns Infection Onset Date Last Indicated Herpes simplex 06/24/2025 06/24/[address] [place] [phone] [facility] Care Teams Before School Relationship Specialty Start Date End Date Hernandez Leon MD [address] [place] [address] PCP - General Internal Medicine 08/14/16
--- NOTE | 2025-09-07 09:56 | HO.ANESPROP2 ---
Documented by User: Sue Quiles NP 09/07/25 09:57 HPI - Anesthesia Eval Consult details Narrative: 45 yr old female for spinal cord stimulation implant s/p spinal cord stimulation trial 03/2025 with [facility] PMFSH Active Problems Active Problems: All Active Problems (Updated 01/12/25 @ 08:16 by Yuliana Chung RN) Cervical radicular pain (Acute) Post laminectomy syndrome (Acute) Sacroiliac joint dysfunction (Acute) Leg weakness (Acute) Lumbar radiculopathy (Acute) Anxiety (Acute) Past Medical History Medical History PTSD (post-traumatic stress disorder) Depression (spontaneous vaginal delivery) Anxiety Family History Family history of problems with anesthesia: No Surgical History Surgical History History of lumbar fusion H/O tubal ligation Hx of breast reduction, elective History of Problems with Anesthesia: No Social History Social History Are you a primary hearing care practitioner to a significant other at home: No Do you presently have visiting nurse or other home services: No Alcohol intake: never Patient Tobacco Use Status: Never used Tobacco Second Hand Smoke Exposure: No Use of substances other than those prescribed or required for medical reasons: Yes Substance Use Type: Marijuana Substance Use Frequency: Daily Have you been hit, kicked, punched, or otherwise hurt by someone within the past year? If so, by whom?: No Are you DNR?: No Advance Directives: No Advance Directives Information Provided: Yes Advance Directives on File: No Patient : No : No Meds Allergies Allergy/AdvReac Type Severity Reaction Status Date / Time No Known Allergies (No Known Allergy Verified 03/11/25 09:53 Allergies*) Home Medications ?Medication ?Instructions ?Recorded ?Confirmed ?Last Taken ?Type cholecalciferol (vitamin D3) 50 50 mcg PO DAILY 04/17/24 09/07/25 Unknown History mcg (2,000 unit) capsule lorazepam 0.5 mg tablet 0.5 mg PO DAILY PRN Anxiety 04/17/24 09/07/25 03/04/25 History lidocaine 5 % topical patch 1 patch topical DAILY 11/03/24 09/07/25 Unknown History Assessment and Plan Final Anesthetic Review Family History of Problems with Anesthesia: No History of Problems with Anesthesia: No Documented by User: Ines Wolfe MD 09/09/25 12:04 [facility] Past Medical History Medical History PTSD (post-traumatic stress disorder) Depression (spontaneous vaginal delivery) Anxiety Surgical History Surgical History History of lumbar fusion H/O tubal ligation Hx of breast reduction, elective Social History Social History Are you a primary hearing care practitioner to a significant other at home: No Do you presently have visiting nurse or other home services: No Alcohol intake: never Patient Tobacco Use Status: Never used Tobacco Second Hand Smoke Exposure: No Use of substances other than those prescribed or required for medical reasons: Yes Substance Use Type: Marijuana Substance Use Frequency: Daily Have you been hit, kicked, punched, or otherwise hurt by someone within the past year? If so, by whom?: No Are you DNR?: No Advance Directives: No Advance Directives Information Provided: Yes Advance Directives on File: No Patient : No : No Meds Allergies Allergy/AdvReac Type Severity Reaction Status Date / Time No Known Allergies (No Known Allergy Verified 03/11/25 09:53 Allergies*) Home Medications ?Medication ?Instructions ?Recorded ?Confirmed ?Last Taken ?Type cholecalciferol (vitamin D3) 50 50 mcg PO DAILY 04/17/24 09/07/25 Unknown History mcg (2,000 unit) capsule lorazepam 0.5 mg tablet 0.5 mg PO DAILY PRN Anxiety 04/17/24 09/07/25 03/04/25 History lidocaine 5 % topical patch 1 patch topical DAILY 11/03/24 09/07/25 Unknown History Exam Airway Mallampati Class: II TM Dist: >3cm Neck ROM: Full Heart: rrr Lungs: cta Assessment and Plan Assessment Anesthesia Assessment: Anesthesia Plan Discussed and Chart Reviewed Final Anesthetic Review NPO: Yes ASA Class: II Final Preanesthetic Review: No Changes in Pt Med Stat, Meds/Allgs Chart Reviewed and Consent Obtained/Reviewed Patient Risk: Intermediate Procedure Risk: Intermediate Anesthetic Plan Anesthetic Plan: GA Disposition: Standard PACU
[2025-09-07 10:20] VITALS: BMI 27.2
[2025-09-09] VITALS (7 sets, daily range): BP systolic 117–128; BP diastolic 67–80; PULSE 73–90; RESP 11–16; TEMP 36.1–36.8; O2SAT 97–100
--- NOTE | ~2025-09-09 | FL_ITS ---
EXAMINATION: FL GUIDANCE ONLY HISTORY: SPINAL CORD STIM IMPLANT COMPARISON: None available. TECHNIQUE: Fluoroscopy time: 3 minutes, 59 seconds. Cumulative Dose: 63.259 mGy. DAP: 5.7329 Gycm2 Images: 2. FINDINGS: Fluoroscopic spot films of the thoracic spine demonstrate a stimulator in place. FL/FL guidance in OR IMPRESSION: Fluoroscopy during procedure. Please see procedure report for additional information. Electronically signed by: Zen Ledezma MD 09/10/2025 07:02 AM SPENSER
[2025-09-09 10:20] LABS: UPreg QC Valid YES
[2025-09-09] MEDS: Lactated Ringers 1,000 ML 100 ML IVCONT (10:29)
[2025-09-09 12:01] LABS: MRSA Nasal PCR NEGATIVE (Negative); SA Nasal PCR NEGATIVE (Negative)
--- NOTE | 2025-09-09 12:35 | MHC.SHP ---
Pre-Procedural Eval Section A - 24 Hr Update-Section A only Date of Service: 09/09/25 The patient is an INPATIENT: No Changes since office visit: Yes Patient answered all questions The patient has been examined within 24 hours of the surgical procedure. The History & Physical has been completed within 30 days and I have reviewed it.: No Section B - Complete if H&P > 30 days Chief Complaint: Postlaminectomy syndrome, not elsewhere classified Relevant Family History (Specify if Yes): No Relevant Social History: None Present Medications: see Short Stay Collaborative assessment Medical History: No relevant PMH History of Previous Operations: No relevant previous surgery Allergies: Allergies Allergy/AdvReac Type Severity Reaction Status Date / Time No Known Allergies (No Known Allergy Verified 03/11/25 09:53 Allergies*) Review of Systems Sugical H&P ROS: Negative: Constitution, Cardiovascular and Respiratory Exam Surgical H&P Exam: Normal: HEENT, Normal: Heart and Normal: Lungs Plan Diagnosis/Plan: Unchanged I have reviewed the history and physical and performed a pertinent physical examination on my patient. No changes have occurred unless specified. Time Spent With Patient Time: Total time managing care of this patient today ____ minutes.
--- NOTE | 2025-09-09 15:33 | P.BOP_ITS ---
Brief Operative Note Date of Service: 09/09/25 Pre-op diagnosis: Postlaminectomy Syndrome Post-op diagnosis: same Procedure: Spinal Cord Stimulator Implant, Lumbar Implants: [employer] AlphaWavewriter SCS System Surgeon: Jairo Medina MD Anesthesia: GETA Was an Family Medicine Physician Assistant used for this Procedure?: No Estimated blood loss (mL): 20 Pathology: none sent Condition: stable Disposition: PACU
--- NOTE | 2025-09-09 15:35 | W.PM.OPN ---
Operative Note Operative Note Date of Service: 09/09/25 Narrative: Preoperative diagnosis: Post-laminectomy syndrome Postoperative diagnosis: Post-laminectomy syndrome Procedure: Lumbar SCS Implant After proper identification, the patient was brought to the operating room. The patient was induced under general anesthesia and placed in a prone position. Care was taken during positioning to protect and pad all pressure points. Cefazolin 2gm was given as preoperative antibiotic prophylaxis. The back was prepped and draped in the usual sterile fashion using Chloroprep. The fluoroscope unit was sterilely draped and brought into field, the vertebral target and the T12/L1 interspace was localized with fluoroscopy after the skin was anesthetized with 0.25% bupivicaine with 1:200,000 epinephrine and 1% lidocaine using a 25-gauge needle. A 6 cm incision was then made in the midline back with a 15 blade between the L2 and L3 spinous processes. Electrocautery was used to dissect down to the prevertebral fascia. Two 14-gauge introducer Epimed needles were advanced using AP fluoroscopy views to the target T12/L1 interspace on either side of the inferior spinous process. Upon loss of resistance, the electrodes were threaded up to the top of T7 vertebral body. The leads advanced midline and dorsally. With the needles covering the leads, we placed 2 sets of Tycron sutures per electrode for the anchor stitches. We then backed out the needle under live fluoroscopy, verifying that the electrodes were in the correct position and we then used the locking anchors to secure the electrodes down to the prevertebral fascia, tying them down with the Tycron sutures. At this point, a pocket for the generator was made in the left flank. With the skin and subcutaneous tissues anesthetized with 0.25% bupivicaine with 1:200,000 epinephrine and 1% lidocaine, a horizontal 2-inch incision was made using a 15 blade and combination of sharp dissection, blunt dissection and electrocautery was used. A pocket was created about half an inch below the skin. The pocket was then irrigated with normal saline containing vancomycin. Hemostasis was attained with electrocautery. We then tunneled the electrodes from the back into the pocket using the tunneling device. The electrodes were then connected to the generator. A Tycron suture was thrown across the floor of the pocket and through the anchor hole of the generator. After interrogation with impedance check the generator was placed into the subcutaneous pocket and the anchoring sutures tied. Care was taken not to get fluid in the generator connector block. The excess lead was closed beneath the generator creating a loop of strain relief as well. The neurostimulator generator was placed parallel to the skin at a depth of half an inch along for successful telemetry and impedence. The pocket was reirrigated and closed with the generator name facing out. Final electronic analysis was performed to ensure proper functioning. Positioning of the leads were rechecked and confirmed with fluoroscopy and images saved. Both incisions were closed with a fascial layer of 2-0 Vicryl sutures and the deep dermal layer with 3-0 Vicryl sutures, simple interrupted. We then secured the incision with Dermabond, steristrips and OpSites over both incisions. The patient tolerated the procedure well. The patient was then flipped back into the supine position, woken up and brought to the PACU in stable condition. Complications: None EBL: 20 mL
== END 2025-09-09 17:05 | disposition home or self-care (01) ==
PROVIDERS: Registered Nurse Emergency; PCP Internal Medicine; Visit Provider Internal Medicine
PROC: (CPT 63685; principal; 2025-09-09 11:30)
DX: M96.1 Postlaminectomy syndrome, not elsewhere classified (principal); G89.29 Other chronic pain; M54.6 Pain in thoracic spine; F43.10 Post-traumatic stress disorder, unspecified; F32.A Depression, unspecified; F41.9 Anxiety disorder, unspecified; Z79.1 Long term (current) use of non-steroidal anti-inflammatories (NSAID); Z79.899 Other long term (current) drug therapy; Z98.1 Arthrodesis status; Z98.890 Other specified postprocedural states
CPT/HCPCS: 63685; 63650 ×2; 81025; 87640; 87641; C1778; C1787; C1820; C1889; J0131; J0690; J1100; J1171; J2003; J2250; J2405; J2704; J3010; J3374

== ENCOUNTER → 2025-09-09 09:51 | Outpatient (BNV) | payer OTHER, SELFPAY | PROVIDERS: PCP Internal Medicine; Visit Provider Internal Medicine | DX: M96.1 Postlaminectomy syndrome, not elsewhere classified (principal) | CPT/HCPCS: 63650; 63685 ==

== ENCOUNTER 2025-09-16 10:18 | Outpatient (AMB) | payer OTHER, SELFPAY ==
--- NOTE | 2025-09-16 10:32 | A.OFFVIS_ITS ---
Vital Signs 09/16/25 10:34 Height 5 ft 7 in Weight 179 lb BMI 28.0 BP 119/61 Blood Pressure Location Lt brachial Position Sitting Respiration 16 Pulse 83 Pulse Source Pulse Oximeter Pulse Oximetry (%) 99 Oxygen Delivery Method Room Air Intake Visit Reasons: S/p [employer] SCS Implant 09/09/25 Allergies No Known Allergies (No Known Allergies*) Allergy (Verified 09/30/25 09:33) Medication List - Last Reconciled 09/16/25 by Rula Barrera LPN cholecalciferol (vitamin D3) 50 mcg PO DAILY ibuprofen 800 mg PO Q8H PRN lidocaine 5% 1 patch topical DAILY lorazepam 0.5 mg PO DAILY PRN oxycodone-acetaminophen 5-325 mg 1 tab PO TID PRN HPI HPI S/p [employer] SCS Implant 09/09/25: Details: History of Present Illness The patient is a 45 year old female presenting for a postoperative follow-up visit after a stimulator implant. She reports an uncomplicated postoperative course and good relief for her nighttime symptoms, which she manages by increasing the stimulation's amplitude and intensity. She denies significant pain or tenderness at the incision sites and has been compliant with wearing her abdominal binder. Pain Description - The patient reports good relief for her nighttime symptoms with the stimulator. - She increases the amplitude and intensity of the stimulation at night to cover her symptoms. - She denies significant pain and tenderness around the incision sites. Physical Exam - Skin: The surgical incisions are velvety, dry, and without significant tenderness to palpation. Results Pain Management: - Analgesia: The patient reports good relief from her nighttime symptoms with the stimulator, and she adjusts the settings at night as needed. - Adverse Effects: She denies significant pain or tenderness around the incision sites. [facility] Medical History PTSD (post-traumatic stress disorder) Depression (spontaneous vaginal delivery) Anxiety Surgical History History of lumbar fusion H/O tubal ligation Hx of breast reduction, elective Social History Are you a primary critical care transport nurse to a significant other at home: No Do you presently have visiting nurse or other home services: No Alcohol intake: never Patient Tobacco Use Status: Never used Tobacco Second Hand Smoke Exposure: No Substance Use Type: Marijuana Physical Exam Vital Signs: Last Vital Signs Pulse 83 09/16/25 10:34 Resp 16 09/16/25 10:34 BP 119/61 09/16/25 10:34 Pulse Ox 99 09/16/25 10:34 Oxygen Delivery Method Room Air 09/16/25 10:34 BMI result Body Mass Index 28.0 Assessment & Plan Assessment & Plan (1) Post laminectomy syndrome: Code(s): M96.1 - Postlaminectomy syndrome, not elsewhere classified Category: Medical Plan Plan Patient was informed and verbally consented to the use of an ambient scribe for clinic note documentation during this visit. 1. Surgical Aftercare - The patient will continue wearing the abdominal binder. - The dressings will be removed at her next visit. - Continue to optimize stimulator programming as required. - The patient is in agreement with the plan. Discussion Notes I discussed the postoperative plan with the patient. She will continue wearing the abdominal binder for the foreseeable future, and we will remove the dressings at her next appointment. I also informed her that we will continue to optimize the stimulator programming as needed. She vocalized her agreement with this plan. Patient Instructions - Continue to wear your abdominal binder for the time being. - We will remove the bandages from your incisions at your next appointment. - We will continue to adjust the programming of your stimulator to best control your symptoms. Coding Level of Care Code Est Pt Level 3 (12166) Diagnoses Post laminectomy syndrome M96.1
[2025-09-16 10:34] VITALS: BP 119/61; PULSE 83; RESP 16; O2SAT 99; BMI 28.0
--- OUTSIDE RECORDS SUMMARY | 2025-09-16 12:40 | XMS_ITS | Clinical Summary ---
Author Organization [employer] Address [address] [place] [address] [address] [place] [address] Care Team Providers Care Direct Mail Manager Name Role Phone Unavailable Primary Care [...] patient's age to complete this topic Insurance [employer] Member Subscriber Plan / Payer (Ef fective 2022-Present) Name:Lo Mccarty Relation to Subscriber:Self Name:Lo Mccarty Payer ID:Not on file Group ID:Not on file Type:Medicaid Address: [address] [place] [address] [place] [address] [employer]
--- OUTSIDE RECORDS SUMMARY | 2025-09-16 12:40 | XMS_ITS | Encounter Summary ---
Author Organization [facility] Address [address] [place] [address] Care Team Providers Care Bottling Supervisor Name Role Phone Marylu Sunshine MD Primary Care Provider [phone] Encounter Details Date Type Department Care Team (Late Contact Info) Description 07/29/2025 Results Follow-Up Walk-In Clinic - [address] [phone] Osvaldo Addison, [address] [place], [place] [id number] Social History Tobacco Use Types Packs/Day Years [...] Department Care Team (Late Contact Info) Description 09/22/2025 1:30 PM EST Office Visit Internal Medicine - [address] [phone] Marylu Sunshine MD [address] [place] [address] 10/13/2025 10:00 AM EST Office Visit [facility] [address] [place] [id number] Aldo Barnes MD [address] [place] [address] 11/05/2025 10:00 AM EST Treatment Pelvic Floor Rehabilitation - [address] [phone] Alysia Roper, PT [address] [address] documented as of this encounter Visit Diagnoses Not on filedocumented in this encounter Additional Health Concerns Infection Onset Date Last Indicated Resolved Time Herpes simplex 06/24/2025 06/24/2025 documented as of this encounter Care Teams Bottling Supervisor Relationship Specialty Start Date End Date Marylu Sunshine MD [address] [place] [address] PCP - General Internal Medicine 09/10/25 documented as of this encounter
--- OUTSIDE RECORDS SUMMARY | 2025-09-16 12:40 | XMS_ITS | Clinical Summary ---
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 [...] cervical MRI I could find was at [facility] in 2019, patient had C5-6 spondylosis [...] Encounters Date Type Department Care Team Description 09/10/2025 Telephone Internal Medicine - [address] [phone] Marylu Sunshine MD 08/03/2025 11:00 AM EST Office Visit Urogynecology [address] [phone] Janee Peña MD Urge incontinence (Primary Dx); Urinary urgency; Urinary frequency; Nocturia; LAURA (stress urinary incontinence, female); Feeling of incomplete bladder emptying 07/29/2025 Telephone Walk-In Clinic - [address] [phone] Osvaldo Addison NP 07/29/2025 Telephone Walk-In Clinic - [address] [phone] Osvaldo Addison NP 07/29/2025 Results Follow-Up Walk-In Clinic - [address] [phone] Osvaldo Addison NP 07/28/2025 3:00 PM EDT Office Visit Walk-In Clinic - [address] [phone] Osvaldo Addison NP Lower urinary tract symptoms (LUTS) (Primary Dx) 07/28/2025 Telephone Internal Medicine - [address] [phone] Hernandez Leon MD 06/30/2025 Results Follow-Up [facility] - Maternity [address] [place] [phone] Monika De Jesus CNM 06/24/2025 11:15 AM EDT Office Visit Obstetrics and Gynecology - [address] [phone] Monika De Jesus CNM Trichomonas contact, treated (Primary Dx); Vulval lesion from Last 3 Months Immunizations Immunization Administration Dates Next Due Influenza Quadravalent, MDCK , 0.5ml, with preservative (Flucelvax) 6mo and older 07/26/2018 [employer] SARS-CoV-2 COVID-19, mRNA, LNP-S, preservative free 11/21/2022 Surgical History Surgery Date Site/Laterality Comments BREAST REDUCTION 1997 PROCEDURE: AL BREAST REDUCTION CERVICAL BIOPSY W/ LOOP ELECTRODE EXCISION 2009 PROCEDURE: AL CONIZATION CERVIX W/WO D&C RPR ELTRD EXC [...] pont Epidur al Livin g Sir Delivery Location:[facility] 2010 Term 41w 2d 11h 36m/ 2895 g (102.1 oz) F Vag-S pont Epidur al Livin g 8 9 Nunu Chang MD Delivery Location:[facility] Comments:GBS neg, true knot and loose [...] Care Team (Late st Contact Info) Description 09/22/2025 1:30 PM EST Office Visit Internal Medicine - [address] [phone] Marylu Sunshine MD [address] [place] [address] 10/13/2025 10:00 AM EST Office Visit [facility] [address] [facility] [address] [place] [phone] Aldo Barnes MD [address] [place] [address] 11/05/2025 10:00 AM EST Treatment Pelvic Floor Rehabilitation - [address] [phone] Alysia Roper, PT [address] [place] [address] Health Maintenance Due Date Last Done Comments Drug Screen 1981 Non-Opioid Controlled Substance Agreement 1981 Hepatitis B Vaccines (1 of 3 - [...] Tdap) 02/09/2026 02/10/2016 Breast Cancer Screening 04/02/2027 04/02/20 25, 01/05/2022, 08/13/2019 Cholesterol Screening (Lipid Panel) 03/19/2030 [...] Negative Ketones UA POC Negative Negative Specific [place] UA POC 1.015 Blood UA POC Negative [...] pathogens molecular study (07/28/2025 3:25 PM EDT) Pathologist [facility] Trichomonas vaginalis Negative Negative 07/29/2025 11:14 AM EDT [facility] Gardnerella vaginalis Negative Negative 07/29/2025 11:14 AM EDT [facility] Lalitha Species Negative Negative 11:14 AM EDT [facility] Swab Vaginal structure / Unknown Non-blood Collection / Unknown 07/28/2025 3:25 PM EDT 07/28/2025 3:25 PM EDT Osvaldo Addison NP LAB MICROBIOLOGY - GENERAL OR DERABLES Final Result [facility] [address] [place] [address], * (ABNORMAL) POC Urine Non-Auto W/O Micro (07/28/2025 3:06 PM EDT) GLUCOSE POC Negative Negative, Trace mg/dL Leukocytes UA POC Negative Negative mg/dL Nitrite UA POC Negative Urobilinogen UA POC 0.2 E.U./dL mg/dL Protein UA POC Positive Positive, Negative PH UA POC 5.0 LAKESHIA/HM UA POC Trace(A) Negative Specific [place] UA POC 1.020 Ketones UA POC Negative Negative Bilirubin UA POC 1+(A) Negative Urine Urine specimen obtained by clean catch procedure / Unknown 07/28/2025 3:06 PM EDT Osvaldo Addison NP POINT OF CARE TEST ENTER/EDIT ORDERABLES Final Result * Urinalysis microscopic only (07/28/2025 3:05 PM EDT) RBC, Urine 1.3 0 - 4 /HPF LAB URINALYSIS - AUTOMATED METHOD 07/28/2025 7:59 PM EDT [facility] WBC, Urine 0.3 0 - 4 /HPF LAB URINALYSIS - AUTOMATED METHOD 07/28/2025 7:59 PM EDT [facility] Squamous Epithelial, Urine 37 0 - 60 /LPF LAB URINALYSIS - AUTOMATED METHOD 07/28/2025 7:59 PM EDT [facility] Bacteria, Urine Negative Negative /HPF LAB URINALYSIS - AUTOMATED METHOD 07/28/2025 7:59 PM EDT [facility] Hyaline Casts, Urine 2.4 0 - 3 /LPF LAB URINALYSIS - AUTOMATED METHOD 07/28/2025 7:59 PM EDT [facility] Urine Urine specimen obtained by clean catch procedure / Unknown Non-blood Collection / Unknown 07/28/2025 3:05 PM EDT 07/28/2025 3:05 PM EDT Osvaldo Addison NP LAB URINE ORDERABLES Final Re sult [facility] [address] [place] [address], * Culture urine (07/28/2025 3:05 PM EDT) Culture, Urine No growth 07/29/2025 2:28 PM EDT [facility] Urine Urine specimen obtained by clean catch procedure / Unknown Non-blood Collection / Unknown 07/28/2025 3:05 PM EDT 07/28/2025 3:05 PM EDT Osvaldo Addison NP LAB MICROBIOLOGY - GENERAL OR DERABLES Final Result Performing Organization Address City/[facility]/ZIP Co de Phone Number [facility] [address] [place] [address], * Trichomonas vaginalis antigen (06/24/2025 11:49 AM EDT) Trichomonas vaginalis Negative Negative 06/24/2025 10:16 PM EDT [facility] Swab Vaginal structure / Unknown Non-blood Collection / Unknown 06/24/2025 11:49 AM EDT 06/24/2025 11:49 AM EDT Monika De Jesus CNM LAB MICROBIOLOGY - GENERAL OR DERABLES Final Result Performing Organization Address City/[facility]/ZIP Co de Phone Number [facility] [address] [place] [address], * (ABNORMAL) Culture Herpes simplex virus (06/24/2025 11:49 AM EDT) Specimen Source Urogenital - Vulvar 06/30/2025 11:20 [...] below the detection threshold. Test performed at [facility], [address] , [place] [address] Jennyfer Lambert MD, PhD - Beverage Dist[employer] Swab Vulval structure / Unknown Non-blood Collection / Unknown 06/24/2025 11:49 AM EDT 06/24/2025 11:49 AM EDT Monika De Jesus [facility] MICROBIOLOGY - GENERAL OR DERABLES Final Result Performing Organization Address City/[facility]/ZIP Co de Phone Number [facility] [address] [place] [address] * Wet prep, genital (06/24/2025 11:49 AM EDT) Clue Cells, Wet Prep Negative Negative 06/24/2025 6:55 PM EDT [facility] Yeast, Wet Prep Negative Negative 06/24/2025 6:55 PM EDT [facility] Trichomonas, Wet Prep Indeterminate Negative 06/24/2025 6:55 PM EDT [facility] Comment:Refer to Trichomonas antigen. Swab Vaginal structure / Unknown Non-blood Collection / Unknown 06/24/2025 11:49 AM EDT 06/24/2025 11:49 AM EDT Monika De Jesus [facility] MICROBIOLOGY - GENERAL OR DERABLES Final Result Performing Organization Address [facility] Co de Phone Number [facility] [address] [place] [address], * MG Mammo Digital Screening w Cody bilat (04/02/2025 10:05 AM EDT) Anatomical Region Laterality Modality Breast Bilateral Mammography 04/02/2025 9:29 AM EDT Impressions 04/02/2025 9:32 AM EDT No mammographic evidence of malignancy. A negative mammogram in the presence of a clinically suspicious palpable abnormality does not preclude the possibility of malignancy or alter the indications for biopsy. PQRI CPT II 3342F Code 26021, 37720 PQRI 225 CPT II 7025F TISSUE DENSITY: There are scattered areas of fibroglandular density. (BI-RADS category B) IMPRESSION: Benign. BI-RADS CATEGORY: 2 - BENIGN RECOMMENDATION: Screening bilateral mammogram is recommended in 1 year. Mammo Location: [facility], [address] [place] [id number] -------- FINAL REPORT -------- Dictated By: Tito Kathleen Dictated Date: 04/02/2025 09:29 ET Assigned Physician: Tito Kathleen Reviewed and Electronically Signed By: Tito Kathleen Signed Date: 04/02/2025 09:32 ET Workstation ID: [id number] Transcribed By: Self Edit Transcribed Date: 04/02/2025 09:29 ET Narrative 04/02/2025 9:32 AM EDT CLINICAL: The patient is a 44 years Female presenting for baseline screening mammography. COMPARISON: None TECHNIQUE: Full-field digital mammography of the breasts bilaterally consisting of tomosynthesis in MLO and CC projection is performed in the [employer] 2000-D unit. Computer aided detection utilizing the [employer] system was utilized. FINDINGS: The breasts are [...] MLO and CC projection is performed in theDynamo Micropower 2000-D unit. Computer aided detection utilizing the iCADsystem was utilized. FINDINGS: The breasts are seen [...] for biopsy. PQRI CPT II 3342F Code 91374, 16726 PQRI 225 CPT II 7025F TISSUE DENSITY: There are scattered areas of fibroglandular density.(BI-RADS category B) IMPRESSION: Benign. BI-RADS CATEGORY: 2 - BENIGN RECOMMENDATION: Screening bilateral mammogram is recommended in 1 year. Mammo Location: [facility], [address] [place] [id number] -------- FINAL REPORT -------- Dictated By: Tito Kathleen Dictated Date: 04/02/2025 09:29 ET Assigned Physician: Tito Kathleen Reviewed and Electronically Signed By: Tito Kathleen Signed Date: 04/02/2025 09:32 ET Workstation ID: [id number] Transcribed By: Self Edit Transcribed Date: 04/02/2025 09:29 ET us Huy Bustos NP IMG BI PROCEDURES Final Result * HIV 1,2 antibody, p24 antigen with reflex to differentiation (03/19/2025 1:01 PM EDT) HIV Combo AB/AG Negative Negative LAB CHEMISTRY METHOD 03/19/2025 8:02 PM EDT [facility] Blood Venous blood specimen / Unknown Venipuncture / Unknown 03/19/2025 1:01 PM EDT 03/19/2025 1:01 PM EDT Narrative [facility] - 03/19/2025 8:02 PM EDT This [...] NP LAB BLOOD ORDERABLES Final Res ult [facility] [address] [place] [address], [place] [phone] * (ABNORMAL) Lipid panel with reflex to direct LDL (03/19/2025 1:01 PM EDT) Cholesterol 221(H) 0 - 200 mg/dL LAB CHEMISTRY METHOD 03/19/2025 7:08 PM EDT [facility] Triglycerides 83 0 - 150 mg/dL LAB CHEMISTRY METHOD 03/19/2025 7:08 PM EDT [facility] HDL 69 >=40 mg/dL LAB CHEMISTRY METHOD 03/19/2025 7:08 PM EDT [facility] LDL Calculated 135(H) 0 - 100 mg/dL LAB CHEMISTRY METHOD 03/19/2025 7:08 PM EDT [facility] VLDL Cholesterol [place] 16.6 mg/dL LAB CHEMISTRY METHOD 03/19/2025 7:08 PM EDT [facility] Non HDL Chol. (LDL+VLDL) 152(H) <145 mg/dL LAB CHEMISTRY METHOD 03/19/2025 7:08 PM EDT [facility] Chol/HDL Ratio 3.2 0.0 - 4.4 LAB CHEMISTRY METHOD 03/19/2025 7:08 PM EDT [facility] Blood Venous blood specimen / Unknown Venipuncture / Unknown 03/19/2025 1:01 PM EDT 03/19/2025 1:01 PM EDT us Huy Bustos [employer] LAB BLOOD ORDERABLES Final Res ult [facility] [address] [place] [address], * Pap smear (01/03/2022) 01/03/2022 Narrative HISTORICAL TESTING LAB RESULTING AGENCY - 01/17/2022 8:16 AM EDT [id number] THINPREP PAP, IMAGED: NEGATIVE FOR SQUAMOUS INTRAEPITHELIAL [...] Last Indicated Herpes simplex 06/24/2025 06/24/2025 Insurance [employer] Care Teams Audit Clerk Relationship Specialty Start Date End Date Marylu Sunshine MD [address] [place] [phone] PCP - General Internal Medicine 09/10/25
== END 2025-09-16 11:00 | disposition home or self-care (01) ==
LOC: HO.PMC 10:19
PROVIDERS: PCP Internal Medicine; Visit Provider Internal Medicine
DX: M96.1 Postlaminectomy syndrome, not elsewhere classified (principal)
CPT/HCPCS: 99024

== ENCOUNTER → 2025-09-16 10:18 | Outpatient (BNVA) | payer OTHER, SELFPAY | PROVIDERS: PCP Internal Medicine; Visit Provider Internal Medicine | DX: M96.1 Postlaminectomy syndrome, not elsewhere classified (principal); Z98.890 Other specified postprocedural states | CPT/HCPCS: 99212 ==

== ENCOUNTER 2025-09-30 09:26 | Outpatient (AMB) | payer OTHER, SELFPAY ==
--- NOTE | 2025-09-30 09:30 | A.OFFVIS_ITS ---
Vital Signs 09/30/25 09:33 Height 5 ft 7 in Weight 173 lb BMI 27.1 BP 113/74 Blood Pressure Location Lt brachial Position Sitting Respiration 16 Pulse 87 Pulse Source Pulse Oximeter Pulse Oximetry (%) 99 Oxygen Delivery Method Room Air Intake Visit Reasons: ? remove dressing from scs implant Tipple Supervisor Required: No Allergies No Known Allergies (No Known Allergies*) Allergy (Verified 09/30/25 09:33) Medication List - Last Reconciled 09/30/25 by Rula Barrera LPN cholecalciferol (vitamin D3) 50 mcg PO DAILY ibuprofen 800 mg PO Q8H PRN lidocaine 5% 1 patch topical DAILY lorazepam 0.5 mg PO DAILY PRN HPI HPI ? remove dressing from scs implant: Details: History of Present Illness The patient is a 45 year old female presenting for a follow-up visit after a spinal cord stimulator implant for post-laminectomy syndrome. She reports that the first week after surgery was very difficult, but her post-surgical pain is now manageable. She states that the spinal cord stimulator is helping with her pain, though she did experience significant pain last night. She reports her pain is heavier at night, prompting her to increase the stimulation setting to as high as 37 or 38, which she considers strong. She finds that cycling through the different programs is helpful for pain control. The device sometimes has connection issues, which she believes may be related to her positioning as the surgical site is still swollen and healing. She feels more secure with a back binder and plans to purchase one. The patient also has complaints of pain in her neck and arm. She reports that before her recent surgery, her right arm went and she had to physically lift it. She has no history of neck surgery but has had prior cervical spine X- rays and MRIs. Past physical therapy has been focused on her back and not her neck. Pain Description - Location: The patient's primary pain is related to post-laminectomy syndrome, with additional complaints in her neck and right arm. - Character: The back pain is described as heavier at night, and she describes her right arm as going . - Exacerbating Factors: Pain is worse at night. - Relieving Factors: She reports that the spinal cord stimulator is helping, and she finds cycling through its programs to be effective. - Treatment: She manages her pain with the spinal cord stimulator and has to turn it up to a setting of 37-38 on occasion to manage severe pain. Physical Exam - Back: Inspection of surgical incisions reveals Steri-Strips are in place. Dry and intact. Results - Imaging: The patient has a history of cervical spine MRIs which show some non- severe issues. Pain Management: - Analgesia: No pain medications are being taken. - She uses a spinal cord stimulator, which she reports is helping with her pain. - She has to increase the stimulation level at night due to increased pain. - Activities of Daily Living: Her post-surgical pain is now manageable. - She is now ready to address her other health concerns, such as her neck and arm pain. - Adverse Effects: She reports intermittent connection issues with the spinal cord stimulator remote. - Affect: She reports feeling more secure when wearing a back binder for support of the stimulator battery. - Aberrant Drug-Related Behaviors: None noted. [facility] Medical History PTSD (post-traumatic stress disorder) Depression (spontaneous vaginal delivery) Anxiety Surgical History History of lumbar fusion H/O tubal ligation Hx of breast reduction, elective Social History Are you a primary property caretaker to a significant other at home: No Do you presently have visiting nurse or other home services: No Alcohol intake: never Patient Tobacco Use Status: Never used Tobacco Second Hand Smoke Exposure: No Substance Use Type: Marijuana Physical Exam Vital Signs: Last Vital Signs Pulse 87 09/30/25 09:33 Resp 16 09/30/25 09:33 BP 113/74 09/30/25 09:33 Pulse Ox 99 09/30/25 09:33 Oxygen Delivery Method Room Air 09/30/25 09:33 BMI result Body Mass Index 27.1 Assessment & Plan Assessment & Plan (1) Cervical radicular pain: Code(s): M54.12 - Radiculopathy, cervical region Category: Medical Plan Plan Patient was informed and verbally consented to the use of an ambient scribe for clinic note documentation during this visit. 1. Post-Laminectomy Syndrome, Status Post Spinal Cord Stimulator Implant - The patient is recovering from her recent spinal cord stimulator implant, with manageable post-surgical pain. - Continue use of the spinal cord stimulator for chronic pain management, including cycling through programs as needed. - The patient may purchase a back binder for additional support. - Surgical incisions appear to be healing well. 2. Cervicalgia With Right-Sided Radiculopathy - A referral for physical therapy will be placed to address the patient's neck pain and right arm symptoms. - The patient is encouraged to perform home exercises with dumbbells to work the nerves and muscles. Discussion Notes I have reviewed the patient's progress following her recent spinal cord stimulator implantation for post-laminectomy syndrome. We discussed that while her post-surgical pain is improving and manageable, her underlying chronic pain persists, particularly at night. I acknowledged her effective use of the stimulator, including cycling programs for relief, and advised her she could obtain a back binder for added support. We also discussed her new complaint of neck pain and right arm weakness. I informed her that a review of her prior cervical MRI showed some non-severe issues. I have ordered physical therapy for her neck and recommended she start home exercises with dumbbells, explaining that working the nerves can help them feel better over time. Patient Instructions - The physical therapy department will call you to schedule an appointment for your neck and arm pain. - You can purchase a back binder for extra support from a pharmacy, medical supply store, or online. - Allow the Steri-Strips (sticky tapes) on your back incisions to fall off on their own, which may happen when you shower. - Start doing some exercises with light dumbbells at home for your neck and arm. - You are not taking any pain medications and should continue to avoid them. Orders: Orders PT Evaluation and Treatment Today M54.12 - Radiculopathy, cervical region Coding Level of Care Code Est Pt Level 3 (04747) Diagnoses Cervical radicular pain M54.12
[2025-09-30 09:33] VITALS: BP 113/74; PULSE 87; RESP 16; O2SAT 99; BMI 27.1
--- OUTSIDE RECORDS SUMMARY | 2025-09-30 09:43 | XMS_ITS | Clinical Summary ---
Author Organization [facility], Address [address] [place] [address] Phone Care Team Providers Care Juice Standardizer Name Role Phone Hernandez Hathaway Primary Care Provider [phone] Medications escitalopram (LEXAPRO) 20 MG tablet Take [...] Vaccine (#1) 2025 07/26/[address] [place] [address] [place] [address] [facility] [employer] Care Teams Juice Standardizer Relationship Specialty Start Date End Date Hernandez Hathaway [address] [place] [id number] PCP - General Internal Medicine 08/11/22
--- OUTSIDE RECORDS SUMMARY | 2025-09-30 09:43 | XMS_ITS | Clinical Summary ---
Author Organization [employer] Address [address] [place] [address] 7 [place] [address] Care Team Providers Care Reading Specialist Name Role Phone Unavailable Primary Care Provider [...] patient's age to complete this topic Insurance [employer] Member Subscriber Plan / Payer (Ef fective 2022-Present) Name:Lo Mccarty Relation to Subscriber:Self Name:Lo Mccarty Payer ID:Not on file Group ID:Not on file Type:Medicaid Address: [address] [place] [address] [place] [address] [employer]
--- OUTSIDE RECORDS SUMMARY | 2025-09-30 09:43 | XMS_ITS | Encounter Summary ---
Author Organization [facility] Address [address] [place] [address] Care Team Providers Care Gallery Director Name Role Phone Marylu Sunshine MD Primary Care Provider [phone] Encounter Details Date Type Department Care Team (Late Contact Info) Description 07/29/2025 Results Follow-Up Walk-In Clinic - [facility] [address] [place] [phone] Osvaldo Addison, [place] [address] [place], [place] [phone] Social History Tobacco Use Types Packs/Day Years [...] 10/13/2025 10:00 AM EST Office Visit [facility] [address] [facility] [address] [place] [phone] Aldo Barnes MD [address] [place] [address] 11/05/2025 10:00 AM EST Treatment Pelvic Floor Rehabilitation - [address] [phone] Alysia Roper, PT [address] [address] documented as of this encounter Visit Diagnoses Not on filedocumented in this encounter Additional Health Concerns Infection Onset Date Last Indicated Resolved Time Herpes simplex 06/24/2025 06/24/2025 documented as of this encounter Care Teams Gallery Director Relationship Specialty Start Date End Date Marylu Sunshine MD [address] [facility] [place] [address] PCP - General Internal Medicine 09/10/25 documented as of this encounter
--- OUTSIDE RECORDS SUMMARY | 2025-09-30 09:43 | XMS_ITS | Clinical Summary ---
Author Organization [place] [address] Silvina cano [facility] Building Address [facility] [place] [address] Phone Care Team Providers Care Freight Agent Name Role Phone Marylu Sunshine MD Primary Care Provider [phone] Allergies No known active allergies Medications LORazepam [...] 30 each 11 5 10/14/19 26 Active Additional Information Patient not taking.Reported on 09/22/2025 Ventolin HFA 90 mcg/actuation inhalerIndicatio ns:Mild intermittent asthma, unspecified whether complicated INHALE 2 PUFFS BY MOUTH EVERY 4 (FOUR) HOURS IF NEEDED FOR WHEEZING OR SHORTNESS OF BREATH. 18 each 1 5 Active ibuprofen (ADVIL,MOTRIN) 800 mg tablet Take 1 tablet (800 mg total) by mouth every 6 (six) hours if needed for mild pain. Active pantoprazole (PROTONIX) 40 mg EC tabletIndication s:Epigastric pain Take 1 tablet (40 mg total) by mouth 1 (one) time each day. 90 each 3 5 05/11/20 26 Active Additional Information Patient not taking.Reported on 09/22/2025 valACYclovir (Valtrex) 500 mg tablet Take 1 tablet (500 mg total) by mouth 1 (one) time each day. 30 each 06/30/20 26 Active Active Problems Problem Noted [...] unable to use the left hand to hop picker her coffee cup, which scared her. [...] cervical MRI I could find was at [facility] in 2019, patient had C5-6 spondylosis [...] Encounters Date Type Department Care Team Description 09/22/2025 1:30 PM EST Office Visit Internal Medicine - [address] [phone] Marylu Sunshine MD Chronic back pain, unspecified back location, unspecified back pain laterality (Primary Dx); Mild intermittent asthma, unspecified whether complicated; Herniated cervical disc; Degeneration of intervertebral disc of lumbar region with discogenic back pain; Migraine without aura and without status migrainosus, not intractable; Discogenic low back pain 09/10/2025 Telephone Internal Medicine - [address] [phone] Marylu Sunshine MD 08/03/2025 11:00 AM EST Office Visit Urogynecology [address] [phone] Janee Peña MD Urge incontinence (Primary Dx); Urinary urgency; Urinary frequency; Nocturia; LAURA (stress urinary incontinence, female); Feeling of incomplete bladder emptying 07/29/2025 Telephone Walk-In Clinic - [address] [phone] Osvaldo Addison NP 07/29/2025 Telephone Walk-In [facility] - [address] [phone] Osvaldo Addison NP 07/29/2025 Results Follow-Up Walk-In [facility] - [address] [phone] Osvaldo Addison NP 07/28/2025 3:00 PM EDT Office Visit Walk-In [address] [address] Osvaldo Addison NP Lower urinary tract symptoms (LUTS) (Primary Dx) 07/28/2025 Telephone Internal Medicine - [address] [phone] Hernandez Leon MD 06/30/2025 Results Follow-Up [facility] - Maternity [address] [place] [address] Monika De Jesus CNM from Last 3 Months Immunizations Immunization Administration Dates Next Due Influenza Quadravalent, MDCK , 0.5ml, with preservative (Flucelvax) 6mo and older 07/26/2018 Pfizer SARS-CoV-2 COVID-19, mRNA, LNP-S, preservative free 11/21/2022 Surgical History Surgery Date Site/Laterality Comments BREAST REDUCTION 1997 PROCEDURE: GA BREAST REDUCTION CERVICAL BIOPSY W/ LOOP ELECTRODE EXCISION 2009 PROCEDURE: GA CONIZATION CERVIX W/WO D&C RPR ELTRD EXC [...] history presenting hazards to health(V15.89); COMMENT: LEEP 2010 LU 1-2 free margins Bulge of [...] pont Epidur al Livin g Sir Delivery Location:[facility] 2010 Term 41w 2d 11h 36m/ 2895 g (102.1 oz) F Vag-S pont Epidur al Livin g 8 9 Nunu Chang MD Delivery Location:[facility] Comments:GBS neg, true knot and loose [...] EDT Inhaled Oxygen Concentration - - Weight 80.7 kg (177 lb 14.4 oz) 09/22/2025 1:30 PM EST Height 170.2 cm (5' 7 ) 09/22/2025 1:30 PM EST Body Mass Index 27.86 09/22/2025 1:30 PM EST Plan of Treatment Upcoming Encounters Date Type Department Care Team (Late st Contact Info) Description 10/13/2025 10:00 AM EST Office Visit [facility] [address] [place] [phone] Aldo Barnes MD [address] [place] [address] 11/05/2025 10:00 AM EST Treatment Pelvic Floor Rehabilitation - [address] [phone] Alysia Roper, PT [address] [address] Health Maintenance Due Date Last Done Comments [...] 09/09/2022 Social Influencers of Health Screening 09/09/2022 Cervical Cancer Screening: P ap Smear 01/03/2025 01/03/2022, 08/05/2019 COVID-19 Vaccine (2 - 2024-2 6 season) 2025 11/21/2022 Influenza Vaccine (#1) 2025 8, 12/31/2015 DTaP,Tdap,and Td Vaccines (2 - Td or Tdap) 02/09/2026 02/10/2016 Breast Cancer Screening 04/02/2027 04/02/20, 01/05/2022, 08/13/2019 Cholesterol Screening (Lipid Panel) 03/19/2030 03/19/2025 RSV Immunization Adult Patients (1 - 1-dose 75+ series) 2056 HIV Screening Completed 03/19/2025 Depression Screening Completed 09/22/2025 HIB Vaccines Aged Out No longer eligi [...] PM EDT Lower urinary tract symptoms (LUTS) MG MAMMO DIGITAL SCREENING W CODY BILAT [...] Negative Ketones UA POC Negative Negative Specific Soso UA POC 1.015 Blood UA POC Negative [...] vaginalis Negative Negative 07/29/2025 11:14 AM EDT [facility] Gardnerella vaginalis Negative Negative 07/29/2025 11:14 AM EDT [facility] Lalitha Species Negative Negative 11:14 AM EDT [facility] Swab Vaginal structure / Unknown Non-blood Collection / Unknown 07/28/2025 3:25 PM EDT 07/28/2025 3:25 PM EDT Osvaldo Addison NP LAB MICROBIOLOGY - GENERAL OR DERABLES Final Result [facility] [address] [place] [address], [place] [phone] * (ABNORMAL) POC Urine Non-Auto W/O Micro (07/28/2025 3:06 PM EDT) GLUCOSE POC Negative Negative, Trace mg/dL Leukocytes UA POC Negative Negative mg/dL Nitrite UA POC Negative Urobilinogen UA POC 0.2 E.U./dL mg/dL Protein UA POC Positive Positive, Negative PH UA POC 5.0 LAKESHIA/HM UA POC Trace(A) Negative Specific Soso UA POC 1.020 Ketones UA POC Negative Negative Bilirubin UA POC 1+(A) Negative Urine Urine specimen obtained by clean catch procedure / Unknown 07/28/2025 3:06 PM EDT Osvaldo Addison NP POINT OF CARE TEST ENTER/EDIT ORDERABLES Final Result * Urinalysis microscopic only (07/28/2025 3:05 PM EDT) RBC, Urine 1.3 0 - 4 /HPF LAB URINALYSIS - AUTOMATED METHOD 07/28/2025 7:59 PM EDT [facility] WBC, Urine 0.3 0 - 4 /HPF LAB URINALYSIS - AUTOMATED METHOD 07/28/2025 7:59 PM EDT [facility] Squamous Epithelial, Urine 37 0 - 60 /LPF LAB URINALYSIS - AUTOMATED METHOD 07/28/2025 7:59 PM EDT [facility] Bacteria, Urine Negative Negative /HPF LAB URINALYSIS - AUTOMATED METHOD 07/28/2025 7:59 PM EDT [facility] Hyaline Casts, Urine 2.4 0 - 3 /LPF LAB URINALYSIS - AUTOMATED METHOD 07/28/2025 7:59 PM EDT [facility] Urine Urine specimen obtained by clean catch procedure / Unknown Non-blood Collection / Unknown 07/28/2025 3:05 PM EDT 07/28/2025 3:05 PM EDT us Osvaldo Addison NP LAB URINE ORDERABLES Final Re sult Performing Organization Address [facility]/ZIP Co de Phone Number [facility] [address] [place] [address], [place] [phone] * Culture urine (07/28/2025 3:05 PM EDT) Culture, Urine No growth 07/29/2025 2:28 PM EDT [facility] Urine Urine specimen obtained by clean catch procedure / Unknown Non-blood Collection / Unknown 07/28/2025 3:05 PM EDT 07/28/2025 3:05 PM EDT us Osvaldo Addison NP LAB MICROBIOLOGY - GENERAL OR DERABLES Final Result Performing Organization Address City/[facility]/ZIP Co de Phone Number [facility] [address] [place] [address], [place] [phone] * MG Mammo Digital Screening w Cody bilat (04/02/2025 10:05 AM EDT) Anatomical Region Laterality Modality Breast Bilateral Mammography 04/02/2025 9:29 AM EDT Impressions 04/02/2025 9:32 AM EDT No mammographic evidence of malignancy. A negative mammogram in the presence of a clinically suspicious palpable abnormality does not preclude the possibility of malignancy or alter the indications for biopsy. PQRI CPT II 3342F Code 86088, 54853 PQRI 225 CPT II 7025F TISSUE DENSITY: There are scattered areas of fibroglandular density. (BI-RADS category B) IMPRESSION: Benign. BI-RADS CATEGORY: 2 - BENIGN RECOMMENDATION: Screening bilateral mammogram is recommended in 1 year. Mammo Location: [facility], [address] [place] [id number] -------- FINAL REPORT -------- Dictated By: Tito Kathleen Dictated Date: 04/02/2025 09:29 ET Assigned Physician: Tito Kathleen Reviewed and Electronically Signed By: Tito Kathleen Signed Date: 04/02/2025 09:32 ET Workstation ID: [id number] Transcribed By: Self Edit Transcribed Date: 04/02/2025 09:29 ET Narrative 04/02/2025 9:32 AM EDT CLINICAL: The patient is a 44 years Female presenting for baseline screening mammography. COMPARISON: None TECHNIQUE: Full-field digital mammography of the breasts bilaterally consisting of tomosynthesis in MLO and CC projection is performed in the [employer] 2000-D unit. Computer aided detection utilizing the [...] MLO and CC projection is performed in theSwitchable Solutionsographe 2000-D unit. Computer aided detection utilizing the Savosolarystem was utilized. FINDINGS: The breasts are seen [...] for biopsy. PQRI CPT II 3342F Code 19747, 42597 PQRI 225 CPT II 7025F TISSUE DENSITY: There are scattered areas of fibroglandular density.(BI-RADS category B) IMPRESSION: Benign. BI-RADS CATEGORY: 2 - BENIGN RECOMMENDATION: Screening bilateral mammogram is recommended in 1 year. Mammo Location: [facility], [address] [place] [phone] -------- FINAL REPORT -------- Dictated By: Tito Kathleen Dictated Date: 04/02/2025 09:29 ET Assigned Physician: Tito Kathleen Reviewed and Electronically Signed By: Tito Kathleen Signed Date: 04/02/2025 09:32 ET Workstation ID: [id number] Transcribed By: Self Edit Transcribed Date: 04/02/2025 09:29 ET Huy Bustos NP IMG BI PROCEDURES Final Result * HIV 1,2 antibody, p24 antigen with reflex to differentiation (03/19/2025 1:01 PM EDT) HIV Combo AB/AG Negative Negative LAB CHEMISTRY METHOD 03/19/2025 8:02 PM EDT [facility] Blood Venous blood specimen / Unknown Venipuncture / Unknown 03/19/2025 1:01 PM EDT 03/19/2025 1:01 PM EDT Narrative [facility] - 03/19/2025 8:02 PM EDT This assay is a 4th generation assay allowing for earlier detection of HIV infection by detecting the presence of the HIV-1 p24 antigen as well as the traditional antibodies to HIV type 1 (including group O) and type 2. Use of a 4th generation assay is the current CDC recommendation for HIV screening. Huy Bustos NP LAB BLOOD ORDERABLES Final Res ult [facility] [address] [place] [address], [place] [phone] * (ABNORMAL) Lipid panel with reflex to direct LDL (03/19/2025 1:01 PM EDT) Cholesterol 221(H) 0 - 200 mg/dL LAB CHEMISTRY METHOD 03/19/2025 7:08 PM EDT [facility] Triglycerides 83 0 - 150 mg/dL LAB CHEMISTRY METHOD 03/19/2025 7:08 PM EDT [facility] HDL 69 >=40 mg/dL LAB CHEMISTRY METHOD 03/19/2025 7:08 PM EDT [facility] LDL Calculated 135(H) 0 - 100 mg/dL LAB CHEMISTRY METHOD 03/19[facility]2025 7:[facility] VLDL Cholesterol [place] 16.6 mg/dL LAB CHEMISTRY METHOD 03/19/2025 7:08 PM EDT [facility] Non HDL Chol. (LDL+VLDL) 152(H) <145 mg/dL LAB CHEMISTRY METHOD 03/19/2025 7:08 PM EDT [facility] Chol/HDL Ratio 3.2 0.0 - 4.4 LAB CHEMISTRY METHOD 03/19/2025 7:08 PM [facility] Blood Venous blood specimen / Unknown Venipuncture / Unknown 03/19/2025 1:01 PM EDT 03/19/2025 1:01 PM EDT Huy Bustos [employer] LAB BLOOD ORDERABLES Final Res ult [facility] [address] [place] [address], * Pap smear (01/03/2022) 01/03/2022 Narrative HISTORICAL TESTING LAB RESULTING AGENCY - 01/17/2022 8:16 AM EDT [id number] THINPREP PAP, IMAGED: NEGATIVE FOR SQUAMOUS INTRAEPITHELIAL [...] 2008, LMP 12/29/21, [Z12.4] us Hanny Sood CNM LAB CYTOLOGY ORDERABLES Katja l Result HISTORICAL TESTING LAB RESULTING AGENCY from Last 3 Months or Most Recently Relevant to Health Maintenance Additional Health Concerns Infection Onset Date Last Indicated Herpes simplex 06/24/2025 06/24/2025 Insurance [facility] Care Teams Freight Agent Relationship Specialty Start Date End Date Marylu Sunshine MD [phone] [place] [address] PCP - General Internal Medicine 09/10/25
== END 2025-09-30 09:40 | disposition home or self-care (01) ==
LOC: HO.PMC 09:26
PROVIDERS: PCP Internal Medicine; Visit Provider Internal Medicine
DX: M54.12 Radiculopathy, cervical region (principal)
CPT/HCPCS: 99213

== ENCOUNTER → 2025-09-30 09:26 | Outpatient (BNVA) | payer OTHER, SELFPAY | PROVIDERS: PCP Internal Medicine; Visit Provider Internal Medicine | DX: M54.12 Radiculopathy, cervical region (principal); M96.1 Postlaminectomy syndrome, not elsewhere classified; G89.29 Other chronic pain; Z96.82 Presence of neurostimulator | CPT/HCPCS: 99212 ==